=== PATIENT | female | born 1970 | race Hispanic/Latino ===

== ENCOUNTER 2018-04-28 07:53 | Emergency (ER) | payer BC, OTHER ==
--- OUTSIDE RECORDS SUMMARY | 2018-04-28 07:55 | XMS REPORT | Clinical Summary ---
:1970 Author Organization [facility] Address [address] [place] [address] Phone Care Team Providers Name Role Phone Unavailable Primary Care Provider Unavailable Allergies No Known Allergies Current Medications Prescription Sig. Disp. Refills Start Date End Date Status TRIAMTERENE ORAL Take 75 mg by mouth Active daily . clonazePAM (KLONOPIN) 1 Take 1 mg by mouth Active MG tablet 2 (two) times daily as needed for Anxiety One in AM, and one in the after noon. buprenorphine-naloxone Place 1 tablet Active 8-2 mg Subl under the tongue 2 (two) times daily. desvenlafaxine succinate Take 100 mg by Active (PRISTIQ) 100 MG 24 hr mouth daily. tablet metFORMIN (GLUCOPHAGE) Take 1,000 mg by Active 1000 MG tablet mouth 2 (two) times daily with breakfast and dinner. omeprazole (PRILOSEC) 40 Take 40 mg by mouth Active MG capsule daily. oxybutynin (DITROPAN-XL) Take 5 mg by mouth Active 5 MG 24 hr tablet 2 (two) times daily. ondansetron (ZOFRAN-ODT) Take 4 mg by mouth Active 4 MG disintegrating every 8 (eight) tablet hours as needed for Nausea. milnacipran (SAVELLA) 100 Take 100 mg by Active mg Tab mouth 2 (two) times daily. TiZANidine (ZANAFLEX) 4 Take 4 mg by mouth Active MG capsule 3 (three) times daily. nyynujuj-keojpfxuv-zgrlie For 10 days 3.5 g 0 04/19/2017 Active thasone (POLYDEX) 3.5 suppley. 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 Diabetes mellitus, type 2 (HCC) 04/15/2017 Opioid dependence ([facility]) 04/15/2017 Immunizations Name Dates Previously Given Next Due Tdap 04/16/2017 Social History Tobacco Use Types Packs/Day Years Used Date Former Smoker Alcohol Use Drinks/Week oz/Week Comments No Sex Assigned at Date Recorded Not on file Last Filed Vital Signs Not on file Plan of Treatment Not on file Results Not on fileafter 04/27/2017
--- OUTSIDE RECORDS SUMMARY | 2018-04-28 07:56 | XMS REPORT ---
:1970 [facility] Address [address] [place] [address] Dr. He [address] [place] [id number] Care Team Providers Name Role Phone NICKOLAS SINGH Unavailable Unavailable Problems This patient has no known problems. Allergies, Adverse Reactions, Alerts This patient has no known allergies or adverse reactions. Medications This patient has no known medications. Results Test Description Test Time Test Comments Text Results Atomic Results Result Comments ANAEROBIC CULTURE 2017-04-22 03:45:00 Test Item Value Reference Range Comments CULTURE (BEAKER) (test kbkk=9831) No anaerobes isolated TISSUE [id number] 15:59:00Surgical Pathology Report Case: [id number] Authorizing Provider: Jimenez Mcintosh MD Collected: 04/17/2017 1759 Ordering Location: [facility] Received: 04/18/2017 0801 SERVICES Pathologist: Antonette Mario MD Specimen: Eyelid , Left, Left eyelid abscess SKIN, LEFT EYELID, ABSCESS, DEBRIDEMENT:- SKIN WITH ABSCESS- GRAM POSITIVE COCCI IN CLUSTERS (DIONICIO) Please correlate with corresponding microbiology cultures. [id number]; [id number] x 3Left upper eyelid abscessLeft eyelid abscess The specimen is received in a formalin-filled container labeled with the patient's information and labeled "left eyelid abscess" and consists of multiple irregular fragments of montiel dusky soft tissue measuring 2 x 1 x 0.4 cm in aggregate, submitted entirely in A1. CG/ew AFB is negative for acid fast bacteria. GMS is negative for fungus.The following special studies were performed on this case and the interpretation is incorporated in the diagnostic report above: AFB, Dionicio, GMS (block A1).BLOOD [id number] 18:00 :00 Test Item Value Reference Range Comments CULTURE (BEAKER) (test azaf=2405) No growth in 5 days WOUND CULTURE + GRAM [id number] 08:51:00 Test Item Value Reference Range Comments CULTURE (BEAKER) (test METHICILLIN RESISTANT 1+ Methicillin yfux=3561) STAPHYLOCOCCUS AUREUS resistant Staphylococcus aureus Ampicillin (test code=26) Ciprofloxacin (test code=7) Clindamycin (test code=10) Daptomycin (test code=59) Erythromycin (test code=4) Gentamicin (test code=18) Gentamicin High Level Synergy (test cgnh=157) Levofloxacin (test code=22) Linezolid (test code=40) Moxifloxacin (test code=36) Nitrofurantoin (test code=23) Oxacillin (test code=14) Rifampin (test code=43) Streptomycin High Level Synergy (test kkxk=748) Tetracycline (test code=2) Tigecycline (test oefx=423) Trimethoprim + Sulfamethoxazole (test code=47) Vancomycin (test code=13) GRAM STAIN RESULT No WBCs (BEAKER) (test xeab=5340) GRAM STAIN RESULT No organisms seen (BEAKER) (test loea=048384) Florentin elieser=21SURGICALLY OBTAINED CULTURE + GRAM [id number] 07:47:00 Test Item Value Reference Range Comments CULTURE (BEAKER) (test 1+ Same organism has been gjxi=3815) isolated from cultures(s) of the same body site and collection date. Repeat identification and susceptibility testing performed only after consultation with the clinical microbiology laboratory.Refer to previous culture ofMethicillin resistant Staphylococcus aureus GRAM STAIN RESULT 1+ WBCs (BEAKER) (test rxjt=3020) GRAM STAIN RESULT No organisms seen (BEAKER) (test wbfp=334941) POCT-GLUCOSE [id number] 08:26:00 Test Item Value Reference Range Comments POC-GLUCOSE METER (BEAKER) 124 mg/dL 70-110 [facility]ED AT [facility] [address] [facility] (test pxmv=6588[facility] [address] CBC (HEMOGRAM ONLY)2017-04-19 06:23:00 Test Item Value Reference Range Comments WHITE BLOOD CELL COUNT (BEAKER) (test nsgw=650) 4.4 K/ L 4.0-10.0 RED BLOOD CELL COUNT (BEAKER) (test rbid=244) 3.56 M/ L 4.00-5.00 HEMOGLOBIN (BEAKER) (test lmuk=601) 10.8 GM/DL 12.0-15.0 HEMATOCRIT (BEAKER) (test sfnt=661) 32.7 % 36.0-45.0 MEAN CORPUSCULAR VOLUME (BEAKER) (test ggvs=451) 91.8 fL 82.0-99.0 MEAN CORPUSCULAR HEMOGLOBIN (BEAKER) (test 30.4 pg 27.0-33.0 mzpe=934) MEAN CORPUSCULAR HEMOGLOBIN CONC (BEAKER) (test 33.1 GM/DL 32.0-36.0 idet=799) RED CELL DISTRIBUTION WIDTH (BEAKER) (test 12.7 % 10.3-14.2 bipc=331) PLATELET COUNT (BEAKER) (test gxqc=707) 254 K/CU MM 150-430 MEAN PLATELET VOLUME (BEAKER) (test mwgf=019) 5.8 fL 6.5-10.5 NUCLEATED RED BLOOD CELLS (BEAKER) (test 0 /100 WBC 0-0 adsg=414) 0.00BASIC METABOLIC [id number] 05:40:00 Test Item Value Reference Range Comments SODIUM (BEAKER) (test 140 meq/L 136-145 fsgs=642) POTASSIUM (BEAKER) (test 3.7 meq/L 3.5-5.1 rzph=586) CHLORIDE (BEAKER) (test 106 meq/L 98-107 wbbr=029) CO2 (BEAKER) (test 26 meq/L 22-29 aihy=696) BLOOD UREA NITROGEN 4 mg/dL 7-21 (BEAKER) (test jmjn=077) CREATININE (BEAKER) (test 0.69 mg/dL 0.57-1.25 phyr=049) GLUCOSE RANDOM (BEAKER) 132 mg/dL 70-105 (test rasn=506) CALCIUM (BEAKER) (test 8.6 mg/dL 8.4-10.2 ciqf=412) EGFR (BEAKER) (test 91 mL/min/1.73 sq m ESTIMATED GFR IS NOT vmrt=1708) ACCURATE CREATININE CLEARANCE IN PREDICTING GLOMERULAR FILTRATION RATE. ESTIMATED GFR IS NOT APPLICABLE FOR DIALYSIS PATIENTS. POCT-GLUCOSE [id number] 21:12:00 Test Item Value Reference Range Comments POC-GLUCOSE METER (BEAKER) 154 mg/dL 70-110 TESTED AT [address] (test noci=4135) [place] [id number] POCT-GLUCOSE [id number] 16:18:00 Test Item Value Reference Range Comments POC-GLUCOSE METER (BEAKER) 137 mg/dL 70-110 TESTED AT [address] (test zvxh=6676) [place] [address] POCT-GLUCOSE [id number] 11:57:00 Test Item Value Reference Range Comments POC-GLUCOSE METER (BEAKER) 123 mg/dL 70-110 TESTED AT [address] (test jdpu=2842) [place] [address] POCT-GLUCOSE [id number] 07:25:00 Test Item Value Reference Range Comments POC-GLUCOSE METER (BEAKER) 126 mg/dL 70-110 TESTED AT [address] (test yxzw=0862) [place] [address] [id number] 05:33:00 Test Item Value Reference Range Comments MAGNESIUM (BEAKER) (test dbgp=307) 2.4 mg/dL 1.6-2.6 POCT-GLUCOSE [id number] 23:17:00 Test Item Value Reference Range Comments POC-GLUCOSE METER (BEAKER) 165 mg/dL 70-110 TESTED AT [address] (test eihs=9310) [place] [id number] POCT-GLUCOSE [id number] 18:35:00 Test Item Value Reference Range Comments POC-GLUCOSE METER (BEAKER) 110 mg/dL 70-110 TESTED AT [address] (test auav=4223) [place] [address] CBC W/PLT COUNT & AUTO [id number] 14:01:00 Test Item Value Reference Range Comments WHITE BLOOD CELL COUNT (BEAKER) (test rloh=892) 6.3 K/ L 4.0-10.0 RED BLOOD CELL COUNT (BEAKER) (test zjvb=881) 3.64 M/ L 4.00-5.00 HEMOGLOBIN (BEAKER) (test ouvg=690) 11.3 GM/DL 12.0-15.0 HEMATOCRIT (BEAKER) (test kozu=834) 33.6 % 36.0-45.0 MEAN CORPUSCULAR VOLUME (BEAKER) (test flnm=770) 92.3 fL 82.0-99.0 MEAN CORPUSCULAR HEMOGLOBIN (BEAKER) (test 31.0 pg 27.0-33.0 gxjw=850) MEAN CORPUSCULAR HEMOGLOBIN CONC (BEAKER) (test 33.6 GM/DL 32.0-36.0 bmhy=601) RED CELL DISTRIBUTION WIDTH (BEAKER) (test 12.7 % 10.3-14.2 gnqc=847) PLATELET COUNT (BEAKER) (test pufp=488) 249 K/CU MM 150-430 MEAN PLATELET VOLUME (BEAKER) (test ycvm=919) 5.9 fL 6.5-10.5 NUCLEATED RED BLOOD CELLS (BEAKER) (test 0 /100 WBC 0-0 xrbd=254) NEUTROPHILS RELATIVE PERCENT (BEAKER) (test 44 % iscy=938) LYMPHOCYTES RELATIVE PERCENT (BEAKER) (test 46 % kmni=258) MONOCYTES RELATIVE PERCENT (BEAKER) (test 7 % bbzr=238) EOSINOPHILS RELATIVE PERCENT (BEAKER) (test 2 % dsnb=958) BASOPHILS RELATIVE PERCENT (BEAKER) (test 1 % ghbj=457) NEUTROPHILS ABSOLUTE COUNT (BEAKER) (test 2.78 K/ L 1.80-8.00 qvek=968) LYMPHOCYTES ABSOLUTE COUNT (BEAKER) (test 2.91 K/ L 1.48-4.50 sisx=302) MONOCYTES ABSOLUTE COUNT (BEAKER) (test 0.43 K/ L 0.00-1.30 jlfz=219) EOSINOPHILS ABSOLUTE COUNT (BEAKER) (test 0.11 K/ L 0.00-0.50 myap=786) BASOPHILS ABSOLUTE COUNT (BEAKER) (test 0.04 K/ L 0.00-0.20 yxgc=860) 0.00(MANUAL DIFFERENTIAL)2017-04-17 14:01:00 Test Item Value Reference Range Comments TOTAL COUNTED (BEAKER) (test zudy=6658) WBC MORPHOLOGY (BEAKER) (test mgrx=807) Normal PLT MORPHOLOGY (BEAKER) (test tprk=511) Normal RBC MORPHOLOGY (BEAKER) (test ubrz=038) Normal POCT-GLUCOSE [id number] 12:17:00 Test Item Value Reference Range Comments POC-GLUCOSE METER (BEAKER) 131 mg/dL 70-110 TESTED AT [address] (test hxaa=4509) [facility] [address] POCT-GLUCOSE [id number] 08:36:00 Test Item Value Reference Range Comments POC-GLUCOSE METER (BEAKER) 128 mg/dL 70-110 TESTED AT [address] (test oopq=5183) [facility] [address] [id number] 06:13:00 Test Item Value Reference Range Comments MAGNESIUM (BEAKER) (test cfrf=727) 2.1 mg/dL 1.6-2.6 BASIC METABOLIC [id number] 06:13:00 Test Item Value Reference Range Comments SODIUM (BEAKER) (test 139 meq/L 136-145 fdxy=241) POTASSIUM (BEAKER) (test 3.6 meq/L 3.5-5.1 gclf=275) CHLORIDE (BEAKER) (test 102 meq/L 98-107 yzwa=411) CO2 (BEAKER) (test 28 meq/L 22-29 vpue=901) BLOOD UREA NITROGEN 4 mg/dL 7-21 (BEAKER) (test qeut=172) CREATININE (BEAKER) (test 0.63 mg/dL 0.57-1.25 nbhv=742) GLUCOSE RANDOM (BEAKER) 164 mg/dL 70-105 (test qcfj=547) CALCIUM (BEAKER) (test 8.6 mg/dL 8.4-10.2 nrdi=702) EGFR (BEAKER) (test 101 mL/min/1.73 sq m ESTIMATED GFR IS NOT jznn=8029) ACCURATE CREATININE CLEARANCE IN PREDICTING GLOMERULAR FILTRATION RATE. ESTIMATED GFR IS NOT APPLICABLE FOR DIALYSIS PATIENTS. POCT-GLUCOSE [id number] 20:32:00 Test Item Value Reference Range Comments POC-GLUCOSE METER (BEAKER) 131 mg/dL 70-110 TESTED AT [address] (test yvah=5605) [facility] [address] POCT-GLUCOSE [id number] 19:08:00 Test Item Value Reference Range Comments POC-GLUCOSE METER (BEAKER) 126 mg/dL 70-110 TESTED AT [address] (test glzq=8730) [facility] [address] POCT-GLUCOSE [id number] 12:51:00 Test Item Value Reference Range Comments POC-GLUCOSE METER (BEAKER) 178 mg/dL 70-110 TESTED AT [facility] [address] [facility] (test ipmo=0617) [facility] [address] POCT-GLUCOSE [id number] 08:42:00 Test Item Value Reference Range Comments POC-GLUCOSE METER (BEAKER) 131 mg/dL 70-110 TESTED AT [place] [id number] [facility] (test tqze=1196) [facility] [address] CBC W/PLT COUNT & AUTO [id number] 06:32:00 Test Item Value Reference Range Comments WHITE BLOOD CELL COUNT (BEAKER) (test iysd=788) 8.2 K/ L 4.0-10.0 RED BLOOD CELL COUNT (BEAKER) (test sheh=218) 4.07 M/ L 4.00-5.00 HEMOGLOBIN (BEAKER) (test knpp=884) 12.5 GM/DL 12.0-15.0 HEMATOCRIT (BEAKER) (test rjya=809) 37.0 % 36.0-45.0 MEAN CORPUSCULAR VOLUME (BEAKER) (test orzi=197) 91.0 fL 82.0-99.0 MEAN CORPUSCULAR HEMOGLOBIN (BEAKER) (test 30.8 pg 27.0-33.0 awjc=254) MEAN CORPUSCULAR HEMOGLOBIN CONC (BEAKER) (test 33.8 GM/DL 32.0-36.0 bycm=826) RED CELL DISTRIBUTION WIDTH (BEAKER) (test 12.7 % 10.3-14.2 bvqq=173) PLATELET COUNT (BEAKER) (test amcv=476) 256 K/CU MM 150-430 MEAN PLATELET VOLUME (BEAKER) (test kerm=019) 5.7 fL 6.5-10.5 NUCLEATED RED BLOOD CELLS (BEAKER) (test 0 /100 WBC 0-0 nvom=730) NEUTROPHILS RELATIVE PERCENT (BEAKER) (test 55 % usak=099) LYMPHOCYTES RELATIVE PERCENT (BEAKER) (test 36 % fjpo=287) MONOCYTES RELATIVE PERCENT (BEAKER) (test 7 % iixw=025) EOSINOPHILS RELATIVE PERCENT (BEAKER) (test 1 % vaom=276) BASOPHILS RELATIVE PERCENT (BEAKER) (test 1 % venu=871) NEUTROPHILS ABSOLUTE COUNT (BEAKER) (test 4.49 K/ L 1.80-8.00 ygsr=967) LYMPHOCYTES ABSOLUTE COUNT (BEAKER) (test 2.97 K/ L 1.48-4.50 jgfv=862) MONOCYTES ABSOLUTE COUNT (BEAKER) (test 0.57 K/ L 0.00-1.30 tura=484) EOSINOPHILS ABSOLUTE COUNT (BEAKER) (test 0.08 K/ L 0.00-0.50 vnhk=768) BASOPHILS ABSOLUTE COUNT (BEAKER) (test 0.07 K/ L 0.00-0.20 ivgb=709) [id number] 05:46:00 Test Item Value Reference Range Comments MAGNESIUM (BEAKER) (test vrpr=611) 2.2 mg/dL 1.6-2.6 BASIC METABOLIC [id number] 05:46:00 Test Item Value Reference Range Comments SODIUM (BEAKER) (test 140 meq/L 136-145 tdrx=293) POTASSIUM (BEAKER) (test 3.6 meq/L 3.5-5.1 knwi=835) CHLORIDE (BEAKER) (test 100 meq/L 98-107 yeaf=161) CO2 (BEAKER) (test 32 meq/L 22-29 svbp=895) BLOOD UREA NITROGEN 4 mg/dL 7-21 (BEAKER) (test ahoc=066) CREATININE (BEAKER) (test 0.65 mg/dL 0.57-1.25 kwjc=407) GLUCOSE RANDOM (BEAKER) 129 mg/dL 70-105 (test wlga=518) CALCIUM (BEAKER) (test 8.8 mg/dL 8.4-10.2 ptsp=381) EGFR (BEAKER) (test 97 mL/min/1.73 sq m ESTIMATED GFR IS NOT bncv=5945) ACCURATE CREATININE CLEARANCE IN PREDICTING GLOMERULAR FILTRATION RATE. ESTIMATED GFR IS NOT APPLICABLE FOR DIALYSIS PATIENTS. POCT-GLUCOSE [id number] 21:26:00 Test Item Value Reference Range Comments POC-GLUCOSE METER (BEAKER) 150 mg/dL 70-110 TESTED AT [facility] [address] [facility] (test oaul=2079) [place] [id number] POCT-GLUCOSE [id number] 18:03:00 Test Item Value Reference Range Comments POC-GLUCOSE METER (BEAKER) 102 mg/dL 70-110 TESTED AT [facility] [address] [facility] (test qvwk=6672) [place] [address] HCG, QUANTITATIVE, [id number] 14:05:00 Test Item Value Reference Range Comments GONADOTROPIN, CHORIONIC (HCG) QUANT (BEAKER) (test < mIU/mL 0-10 rpkr=979) Non- Females: <10 mIU/mL Females: Gestation Age Reference Range(mIU/mL) 0.2-1 Week 5-50 1-2 Weeks 50-500 2-3 Weeks 100-5,000 3-4Weeks 500-10,000 4 -5 Weeks 1,000-50,000 5-6 Weeks 10,000-100,000 6-8 Weeks 15,000-200,000 2-3 Months 10,000-100,000BASIC METABOLIC [id number] 14:02:00 Test Item Value Reference Range Comments SODIUM (BEAKER) (test 138 meq/L 136-145 notp=588) POTASSIUM (BEAKER) (test 3.4 meq/L 3.5-5.1 scgj=070) CHLORIDE (BEAKER) (test 95 meq/L 98-107 hgio=912) CO2 (BEAKER) (test 33 meq/L 22-29 pffo=541) BLOOD UREA NITROGEN 6 mg/dL 7-21 (BEAKER) (test dcaj=866) CREATININE (BEAKER) (test 0.77 mg/dL 0.57-1.25 mwuz=329) GLUCOSE RANDOM (BEAKER) 110 mg/dL 70-105 (test uuah=101) CALCIUM (BEAKER) (test 9.2 mg/dL 8.4-10.2 uzli=658) EGFR (BEAKER) (test 80 mL/min/1.73 sq m ESTIMATED GFR IS NOT whnp=6484) ACCURATE CREATININE CLEARANCE IN PREDICTING GLOMERULAR FILTRATION RATE. ESTIMATED GFR IS NOT APPLICABLE FOR DIALYSIS PATIENTS. HEMOGLOBIN [id number] 13:58:00 Test Item Value Reference Range Comments HEMOGLOBIN A1C (BEAKER) (test mjdn=624) 6.7 % 4.3-6.1 CBC W/PLT COUNT & AUTO [id number] 13:39:00 Test Item Value Reference Range Comments WHITE BLOOD CELL COUNT (BEAKER) (test diux=134) 10.8 K/ L 4.0-10.0 RED BLOOD CELL COUNT (BEAKER) (test ywpg=710) 4.12 M/ L 4.00-5.00 HEMOGLOBIN (BEAKER) (test jheb=085) 12.9 GM/DL 12.0-15.0 HEMATOCRIT (BEAKER) (test fcyo=673) 36.9 % 36.0-45.0 MEAN CORPUSCULAR VOLUME (BEAKER) (test oowy=036) 89.7 fL 82.0-99.0 MEAN CORPUSCULAR HEMOGLOBIN (BEAKER) (test 31.3 pg 27.0-33.0 zeix=835) MEAN CORPUSCULAR HEMOGLOBIN CONC (BEAKER) (test 34.9 GM/DL 32.0-36.0 coom=506) RED CELL DISTRIBUTION WIDTH (BEAKER) (test 14.5 % 10.3-14.2 mzwy=195) PLATELET COUNT (BEAKER) (test pmdf=155) 256 K/CU MM 150-430 MEAN PLATELET VOLUME (BEAKER) (test hmpv=766) 6.0 fL 6.5-10.5 NUCLEATED RED BLOOD CELLS (BEAKER) (test 0 /100 WBC 0-0 eqnj=059) NEUTROPHILS RELATIVE PERCENT (BEAKER) (test 70 % egke=073) LYMPHOCYTES RELATIVE PERCENT (BEAKER) (test 23 % jueu=631) MONOCYTES RELATIVE PERCENT (BEAKER) (test 5 % lxde=370) EOSINOPHILS RELATIVE PERCENT (BEAKER) (test 1 % rmsj=384) BASOPHILS RELATIVE PERCENT (BEAKER) (test 1 % gksm=816) NEUTROPHILS ABSOLUTE COUNT (BEAKER) (test 7.61 K/ L 1.80-8.00 lqdb=222) LYMPHOCYTES ABSOLUTE COUNT (BEAKER) (test 2.50 K/ L 1.48-4.50 oxsa=054) MONOCYTES ABSOLUTE COUNT (BEAKER) (test 0.55 K/ L 0.00-1.30 ypql=595) EOSINOPHILS ABSOLUTE COUNT (BEAKER) (test 0.09 K/ L 0.00-0.50 igrd=055) BASOPHILS ABSOLUTE COUNT (BEAKER) (test 0.08 K/ L 0.00-0.20 dlxq=593) 0.00POCT-GLUCOSE [id number] 11:42:00 Test Item Value Reference Range Comments POC-GLUCOSE METER (BEAKER) 124 mg/dL 70-110 TESTED AT [facility] [address] [facility] (test kjaz=2379) [facility] [address]
--- NOTE | 2018-04-28 09:00 | ER ---
Nurse's Notes [facility] Name: Sharon Babin Age: 47 yrs Sex: Female : 1970 Arrival Date: 04/28/2018 Time: 07:58 Bed 5 Private MD: Nestor Medina V Diagnosis: soft tissue infection;Underdosing of benzodiazepines-causing withdrawl symptoms Presentation: 04/28 07:59 Presenting complaint: Patient states: i felt a node or lump inside the R side of my hj nose that is painful and started last 3 days ago, now the pain spreads all over the L side of my face and under my jaw, states hx of staph infection; denies numbness and tingling; denies fever and chills;. Transition of care: patient was not received from another setting of care. Onset of symptoms was April 28, 2018. Risk Assessment: Do you want to hurt yourself or someone else? Patient reports no desire to harm self or others. Initial Sepsis Screen: Does the patient meet any 2 criteria? No. Patient's initial sepsis screen is negative. Does the patient have a suspected source of infection? No. Patient's initial sepsis screen is negative. Care prior to arrival: None. 07:59 Method Of Arrival: Ambulatory 07:59 Acuity: XIMENA 4 Triage Assessment: 08:03 General: Appears in no apparent distress. uncomfortable, Behavior is calm, cooperative, hj appropriate for age. Pain: Complains of pain in face Pain currently is 9 out of 10 on a pain scale. CLASSROOM MONITOR: 08:04 LMP 04/21/2018 Historical: - Allergies: 08:03 No Known Allergies; hj - Home Meds: 08:03 diazepam 2 mg Oral tab 1 tab nightly for Anxiety [Active]; Klonopin 1 mg Oral tab [Active]; metformin 1,000 mg Oral tab 2 times per day for Type 2 Diabetes Mellitus [Active]; omeprazole 40 mg Oral cpDR 1 cap once daily [Active]; ondansetron HCl 4 mg Oral tab 1 tab every 8 hours [Active]; oxybutynin chloride 5 mg Oral tab 1 tab 2 times per day [Active]; pantoprazole 40 mg Oral TbEC 1 tab before first meal of the day [Active]; Pristiq 100 mg Oral Tb24 1 tab once daily [Active]; propranolol 60 mg Oral tab 1 tab daily [Active]; Saphris (black vazquez) 10 mg sublingual subl 1 tab 2 times per day [Active]; Savella 100 mg Oral tab 1 tab 2 times per day for Fibromyalgia [Active]; Suboxone 8 MG 1 film under tongue twice a day for OPIOID DEPENDENCY [Active]; tizanidine 4 mg Oral tab 1 tab every 8 hours [Active]; triamterene-hydrochlorothiazid 37.5-25 mg Oral cap 1 cap once daily for Hypertension [Active]; - PMHx: 08:03 Diabetes - NIDDM; Hypertension; Lupus; hj - PSHx: 08:03 Back Surgery; Carpal Tunnel Repair; Breast Augmentation; Tummy Tuck; ; Elbow; hj - Immunization history:: Adult Immunizations up to date. - Social history:: Smoking status: Patient uses tobacco products, denies chronic smoking, but will smoke occasionally, Patient/guardian denies using alcohol. - Ebola Screening: : Patient negative for fever greater than or equal to 101.5 degrees Fahrenheit, and additional compatible Ebola Virus Disease symptoms Patient denies exposure to infectious person Patient denies travel to an Ebola-affected area in the 21 days before illness onset. Screenin:03 Abuse screen: Denies threats or abuse. Denies injuries from another. Nutritional hj screening: No deficits noted. Tuberculosis screening: No symptoms or risk factors identified. Fall Risk None identified. Assessment: 08:15 General: Appears in no apparent distress. uncomfortable, Behavior is calm, cooperative, jl7 Pt states "I'm going through benzo withdrawals because I ran out of my anxiety meds a few days ago and I have 3 days before I can refill them. I've just been really anxious lately.". Pain: Complains of pain in bridge of nose Pain does not radiate. Pain currently is 8 out of 10 on a pain scale. Quality of pain is described as "Pain" Pain began 2-3 days ago. Is continuous. Neuro: Level of Consciousness is awake, alert, obeys commands. Cardiovascular: Patient's skin is warm and dry. Respiratory: Airway is patent Respiratory effort is even, unlabored, Respiratory pattern is regular, symmetrical. EENT: Nares swelling noted to right nares. Derm: Skin is pink, warm \\T\\ dry. Vital Signs: 08:04 BP 147 / 74; Pulse 120; Resp 18; Temp 98.2(O); Pulse Ox 99% on R/A; Weight 113.4 kg; hj Height 5 ft. 6 in. (167.64 cm); Pain 9/10; 09:05 BP 146 / 81; Pulse 118; Resp 18; Pulse Ox 95% ; jl7 09:26 BP 146 / 81; Pulse 117; Resp 17; Temp 98.6; Pulse Ox 99% on R/A; sm4 08:04 Body Mass Index 40.35 (113.40 kg, 167.64 cm) ED Course: 07:58 Patient arrived in ED. mr 07:59 Nestor Medina MD is Private Physician. mr 08:01 Triage completed. 08:04 Arm band placed on left wrist. 08:04 Patient has correct armband on for positive identification. Bed in low position. Call light in reach. Side rails up X 1. Adult w/ patient. 08:07 Jamal Wolfe MD is Attending Physician. 08:10 Rasta Wright, RN is Primary Nurse. jl7 09:05 No provider procedures requiring assistance completed. Patient did not have IV access jl7 during this emergency room visit. Administered Medications: No medications were administered Outcome: 09:00 Discharge ordered by . 09:24 Discharged to home ambulatory, with family. 4 09:24 Condition: stable 09:24 Discharge instructions given to patient, family, Instructed on discharge instructions, follow up and referral plans. medication usage, Demonstrated understanding of instructions, follow-up care, medications, Prescriptions given X 1, 2. 09:28 Patient left the ED. 4 Signatures: Yanna BerkowitzuinPierre, RN RN Rasta Wright RN RN jl7 Jamal Wolfe MD MD Lopez Allred RN RN 4 Corrections: (The following items were deleted from the chart) 08:07 08:04 Pulse 119bpm; Resp 18bpm; Pulse Ox 99% RA; Temp 98.2F Oral; 113.4 kg; Height 5 hj ft. 6 in.; BMI: 40.3; Pain 9/10; hj
--- NOTE | 2018-04-28 09:01 | EDPHYS ---
Physician Documentation [facility] Name: Sharon Babin Age: 47 yrs Sex: Female : 1970 Arrival Date: 04/28/2018 Time: 07:58 Bed 5 Private MD: Nestor Medina V ED Physician Jamal Wolfe HPI: 04/28 08:31 This 47 yrs old Female presents to ER via Ambulatory with complaints of Facial gs Pain. 08:31 the patient presents with a swollen area of the bridge of nose right side. Description: gs The affected area is small, confluent, localized, indurated. Onset: The symptoms/episode began/occurred 2 day(s) ago. Associated signs and symptoms: Pertinent positives: swelling, Pertinent negatives: drainage, erythema. Modifying factors: the symptoms are alleviated by nothing, the symptoms are aggravated by touching. Severity of symptoms: At their worst the symptoms were moderate, in the emergency department the symptoms are unchanged. The patient has experienced a previous episode. 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 Historical: - Allergies: 08:03 No Known Allergies; hj - Home Meds: 08:03 diazepam 2 mg Oral tab 1 tab nightly for Anxiety [Active]; Klonopin 1 mg Oral tab hj [Active]; metformin 1,000 mg Oral tab 2 times per day for Type 2 Diabetes Mellitus [Active]; omeprazole 40 mg Oral cpDR 1 cap once daily [Active]; ondansetron HCl 4 mg Oral tab 1 tab every 8 hours [Active]; oxybutynin chloride 5 mg Oral tab 1 tab 2 times per day [Active]; pantoprazole 40 mg Oral TbEC 1 tab before first meal of the day [Active]; Pristiq 100 mg Oral Tb24 1 tab once daily [Active]; propranolol 60 mg Oral tab 1 tab daily [Active]; Saphris (black vazquez) 10 mg sublingual subl 1 tab 2 times per day [Active]; Savella 100 mg Oral tab 1 tab 2 times per day for Fibromyalgia [Active]; Suboxone 8 MG 1 film under tongue twice a day for OPIOID DEPENDENCY [Active]; tizanidine 4 mg Oral tab 1 tab every 8 hours [Active]; triamterene-hydrochlorothiazid 37.5-25 mg Oral cap 1 cap once daily for Hypertension [Active]; - PMHx: 08:03 Diabetes - NIDDM; Hypertension; Lupus; hj - PSHx: 08:03 Back Surgery; Carpal Tunnel Repair; Breast Augmentation; Tummy Tuck; ; Elbow; hj - Immunization history:: Adult Immunizations up to date. - Social history:: Smoking status: Patient uses tobacco products, denies chronic smoking, but will smoke occasionally, Patient/guardian denies using alcohol. - Ebola Screening: : Patient negative for fever greater than or equal to 101.5 degrees Fahrenheit, and additional compatible Ebola Virus Disease symptoms Patient denies exposure to infectious person Patient denies travel to an Ebola-affected area in the 21 days before illness onset. ROS: 08:31 All other systems are negative. gs Exam: 08:31 Head/Face: Normocephalic, atraumatic. Eyes: Pupils equal round and reactive to light, gs extra-ocular motions intact. Lids and lashes normal. Conjunctiva and sclera are non-icteric and not injected. Cornea within normal limits. Periorbital areas with no swelling, redness, or edema. Neck: Trachea midline, no thyromegaly or masses palpated, and no cervical lymphadenopathy. Supple, full range of motion without nuchal rigidity, or vertebral point tenderness. No Meningismus. Chest/axilla: Normal chest wall appearance and motion. Nontender with no deformity. No lesions are appreciated. Respiratory: Lungs have equal breath sounds bilaterally, clear to auscultation and percussion. No rales, rhonchi or wheezes noted. No increased work of breathing, no retractions or nasal flaring. Abdomen/GI: Soft, non-tender, with normal bowel sounds. No distension or tympany. No guarding or rebound. No evidence of tenderness throughout. Back: No spinal tenderness. No costovertebral tenderness. Full range of motion. MS/ Extremity: Pulses equal, no cyanosis. Neurovascular intact. Full, normal range of motion. 08:31 Constitutional: The patient appears alert, awake. 08:31 ENT: Nose: External nose: swelling is noted, bridge of nose, small indurated confluent area 1x1 cm very tender reproduces symptoms. 08:31 Cardiovascular: Rate: tachycardic, Rhythm: regular, Pulses: no pulse deficits are appreciated. 08:31 Skin: cellulitis, is not appreciated. gs Vital Signs: 08:04 BP 147 / 74; Pulse 120; Resp 18; Temp 98.2(O); Pulse Ox 99% on R/A; Weight 113.4 kg; Height 5 ft. 6 in. (167.64 cm); Pain 9/10; 09:05 BP 146 / 81; Pulse 118; Resp 18; Pulse Ox 95% ; jl7 09:26 BP 146 / 81; Pulse 117; Resp 17; Temp 98.6; Pulse Ox 99% on R/A; sm4 08:04 Body Mass Index 40.35 (113.40 kg, 167.64 cm) MDM: 08:31 Patient medically screened. 08:31 Differential diagnosis: abscess, cellulitis. Data reviewed: vital signs, nurses notes. 08:54 ED course: pt states is tachy cause in benzo withdrawal out of klonopin for a few days no refills avail for 3 days, have spoken to dr mooney her psychiatrist will follow up . will give her emergency 3 day supply.. Administered Medications: No medications were administered Disposition: 04/28/18 09:00 Discharged to Home. Impression: soft tissue infection, Underdosing of benzodiazepines - causing withdrawl symptoms. - Condition is Stable. - Prescriptions for Clindamycin HCl 150 mg Oral Capsule - take 2 capsule by ORAL route every 8 hours for 7 days; 42 capsule. Klonopin 1 mg Oral Tablet - take 1 tablet by ORAL route every 12 hours As needed; 8 tablet. - Medication Reconciliation Form, Thank You Letter, Antibiotic Education, Prescription Opioid Use form. - Follow up: Private Physician; When: 2 - 3 days; Reason: Re-evaluation by your physician. Signatures: Pierre Light RN RN Jamal Wolfe MD MD Lopez Allred RN RN sm4 Corrections: (The following items were deleted from the chart) 09:12 08:54 ED course: pt states is tachy cause in benzo withdrawal out of klonopin for a few days no refills avail for 3 days, have spoken to dr mooney her psychiatrist. 09:28 09:00 04/28/2018 09:00 Discharged to Home. Impression: soft tissue infection; sm4 Underdosing of benzodiazepines - causing withdrawl symptoms. Condition is Stable. Forms are Medication Reconciliation Form, Thank You Letter, Antibiotic Education, Prescription Opioid Use. Follow up: Private Physician; When: 2 - 3 days; Reason: Re-evaluation by your physician. gs
[2018-04-28 09:34] VITALS: BP 146/81
[2018-04-28 09:35] VITALS: TEMP 98.6; O2SAT 99
== END 2018-04-28 09:28 | disposition home or self-care (01) ==
LOC: ER 07:53
DX: L08.9 Local infection of the skin and subcutaneous tissue, unspecified (principal); T42.4X6A Underdosing of benzodiazepines, initial encounter; E11.9 Type 2 diabetes mellitus without complications; I10 Essential (primary) hypertension; M32.9 Systemic lupus erythematosus, unspecified; Y92.9 Unspecified place or not applicable
CPT/HCPCS: 99282

== ENCOUNTER 2019-12-17 09:32 | Day surgery (SDC) | payer BC ==
--- NOTE | 2019-12-15 08:25 | EKG ---
Test Date: 2019-12-14 Test Time: 12:59:56 Tent Assembler: ROCIO MEASUREMENT RESULTS: Intervals: Rate: 92 MI: 202 QRSD: 102 QT: 382 QTc: 472 Hall: P: 68 MI: 202 QRS: 26 T: 47 INTERPRETIVE STATEMENTS: Normal sinus rhythm Low voltage QRS Borderline ECG Compared to ECG 04/02/2017 17:17:26 Low QRS voltage now present Sinus tachycardia no longer present Myocardial infarct finding no longer present Electronically Signed On 12-15-19 08:24:59 ADMISSIONS COUNSELOR by Gorge Sargent
--- OUTSIDE RECORDS SUMMARY | 2019-12-17 09:35 | XMS REPORT ---
:1970 [facility] Address [address] [place] [address] [address] [place] [address] Care Team Providers Name Role Phone NICKOLAS SINGH Unavailable Unavailable Problems This patient has no known problems. Allergies, Adverse Reactions, Alerts This patient has no known allergies or adverse reactions. Medications This patient has no known medications. Results Test Description Test Time Test Comments Text Results Atomic Results Result Comments ANAEROBIC CULTURE 2017-04-22 03:45:00 Test Item Value Reference Range Comments CULTURE (BEAKER) (test qmdm=5511) No anaerobes isolated TISSUE [id number] 15:59:00Surgical Pathology Report Case: [id number] Authorizing Provider: Jimenez Mcintosh MD Collected: 04/17/2017 1759 Ordering Location: [facility] Received: 04/18/2017 0801 SERVICES Pathologist: Antonette Mario MD Specimen: Eyelid , Left, Left eyelid abscess SKIN, LEFT EYELID, ABSCESS, DEBRIDEMENT:- SKIN WITH ABSCESS- GRAM POSITIVE COCCI IN CLUSTERS (DIONICIO) Please correlate with corresponding microbiology cultures. [id number]; 12598 x 3Left upper eyelid abscessLeft eyelid abscess [...] incorporated in the diagnostic report above: AFB, Dionicio [facility] (block A1).BLOOD [id number] 18:00 :00 Test Item Value Reference Range Comments CULTURE (BEAKER) (test kkfl=2599) No growth in 5 days WOUND CULTURE + GRAM [id number] 08:51:00 Test Item Value Reference Range Comments CULTURE (BEAKER) (test METHICILLIN RESISTANT 1+ Methicillin rkbm=8963) STAPHYLOCOCCUS AUREUS resistant Staphylococcus aureus Ampicillin (test code=26) Ciprofloxacin (test code=7) Clindamycin (test code=10) Daptomycin (test code=59) Erythromycin (test code=4) Gentamicin (test code=18) Gentamicin High Level Synergy (test ymzn=585) Levofloxacin (test code=22) Linezolid (test code=40) Moxifloxacin (test code=36) Nitrofurantoin (test code=23) Oxacillin (test code=14) Rifampin (test code=43) Streptomycin High Level Synergy (test pmbr=694) Tetracycline (test code=2) Tigecycline (test ptas=675) Trimethoprim + Sulfamethoxazole (test code=47) Vancomycin (test code=13) GRAM STAIN RESULT No WBCs (BEAKER) (test uebp=8266) GRAM STAIN RESULT No organisms seen (BEAKER) (test ggvz=405801) Florentin elieser=21SURGICALLY OBTAINED CULTURE + GRAM [id number] 07:47:00 Test Item Value Reference Range Comments CULTURE (BEAKER) (test 1+ Same organism has been cbxs=2012) isolated from cultures(s) of the same body site and collection date. Repeat identification and susceptibility testing performed only after consultation with the clinical microbiology laboratory.Refer to previous culture ofMethicillin resistant Staphylococcus aureus GRAM STAIN RESULT 1+ WBCs (BEAKER) (test bjte=2014) GRAM STAIN RESULT No organisms seen (BEAKER) (test rekc=794301) POCT-GLUCOSE [id number] 08:26:00 Test Item Value Reference Range Comments POC-GLUCOSE METER (BEAKER) 124 mg/dL 70-[address] [facility] [address] [facility]test cukh=5308) [facility] [address] CBC (HEMOGRAM ONLY)2017-04-19 06:23:00 Test Item Value Reference Range Comments WHITE BLOOD CELL COUNT (BEAKER) (test tsjy=048) 4.4 K/ L 4.0-10.0 RED BLOOD CELL COUNT (BEAKER) (test rknj=560) 3.56 M/ L 4.00-5.00 HEMOGLOBIN (BEAKER) (test zttw=857) 10.8 GM/DL 12.0-15.0 HEMATOCRIT (BEAKER) (test hqgs=259) 32.7 % 36.0-45.0 MEAN CORPUSCULAR VOLUME (BEAKER) (test gwag=060) 91.8 fL 82.0-99.0 MEAN CORPUSCULAR HEMOGLOBIN (BEAKER) (test 30.4 pg 27.0-33.0 xinl=867) MEAN CORPUSCULAR HEMOGLOBIN CONC (BEAKER) (test 33.1 GM/DL 32.0-36.0 ekwl=208) RED CELL DISTRIBUTION WIDTH (BEAKER) (test 12.7 % 10.3-14.2 qder=189) PLATELET COUNT (BEAKER) (test mxvi=714) 254 K/CU MM 150-430 MEAN PLATELET VOLUME (BEAKER) (test jsxu=678) 5.8 fL 6.5-10.5 NUCLEATED RED BLOOD CELLS (BEAKER) (test 0 /100 WBC 0-0 xpui=751) 0.00BASI METABOLIC [id number] 05:40:00 Test Item Value Reference Range Comments SODIUM (BEAKER) (test 140 meq/L 136-145 neqh=780) POTASSIUM (BEAKER) (test 3.7 meq/L 3.5-5.1 zstl=088) CHLORIDE (BEAKER) (test 106 meq/L 98-107 wxxv=136) CO2 (BEAKER) (test 26 meq/L 22-29 ceeo=250) BLOOD UREA NITROGEN 4 mg/dL 7-21 (BEAKER) (test avni=112) CREATININE (BEAKER) (test 0.69 mg/dL 0.57-1.25 zfpi=199) GLUCOSE RANDOM (BEAKER) 132 mg/dL 70-105 (test ykix=071) CALCIUM (BEAKER) (test 8.6 mg/dL 8.4-10.2 wmsg=567) EGFR (BEAKER) (test 91 mL/min/1.73 sq m ESTIMATED GFR IS NOT ehpw=9333) ACCURATE CREATININE CLEARANCE IN PREDICTING GLOMERULAR FILTRATION RATE. ESTIMATED GFR IS NOT APPLICABLE FOR DIALYSIS PATIENTS. POCT-GLUCOSE [id number] 21:12:00 Test Item Value Reference Range Comments POC-GLUCOSE METER (BEAKER) 154 mg/dL 70-110 TESTED AT [address] (test adqv=2487) [place] [address] POCT-GLUCOSE [id number] 16:18:00 Test Item Value Reference Range Comments POC-GLUCOSE METER (BEAKER) 137 mg/dL 70-110 TESTED AT [address] (test xwyn=7161) [place] [address] POCT-GLUCOSE [id number] 11:57:00 Test Item Value Reference Range Comments POC-GLUCOSE METER (BEAKER) 123 mg/dL 70-110 TESTED AT [address] (test oeeo=4852) [place] [address] POCT-GLUCOSE [id number] 07:25:00 Test Item Value Reference Range Comments POC-GLUCOSE METER (BEAKER) 126 mg/dL 70-110 TESTED AT [address] (test spfn=7997) [place] [address] [id number] 05:33:00 Test Item Value Reference Range Comments MAGNESIUM (BEAKER) (test mcmu=047) 2.4 mg/dL 1.6-2.6 POCT-GLUCOSE [id number] 23:17:00 Test Item Value Reference Range Comments POC-GLUCOSE METER (BEAKER) 165 mg/dL 70-110 TESTED AT [address] (test fqxu=8505) [place] [address] POCT-GLUCOSE [id number] 18:35:00 Test Item Value Reference Range Comments POC-GLUCOSE METER (BEAKER) 110 mg/dL 70-110 TESTED AT [address] (test aljb=5220) [place] [address] CBC W/PLT COUNT & AUTO [id number] 14:01:00 Test Item Value Reference Range Comments WHITE BLOOD CELL COUNT (BEAKER) (test upgd=739) 6.3 K/ L 4.0-10.0 RED BLOOD CELL COUNT (BEAKER) (test xrhn=267) 3.64 M/ L 4.00-5.00 HEMOGLOBIN (BEAKER) (test zadn=906) 11.3 GM/DL 12.0-15.0 HEMATOCRIT (BEAKER) (test mvsi=228) 33.6 % 36.0-45.0 MEAN CORPUSCULAR VOLUME (BEAKER) (test uovi=495) 92.3 fL 82.0-99.0 MEAN CORPUSCULAR HEMOGLOBIN (BEAKER) (test 31.0 pg 27.0-33.0 dpuw=590) MEAN CORPUSCULAR HEMOGLOBIN CONC (BEAKER) (test 33.6 GM/DL 32.0-36.0 bfqe=228) RED CELL DISTRIBUTION WIDTH (BEAKER) (test 12.7 % 10.3-14.2 tysa=911) PLATELET COUNT (BEAKER) (test ddef=351) 249 K/CU MM 150-430 MEAN PLATELET VOLUME (BEAKER) (test egdh=222) 5.9 fL 6.5-10.5 NUCLEATED RED BLOOD CELLS (BEAKER) (test 0 /100 WBC 0-0 xqay=770) NEUTROPHILS RELATIVE PERCENT (BEAKER) (test 44 % fwux=630) LYMPHOCYTES RELATIVE PERCENT (BEAKER) (test 46 % bqoz=274) MONOCYTES RELATIVE PERCENT (BEAKER) (test 7 % knpq=012) EOSINOPHILS RELATIVE PERCENT (BEAKER) (test 2 % npno=196) BASOPHILS RELATIVE PERCENT (BEAKER) (test 1 % tokq=591) NEUTROPHILS ABSOLUTE COUNT (BEAKER) (test 2.78 K/ L 1.80-8.00 rnrd=276) LYMPHOCYTES ABSOLUTE COUNT (BEAKER) (test 2.91 K/ L 1.48-4.50 ogjz=603) MONOCYTES ABSOLUTE COUNT (BEAKER) (test 0.43 K/ L 0.00-1.30 stvv=307) EOSINOPHILS ABSOLUTE COUNT (BEAKER) (test 0.11 K/ L 0.00-0.50 bbug=049) BASOPHILS ABSOLUTE COUNT (BEAKER) (test 0.04 K/ L 0.00-0.20 ayow=263) 0.00(MANUAL DIFFERENTIAL)2017-04-17 14:01:00 Test Item Value Reference Range Comments TOTAL COUNTED (BEAKER) (test lynf=1338) WBC MORPHOLOGY (BEAKER) (test iqso=768) Normal PLT MORPHOLOGY (BEAKER) (test lbzq=989) Normal RBC MORPHOLOGY (BEAKER) (test zpsf=508) Normal POCT-GLUCOSE [id number] 12:17:00 Test Item Value Reference Range Comments POC-GLUCOSE METER (BEAKER) 131 mg/dL 70-110 TESTED AT [address] (test gcop=2639) [facility] [address] POCT-GLUCOSE [id number] 08:36:00 Test Item Value Reference Range Comments POC-GLUCOSE METER (BEAKER) 128 mg/dL 70-110 TESTED AT [address] (test efsd=1286) [place] [address] [id number] 06:13:00 Test Item Value Reference Range Comments MAGNESIUM (BEAKER) (test awbb=695) 2.1 mg/dL 1.6-2.6 BASIC METABOLIC [id number] 06:13:00 Test Item Value Reference Range Comments SODIUM (BEAKER) (test 139 meq/L 136-145 vdfy=541) POTASSIUM (BEAKER) (test 3.6 meq/L 3.5-5.1 fuyb=429) CHLORIDE (BEAKER) (test 102 meq/L 98-107 mxrl=276) CO2 (BEAKER) (test 28 meq/L 22-29 lylt=872) BLOOD UREA NITROGEN 4 mg/dL 7-21 (BEAKER) (test dnhr=748) CREATININE (BEAKER) (test 0.63 mg/dL 0.57-1.25 azrt=631) GLUCOSE RANDOM (BEAKER) 164 mg/dL 70-105 (test ofds=924) CALCIUM (BEAKER) (test 8.6 mg/dL 8.4-10.2 bxdk=403) EGFR (BEAKER) (test 101 mL/min/1.73 sq m ESTIMATED GFR IS NOT ohhz=0294) ACCURATE CREATININE CLEARANCE IN PREDICTING GLOMERULAR FILTRATION RATE. ESTIMATED GFR IS NOT APPLICABLE FOR DIALYSIS PATIENTS. POCT-GLUCOSE [id number] 20:32:00 Test Item Value Reference Range Comments POC-GLUCOSE METER (BEAKER) 131 mg/dL 70-110 TESTED AT [address] (test sttg=4668) [facility] [address] POCT-GLUCOSE [id number] 19:08:00 Test Item Value Reference Range Comments POC-GLUCOSE METER (BEAKER) 126 mg/dL 70-110 TESTED AT [address] (test vhug=1600) [place] [id number] POCT-GLUCOSE [id number] 12:51:00 Test Item Value Reference Range Comments POC-GLUCOSE METER (BEAKER) 178 mg/dL 70-[address] [facility] [address] [facility] (test qzva=9405) [facility] [address] POCT-GLUCOSE [id number] 08:42:00 Test Item Value Reference Range Comments POC-GLUCOSE METER (BEAKER) 131 mg/dL 70-[address] [facility] [address] [facility] (test eelb=8129) [facility] [address] CBC W/PLT COUNT & AUTO [id number] 06:32:00 Test Item Value Reference Range Comments WHITE BLOOD CELL COUNT (BEAKER) (test ccxy=224) 8.2 K/ L 4.0-10.0 RED BLOOD CELL COUNT (BEAKER) (test sdia=566) 4.07 M/ L 4.00-5.00 HEMOGLOBIN (BEAKER) (test zqke=067) 12.5 GM/DL 12.0-15.0 HEMATOCRIT (BEAKER) (test hbws=171) 37.0 % 36.0-45.0 MEAN CORPUSCULAR VOLUME (BEAKER) (test qltw=777) 91.0 fL 82.0-99.0 MEAN CORPUSCULAR HEMOGLOBIN (BEAKER) (test 30.8 pg 27.0-33.0 bqmg=872) MEAN CORPUSCULAR HEMOGLOBIN CONC (BEAKER) (test 33.8 GM/DL 32.0-36.0 twer=235) RED CELL DISTRIBUTION WIDTH (BEAKER) (test 12.7 % 10.3-14.2 qtnh=758) PLATELET COUNT (BEAKER) (test ttoo=799) 256 K/CU MM 150-430 MEAN PLATELET VOLUME (BEAKER) (test jzyh=647) 5.7 fL 6.5-10.5 NUCLEATED RED BLOOD CELLS (BEAKER) (test 0 /100 WBC 0-0 xbqy=479) NEUTROPHILS RELATIVE PERCENT (BEAKER) (test 55 % byro=946) LYMPHOCYTES RELATIVE PERCENT (BEAKER) (test 36 % njrc=855) MONOCYTES RELATIVE PERCENT (BEAKER) (test 7 % wuzl=874) EOSINOPHILS RELATIVE PERCENT (BEAKER) (test 1 % ohdr=177) BASOPHILS RELATIVE PERCENT (BEAKER) (test 1 % lvwj=276) NEUTROPHILS ABSOLUTE COUNT (BEAKER) (test 4.49 K/ L 1.80-8.00 ciyc=316) LYMPHOCYTES ABSOLUTE COUNT (BEAKER) (test 2.97 K/ L 1.48-4.50 lyzf=851) MONOCYTES ABSOLUTE COUNT (BEAKER) (test 0.57 K/ L 0.00-1.30 crfa=518) EOSINOPHILS ABSOLUTE COUNT (BEAKER) (test 0.08 K/ L 0.00-0.50 mpdc=908) BASOPHILS ABSOLUTE COUNT (BEAKER) (test 0.07 K/ L 0.00-0.20 fuhc=730) [id number] 05:46:00 Test Item Value Reference Range Comments MAGNESIUM (BEAKER) (test lghd=234) 2.2 mg/dL 1.6-2.6 BASIC METABOLIC [id number] 05:46:00 Test Item Value Reference Range Comments SODIUM (BEAKER) (test 140 meq/L 136-145 pmck=822) POTASSIUM (BEAKER) (test 3.6 meq/L 3.5-5.1 anmc=757) CHLORIDE (BEAKER) (test 100 meq/L 98-107 taku=667) CO2 (BEAKER) (test 32 meq/L 22-29 xozh=063) BLOOD UREA NITROGEN 4 mg/dL 7-21 (BEAKER) (test sxsi=238) CREATININE (BEAKER) (test 0.65 mg/dL 0.57-1.25 tbix=604) GLUCOSE RANDOM (BEAKER) 129 mg/dL 70-105 (test qqmo=891) CALCIUM (BEAKER) (test 8.8 mg/dL 8.4-10.2 jgtp=561) EGFR (BEAKER) (test 97 mL/min/1.73 sq m ESTIMATED GFR IS NOT kzgf=2071) ACCURATE CREATININE CLEARANCE IN PREDICTING GLOMERULAR FILTRATION RATE. ESTIMATED GFR IS NOT APPLICABLE FOR DIALYSIS PATIENTS. POCT-GLUCOSE [id number] 21:26:00 Test Item Value Reference Range Comments POC-GLUCOSE METER (BEAKER) 150 mg/dL 70-110 TESTED AT [address] (test ylap=2709) [place] [address] POCT-GLUCOSE [id number] 18:03:00 Test Item Value Reference Range Comments POC-GLUCOSE METER (BEAKER) 102 mg/dL 70-110 TESTED AT [address] (test hdwt=1452) [place] [address] HCG, QUANTITATIVE, [id number] 14:05:00 Test Item Value Reference Range Comments GONADOTROPIN, CHORIONIC (HCG) QUANT (BEAKER) (test < mIU/mL 0-10 ezug=436) Non- Females: <10 mIU/mL Females: Gestation Age Reference Range(mIU/mL) 0.2-1 Week 5-50 1-2 Weeks 50-500 2-3 Weeks 100-5,000 3-4Weeks 500-10,000 4 -5 Weeks 1,000-50,000 5-6 Weeks 10,000-100,000 6-8 Weeks 15,000-200,000 2-3 Months 10,000-100,000BASIC METABOLIC [id number] 14:02:00 Test Item Value Reference Range Comments SODIUM (BEAKER) (test 138 meq/L 136-145 bbzr=550) POTASSIUM (BEAKER) (test 3.4 meq/L 3.5-5.1 fpsp=096) CHLORIDE (BEAKER) (test 95 meq/L 98-107 qkkp=919) CO2 (BEAKER) (test 33 meq/L 22-29 csfr=699) BLOOD UREA NITROGEN 6 mg/dL 7-21 (BEAKER) (test vxru=316) CREATININE (BEAKER) (test 0.77 mg/dL 0.57-1.25 guon=534) GLUCOSE RANDOM (BEAKER) 110 mg/dL 70-105 (test bfbi=575) CALCIUM (BEAKER) (test 9.2 mg/dL 8.4-10.2 hssu=814) EGFR (BEAKER) (test 80 mL/min/1.73 sq m ESTIMATED GFR IS NOT ewek=1235) ACCURATE CREATININE CLEARANCE IN PREDICTING GLOMERULAR FILTRATION RATE. ESTIMATED GFR IS NOT APPLICABLE FOR DIALYSIS PATIENTS. HEMOGLOBIN [id number] 13:58:00 Test Item Value Reference Range Comments HEMOGLOBIN A1C (BEAKER) (test qbhw=391) 6.7 % 4.3-6.1 CBC W/PLT COUNT & AUTO [id number] 13:39:00 Test Item Value Reference Range Comments WHITE BLOOD CELL COUNT (BEAKER) (test nllp=227) 10.8 K/ L 4.0-10.0 RED BLOOD CELL COUNT (BEAKER) (test ndrw=814) 4.12 M/ L 4.00-5.00 HEMOGLOBIN (BEAKER) (test rwuq=618) 12.9 GM/DL 12.0-15.0 HEMATOCRIT (BEAKER) (test jmul=852) 36.9 % 36.0-45.0 MEAN CORPUSCULAR VOLUME (BEAKER) (test whre=756) 89.7 fL 82.0-99.0 MEAN CORPUSCULAR HEMOGLOBIN (BEAKER) (test 31.3 pg 27.0-33.0 ijtc=848) MEAN CORPUSCULAR HEMOGLOBIN CONC (BEAKER) (test 34.9 GM/DL 32.0-36.0 bdfk=700) RED CELL DISTRIBUTION WIDTH (BEAKER) (test 14.5 % 10.3-14.2 yxlz=563) PLATELET COUNT (BEAKER) (test sabo=462) 256 K/CU MM 150-430 MEAN PLATELET VOLUME (BEAKER) (test xjlk=639) 6.0 fL 6.5-10.5 NUCLEATED RED BLOOD CELLS (BEAKER) (test 0 /100 WBC 0-0 ybny=291) NEUTROPHILS RELATIVE PERCENT (BEAKER) (test 70 % dxkq=591) LYMPHOCYTES RELATIVE PERCENT (BEAKER) (test 23 % tyaz=060) MONOCYTES RELATIVE PERCENT (BEAKER) (test 5 % dctj=327) EOSINOPHILS RELATIVE PERCENT (BEAKER) (test 1 % pyfw=121) BASOPHILS RELATIVE PERCENT (BEAKER) (test 1 % fcbp=983) NEUTROPHILS ABSOLUTE COUNT (BEAKER) (test 7.61 K/ L 1.80-8.00 jats=201) LYMPHOCYTES ABSOLUTE COUNT (BEAKER) (test 2.50 K/ L 1.48-4.50 nnwv=209) MONOCYTES ABSOLUTE COUNT (BEAKER) (test 0.55 K/ L 0.00-1.30 vlcx=184) EOSINOPHILS ABSOLUTE COUNT (BEAKER) (test 0.09 K/ L 0.00-0.50 xtag=036) BASOPHILS ABSOLUTE COUNT (BEAKER) (test 0.08 K/ L 0.00-0.20 ckrx=841) 0.00POCT-GLUCOSE [id number] 11:42:00 Test Item Value Reference Range Comments POC-GLUCOSE METER (BEAKER) 124 mg/dL 70-110 TESTED AT [address] (test [id number]=[id number]) [facility] [id number]
[2019-12-17] MEDS: OXYMETAZOLINE HCL 0.05% 15ML NAS ONE ×3 (09:43→09:57)
[2019-12-17 09:47] LABS: Specific Gravity 1.015 (1.005-1.030)
[2019-12-17] MEDS ORDERED: NA CHLORIDE 0.9% 1,000 ML ONE (09:49)
[2019-12-17] MEDS ORDERED: MIDAZOLAM HCL 2 MG/2 ML INJ ONE (09:52)
[2019-12-17] MEDS ORDERED: dexAMETHasone 10 MG/ML VIAL ONE (09:52)
[2019-12-17] MEDS ORDERED: propofoL 200 MG/20 ML VIAL IV ONE (09:52)
[2019-12-17] MEDS ORDERED: FENTANYL CITR 100 MCG/2 ML ONE (09:52)
[2019-12-17] MEDS ORDERED: ROCURONIUM 50 MG/5 ML VIAL IV ONE (09:53)
[2019-12-17] MEDS ORDERED: LIDOCAINE 2% MPF 5 ML VIAL ONE ×2 (09:53→11:56)
[2019-12-17] MEDS ORDERED: EPINEPHRINE/PF 1 MG/ML AMP ONE (10:15)
[2019-12-17] MEDS ORDERED: NA CHLORIDE 0.9% 500 ML ONE (10:15)
[2019-12-17] MEDS ORDERED: OXYMETAZOLINE HCL 0.05% 15ML NAS ONE (10:15)
[2019-12-17] MEDS ORDERED: LIDOCAINE 1% W/EPI 1:100,000 MDV 20 ML VIAL ONE (10:15)
[2019-12-17] MEDS ORDERED: Phenylephrine HCl 10 MG/ML 1 ML VIAL ONE (11:21)
[2019-12-17] MEDS ORDERED: GLYCOPYRROLATE 0.2 MG/ML SYR ONE (11:51)
[2019-12-17] MEDS ORDERED: NEOSTIGMINE 1 MG/ML -5 ML ONE (11:56)
[2019-12-17] MEDS: HYDROMORPHONE HCL 1 MG/ML INJ ONE ×3 (12:54→13:06)
[2019-12-17] MEDS ORDERED: HYDROMORPHONE HCL 1 MG/ML INJ ONE (13:11)
[2019-12-17] MEDS ORDERED: KETOROLAC 30 MG/ML INJ ONE (13:15)
[2019-12-17 14:39] VITALS: BP 137/83; TEMP 97.1; O2SAT 91
[2019-12-17] MEDS ORDERED: ONDANSETRON 4 MG/2 ML VIAL ONE (14:57)
--- NOTE | 2019-12-17 17:37 | P.BOP ---
Preoperative diagnosis: nasal obstruction, nasal mass, elizabeth bullosa Postoperative diagnosis: same Primary procedure: B NE with elizabeth resection Secondary procedure: biopsy right nasal septal mass Design Leader: NONE,NONE Estimated blood loss: 20ml Specimen: 1. L IT, 2. B elizabeth, 3. R septum Anesthesia: General Fluids & blood products: see anesthesia records Transferred to: Recovery Room Condition: Good
--- NOTE | 2019-12-18 02:06 | OP ---
Surgeon: Lucila Conroy MD Preoperative Diagnoses: Nasal obstruction, bilateral elizabeth bullosa, septal mass of uncertain diagnosis. Indication For Procedure: Sharon Babin is a 49-year-old who presents to the [facility]NT Clinic and was seen by Dr. Scott in 2019. She underwent a biopsy of the right septum, which showed squamous mucosa, respiratory mucosa, severe acute and chronic inflammation with granulation tissue formation and bacterial colonies. She continued to have obstruction, drainage and discomfort of the nose and was seen in July 2019 in my office with Tami Laird where she underwent similar biopsy, which demonstrated a fibrinoid necrosis, chronic inflammation including granulation tissue without granulomatous inflammation. She underwent a serology for Syeda granulomatosis including C-ANCA, which was negative. She underwent a CT scan of the sinuses, which demonstrated a right septal mass consistent with clinical and endoscopic findings. She also had bilateral elizabeth bullosa without evidence of mucosal sinus disease of the maxillary, ethmoid, sphenoid, or frontal sinuses. The risks, benefits, and alternatives of the procedure were discussed with the patient who agreed to proceed. Description Of Procedure In Detail: The patient was brought to the operating room. She was placed under general anesthesia via oral endotracheal tube. The head of bed was turned 90 degrees. A 0-degree endoscope was used to perform a nasal endoscopy. There was a small red roundish mass on the inferior-posterior aspect of the inferior turbinate. This mass was grasped using a straight Blakesley and removed as specimen #1 left inferior turbinate. The inferior left nasal cavity was packed with an Afrin-soaked pledget. Attention was then turned to the middle turbinate. Middle turbinate was injected with 1% lidocaine with epinephrine. A sickle knife was used to incise the head of the middle turbinate and endoscopic scissors were used to dissect and cut the lateral aspect of the elizabeth bullosa, which was then removed using a straight Blakesley. The edges were carefully trimmed using a thru-cut Blakesley and Afrin-soaked pledgets were applied to the left nasal cavity and attention was turned to the right side. The nasal septum was very abnormal in appearance. There was heaped-up mass in the mid septum with abnormal appearance of the mucosa extending slightly onto the floor of the nasal cavity. This mass did not appear friable and did not bleed particularly easily. The inferior and posterior aspects had a somewhat squamous appearance to them. Attention was first turned to the middle turbinate, which was injected with 1% lidocaine with epinephrine. The elizabeth bullosa was then resected using a sickle knife, endoscopic scissors, and a 90-degree Blakesley. After adequate dissection and control of bleeding of the middle turbinate, attention was turned to the septum. The septum was injected with 1% lidocaine with epinephrine. A sickle knife was used to make an incision in the mucosa at the anterior most aspect of the mass. A Leah elevator was then used to elevate the abnormal mucosa from the underlying cartilage and bone of the septum. The bulk of the mass was then removed, but complete removal was not obtained due to the uncertainty of diagnosis. Specimen was sent as a third specimen designated as right septum. Direct communication with the pathologist was made in order to ensure casting of a wide differential given 2 prior biopsies demonstrating only potentially inflammatory changes. Bleeding in the nasal cavity was controlled using Afrin- soaked pledgets. After removal of all pledgets, a dissolvable nasal dressing, Xeroform was placed within the bilateral middle meatus. The patient was then returned to care of Anesthesia for awakening and extubation in the operating room, which proceeded without difficulty. Complications: None. Disposition: The patient will be discharged home later today and care for family and performed saline irrigations with further treatment. Pending pathology results. REGULO Voice ID: [id number] Report ID: [id number] MTDD
== END 2019-12-17 15:42 | disposition home or self-care (01) ==
LOC: OR 09:32
PROVIDERS: ATTEND Otolaryngology
PROC: 09TL8ZZ Resection of Nasal Turbinate, Via Natural or Artificial Opening Endoscopic (ICD-10-PCS; principal; 2019-12-17 10:45)
DX: J34.89 Other specified disorders of nose and nasal sinuses (principal); D18.09 Hemangioma of other sites; E11.9 Type 2 diabetes mellitus without complications; I10 Essential (primary) hypertension; M79.7 Fibromyalgia; M32.9 Systemic lupus erythematosus, unspecified; K21.9 Gastro-esophageal reflux disease without esophagitis; F31.9 Bipolar disorder, unspecified; F32.9 Major depressive disorder, single episode, unspecified; Z80.9 Family history of malignant neoplasm, unspecified; Z83.3 Family history of diabetes mellitus; Z82.49 Family history of ischemic heart disease and other diseases of the circulatory system
CPT/HCPCS: 93005; 88312; 81025; 82947 ×2; 88305; 88311; 31240; J2704; J2370; J2250; J3010; J1100; J1170 ×2; J2710; J7040; J7030; J2405; J0171

== ENCOUNTER 2019-12-17 23:32 | Emergency (ER) | payer BC ==
--- OUTSIDE RECORDS SUMMARY | 2019-12-17 23:35 | XMS REPORT ---
:1970 [facility] Address [address] [place] [address] [address] [place] [address] Care Team Providers Name Role Phone NICKOLAS SINGH Unavailable Unavailable Problems This patient has no known problems. Allergies, Adverse Reactions, Alerts This patient has no known allergies or adverse reactions. Medications This patient has no known medications. Results Test Description Test Time Test Comments Text Results Atomic Results Result Comments ANAEROBIC CULTURE 2017-04-22 03:45:00 Test Item Value Reference Range Comments CULTURE (BEAKER) (test sugc=1183) No anaerobes isolated TISSUE [id number] 15:59:00Surgical Pathology Report Case: [id number] Authorizing Provider: Jimenez Mcintosh MD Collected: 04/17/2017 1759 Ordering Location: [facility] Received: 04/18/2017 0801 SERVICES Pathologist: Antonette Mario MD Specimen: Eyelid , Left, Left eyelid abscess SKIN, LEFT EYELID, ABSCESS, DEBRIDEMENT:- SKIN WITH ABSCESS- GRAM POSITIVE COCCI IN CLUSTERS (DIONICIO) Please correlate with corresponding microbiology cultures. [id number]; [id number] x 3Left upper eyelid abscessLeft eyelid abscess [...] in the diagnostic report above: AFB, Dionicio [facility] (block A1).BLOOD [id number] 18:00 :00 Test Item Value Reference Range Comments CULTURE (BEAKER) (test zbnj=6476) No growth in 5 days WOUND CULTURE + GRAM [id number] 08:51:00 Test Item Value Reference Range Comments CULTURE (BEAKER) (test METHICILLIN RESISTANT 1+ Methicillin nlwg=0863) STAPHYLOCOCCUS AUREUS resistant Staphylococcus aureus Ampicillin (test code=26) Ciprofloxacin (test code=7) Clindamycin (test code=10) Daptomycin (test code=59) Erythromycin (test code=4) Gentamicin (test code=18) Gentamicin High Level Synergy (test ekmy=509) Levofloxacin (test code=22) Linezolid (test code=40) Moxifloxacin (test code=36) Nitrofurantoin (test code=23) Oxacillin (test code=14) Rifampin (test code=43) Streptomycin High Level Synergy (test uwxc=584) Tetracycline (test code=2) Tigecycline (test ryur=869) Trimethoprim + Sulfamethoxazole (test code=47) Vancomycin (test code=13) GRAM STAIN RESULT No WBCs (BEAKER) (test nlal=6409) GRAM STAIN RESULT No organisms seen (BEAKER) (test lyym=391175) Florentin elieser=21SURGICALLY OBTAINED CULTURE + GRAM [id number] 07:47:00 Test Item Value Reference Range Comments CULTURE (BEAKER) (test 1+ Same organism has been uvvt=8191) isolated from cultures(s) of the same body site and collection date. Repeat identification and susceptibility testing performed only after consultation with the clinical microbiology laboratory.Refer to previous culture ofMethicillin resistant Staphylococcus aureus GRAM STAIN RESULT 1+ WBCs (BEAKER) (test urow=3080) GRAM STAIN RESULT No organisms seen (BEAKER) (test zlah=497117) POCT-GLUCOSE [id number] 08:26:00 Test Item Value Reference Range Comments POC-GLUCOSE METER (BEAKER) 124 mg/dL 70-110 TESTED AT [facility] [address] [facility] (test fuiv=5296) [facility] [address] CBC (HEMOGRAM ONLY)2017-04-19 06:23:00 Test Item Value Reference Range Comments WHITE BLOOD CELL COUNT (BEAKER) (test izjg=602) 4.4 K/ L 4.0-10.0 RED BLOOD CELL COUNT (BEAKER) (test xild=861) 3.56 M/ L 4.00-5.00 HEMOGLOBIN (BEAKER) (test iizd=162) 10.8 GM/DL 12.0-15.0 HEMATOCRIT (BEAKER) (test tqwb=214) 32.7 % 36.0-45.0 MEAN CORPUSCULAR VOLUME (BEAKER) (test tzpa=148) 91.8 fL 82.0-99.0 MEAN CORPUSCULAR HEMOGLOBIN (BEAKER) (test 30.4 pg 27.0-33.0 kukk=373) MEAN CORPUSCULAR HEMOGLOBIN CONC (BEAKER) (test 33.1 GM/DL 32.0-36.0 rlxp=623) RED CELL DISTRIBUTION WIDTH (BEAKER) (test 12.7 % 10.3-14.2 ebzr=331) PLATELET COUNT (BEAKER) (test yzkw=525) 254 K/CU MM 150-430 MEAN PLATELET VOLUME (BEAKER) (test eyzq=801) 5.8 fL 6.5-10.5 NUCLEATED RED BLOOD CELLS (BEAKER) (test 0 /100 WBC 0-0 msqm=789) 0.00BASI METABOLIC [id number] 05:40:00 Test Item Value Reference Range Comments SODIUM (BEAKER) (test 140 meq/L 136-145 mlez=533) POTASSIUM (BEAKER) (test 3.7 meq/L 3.5-5.1 cvtu=806) CHLORIDE (BEAKER) (test 106 meq/L 98-107 pqkg=238) CO2 (BEAKER) (test 26 meq/L 22-29 yyan=186) BLOOD UREA NITROGEN 4 mg/dL 7-21 (BEAKER) (test ovte=820) CREATININE (BEAKER) (test 0.69 mg/dL 0.57-1.25 xpso=022) GLUCOSE RANDOM (BEAKER) 132 mg/dL 70-105 (test bqkx=375) CALCIUM (BEAKER) (test 8.6 mg/dL 8.4-10.2 chmk=909) EGFR (BEAKER) (test 91 mL/min/1.73 sq m ESTIMATED GFR IS NOT zsza=3408) ACCURATE CREATININE CLEARANCE IN PREDICTING GLOMERULAR FILTRATION RATE. ESTIMATED GFR IS NOT APPLICABLE FOR DIALYSIS PATIENTS. POCT-GLUCOSE [id number] 21:12:00 Test Item Value Reference Range Comments POC-GLUCOSE METER (BEAKER) 154 mg/dL 70-110 TESTED AT [address] (test fpsa=2103) [place] [address] POCT-GLUCOSE [id number] 16:18:00 Test Item Value Reference Range Comments POC-GLUCOSE METER (BEAKER) 137 mg/dL 70-110 TESTED AT [address] (test qjlf=8328) [place] [address] POCT-GLUCOSE [id number] 11:57:00 Test Item Value Reference Range Comments POC-GLUCOSE METER (BEAKER) 123 mg/dL 70-110 TESTED AT [address] (test mypc=1274) [place] [address] POCT-GLUCOSE [id number] 07:25:00 Test Item Value Reference Range Comments POC-GLUCOSE METER (BEAKER) 126 mg/dL 70-110 TESTED AT [address] (test mlql=4795) [place] [address] [id number] 05:33:00 Test Item Value Reference Range Comments MAGNESIUM (BEAKER) (test tbpl=838) 2.4 mg/dL 1.6-2.6 POCT-GLUCOSE [id number] 23:17:00 Test Item Value Reference Range Comments POC-GLUCOSE METER (BEAKER) 165 mg/dL 70-110 TESTED AT [address] (test sgot=9763) [place] [address] POCT-GLUCOSE [id number] 18:35:00 Test Item Value Reference Range Comments POC-GLUCOSE METER (BEAKER) 110 mg/dL 70-110 TESTED AT [address] (test kued=7825) [place] [address] CBC W/PLT COUNT & AUTO [id number] 14:01:00 Test Item Value Reference Range Comments WHITE BLOOD CELL COUNT (BEAKER) (test xslc=307) 6.3 K/ L 4.0-10.0 RED BLOOD CELL COUNT (BEAKER) (test qoul=066) 3.64 M/ L 4.00-5.00 HEMOGLOBIN (BEAKER) (test wblk=671) 11.3 GM/DL 12.0-15.0 HEMATOCRIT (BEAKER) (test phpk=725) 33.6 % 36.0-45.0 MEAN CORPUSCULAR VOLUME (BEAKER) (test vqje=441) 92.3 fL 82.0-99.0 MEAN CORPUSCULAR HEMOGLOBIN (BEAKER) (test 31.0 pg 27.0-33.0 zxdr=152) MEAN CORPUSCULAR HEMOGLOBIN CONC (BEAKER) (test 33.6 GM/DL 32.0-36.0 tnih=916) RED CELL DISTRIBUTION WIDTH (BEAKER) (test 12.7 % 10.3-14.2 sfnd=581) PLATELET COUNT (BEAKER) (test qqwo=035) 249 K/CU MM 150-430 MEAN PLATELET VOLUME (BEAKER) (test blqd=812) 5.9 fL 6.5-10.5 NUCLEATED RED BLOOD CELLS (BEAKER) (test 0 /100 WBC 0-0 ionr=453) NEUTROPHILS RELATIVE PERCENT (BEAKER) (test 44 % dgot=043) LYMPHOCYTES RELATIVE PERCENT (BEAKER) (test 46 % fiey=323) MONOCYTES RELATIVE PERCENT (BEAKER) (test 7 % zagr=388) EOSINOPHILS RELATIVE PERCENT (BEAKER) (test 2 % eucj=476) BASOPHILS RELATIVE PERCENT (BEAKER) (test 1 % ugam=308) NEUTROPHILS ABSOLUTE COUNT (BEAKER) (test 2.78 K/ L 1.80-8.00 iqzl=705) LYMPHOCYTES ABSOLUTE COUNT (BEAKER) (test 2.91 K/ L 1.48-4.50 cleq=760) MONOCYTES ABSOLUTE COUNT (BEAKER) (test 0.43 K/ L 0.00-1.30 tobp=953) EOSINOPHILS ABSOLUTE COUNT (BEAKER) (test 0.11 K/ L 0.00-0.50 duqt=171) BASOPHILS ABSOLUTE COUNT (BEAKER) (test 0.04 K/ L 0.00-0.20 kqwu=487) 0.00(MANUAL DIFFERENTIAL)2017-04-17 14:01:00 Test Item Value Reference Range Comments TOTAL COUNTED (BEAKER) (test mhua=5791) WBC MORPHOLOGY (BEAKER) (test ybix=831) Normal PLT MORPHOLOGY (BEAKER) (test nanv=446) Normal RBC MORPHOLOGY (BEAKER) (test pxsc=592) Normal POCT-GLUCOSE [id number] 12:17:00 Test Item Value Reference Range Comments POC-GLUCOSE METER (BEAKER) 131 mg/dL 70-110 TESTED AT [address] (test dnfc=4238) [facility] [address] POCT-GLUCOSE [id number] 08:36:00 Test Item Value Reference Range Comments POC-GLUCOSE METER (BEAKER) 128 mg/dL 70-110 TESTED AT [address] (test yjqr=3121) [place] [address] [id number] 06:13:00 Test Item Value Reference Range Comments MAGNESIUM (BEAKER) (test xtos=360) 2.1 mg/dL 1.6-2.6 BASIC METABOLIC [id number] 06:13:00 Test Item Value Reference Range Comments SODIUM (BEAKER) (test 139 meq/L 136-145 xjwj=229) POTASSIUM (BEAKER) (test 3.6 meq/L 3.5-5.1 vfhc=595) CHLORIDE (BEAKER) (test 102 meq/L 98-107 yjco=589) CO2 (BEAKER) (test 28 meq/L 22-29 dbcv=546) BLOOD UREA NITROGEN 4 mg/dL 7-21 (BEAKER) (test dozx=099) CREATININE (BEAKER) (test 0.63 mg/dL 0.57-1.25 bskf=654) GLUCOSE RANDOM (BEAKER) 164 mg/dL 70-105 (test ygid=456) CALCIUM (BEAKER) (test 8.6 mg/dL 8.4-10.2 qbtx=356) EGFR (BEAKER) (test 101 mL/min/1.73 sq m ESTIMATED GFR IS NOT mwcn=0084) ACCURATE CREATININE CLEARANCE IN PREDICTING GLOMERULAR FILTRATION RATE. ESTIMATED GFR IS NOT APPLICABLE FOR DIALYSIS PATIENTS. POCT-GLUCOSE [id number] 20:32:00 Test Item Value Reference Range Comments POC-GLUCOSE METER (BEAKER) 131 mg/dL 70-110 TESTED AT [address] (test nmut=1031) [facility] [address] POCT-GLUCOSE [id number] 19:08:00 Test Item Value Reference Range Comments POC-GLUCOSE METER (BEAKER) 126 mg/dL 70-110 TESTED AT [address] (test sadb=1249) [place] [id number] POCT-GLUCOSE [id number] 12:51:00 Test Item Value Reference Range Comments POC-GLUCOSE METER (BEAKER) 178 mg/dL 70-110 TESTED AT [facility] [address] [facility] (test tsvy=0159) [facility] [address] POCT-GLUCOSE [id number] 08:42:00 Test Item Value Reference Range Comments POC-GLUCOSE METER (BEAKER) 131 mg/dL 70-110 TESTED AT [facility] [address] [facility] (test banc=2809) [facility] [address] CBC W/PLT COUNT & AUTO [id number] 06:32:00 Test Item Value Reference Range Comments WHITE BLOOD CELL COUNT (BEAKER) (test roys=856) 8.2 K/ L 4.0-10.0 RED BLOOD CELL COUNT (BEAKER) (test xpij=817) 4.07 M/ L 4.00-5.00 HEMOGLOBIN (BEAKER) (test vpuw=907) 12.5 GM/DL 12.0-15.0 HEMATOCRIT (BEAKER) (test apov=908) 37.0 % 36.0-45.0 MEAN CORPUSCULAR VOLUME (BEAKER) (test fobw=132) 91.0 fL 82.0-99.0 MEAN CORPUSCULAR HEMOGLOBIN (BEAKER) (test 30.8 pg 27.0-33.0 sefh=591) MEAN CORPUSCULAR HEMOGLOBIN CONC (BEAKER) (test 33.8 GM/DL 32.0-36.0 hhwv=555) RED CELL DISTRIBUTION WIDTH (BEAKER) (test 12.7 % 10.3-14.2 kgxy=654) PLATELET COUNT (BEAKER) (test uonj=214) 256 K/CU MM 150-430 MEAN PLATELET VOLUME (BEAKER) (test btcu=562) 5.7 fL 6.5-10.5 NUCLEATED RED BLOOD CELLS (BEAKER) (test 0 /100 WBC 0-0 yucc=442) NEUTROPHILS RELATIVE PERCENT (BEAKER) (test 55 % aikp=236) LYMPHOCYTES RELATIVE PERCENT (BEAKER) (test 36 % naew=724) MONOCYTES RELATIVE PERCENT (BEAKER) (test 7 % ruzq=954) EOSINOPHILS RELATIVE PERCENT (BEAKER) (test 1 % scdy=008) BASOPHILS RELATIVE PERCENT (BEAKER) (test 1 % upnk=066) NEUTROPHILS ABSOLUTE COUNT (BEAKER) (test 4.49 K/ L 1.80-8.00 pnpx=280) LYMPHOCYTES ABSOLUTE COUNT (BEAKER) (test 2.97 K/ L 1.48-4.50 suou=531) MONOCYTES ABSOLUTE COUNT (BEAKER) (test 0.57 K/ L 0.00-1.30 jiwi=110) EOSINOPHILS ABSOLUTE COUNT (BEAKER) (test 0.08 K/ L 0.00-0.50 luqq=296) BASOPHILS ABSOLUTE COUNT (BEAKER) (test 0.07 K/ L 0.00-0.20 ytrb=781) [id number] 05:46:00 Test Item Value Reference Range Comments MAGNESIUM (BEAKER) (test efjr=733) 2.2 mg/dL 1.6-2.6 BASIC METABOLIC [id number] 05:46:00 Test Item Value Reference Range Comments SODIUM (BEAKER) (test 140 meq/L 136-145 wxio=837) POTASSIUM (BEAKER) (test 3.6 meq/L 3.5-5.1 dbmc=636) CHLORIDE (BEAKER) (test 100 meq/L 98-107 pzjw=777) CO2 (BEAKER) (test 32 meq/L 22-29 qafl=045) BLOOD UREA NITROGEN 4 mg/dL 7-21 (BEAKER) (test sfrm=258) CREATININE (BEAKER) (test 0.65 mg/dL 0.57-1.25 buta=424) GLUCOSE RANDOM (BEAKER) 129 mg/dL 70-105 (test wujk=707) CALCIUM (BEAKER) (test 8.8 mg/dL 8.4-10.2 ziqp=763) EGFR (BEAKER) (test 97 mL/min/1.73 sq m ESTIMATED GFR IS NOT dzzd=3380) ACCURATE CREATININE CLEARANCE IN PREDICTING GLOMERULAR FILTRATION RATE. ESTIMATED GFR IS NOT APPLICABLE FOR DIALYSIS PATIENTS. POCT-GLUCOSE [id number] 21:26:00 Test Item Value Reference Range Comments POC-GLUCOSE METER (BEAKER) 150 mg/dL 70-110 TESTED AT [address] (test rhcc=4146) [place] [address] POCT-GLUCOSE [id number] 18:03:00 Test Item Value Reference Range Comments POC-GLUCOSE METER (BEAKER) 102 mg/dL 70-110 TESTED AT [address] (test ekqj=5847) [place] [address] HCG, QUANTITATIVE, [id number] 14:05:00 Test Item Value Reference Range Comments GONADOTROPIN, CHORIONIC (HCG) QUANT (BEAKER) (test < mIU/mL 0-10 uswc=763) Non- Females: <10 mIU/mL Females: Gestation Age Reference Range(mIU/mL) 0.2-1 Week 5-50 1-2 Weeks 50-500 2-3 Weeks 100-5,000 3-4Weeks 500-10,000 4 -5 Weeks 1,000-50,000 5-6 Weeks 10,000-100,000 6-8 Weeks 15,000-200,000 2-3 Months 10,000-100,000BASIC METABOLIC [id number] 14:02:00 Test Item Value Reference Range Comments SODIUM (BEAKER) (test 138 meq/L 136-145 leib=432) POTASSIUM (BEAKER) (test 3.4 meq/L 3.5-5.1 hnig=237) CHLORIDE (BEAKER) (test 95 meq/L 98-107 kvsp=024) CO2 (BEAKER) (test 33 meq/L 22-29 mzor=363) BLOOD UREA NITROGEN 6 mg/dL 7-21 (BEAKER) (test ezic=872) CREATININE (BEAKER) (test 0.77 mg/dL 0.57-1.25 tisr=110) GLUCOSE RANDOM (BEAKER) 110 mg/dL 70-105 (test zaal=285) CALCIUM (BEAKER) (test 9.2 mg/dL 8.4-10.2 fdkt=805) EGFR (BEAKER) (test 80 mL/min/1.73 sq m ESTIMATED GFR IS NOT wmbd=3793) ACCURATE CREATININE CLEARANCE IN PREDICTING GLOMERULAR FILTRATION RATE. ESTIMATED GFR IS NOT APPLICABLE FOR DIALYSIS PATIENTS. HEMOGLOBIN [id number] 13:58:00 Test Item Value Reference Range Comments HEMOGLOBIN A1C (BEAKER) (test ebge=654) 6.7 % 4.3-6.1 CBC W/PLT COUNT & AUTO [id number] 13:39:00 Test Item Value Reference Range Comments WHITE BLOOD CELL COUNT (BEAKER) (test rjjp=346) 10.8 K/ L 4.0-10.0 RED BLOOD CELL COUNT (BEAKER) (test gjei=462) 4.12 M/ L 4.00-5.00 HEMOGLOBIN (BEAKER) (test ipvq=834) 12.9 GM/DL 12.0-15.0 HEMATOCRIT (BEAKER) (test rjeq=654) 36.9 % 36.0-45.0 MEAN CORPUSCULAR VOLUME (BEAKER) (test vuxi=592) 89.7 fL 82.0-99.0 MEAN CORPUSCULAR HEMOGLOBIN (BEAKER) (test 31.3 pg 27.0-33.0 eczb=576) MEAN CORPUSCULAR HEMOGLOBIN CONC (BEAKER) (test 34.9 GM/DL 32.0-36.0 lfpc=729) RED CELL DISTRIBUTION WIDTH (BEAKER) (test 14.5 % 10.3-14.2 beqa=600) PLATELET COUNT (BEAKER) (test pxmz=152) 256 K/CU MM 150-430 MEAN PLATELET VOLUME (BEAKER) (test dfvs=239) 6.0 fL 6.5-10.5 NUCLEATED RED BLOOD CELLS (BEAKER) (test 0 /100 WBC 0-0 uqxp=099) NEUTROPHILS RELATIVE PERCENT (BEAKER) (test 70 % qkkq=973) LYMPHOCYTES RELATIVE PERCENT (BEAKER) (test 23 % dsow=126) MONOCYTES RELATIVE PERCENT (BEAKER) (test 5 % onlw=909) EOSINOPHILS RELATIVE PERCENT (BEAKER) (test 1 % rcpl=088) BASOPHILS RELATIVE PERCENT (BEAKER) (test 1 % eemb=045) NEUTROPHILS ABSOLUTE COUNT (BEAKER) (test 7.61 K/ L 1.80-8.00 gcoz=704) LYMPHOCYTES ABSOLUTE COUNT (BEAKER) (test 2.50 K/ L 1.48-4.50 qigl=459) MONOCYTES ABSOLUTE COUNT (BEAKER) (test 0.55 K/ L 0.00-1.30 uyns=096) EOSINOPHILS ABSOLUTE COUNT (BEAKER) (test 0.09 K/ L 0.00-0.50 oiof=599) BASOPHILS ABSOLUTE COUNT (BEAKER) (test 0.08 K/ L 0.00-0.20 qmsa=094) 0.00POCT-GLUCOSE [id number] 11:42:00 Test Item Value Reference Range Comments POC-GLUCOSE METER (BEAKER) 124 mg/dL 70-110 TESTED AT [address] (test edmo=0163) [facility] [address]
[2019-12-18] MEDS ORDERED: HYDROCODONE/APAP 7.5/325 MG TAB ONE (00:42)
[2019-12-18] MEDS ORDERED: ONDANSETRON 4 MG (ODT) TAB ONE (00:58)
--- NOTE | 2019-12-18 01:10 | ER ---
Nurse's Notes [facility] Name: Sharon Babin Age: 49 yrs Sex: Female : 1970 Arrival Date: 12/17/2019 Time: 23:35 Bed 13 Private MD: Nestor Medina V Diagnosis: Epistaxis Presentation: 12/16 23:45 Chief complaint: Patient states: I had surgery earlier today to have a mass removed jb4 from both my sinuses. It has been bleeding for the last 30 minutes. Since I got out of surgery I have had a headache that will not got away. Coronavirus screen: The patient has NOT traveled to a country currently being monitored by the [facility] within the last 14 days. Proceed with normal triage procedures. The patient has NOT had contact with any known and/or suspected case of coronavirus. Proceed with normal triage procedures. Ebola Screen: No symptoms or risks identified at this time. Initial Sepsis Screen: Does the patient meet any 2 criteria? HR > 90 bpm. Yes Does the patient have a suspected source of infection? No. Patient's initial sepsis screen is negative. Risk Assessment: Do you want to hurt yourself or someone else? Patient reports no desire to harm self or others. 23:45 Method Of Arrival: Ambulatory jb4 23:45 Acuity: XIMENA 3 jb4 Historical: - Allergies: 23:45 No Known Allergies; jb4 - Home Meds: 23:45 diazepam 2 mg Oral tab 1 tab nightly for Anxiety [Active]; Klonopin 1 mg Oral tab jb4 [Active]; metformin 1,000 mg Oral tab 2 times per day for Type 2 Diabetes Mellitus [Active]; omeprazole 40 mg Oral cpDR 1 cap once daily [Active]; ondansetron HCl 4 mg Oral tab 1 tab every 8 hours [Active]; oxybutynin chloride 5 mg Oral tab 1 tab 2 times per day [Active]; pantoprazole 40 mg Oral TbEC 1 tab before first meal of the day [Active]; propranolol 60 mg Oral tab 1 tab daily [Active]; Pristiq 100 mg Oral Tb24 1 tab once daily [Active]; Saphris (black vazquez) 10 mg sublingual subl 1 tab 2 times per day [Active]; Suboxone 8 MG 1 film under tongue twice a day for OPIOID DEPENDENCY [Active]; Savella 100 mg Oral tab 1 tab 2 times per day for Fibromyalgia [Active]; tizanidine 4 mg Oral tab 1 tab every 8 hours [Active]; triamterene-hydrochlorothiazid 37.5-25 mg Oral cap 1 cap once daily for Hypertension [Active]; - PMHx: 23:45 Hypertension; Lupus; Diabetes - NIDDM; Fibromyalgia; jb4 - PSHx: 23:45 Back Surgery; Carpal Tunnel Repair; Breast Augmentation; ; Elbow; Tummy Tuck; jb4 mass removed from sinuses; - Immunization history:: Adult Immunizations up to date. - Social history:: Smoking status: Patient denies any tobacco usage or history of. Patient/guardian denies using alcohol, street drugs. Screenin:45 Abuse screen: Denies threats or abuse. Nutritional screening: No deficits noted. jb4 Tuberculosis screening: No symptoms or risk factors identified. Fall Risk None identified. Assessment: 23:45 General: Appears in no apparent distress. uncomfortable, Behavior is calm, cooperative, jb4 appropriate for age. Pain: Complains of pain in headache Pain does not radiate. Pain currently is 8 out of 10 on a pain scale. Quality of pain is described as throbbing. Neuro: Level of Consciousness is awake, alert, obeys commands, Oriented to person, place, time, situation. Cardiovascular: Patient's skin is warm and dry. Respiratory: Airway is patent Respiratory effort is even, unlabored, Respiratory pattern is regular, symmetrical. GI: Reports nausea. : No signs and/or symptoms were reported regarding the genitourinary system. EENT: Nares with bleeding noted bilaterally. Derm: Skin is intact, Skin is pink, warm \T\ dry. Musculoskeletal: Circulation, motion, and sensation intact. Range of motion: intact in all extremities. 12/17 01:17 Reassessment: Patient appears in no apparent distress at this time. Patient and/or jb4 family updated on plan of care and expected duration. Pain level reassessed. Patient is alert, oriented x 3, equal unlabored respirations, skin warm/dry/pink. Bleeding has resolved. Pt reports that the nausea has decreased, no longer feels blood draining in her throat. Pt and her verbalized understanding of d/c and follow up instructions. Ambulated out of ED with steady gait. Vital Signs: 12/16 23:45 BP 136 / 73; Pulse 105; Resp 16; Temp 98.6(TE); Pulse Ox 100% on R/A; Weight 106.59 kg jb4 (R); Height 5 ft. 2 in. (157.48 cm) (R); Pain 8/10; 12/17 01:00 BP 131 / 63; Pulse 101; Resp 16; Pulse Ox 96% on R/A; jb4 12/16 23:45 Body Mass Index 42.98 (106.59 kg, 157.48 cm) jb4 ED Course: 12/16 23:35 Patient arrived in ED. es 23:35 Nestor Medina MD is Private Physician. es 23:37 Ross Paz, RN is Primary Nurse. jb4 23:45 Arm band placed on right wrist. jb4 23:45 Patient has correct armband on for positive identification. Bed in low position. Call jb4 light in reach. Side rails up X 1. Pulse ox on. NIBP on. 23:48 Triage completed. jb4 23:49 Tod Gilbert FNP-C [facility]. la1 23:49 Avtar Bledsoe MD is Attending Physician. la1 12/17 01:09 Lucila Conroy MD is Referral Physician. la1 01:20 No provider procedures requiring assistance completed. Patient did not have IV access jb4 during this emergency room visit. Administered Medications: 01:00 Drug: [place] (7.5 mg-325 mg) 1 tabs {Note: Rass score 0.} Route: PO; jb4 01:21 Follow up: Response: No adverse reaction; RASS: Alert and Calm (0) jb4 01:00 Drug: Ondansetron (Zofran) 4 mg Route: PO; jb4 01:21 Follow up: Response: No adverse reaction; Nausea is decreased jb4 Outcome: 01:09 Discharge ordered by . la1 01:20 Discharged to home ambulatory, with significant other. jb4 01:20 Condition: stable 01:20 Discharge instructions given to patient, significant other, Instructed on discharge instructions, follow up and referral plans. Demonstrated understanding of instructions, follow-up care. 01:21 Patient left the ED. jb4 Signatures: Juliette Jewell es Tod Gilbert FNP-C RADIATOR SPECIALIST-Cla1 Ross Paz, RN RN jb4
--- NOTE | 2019-12-18 01:10 | EDPHYS ---
Physician Documentation [facility] Name: Sharon Babin Age: 49 yrs Sex: Female : 1970 Arrival Date: 12/17/2019 Time: 23:35 Bed 13 Private MD: Nestor Medina V ED Physician Avtar Bledsoe HPI: 12/17 00:17 This 49 yrs old Female presents to ER via Ambulatory with complaints of Post la1 Surgical Bleeding. 00:17 The patient presents with a nose bleed, causative factors include: recent sinus sx. la1 Onset: The symptoms/episode began/occurred 1 hour(s) ago. Modifying factors: The symptoms are alleviated by pressure, the symptoms are aggravated by nothing. Associated signs and symptoms: Loss of consciousness: the patient experienced no loss of consciousness. Severity of symptoms: At their worst the symptoms were mild. The patient has not experienced similar symptoms in the past. pt had a mass removed from her sinus this morning with dr Ruby. 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 Bleeding has slowed at this time.. Historical: - Allergies: 12/16 23:45 No Known Allergies; jb4 - Home Meds: 23:45 diazepam 2 mg Oral tab 1 tab nightly for Anxiety [Active]; Klonopin 1 mg Oral tab jb4 [Active]; metformin 1,000 mg Oral tab 2 times per day for Type 2 Diabetes Mellitus [Active]; omeprazole 40 mg Oral cpDR 1 cap once daily [Active]; ondansetron HCl 4 mg Oral tab 1 tab every 8 hours [Active]; oxybutynin chloride 5 mg Oral tab 1 tab 2 times per day [Active]; pantoprazole 40 mg Oral TbEC 1 tab before first meal of the day [Active]; propranolol 60 mg Oral tab 1 tab daily [Active]; Pristiq 100 mg Oral Tb24 1 tab once daily [Active]; Saphris (black vazquez) 10 mg sublingual subl 1 tab 2 times per day [Active]; Suboxone 8 MG 1 film under tongue twice a day for OPIOID DEPENDENCY [Active]; Savella 100 mg Oral tab 1 tab 2 times per day for Fibromyalgia [Active]; tizanidine 4 mg Oral tab 1 tab every 8 hours [Active]; triamterene-hydrochlorothiazid 37.5-25 mg Oral cap 1 cap once daily for Hypertension [Active]; - PMHx: 23:45 Hypertension; Lupus; Diabetes - NIDDM; Fibromyalgia; jb4 - PSHx: 23:45 Back Surgery; Carpal Tunnel Repair; Breast Augmentation; ; Elbow; Tummy Tuck; jb4 mass removed from sinuses; - Immunization history:: Adult Immunizations up to date. - Social history:: Smoking status: Patient denies any tobacco usage or history of. Patient/guardian denies using alcohol, street drugs. ROS: 12/17 00:18 Constitutional: Negative for fever, chills, and weight loss, Eyes: Negative for injury, la1 pain, redness, and discharge, ENT: + for nose bleed Neck: Negative for injury, pain, and swelling, Cardiovascular: Negative for chest pain, palpitations, and edema, Respiratory: Negative for shortness of breath, cough, wheezing, and pleuritic chest pain, Abdomen/GI: Negative for abdominal pain, nausea, vomiting, diarrhea, and constipation, Back: Negative for injury and pain, MS/Extremity: Negative for injury and deformity, Neuro: Negative for headache, weakness, numbness, tingling, and seizure. Exam: 00:19 Constitutional: This is a well developed, well nourished patient who is awake, alert, la1 and in no acute distress. Head/Face: Normocephalic, atraumatic. Eyes: Pupils equal round and reactive to light, extra-ocular motions intact. Lids and lashes normal. Conjunctiva and sclera are non-icteric and not injected. Cornea within normal limits. Periorbital areas with no swelling, redness, or edema. Neck: Trachea midline, Chest/axilla: Normal chest wall appearance and motion. Nontender with no deformity. No lesions are appreciated. Respiratory: No increased work of breathing, no retractions or nasal flaring. Back: No spinal tenderness. No costovertebral tenderness. Full range of motion. MS/ Extremity: Pulses equal, no cyanosis. Neurovascular intact. Full, normal range of motion. 00:19 ENT: Nose: External nose: no obvious acute abnormality, Nasal septum: is midline, bleeding, is noted from both nares, and is minimal, no septal hematoma is appreciated, clotted blood, in both nares, Mouth: is normal, no abscess, no drooling, no injury, no laceration, no lesion(s), (-) tongue elevation Posterior pharynx: is normal, Airway: normal, Uvula: normal. Vital Signs: 12/16 23:45 BP 136 / 73; Pulse 105; Resp 16; Temp 98.6(TE); Pulse Ox 100% on R/A; Weight 106.59 kg jb4 (R); Height 5 ft. 2 in. (157.48 cm) (R); Pain 8/10; 12/17 01:00 BP 131 / 63; Pulse 101; Resp 16; Pulse Ox 96% on R/A; jb4 12/16 23:45 Body Mass Index 42.98 (106.59 kg, 157.48 cm) jb4 MDM: 12/16 23:50 Patient medically screened. la1 12/17 01:08 Data reviewed: vital signs, nurses notes, and as a result, I will discharge patient. la1 Data interpreted: Pulse oximetry: on room air is 100 %. Interpretation: normal. Counseling: I had a detailed discussion with the patient and/or guardian regarding: the historical points, exam findings, and any diagnostic results supporting the discharge/admit diagnosis, to return to the emergency department if symptoms worsen or persist or if there are any questions or concerns that arise at home. ED course: pt bleeding is controlled. given instruction to FU with Dr. ruby in the coming days, strict return precautions given. 01:08 ED course: nasal clamp placed during stay which resolved bleeding. la1 Administered Medications: 01:00 Drug: [place] (7.5 mg-325 mg) 1 tabs {Note: Rass score 0.} Route: PO; jb4 01:21 Follow up: Response: No adverse reaction; RASS: Alert and Calm (0) jb4 01:00 Drug: Ondansetron (Zofran) 4 mg Route: PO; jb4 01:21 Follow up: Response: No adverse reaction; Nausea is decreased jb4 Disposition: 06:37 Co-signature as Attending Physician, Avtar Bledsoe MD. pkl Disposition: 12/18/19 01:09 Discharged to Home. Impression: Epistaxis. - Condition is Stable. - Discharge Instructions: Nosebleed, Adult, Nosebleed, [id number]. - Medication Reconciliation Form, Thank You Letter form. - Follow up: Lucila Ruby MD; When: 2 - 3 days; Reason: Recheck today's complaints, Re-evaluation by your physician. Follow up: Emergency Department; When: As needed. - Problem is new. - Symptoms have improved. Signatures: Avtar Bledsoe MD MD pkl Tod Gilbert, PEDIATRIC CARDIOLOGIST-C PEDIATRIC CARDIOLOGIST-Cla1 Ross Paz, RN RN jb4 Corrections: (The following items were deleted from the chart) 01:21 01:09 12/18/2019 01:09 Discharged to Home. Impression: Epistaxis. Condition is Stable. jb4 Forms are Medication Reconciliation Form, Thank You Letter, Antibiotic Education, Prescription Opioid Use. Follow up: Lucila Ruby; When: 2 - 3 days; Reason: Recheck today's complaints, Re-evaluation by your physician. Follow up: Emergency Department; When: As needed. Problem is new. Symptoms have improved. la1
[2019-12-18 01:30] VITALS: TEMP 98.6
[2019-12-18 01:32] VITALS: BP 131/63; O2SAT 96
== END 2019-12-18 01:21 | disposition home or self-care (01) ==
LOC: ER 23:32
DX: R04.0 Epistaxis (principal); I10 Essential (primary) hypertension; E11.9 Type 2 diabetes mellitus without complications; F41.9 Anxiety disorder, unspecified; Z98.82 Breast implant status
CPT/HCPCS: 99283

== ENCOUNTER 2020-08-24 10:43 | Observation (INO) | payer BC ==
--- OUTSIDE RECORDS SUMMARY | 2020-08-24 11:02 | XMS REPORT | Continuity of Care Document ---
:1970 Author Organization [facility] t Address [address] [place] [address] Care Team Providers Name Role Phone Alyson Medina Primary Care Physician KIERRA SINGH Attending Clinician Unavailable KIERRA SINGH Admitting Clinician Unavailable Problems Condition Condition Condition Status Onset Resolution Last Treating Co mments Source Name Details Category Date Date Treatment Clinician Date Orbital Orbital Disease Active [facility] cellulitis cellulitis 04-15 Kathryn kes - 00:00: Medical [address] [place] Diabetes Diabetes Disease Active [facility] mellitus, mellitus, 04-15 [place] s - type 2 type 2 00:00: Medical [address] [place] [address] Opioid Opioid Disease Active [facility] St dependence dependence 04-15 Kathryn kes - 00:00: Medical [address] [place] [address] Allergies, Adverse Reactions, Alerts This patient has no known allergies or adverse reactions. Social History Social Habit Start Date Stop Date Quantity Comments Source Sex Assigned At [facility] Alcohol intake 2017-04-18 2017-04-18 Current [facility] es - 00:00:00 00:00:00 non-drinker of Medical nter alcohol (finding) Smoking Status Start Date Stop Date Source Former smoker 2017-04-18 00:00:00 2017-04-18 00:00:00 [facility] Medications Ordered Filled Start Stop Current Ordering Indication Dosage Frequency Signature Comments Components Source Medication Medication Date Date Medication? Clinician (SIG) Name Name TRIAMTERENE Yes 75mg QD Take [address] [facility] ORAL 04-19 by mouth [facility] - 11:17: daily . [address] clonazePAM Yes 1mg Take [address] (KLONOPIN) 7-08 by mouth 2 Ana es - 1 MG tablet 11:17: (two) Medic al 05 times Center daily as needed for Anxiety One in AM, and one in the after noon. buprenorphi 2017-0 Yes 1{tbl} Q.5D Place [address] ne-naloxone 7-08 tablet [facility] - 8-2 mg Subl 11:17: under the M edical 05 tongue 2 Center (two) times daily. desvenlafax 2017-0 Yes 100mg QD Take [address] ine 7-08 mg by [facility] - succinate 11:17: mouth Medical (PRISTIQ) 05 daily. Center 100 MG 24 hr tablet metFORMIN 2017-0 Yes 1000mg Take 1,[address] (GLUCOPHAGE 7-08 mg by [facility] - ) 1000 MG 11:17: mouth 2 Medic al tablet 05 (two) Center times daily with breakfast and dinner. omeprazole 2017-0 Yes 40mg QD Take [address] (PRILOSEC) 7-08 by mouth [facility] - 40 MG 11:17: daily. Medical capsule 05 Center oxybutynin 2016-0 Yes 5mg Q.5D Take [address] (DITROPAN-X 7-08 by mouth 2 Kathryn kes - L) 5 MG 24 11:17: (two) Medica l hr tablet 05 times Center daily. ondansetron 2017-0 Yes 4mg Take [address] (ZOFRAN-ODT 7-08 by mouth Luke s - ) 4 MG 11:17: every 8 Medical disintegrat 05 (eight) Cente r ing tablet hours as needed for Nausea. milnacipran 2017-0 Yes 100mg Q.5D Take [address] (SAVELLA) 7-08 mg by [facility] - 100 mg Tab 11:17: mouth 2 Medi luis 05 (two) Center times daily. TiZANidine 2017-0 Yes 4mg Q.[id number] Take [address] (ZANAFLEX) 7-08 [id number] by mouth 3 [facility] - 4 MG 11:17: 3D (three) Medical capsule 05 times Center daily. neomycin-po 2017-0 Yes For [address] lymyxin-dex 7-08 days [facility] - amethasone 00:00: suppley. Med ical (POLYDEX) 00 Center 3.5 mg/g-10,000 unit/g-0.1 % Oint ophthalmic ointment Immunizations Ordered Immunization Filled Immunization Date Status Commen ts Source Name Name Tdap 2017-04-[address] [facility] [place] - 00:00:00 [facility] Center Procedures This patient has no known procedures. Results Test Description Test Time Test Comments Results Result Comments Source ANAEROBIC CULTURE 2017-04-22 03:45:00 Test Item Value Reference Range Interpretation Comme nts CULTURE (BEAKER) (test code = 1095) No anaerobes isolated TISSUE [id number] 15:59:00Surgical Pathology Report Case: [id number] Authorizing Provider: Jimenez Mcintosh MD Collected: 04/17/2017 1759 Ordering Location: [facility] PERIOPERATIVE Received: 04/18/2017 0801 SERVICES Pathologist: Antonette Mario MD Specimen: Eyelid, Left, Left eyelid abscess SKIN, LEFT EYELID, ABSCESS, DEBRIDEMENT:- SKIN WITH ABSCESS- GRAM POSITIVE COCCI IN CLUSTERS (DIONICIO) Please correlate with corresponding microbiology cultures. [id number]; [id number] x 3Left upper eyelid abscessLeft eyelid abscess [...] report above: AFB, Dionicio, GMS (block A1).BLOOD [id number] 18:00:00 Test Item Value Reference Range Interpretation Comments CULTURE (BEAKER) (test No growth in 5 days code = 1095) WOUND CULTURE + GRAM [id number] 08:51:00 Test Item Value Reference Interpretation Comments Range CULTURE (BEAKER) METHICILLIN A 1+ Methicil valeria (test code = 1095) RESISTANT resistant STAPHYLOCOCCUS Staphylococcu s AUREUS aureus Ampicillin (test code = 26) Ciprofloxacin (test code = 7) Clindamycin (test S code = 10) Daptomycin (test code = 59) Erythromycin (test S code = 4) Gentamicin (test code = 18) Gentamicin High Level Synergy (test code = 241) Levofloxacin (test code = 22) Linezolid (test code S = 40) Moxifloxacin (test code = 36) Nitrofurantoin (test S code = 23) Oxacillin (test code R = 14) Rifampin (test code = R 43) Streptomycin High Level Synergy (test code = 242) Tetracycline (test S code = 2) Tigecycline (test code = 133) Trimethoprim + S Sulfamethoxazole (test code = 47) Vancomycin (test code S = 13) GRAM STAIN RESULT No WBCs (BEAKER) (test code = 1123) GRAM STAIN RESULT No organisms seen (BEAKER) (test code = 394775) Florentin elieser = 21SURGICALLY OBTAINED CULTURE + GRAM [id number] 07:47:00 Test Item Value Reference Range Interpretation Comments CULTURE A 1+ Same organis m has (BEAKER) (test been isolated from code = 1095) cultures(s) of the same body site and collection date . Repeat identifi cation and susceptibil ity testing perform ed only after consultat ion with the [facility].Refe r to previous cultur e ofMethicillin resistant Staphylococcus aureus GRAM STAIN 1+ WBCs RESULT (BEAKER) (test code = 1123) GRAM STAIN No organisms seen RESULT (BEAKER) (test code = 672776) POCT-GLUCOSE [id number] 08:26:00 Test Item Value Reference Range Interpretation Comments POC-GLUCOSE METER 124 mg/dL 70-[address] [facility] 6720 (BEAKER) (test code = [place] [facility] 1538) [id number] CBC (HEMOGRAM ONLY)2017-04-19 06:23:00 Test Item Value Reference Range Interpretation Comments WHITE BLOOD CELL COUNT (BEAKER) 4.4 K/ L 4.0-10.0 (test code = 775) RED BLOOD CELL COUNT (BEAKER) 3.56 M/ L 4.00-5.00 L (test code = 761) HEMOGLOBIN (BEAKER) (test code = 10.8 GM/DL 12.0-15.0 L 410) HEMATOCRIT (BEAKER) (test code = 32.7 % 36.0-45.0 L 411) MEAN CORPUSCULAR VOLUME (BEAKER) 91.8 fL 82.0-99.0 (test code = 753) MEAN CORPUSCULAR HEMOGLOBIN 30.4 pg 27.0-33.0 (BEAKER) (test code = 751) MEAN CORPUSCULAR HEMOGLOBIN CONC 33.1 GM/DL 32.0-36.0 (BEAKER) (test code = 752) RED CELL DISTRIBUTION WIDTH 12.7 % 10.3-14.2 (BEAKER) (test code = 412) PLATELET COUNT (BEAKER) (test 254 K/CU MM 150-430 code = 756) MEAN PLATELET VOLUME (BEAKER) 5.8 fL 6.5-10.5 L (test code = 754) NUCLEATED RED BLOOD CELLS 0 /100 WBC 0-0 (BEAKER) (test code = 413) 0.00BASI METABOLIC [id number] 05:40:00 Test Item Value Reference Range Interpretation Comments SODIUM (BEAKER) 140 meq/L 136-145 (test code = 381) POTASSIUM (BEAKER) 3.7 meq/L 3.5-5.1 (test code = 379) CHLORIDE (BEAKER) 106 meq/L 98-107 (test code = 382) CO2 (BEAKER) (test 26 meq/L 22-29 code = 355) BLOOD UREA NITROGEN 4 mg/dL 7-21 L (BEAKER) (test code = 354) CREATININE (BEAKER) 0.69 mg/dL 0.57-1.25 (test code = 358) GLUCOSE RANDOM 132 mg/dL 70-105 H (BEAKER) (test code = 652) CALCIUM (BEAKER) 8.6 mg/dL 8.4-10.2 (test code = 697) EGFR (BEAKER) (test 91 mL/min/1.73 ESTIMA ANIA GFR IS code = 1092) sq m NOT ACCURATE CREATININE CLEARANCE IN PREDICTING GLOMERULAR FILTRATION RATE . ESTIMATED GFR I S NOT APPLICABLE FOR DIALYSIS PATIEN TS. POCT-GLUCOSE [id number] 21:12:00 Test Item Value Reference Range Interpretation Comments POC-GLUCOSE METER 154 mg/dL 70-[address] [facility] 6720 (BEAKER) (test code = [place] 1538) [id number] POCT-GLUCOSE [id number] 16:18:00 Test Item Value Reference Range Interpretation Comments POC-GLUCOSE METER 137 mg/dL 70-110 H TESTED AT [place] [address] ([facility] (test code = [facility] 1538) [address] POCT-GLUCOSE [id number] 11:57:00 Test Item Value Reference Range Interpretation Comments POC-GLUCOSE METER 123 mg/dL 70-110 H TESTED AT [place] [address] ([facility] (test code = [facility] 1538) [id number] POCT-GLUCOSE [id number] 07:25:00 Test Item Value Reference Range Interpretation Comments POC-GLUCOSE METER 126 mg/dL 70-110 H TESTED AT [place] [address] ([facility] (test code = [facility] 1538) [id number] 05:33:00 Test Item Value Reference Range Interpretation Comments MAGNESIUM ([facility] (test code = 2.4 mg/dL 1.6-2.6 627) POCT-GLUCOSE [id number] 23:17:00 Test Item Value Reference Range Interpretation Comments POC-GLUCOSE METER 165 mg/dL 70-110 H TESTED AT [place] [address] ([facility] (test code = [facility] 1538) [address] POCT-GLUCOSE [id number] 18:35:00 Test Item Value Reference Range Interpretation Comments POC-GLUCOSE METER 110 mg/dL 70-110 TESTED AT [place] [address] ([facility] (test code = [facility] 1538) [address] CBC W/PLT COUNT & AUTO [id number] 14:01:00 Test Item Value Reference Range Interpretation Comments WHITE BLOOD CELL COUNT ([facility] 6.3 K/ L 4.0-10.0 (test code = 775) RED BLOOD CELL COUNT ([facility])) 3.64 M/ L 4.00-5.00 L (test code = 761) HEMOGLOBIN (AKER) (test code = 11.3 GM/DL 12.0-15.0 L 410) HEMATOCRIT ([facility])) (test code = 33.6 % 36.0-45.0 L 411) MEAN CORPUSCULAR VOLUME ([facility])) 92.3 fL 82.0-99.0 (test code = 753) MEAN CORPUSCULAR HEMOGLOBIN 31.0 pg 27.0-33.0 (BEAKER) (test code = 751) MEAN CORPUSCULAR HEMOGLOBIN CONC 33.6 GM/DL 32.0-36.0 (BEAKER) (test code = 752) RED CELL DISTRIBUTION WIDTH 12.7 % 10.3-14.2 (BEAKER) (test code = 412) PLATELET COUNT (BEAKER) (test 249 K/CU MM 150-430 code = 756) MEAN PLATELET VOLUME (BEAKER) 5.9 fL 6.5-10.5 L (test code = 754) NUCLEATED RED BLOOD CELLS 0 /100 WBC 0-0 (BEAKER) (test code = 413) NEUTROPHILS RELATIVE PERCENT 44 % (BEAKER) (test code = 429) LYMPHOCYTES RELATIVE PERCENT 46 % (BEAKER) (test code = 430) MONOCYTES RELATIVE PERCENT 7 % (BEAKER) (test code = 431) EOSINOPHILS RELATIVE PERCENT 2 % (BEAKER) (test code = 432) BASOPHILS RELATIVE PERCENT 1 % (BEAKER) (test code = 437) NEUTROPHILS ABSOLUTE COUNT 2.78 K/ L 1.80-8.00 (BEAKER) (test code = 670) LYMPHOCYTES ABSOLUTE COUNT 2.91 K/ L 1.48-4.50 (BEAKER) (test code = 414) MONOCYTES ABSOLUTE COUNT (BEAKER) 0.43 K/ L 0.00-1.30 (test code = 415) EOSINOPHILS ABSOLUTE COUNT 0.11 K/ L 0.00-0.50 (BEAKER) (test code = 416) BASOPHILS ABSOLUTE COUNT (BEAKER) 0.04 K/ L 0.00-0.20 (test code = 417) 0.00(MANUAL DIFFERENTIAL)2017-04-17 14:01:00 Test Item Value Reference Range Interpretation Comments TOTAL COUNTED (BEAKER) (test code = 1351) WBC MORPHOLOGY (BEAKER) (test code = Normal 487) PLT MORPHOLOGY (BEAKER) (test code = Normal 486) RBC MORPHOLOGY (BEAKER) (test code = Normal 762) POCT-GLUCOSE [id number] 12:17:00 Test Item Value Reference Range Interpretation Comments POC-GLUCOSE METER 131 mg/dL 70-[address] [facility] 6720 (BEAKER) (test code = [place] 1538) [id number] POCT-GLUCOSE [id number] 08:36:00 Test Item Value Reference Range Interpretation Comments POC-GLUCOSE METER 128 mg/dL 70-[address] [facility] 6720 (BEAKER) (test code = [facility] 1538) [id number] 06:13:00 Test Item Value Reference Range Interpretation Comments MAGNESIUM (BEAKER) (test code = 2.1 mg/dL 1.6-2.6 627) BASIC METABOLIC [id number] 06:13:00 Test Item Value Reference Range Interpretation Comments SODIUM (BEAKER) 139 meq/L 136-145 (test code = 381) POTASSIUM (BEAKER) 3.6 meq/L 3.5-5.1 (test code = 379) CHLORIDE (BEAKER) 102 meq/L 98-107 (test code = 382) CO2 (BEAKER) (test 28 meq/L 22-29 code = 355) BLOOD UREA NITROGEN 4 mg/dL 7-21 L (BEAKER) (test code = 354) CREATININE (BEAKER) 0.63 mg/dL 0.57-1.25 (test code = 358) GLUCOSE RANDOM 164 mg/dL 70-105 H (BEAKER) (test code = 652) CALCIUM (BEAKER) 8.6 mg/dL 8.4-10.2 (test code = 697) EGFR (BEAKER) (test 101 mL/min/1.73 ESTIM ATED GFR IS code = 1092) sq m NOT ACCURATE CREATININE CLEARANCE IN PREDICTING GLOMERULAR FILTRATION RATE . ESTIMATED GFR I S NOT APPLICABLE FOR DIALYSIS PATIEN TS. POCT-GLUCOSE [id number] 20:32:00 Test Item Value Reference Range Interpretation Comments POC-GLUCOSE METER 131 mg/dL 70-[address] [facility] 6720 (BEAKER) (test code = [facility] 1538) [id number] POCT-GLUCOSE [id number] 19:08:00 Test Item Value Reference Range Interpretation Comments POC-GLUCOSE METER 126 mg/dL 70-[address] [facility] 6720 (BEAKER) (test code = [facility] 1538) [address] POCT-GLUCOSE [id number] 12:51:00 Test Item Value Reference Range Interpretation Comments POC-GLUCOSE METER 178 mg/dL 70-[address] [facility] 6720 (BEAKER) (test code = [place] 1538) [id number] POCT-GLUCOSE [id number] 08:42:00 Test Item Value Reference Range Interpretation Comments POC-GLUCOSE METER 131 mg/dL 70-[address] [facility] 6720 (BEAKER) (test code = [place] [facility] [place] 1538) [address] CBC W/PLT COUNT & AUTO [id number] 06:32:00 Test Item Value Reference Range Interpretation Comments WHITE BLOOD CELL COUNT (BEAKER) 8.2 K/ L 4.0-10.0 (test code = 775) RED BLOOD CELL COUNT (BEAKER) 4.07 M/ L 4.00-5.00 (test code = 761) HEMOGLOBIN (BEAKER) (test code = 12.5 GM/DL 12.0-15.0 410) HEMATOCRIT (BEAKER) (test code = 37.0 % 36.0-45.0 411) MEAN CORPUSCULAR VOLUME (BEAKER) 91.0 fL 82.0-99.0 (test code = 753) MEAN CORPUSCULAR HEMOGLOBIN 30.8 pg 27.0-33.0 (BEAKER) (test code = 751) MEAN CORPUSCULAR HEMOGLOBIN CONC 33.8 GM/DL 32.0-36.0 (BEAKER) (test code = 752) RED CELL DISTRIBUTION WIDTH 12.7 % 10.3-14.2 (BEAKER) (test code = 412) PLATELET COUNT (BEAKER) (test 256 K/CU MM 150-430 code = 756) MEAN PLATELET VOLUME (BEAKER) 5.7 fL 6.5-10.5 L (test code = 754) NUCLEATED RED BLOOD CELLS 0 /100 WBC 0-0 (BEAKER) (test code = 413) NEUTROPHILS RELATIVE PERCENT 55 % (BEAKER) (test code = 429) LYMPHOCYTES RELATIVE PERCENT 36 % (BEAKER) (test code = 430) MONOCYTES RELATIVE PERCENT 7 % (BEAKER) (test code = 431) EOSINOPHILS RELATIVE PERCENT 1 % (BEAKER) (test code = 432) BASOPHILS RELATIVE PERCENT 1 % (BEAKER) (test code = 437) NEUTROPHILS ABSOLUTE COUNT 4.49 K/ L 1.80-8.00 (BEAKER) (test code = 670) LYMPHOCYTES ABSOLUTE COUNT 2.97 K/ L 1.48-4.50 (BEAKER) (test code = 414) MONOCYTES ABSOLUTE COUNT (BEAKER) 0.57 K/ L 0.00-1.30 (test code = 415) EOSINOPHILS ABSOLUTE COUNT 0.08 K/ L 0.00-0.50 (BEAKER) (test code = 416) BASOPHILS ABSOLUTE COUNT (BEAKER) 0.07 K/ L 0.00-0.20 (test code = 417) [id number] 05:46:00 Test Item Value Reference Range Interpretation Comments MAGNESIUM (BEAKER) (test code = 2.2 mg/dL 1.6-2.6 627) BASIC METABOLIC [id number] 05:46:00 Test Item Value Reference Range Interpretation Comments SODIUM (BEAKER) 140 meq/L 136-145 (test code = 381) POTASSIUM (BEAKER) 3.6 meq/L 3.5-5.1 (test code = 379) CHLORIDE (BEAKER) 100 meq/L 98-107 (test code = 382) CO2 (BEAKER) (test 32 meq/L 22-29 H code = 355) BLOOD UREA NITROGEN 4 mg/dL 7-21 L (BEAKER) (test code = 354) CREATININE (BEAKER) 0.65 mg/dL 0.57-1.25 (test code = 358) GLUCOSE RANDOM 129 mg/dL 70-105 H (BEAKER) (test code = 652) CALCIUM (BEAKER) 8.8 mg/dL 8.4-10.2 (test code = 697) EGFR (BEAKER) (test 97 mL/min/1.73 ESTIMA ANIA GFR IS code = 1092) sq m NOT ACCURATE CREATININE CLEARANCE IN PREDICTING GLOMERULAR FILTRATION RATE . ESTIMATED GFR I S NOT APPLICABLE FOR DIALYSIS PATIEN TS. POCT-GLUCOSE [id number] 21:26:00 Test Item Value Reference Range Interpretation Comments POC-GLUCOSE METER 150 mg/dL 70-[address] [facility] 6720 [facility] (test code = [place] 1538) [address] POCT-GLUCOSE [id number] 18:03:00 Test Item Value Reference Range Interpretation Comments POC-GLUCOSE METER 102 mg/dL 70-[address] [facility] 6720 (BEAKER) (test code = [place] 1538) [address] HCG, QUANTITATIVE, [id number] 14:05:00 Test Item Value Reference Range Interpretation Comments GONADOTROPIN, CHORIONIC (HCG) QUANT < mIU/mL 0-10 (BEAKER) (test code = 649) Non- Females: <10 mIU/mL Females: Gestation Age Reference Range(mIU/mL) 0.2-1 Week 5-50 1-2 Weeks 50-500 2-3 Weeks 100-5,000 3-4Weeks 500-10,000 4-5 Weeks 1,000-50,000 5-6 Weeks 10,000-100,000 6-8 Weeks 15,000-200,000 2-3 Months 10,000-100[facility] 2017-04-15 14:02:00 Test Item Value Reference Range Interpretation Comments SODIUM (BEAKER) 138 meq/L 136-145 (test code = 381) POTASSIUM (BEAKER) 3.4 meq/L 3.5-5.1 L (test code = 379) CHLORIDE (BEAKER) 95 meq/L 98-107 L (test code = 382) CO2 (BEAKER) (test 33 meq/L 22-29 H code = 355) BLOOD UREA NITROGEN 6 mg/dL 7-21 L (BEAKER) (test code = 354) CREATININE (BEAKER) 0.77 mg/dL 0.57-1.25 (test code = 358) GLUCOSE RANDOM 110 mg/dL 70-105 H (BEAKER) (test code = 652) CALCIUM (BEAKER) 9.2 mg/dL 8.4-10.2 (test code = 697) EGFR (BEAKER) (test 80 mL/min/1.73 ESTIMA ANIA GFR IS code = 1092) sq m NOT ACCURATE CREATININE CLEARANCE IN PREDICTING GLOMERULAR FILTRATION RATE . ESTIMATED GFR I S NOT APPLICABLE FOR DIALYSIS PATIEN TS. HEMOGLOBIN [id number] 13:58:00 Test Item Value Reference Range Interpretation Comments HEMOGLOBIN A1C (BEAKER) (test code = 6.7 % 4.3-6.1 H 368) CBC W/PLT COUNT & AUTO [id number] 13:39:00 Test Item Value Reference Range Interpretation Comments WHITE BLOOD CELL COUNT (BEAKER) 10.8 K/ L 4.0-10.0 H (test code = 775) RED BLOOD CELL COUNT (BEAKER) 4.12 M/ L 4.00-5.00 (test code = 761) HEMOGLOBIN (BEAKER) (test code = 12.9 GM/DL 12.0-15.0 410) HEMATOCRIT (BEAKER) (test code = 36.9 % 36.0-45.0 411) MEAN CORPUSCULAR VOLUME (BEAKER) 89.7 fL 82.0-99.0 (test code = 753) MEAN CORPUSCULAR HEMOGLOBIN 31.3 pg 27.0-33.0 (BEAKER) (test code = 751) MEAN CORPUSCULAR HEMOGLOBIN CONC 34.9 GM/DL 32.0-36.0 (BEAKER) (test code = 752) RED CELL DISTRIBUTION WIDTH 14.5 % 10.3-14.2 H (BEAKER) (test code = 412) PLATELET COUNT (BEAKER) (test 256 K/CU MM 150-430 code = 756) MEAN PLATELET VOLUME (BEAKER) 6.0 fL 6.5-10.5 L (test code = 754) NUCLEATED RED BLOOD CELLS 0 /100 WBC 0-0 (BEAKER) (test code = 413) NEUTROPHILS RELATIVE PERCENT 70 % (BEAKER) (test code = 429) LYMPHOCYTES RELATIVE PERCENT 23 % (BEAKER) (test code = 430) MONOCYTES RELATIVE PERCENT 5 % (BEAKER) (test code = 431) EOSINOPHILS RELATIVE PERCENT 1 % (BEAKER) (test code = 432) BASOPHILS RELATIVE PERCENT 1 % (BEAKER) (test code = 437) NEUTROPHILS ABSOLUTE COUNT 7.61 K/ L 1.80-8.00 (BEAKER) (test code = 670) LYMPHOCYTES ABSOLUTE COUNT 2.50 K/ L 1.48-4.50 (BEAKER) (test code = 414) MONOCYTES ABSOLUTE COUNT (BEAKER) 0.55 K/ L 0.00-1.30 (test code = 415) EOSINOPHILS ABSOLUTE COUNT 0.09 K/ L 0.00-0.50 (BEAKER) (test code = 416) BASOPHILS ABSOLUTE COUNT (BEAKER) 0.08 K/ L 0.00-0.20 (test code = 417) 0.00POCT-GLUCOSE [id number] 11:42:00 Test Item Value Reference Range Interpretation Comments POC-GLUCOSE METER 124 mg/dL 70-[address] [facility] 6720 (GEORGELETTY) (test code = [place] 1150) [id number]
--- OUTSIDE RECORDS SUMMARY | 2020-08-24 11:02 | XMS REPORT | Clinical Summary ---
:1970 Author Organization [facility] Address [address] [place] [address] Care Team Providers Name Role Phone AdamAlyson ruelas Primary Care Provider Allergies No Known Allergies Medications Medication Sig Dispensed Refills Start Date End Date Status TRIAMTERENE ORAL Take 75 mg by 0 Active mouth daily . clonazePAM (KLONOPIN) 1 Take 1 mg by 0 Active MG tablet mouth 2 (two) times daily as needed for Anxiety One in AM, and one in the after noon. buprenorphine-naloxone Place 1 tablet 0 Active 8-2 mg Subl under the tongue 2 (two) times daily. desvenlafaxine Take 100 mg by 0 Active succinate (PRISTIQ) 100 mouth daily. MG 24 hr tablet metFORMIN (GLUCOPHAGE) Take 1,000 mg by 0 Active 1000 MG tablet mouth 2 (two) times daily with breakfast and dinner. omeprazole (PRILOSEC) Take 40 mg by 0 Active 40 MG capsule mouth daily. oxybutynin Take 5 mg by 0 Active (DITROPAN-XL) 5 MG 24 mouth 2 (two) hr tablet times daily. ondansetron Take 4 mg by 0 Activ e (ZOFRAN-ODT) 4 MG mouth every 8 disintegrating tablet (eight) hours as needed for Nausea. milnacipran (SAVELLA) Take 100 mg by 0 Active 100 mg Tab mouth 2 (two) times daily. TiZANidine (ZANAFLEX) 4 Take 4 mg by 0 Active MG capsule mouth 3 (three) times daily. kqphzieh-nuecoefot-wfra For 10 days 3.5 g 0 04/19/2017 Active methasone (POLYDEX) 3.5 suppley. 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
[2020-08-24] MEDS ORDERED: GLUCAGON 1 MG/VIAL IM PRN (11:17)
[2020-08-24] MEDS ORDERED: D50W 25 GM/50 ML SYRINGE IV PRN (11:17)
[2020-08-24] MEDS: INSULIN -REGULAR HUMAN 50 UNIT/0.5 ML ML SQ SCH ×3 (11:30→21:00)
[2020-08-24] MEDS ORDERED: ONDANSETRON 4 MG (ODT) TAB PO PRN (12:00)
[2020-08-24] MEDS: NACHLORIDE 0.45% 1,000 ML IV SCH (12:00)
[2020-08-24] MEDS ORDERED: ACETAMINOPHEN 325 MG TABLET PO PRN (12:00)
[2020-08-24] MEDS ORDERED: LOPERAMIDE HCL 2 MG CAPSULE PO PRN (12:00)
[2020-08-24] MEDS: CEFTRIAXONE/SWI 1gm 1 GM/10 ML SYR IV SCH ×2 (13:00→21:19)
[2020-08-24 14:22] VITALS: BMI 38.2
--- NOTE | 2020-08-24 15:05 | RAD REPORT ---
EXAM DESCRIPTION: Ariane Cornejo (2 Views)08/24/2020 2:19 pm CLINICAL HISTORY: Abdominal pain COMPARISON: None FINDINGS: The lungs appear clear of acute infiltrate. The heart is borderline enlarged IMPRESSION: No acute abnormalities displayed
--- NOTE | 2020-08-24 15:49 | RAD REPORT ---
EXAM DESCRIPTION: CT - Abdomen Pelvis W Contrast - 08/24/2020 2:07 pm CLINICAL HISTORY: Abdominal pain. COMPARISON: 2011 TECHNIQUE: Computed axial tomography of the abdomen and pelvis was obtained. 100 cc Isovue-300 is ad ministered intravenously. Oral contrast was given. All CT scans are performed using dose optimization technique as appropriate and may include automated exposure control or mA/KV adjustment according to patient size. FINDINGS: The liver, spleen, pancreas, adrenals and kidneys appear unremarkable. Large amount stool is present throughout the colon There is no evidence of diverticulitis IMPRESSION: Large amount stool present throughout the colon
[2020-08-24 15:52] LABS: Albumin 4.1 g/dL (3.4-5.0); Bilirubin Direct 0.1 mg/dL (0-0.2); Bilirubin Total 0.2 mg/dL (0.2-1.0); Phosphorus 3.9 mg/dL (2.5-4.9); Protein, Total 8.1 g/dL (6.4-8.2); Thyroid Stimulating Hormone 2.52 uIU/mL (0.360-3.740)
[2020-08-24] MEDS ORDERED: INFLUENZA VACCINE (for 3y+) 0.5 ML DOSE IMVAC ONE (16:00)
--- NOTE | 2020-08-24 16:14 | RAD REPORT ---
EXAM DESCRIPTION: MRI - Lumbar Spine Wo Con - 08/24/2020 1:55 pm CLINICAL HISTORY: Left leg radiculopathy COMPARISON: None. TECHNIQUE: Sagittal T1, T2 and STIR weighted sequences were obtained. Axial T1 and T2 sequences were obtained through the lumbar disc levels. FINDINGS: L1-2 unremarkable Small disc bulge L2-3. Thecal sac measures 8.5 millimeters. Neural foramina are patent Disc bulge, ligamentum flavum and facet hypertrophy L3-4. The thecal sac measures 6.5 millimeters. Mi ld narrowing of the neural foramina bilaterally Disc bulge, ligamentum flavum and facet hypertrophy L4-5. The thecal sac measures 8.5 millimeters. Mi ld to moderate narrowing of the right and mild narrowing left neural foramina Mild spondylosis L5-S1 No significant abnormal signal within the bones IMPRESSION: Spondylosis most marked at L3-4 resulting in moderate central spinal stenosis Spondylosis L2-3 and L4-5 resulting in mild central spinal stenosis
[2020-08-24] MEDS ORDERED: CLONAZEPAM PO PRN (21:01)
[2020-08-24] MEDS: POLYETHYL GLY 3350 17 GM/DOSE PO PRN (21:18)
[2020-08-24] MEDS: HYDROMORPHONE HCL 1 MG/ML INJ IV PRN (21:19)
[2020-08-24] MEDS: DIPHENHYDRAMINE 25 MG TAB/CAP PO PRN (21:20)
[2020-08-24] MEDS: ONDANSETRON 4 MG/2 ML VIAL IV PRN (21:27)
[2020-08-25] MEDS: HYDROMORPHONE HCL 1 MG/ML INJ IV PRN ×4 (02:11→21:20)
[2020-08-25] MEDS ORDERED: LEVOTHYROXINE SODIUM 25 MCG PO SCH (06:00)
[2020-08-25 06:25] LABS: Absolute Lymphocytes (CBC) 2.3 K/uL (0.7-4.9); Basophils % 0.5 % (0-1.3); Hematocrit 30.5 % (36.0-45.0); Lymphocytes % 44.7 % (15.3-44.8); MPV 7.4 fL (7.6-11.3); RBC Red Blood Cell Count 4.12 M/uL (3.86-4.86)
[2020-08-25 06:34] LABS: BUN Blood Urea Nitrogen 7 mg/dL (7-18); Bicarbonate 31 mmol/L (21-32); Glucose Level 110 mg/dL (74-106); Magnesium 2.2 mg/dL (1.8-2.4); Sodium Level 141 mmol/L (136-145)
[2020-08-25] MEDS: INSULIN -REGULAR HUMAN 50 UNIT/0.5 ML ML SQ SCH ×4 (07:30→21:00)
[2020-08-25] MEDS: CEFTRIAXONE/SWI 1gm 1 GM/10 ML SYR IV SCH ×2 (08:18→21:08)
[2020-08-25] MEDS: ENOXAPARIN 40 MG/0.4 ML SQ SCH (08:19)
[2020-08-25] MEDS ORDERED: MILNACIPRAN HCL PO SCH (09:00)
[2020-08-25] MEDS ORDERED: BUPRENORPHINE HCL SL SCH (09:00)
[2020-08-25] MEDS ORDERED: NALOXONE HCL SL SCH (09:00)
[2020-08-25] MEDS ORDERED: BUPROPION 150 MG PO SCH (09:00)
[2020-08-25] MEDS ORDERED: DESVENLAFAXINE SUCCINATE PO SCH (09:00)
[2020-08-25] MEDS ORDERED: FUROSEMIDE PO SCH (09:00)
[2020-08-25] MEDS ORDERED: HOME MED 1 EA UNK (Omeprazole [Prilosec] 1 CAP) PO SCH (09:00)
[2020-08-25] MEDS ORDERED: PROPRANOLOL 60 MG PO SCH (09:00)
[2020-08-25] MEDS ORDERED: OXYBUTYNIN CHLORIDE 5 MG PO SCH (09:00)
[2020-08-25] MEDS: MINERAL OIL ENEMA 135 ML BTL PR SCH (12:08)
[2020-08-25] MEDS ORDERED: GOLYTELY 4000 ML PO SCH (14:00)
[2020-08-25] MEDS: POLYETHYL GLY 3350 17 GM/DOSE PO PRN (21:09)
[2020-08-25] MEDS: DIPHENHYDRAMINE 25 MG TAB/CAP PO PRN (21:09)
[2020-08-25] MEDS: ONDANSETRON 4 MG/2 ML VIAL IV PRN (21:20)
[2020-08-26] MEDS: NACHLORIDE 0.45% 1,000 ML IV SCH (06:10)
[2020-08-26 06:28] LABS: Absolute Lymphocytes (CBC) 1.8 K/uL (0.7-4.9); Basophils % 0.6 % (0-1.3); Hematocrit 29.8 % (36.0-45.0); Lymphocytes % 42.4 % (15.3-44.8); MPV 7.7 fL (7.6-11.3)
[2020-08-26 07:07] LABS: BUN Blood Urea Nitrogen 5 mg/dL (7-18); Bicarbonate 31 mmol/L (21-32); Glucose Level 128 mg/dL (74-106); Magnesium 2.2 mg/dL (1.8-2.4); Potassium 4.1 mmol/L (3.5-5.1); Sodium Level 142 mmol/L (136-145)
[2020-08-26] MEDS: INSULIN -REGULAR HUMAN 50 UNIT/0.5 ML ML SQ SCH ×2 (07:30→11:30)
[2020-08-26] MEDS: ENOXAPARIN 40 MG/0.4 ML SQ SCH (08:31)
[2020-08-26] MEDS: CEFTRIAXONE/SWI 1gm 1 GM/10 ML SYR IV SCH (08:31)
[2020-08-26 09:55] VITALS: O2SAT 95
[2020-08-26] MEDS: HYDROMORPHONE HCL 1 MG/ML INJ IV PRN (09:57)
[2020-08-26] MEDS: ONDANSETRON 4 MG/2 ML VIAL IV PRN (09:57)
[2020-08-26] MEDS: MINERAL OIL ENEMA 135 ML BTL PR SCH (09:57)
[2020-08-26 11:59] VITALS: BP 105/58; TEMP 97.9
--- NOTE | 2020-08-26 16:35 | P.DS ---
Admission Date: 08/24/20 Discharge Date: 08/26/20 Disposition: ROUTINE DISCHARGE Discharge Condition: [facility] Hospital Course: JUAN A HAS SEVERE ABDOMEN PAIN L SIDE AND ONLY MAJOR FINDING I FOUND ON CT SCAN IS THAT SHE IS SEVERELY CONSTIPATED. SHE HAS BEEN ON MULTIPLE PSYCH MEDS AND PAIN MEDS FOR LONG TIME FROM OTHER DOCTORS. THIS IS WHY SHE HAS CONSTIPATION. IT TOOK NURSES TWO DAYS OF ENEMAS EVERY SIX HOURS AND GOLYTELY TO GET SOME BOWEL MOVEMENTS. I ADVISED THEM TO GET TO LOCAL PSYCHIATRIST AND GET HER OFF MEDICATIONS SLOWING GI TRACT. RITCHIE CONTINUE MIRALAX AND MILK OF MAGNESIA DAILY. I WAS CALLED BY DISCHARGE PLANNERS TO SEE IF WE CAN RELEASE HER YESTERDAY BUT WE COULD NOT SHE HAD NO MEANINGFUL BM UNTIL 9 PM YESTERDAY. SHE IS STILL ON OBSERVATION AT DISCHARGE. Vital Signs/Physical Exam: Temp Pulse Resp BP Pulse Ox 97.9 F 92 H 18 105/58 L 94 08/26/20 11:57 08/26/20 11:57 08/26/20 11:57 08/26/20 11:57 08/26/20 11:57 General: Mild distress, Moderate distress HEENT: Atraumatic, PERRLA, EOMI Neck: Supple, JVD not distended Respiratory: Clear to auscultation bilaterally, Normal air movement Cardiovascular: Regular rate/rhythm, Normal S1 S2 Gastrointestinal: Normal bowel sounds, No tenderness Musculoskeletal: No tenderness Integumentary: No rashes Neurological: Normal speech, Normal tone, Normal affect Lymphatics: No axilla or inguinal lymphadenopathy Laboratory Data at Discharge: WBC 4.2 K/uL (4.3-10.9) L D 08/26/20 05:10 Hgb 9.6 g/dL (12.0-15.0) L 08/26/20 05:10 Hct 29.8 % (36.0-45.0) L 08/26/20 05:10 Plt Count 210 K/uL (152-406) 08/26/20 05:10 APTT 31.6 SECONDS (24.3-36.9) 08/24/20 12:00 Sodium 142 mmol/L (136-145) 08/26/20 05:10 Potassium 4.1 mmol/L (3.5-5.1) 08/26/20 05:10 BUN 5 mg/dL (7-18) L 08/26/20 05:10 Creatinine 0.56 mg/dL (0.55-1.3) 08/26/20 05:10 Glucose 128 mg/dL (74-106) H 08/26/20 05:10 Phosphorus 3.9 mg/dL (2.5-4.9) 08/24/20 12:00 Magnesium 2.2 mg/dL (1.8-2.4) 08/26/20 05:10 Total Bilirubin 0.2 mg/dL (0.2-1.0) 08/24/20 12:00 AST 84 U/L (15-37) H 08/24/20 12:00 ALT 103 U/L (12-78) H 08/24/20 12:00 Alkaline Phosphatase 114 U/L (45-117) 08/24/20 12:00 Home Medications: Buprenorphine HCl/Naloxone HCl [Suboxone 8 mg-2 mg Sl Film] 1 film SL BID 04/03/17 Buspirone HCl 1 tab PO QID 04/03/17 Desvenlafaxine Succinate [Pristiq] 1 tab PO DAILY 04/03/17 Metformin HCl [Glucophage] 1 tab PO BID 04/03/17 Milnacipran HCl [Savella] 1 tab PO BID 04/03/17 Omeprazole [Prilosec] 1 cap PO DAILY 04/03/17 Oxybutynin Chloride [Ditropan*] 5 mg PO BID 04/03/17 Potassium 30 meq PO DAILY 04/03/17 Propranolol [Inderal LA*] 60 mg PO DAILY #30 cap 04/08/17 Bupropion *Xl* [Wellbutrin XL*] 150 mg PO DAILY 12/14/19 Cyclobenzaprine [Flexeril*] 10 mg PO TID PRN 12/14/19 Furosemide [Lasix*] 1 tab PO DAILY 08/24/20 Levothyroxine Sodium 25 mcg PO [id number] 08/24/20 Diet: paleo, organic Followup: Nestor Medina MD [Primary Care Provider] -
[2020-08-29 11:15] LABS: Vitamin D 1,25-Dihydroxy Total 43 pg/mL (18-72); Vitamin D,1,25-OH2, D2 <8 pg/mL
== END 2020-08-26 12:37 | disposition home or self-care (01) ==
LOC: 2ND 10:50
PROVIDERS: ADMIT Internal Medicine; ATTEND Internal Medicine
DX: K59.00 Constipation, unspecified (principal); M47.26 Other spondylosis with radiculopathy, lumbar region; E11.43 Type 2 diabetes mellitus with diabetic autonomic (poly)neuropathy; K31.84 Gastroparesis; Z20.828 Contact with and (suspected) exposure to other viral communicable diseases; M79.7 Fibromyalgia; L93.0 Discoid lupus erythematosus; E55.9 Vitamin D deficiency, unspecified; E64.9 Sequelae of unspecified nutritional deficiency; F31.9 Bipolar disorder, unspecified; Z79.84 Long term (current) use of oral hypoglycemic drugs
CPT/HCPCS: 87040; 85025 ×2; 80048 ×2; 36415 ×3; 83735 ×2; 84100; 82565; 82947 ×9; 80076; 85730; 82652; 84443; 83036; 82607; 82043; 74177; 71046; 72148; U0002; Q9967; J1650 ×2; J1170 ×6; J0696 ×5; J2405 ×3

== ENCOUNTER 2020-12-29 06:37 | Day surgery (SDC) | payer BC ==
--- NOTE | 2020-12-27 04:34 | EKG ---
Test Date: 2020-12-26 Test Time: 10:52:39 [employer] E[employer] Teacher: VIKTOR MEASUREMENT RESULTS: Intervals: Rate: 114 [place]: 182 QRSD: 96 QT: 334 QTc: 460 [place]: P: 66 [place]: 182 QRS: 39 T: 37 INTERPRETIVE STATEMENTS: Sinus tachycardia Low voltage QRS Cannot rule out Anterior infarct, age undetermined Abnormal ECG Compared to ECG 12/14/2019 12:59:56 Myocardial infarct finding now present Sinus rhythm no longer present Electronically Signed On 12-27-20 04:32:19 CDT by Brenton Sky
[2020-12-29] MEDS: OXYMETAZOLINE HCL 0.05% 15ML NAS ONE ×3 (07:02→07:22)
[2020-12-29 07:05] LABS: Specific Gravity 1.025 (1.005-1.030)
[2020-12-29] MEDS ORDERED: NA CHLORIDE 0.9% 1,000 ML ONE (07:11)
[2020-12-29] MEDS ORDERED: dexAMETHasone 10 MG/ML VIAL ONE (07:22)
[2020-12-29] MEDS ORDERED: propofoL 200 MG/20 ML VIAL IV ONE (07:22)
[2020-12-29] MEDS ORDERED: LIDOCAINE 2% MPF 5 ML VIAL ONE (07:22)
[2020-12-29] MEDS ORDERED: FENTANYL CITR 100 MCG/2 ML ONE (07:22)
[2020-12-29] MEDS ORDERED: ROCURONIUM 50 MG/5 ML VIAL IV ONE (07:22)
[2020-12-29] MEDS ORDERED: MIDAZOLAM HCL 2 MG/2 ML INJ ONE (07:22)
[2020-12-29] MEDS ORDERED: LIDOCAINE 1% W/EPI 1:100,000 MDV 20 ML VIAL ONE (07:28)
[2020-12-29] MEDS ORDERED: OXYMETAZOLINE HCL 0.05% 15ML NAS ONE (07:28)
[2020-12-29] MEDS ORDERED: NA CHLORIDE 0.9% 500 ML ONE (07:29)
[2020-12-29] MEDS ORDERED: KETOROLAC 30 MG/ML INJ ONE (08:45)
[2020-12-29 09:19] VITALS: TEMP 97.3
--- NOTE | 2020-12-29 10:26 | P.BOP ---
Preoperative diagnosis: nasal mass Postoperative diagnosis: same Primary procedure: NE with biospy Maintenance Planner: NONE,NONE Estimated blood loss: 10ml Specimen: Right nasal septum Findings: firm, inflammed appearing mass Anesthesia: General Complications: None Implants: right Lara splint Fluids & blood products: see nursing record Transferred to: Recovery Room Condition: Good
[2020-12-29 11:32] VITALS: O2SAT 98
[2020-12-29 11:33] VITALS: BP 128/68
--- NOTE | 2020-12-29 12:52 | OP ---
Date of Procedure: 12/29/2020 Surgeon: Lucila Conroy MD Preoperative Diagnosis: Right nasal mass. Postoperative Diagnosis: Right nasal mass. Procedure: Nasal endoscopy with biopsy. Indication For Procedure: Ms. Babin is presenting with persistent severe inflamed mass of the righ t nasal septum. She previously underwent a biopsy in December 2016, which demonstrated squamous and res piratory mucosa with severe acute and chronic inflammation, granulation tissue formation and bacteria l colonies present. She was seen in the ENT clinic in July 2019 and underwent an office biopsy, w hich demonstrated fibrinoid necrosis and acute inflammation with granulation tissue. Granulomatous i nflammation was not identified. At that time, I was clinically concerned for Syeda's granulomatosi s, but this was not identified. The patient then was taken in December of 2019 to the operating room fo r a biopsy of the inferior turbinates. The right septum and both of which demonstrated respiratory e pithelium lined mucosa with squamous metaplasia, congestion and chronic inflammation. She also had a lobular capillary hemangioma, which was located on the left inferior turbinate, but was likely misla beled in the specimen. This error was not noticed until recently. The patient continued to have sig nificant inflammatory and hard crusting of the right nasal septum. In re-evaluating the patient in 2020, the patient had been treated over the course the previous year with high-dose oral steroid s with no improvement. She had also undergone collection of MicroGen noting several bacteria of unce rtain significance and had undergone intralesional injection of this nose with no significant improve ment in the symptoms or the appearance of the nasal mucosa. Previously noted abnormal area on the up per septum adjacent to the middle turbinate appeared much improved compared to 1 year prior and in ab sence of any firm diagnosis. The patient desired excision of this abnormal tissue with hopes that no rmal tissue would grow over in its place and the decision was made to proceed. Description Of Procedure: The patient was brought to the operating room. She was placed under gener al anesthesia via oral endotracheal tube. The head of bed was turned 90 degrees and the patient was draped for the sinonasal surgery. The nasal cavity was packed with Afrin-soaked pledgets. After hayder e for effect, these were removed. The 0-degree endoscope was used to perform a nasal endoscopy, the left nasal cavity appeared healthy with mild cobblestoning of the mucosa, but otherwise no significan t ulcerations, crusting, or other abnormalities. The septum, the floor of the nose, the inferior tur binate, middle turbinate, middle meatus, sphenoethmoid recess, and nasopharynx all appeared normal. Small scar was noted on the inferior aspect of the inferior turbinates, where the previous pyogenic g ranuloma was removed 1 year prior. There was no evidence of recurrence of that lesion. On the right side, the inferior turbinates appeared relatively normal. The middle turbinate had some previous we ll-healed surgical changes. The middle meatus appeared normal. The sphenoethmoid recess and the severo opharynx and the eustachian tube opening all appeared relatively normal. The anterior inferior septu m had an irregular firm mass with inflammation and crusting extending slightly on to the floor of the nose. The photo documentation of these structures was collected. A sickle knife was used to incise through the mucosa around the abnormal area of the right nasal septum. The Leah elevator was used to elevate the mucosa from the underlying bony septum in this region. Due to the anterior position, this dissection using an endoscope was once somewhat difficult, just stabilized the scope appropriat anjana. Therefore, a headlight and nasal speculum was used for better visualization and the mucosa was elevated and then removed using a Blakesley forceps. All removed tissue was sent as a single specime n to pathology for further evaluation. Once the abnormal area had been appropriately removed, the ar ea was packed with Afrin-soaked pledgets and re-examined using an endoscope. Some additional fragmen ts of tissue along the floor of the nose and the posterior aspect of the resection were removed and a dditional pledgets were applied to obtain hemostasis. After removal and correct account of all the p ledgets, the area was again photographed using the 0 degree rigid endoscope and decision was made to apply a Lara splint. After positioning the splint was secured to the anterior septum using a 4-0 ny justin suture. Rationale for splint usage included the need to keep the area moist and to prevent crust ing of the area. I will plan to leave the splint in for at least 10 days. I would prefer to leave t he splint in for somewhat longer period of time, but will depend on how well the patient is toleratin g the splint. Following the procedure, the nasopharynx was thoroughly suctioned. The patient was re turned to care of anesthesia for awakening extubation in the operating room, which proceeded without difficulty. Disposition: The patient will be discharged home later today and follow up with Dr. Conroy in 10 da ys as scheduled. CHRISS/OCTAVIA Voice ID: [id number] Report ID: [id number]
== END 2020-12-29 11:30 | disposition home or self-care (01) ==
LOC: OR 06:37
PROVIDERS: ATTEND Otolaryngology
PROC: 09BM8ZZ Excision of Nasal Septum, Via Natural or Artificial Opening Endoscopic (ICD-10-PCS; principal; 2020-12-29 07:30)
DX: J32.9 Chronic sinusitis, unspecified (principal); L57.0 Actinic keratosis; M32.10 Systemic lupus erythematosus, organ or system involvement unspecified; F41.8 Other specified anxiety disorders; E11.9 Type 2 diabetes mellitus without complications; K21.9 Gastro-esophageal reflux disease without esophagitis; E66.9 Obesity, unspecified; F17.290 Nicotine dependence, other tobacco product, uncomplicated; Z20.822 Contact with and (suspected) exposure to COVID-19
CPT/HCPCS: 81025; 82947; 88304; 88305; 93005; J1100; J2250; J2704; J3010; J7030; J7040; U0002

== ENCOUNTER 2021-12-20 15:34 | Emergency (ER) | payer BC, SELFPAY ==
--- OUTSIDE RECORDS SUMMARY | 2021-12-20 15:37 | XMS REPORT | Continuity of Care Document ---
:1970 Author Organization [facility] t Address [address] [place] [address] [address] [place] [address] Care Team Providers Name Role Phone KIERRA SINGH Attending Clinician Unavailable KIERRA SINGH Admitting Clinician Unavailable Problems This patient has no known problems. Allergies, Adverse Reactions, Alerts This patient has no known allergies or adverse reactions. Medications This patient has no known medications. Procedures This patient has no known procedures. Results Test Description Test Time Test Comments Results Result Comments Source ANAEROBIC CULTURE 2017-04-22 03:45:00 Test Item Value Reference Range Interpretation Comme nts CULTURE (BEAKER) (test code = 1095) No anaerobes isolated TISSUE [id number] 15:59:00Surgical Pathology Report Case: [id number] Authorizing Provider: Jimenez Mcintosh MD Collected: 04/17/2017 1759 Ordering Location: [facility] PERIOPERATIVE Received: 04/18/2017 0801 SERVICES Pathologist: Antonette Mario MD Specimen: Eyelid, Left, Left eyelid abscess SKIN, LEFT EYELID, ABSCESS, DEBRIDEMENT:- SKIN WITH ABSCESS- GRAM POSITIVE COCCI IN CLUSTERS (BROWN AND BRENN) Please correlate with corresponding microbiology cultures. [id number]; [id number] x 3Left upper eyelid abscessLeft eyelid abscess [...] incorporated in the diagnostic report above: AFB, Brown and Lakisha, GMS (block A1).BLOOD [id number] 18:00:00 Test Item Value Reference Range Interpretation Comments CULTURE (BEAKER) (test No growth in 5 days code = 1095) WOUND CULTURE + GRAM [id number] 08:51:00 Test Item Value Reference Interpretation Comments [...] No organisms seen (BEAKER) (test code = 968223) Florentin elieser = 21SURGICALLY OBTAINED CULTURE + GRAM [id number] 07:47:00 Test Item Value Reference Range Interpretation Comments CULTURE A 1+ Same organis m has (BEAKER) (test been isolated from code = 1095) cultures(s) of the same body site and collection date . Repeat identifi cation and susceptibil ity testing perform ed only after consultat ion with the [facility] microbiology laboratory.Refe r to previous cultur e ofMethicillin resistant Staphylococcus aureus GRAM STAIN 1+ WBCs RESULT (BEAKER) (test code = 1123) GRAM STAIN No organisms seen RESULT (BEAKER) (test code = 906798) POCT-GLUCOSE [id number] 08:26:00 Test Item Value Reference Range Interpretation Comments POC-GLUCOSE METER 124 mg/dL 70-110 H TESTED AT [place] [address] (BEAKER) (test code = [place] 1538) [id number] CBC (HEMOGRAM ONLY)2017-04-19 06:23:00 Test Item Value [...] WBC 0-0 (BEAKER) (test code = 413) 0.00BASIC METABOLIC [id number] 05:40:00 Test Item Value Reference Range Interpretation [...] mg/dL 8.4-10.2 (test code = 697) EGFR ([facility]) (test 91 mL/min/1.73 ESTIMA ANIA GFR IS code = 1092) sq m NOT ACCURATE CREATININE CLEARANCE IN PREDICTING GLOMERULAR FILTRATION RATE . ESTIMATED GFR I S NOT APPLICABLE FOR DIALYSIS PATIEN TS. POCT-GLUCOSE [id number] 21:12:00 Test Item Value Reference Range Interpretation Comments POC-GLUCOSE METER 154 mg/dL 70-110 H TESTED AT [place] [address] ([facility]) (test code = [place] [facility] 1538) [address] POCT-GLUCOSE [id number] 16:18:00 Test Item Value Reference Range Interpretation Comments POC-GLUCOSE METER 137 mg/dL 70-110 H TESTED AT [place] [address] ([facility]) (test code = [facility] 1538) [address] POCT-GLUCOSE [id number] 11:57:00 Test Item Value Reference Range Interpretation Comments POC-GLUCOSE METER 123 mg/dL 70-110 H TESTED AT [place] [address] ([facility]) (test code = [facility] [place] 1538) [id number] POCT-GLUCOSE [id number] 07:25:00 Test Item Value Reference Range Interpretation Comments POC-GLUCOSE METER 126 mg/dL 70-110 H TESTED AT [place] [address] ([facility]) (test code = [facility] [place] 1538) [address] [id number] 05:33:00 Test Item Value Reference Range Interpretation Comments MAGNESIUM ([facility]) (test code = 2.4 mg/dL 1.6-2.6 627) POCT-GLUCOSE [id number] 23:17:00 Test Item Value Reference Range Interpretation Comments POC-GLUCOSE METER 165 mg/dL 70-110 H TESTED AT [place] [address] ([facility]) (test code = [facility] [employer] [facility]38) [id number] POCT-GLUCOSE [id number] 18:35:00 Test Item Value Reference Range Interpretation Comments POC-GLUCOSE METER 110 mg/dL 70-110 TESTED AT [place] [address] ([facility]) (test code = [facility] [employer] [facility] 1538) [address] CBC W/PLT COUNT & AUTO [id number] 14:01:00 Test Item Value Reference Range Interpretation Comments WHITE BLOOD CELL COUNT (BEAKER) 6.3 K/ L 4.0-10.0 (test code = 775) RED BLOOD CELL COUNT (BEAKER) 3.64 M/ L 4.00-5.00 L (test code = 761) HEMOGLOBIN (BEAKER) (test code = 11.3 GM/DL 12.0-15.0 L 410) HEMATOCRIT (BEAKER) (test code = 33.6 % 36.0-45.0 L 411) MEAN CORPUSCULAR VOLUME (BEAKER) 92.3 fL 82.0-99.0 (test code = 753) [...] (BEAKER) (test code = Normal 762) POCT-GLUCOSE [id number] 12:17:00 Test Item Value Reference Range Interpretation Comments POC-GLUCOSE METER 131 mg/dL 70-110 H TESTED AT [facility] 67[address] (BEAKER) (test code = [place] 1538) [id number] POCT-GLUCOSE [id number] 08:36:00 Test Item Value Reference Range Interpretation Comments POC-GLUCOSE METER 128 mg/dL 70-110 H TESTED AT [facility] [address] (BEAKER) (test code = [place] 1538) [address] [id number] 06:13:00 Test Item Value Reference Range Interpretation Comments MAGNESIUM (BEAKER) (test code = 2.1 mg/dL 1.6-2.6 627) BASIC METABOLIC [id number] 06:13:00 Test Item Value Reference Range Interpretation [...] NOT APPLICABLE FOR DIALYSIS PATIEN TS. POCT-GLUCOSE [id number] 20:32:00 Test Item Value Reference Range Interpretation Comments POC-GLUCOSE METER 131 mg/dL 70-110 H TESTED AT [place] [address] ([facility]) (test code = [place] [facility] 1538) [address] POCT-GLUCOSE [id number] 19:08:00 Test Item Value Reference Range Interpretation Comments POC-GLUCOSE METER 126 mg/dL 70-110 H TESTED AT [place] [address] ([facility]) (test code = [place] [facility] 1538) [address] POCT-GLUCOSE [id number] 12:51:00 Test Item Value Reference Range Interpretation Comments POC-GLUCOSE METER 178 mg/dL 70-110 H TESTED AT [place] [address] ([facility]) (test code = [place] [facility] 1538) [address] POCT-GLUCOSE [id number] 08:42:00 Test Item Value Reference Range Interpretation Comments POC-GLUCOSE METER 131 mg/dL 70-110 H TESTED AT [place] [address] ([facility]) (test code = [place] [facility] 1538) [address] CBC W/PLT COUNT & AUTO [id number] 06:32:00 Test Item Value Reference Range Interpretation [...] K/ L 0.00-0.20 (test code = 417) [id number] 05:46:00 Test Item Value Reference Range Interpretation Comments MAGNESIUM (BEAKER) (test code = 2.2 mg/dL 1.6-2.6 627) BASIC METABOLIC [id number] 05:46:00 Test Item Value Reference Range Interpretation [...] NOT APPLICABLE FOR DIALYSIS PATIEN TS. POCT-GLUCOSE [id number] 21:26:00 Test Item Value Reference Range Interpretation Comments POC-GLUCOSE METER 150 mg/dL 70-110 H TESTED AT [facility] [address] ([facility]) (test code = [facility] 1538) [id number] POCT-GLUCOSE [id number] 18:03:00 Test Item Value Reference Range Interpretation Comments POC-GLUCOSE METER 102 mg/dL 70-110 TESTED AT [facility] [address] ([facility]) (test code = [facility] 1538) [id number] HCG, QUANTITATIVE, [id number] 14:05:00 Test Item Value Reference Range Interpretation Comments GONADOTROPIN, CHORIONIC (HCG) QUANT < mIU/mL 0-10 ([facility]) (test code = 649) Non- Females: <10 mIU/mL Females: Gestation Age Reference Range(mIU/mL) 0.2-1 Week 5-50 1-2 Weeks 50-500 2-3 Weeks 100-5,000 3-4Weeks 500-10,000 4-5 Weeks 1,000-50,000 5-6 Weeks 10,000-100,000 6-8 Weeks 15,000-200,000 2-3 Months 10,000-100,000[facility] METABOLIC PANEL 2017-04-15 14:02:00 Test Item Value [...] NOT APPLICABLE FOR DIALYSIS PATIEN TS. HEMOGLOBIN [id number] 13:58:00 Test Item Value Reference Range Interpretation Comments HEMOGLOBIN A1C (BEAKER) (test code = 6.7 % 4.3-6.1 H 368) CBC W/PLT COUNT & AUTO [id number] 13:39:00 Test Item Value Reference Range Interpretation [...] LYMPHOCYTES ABSOLUTE COUNT 2.50 K/ L 1.48-4.50 ([facility]) (test code = 414) MONOCYTES ABSOLUTE COUNT ([facility]) 0.55 K/ L 0.00-1.30 (test code = 415) EOSINOPHILS ABSOLUTE COUNT 0.09 K/ L 0.00-0.50 ([facility]) (test code = 416) BASOPHILS ABSOLUTE COUNT ([facility]) 0.08 K/ L 0.00-0.20 (test code = 417) 0.00POCT-GLUCOSE [id number] 11:42:00 Test Item Value Reference Range Interpretation Comments POC-GLUCOSE METER 124 mg/dL 70-110 H TESTED AT [facility] 67[address] ([facility]) (test code = [place] 1538) [id number]
[2021-12-20] MEDS ORDERED: MECLIZINE HCL 12.5 MG TAB ONE (16:21)
[2021-12-20] MEDS ORDERED: ONDANSETRON 4 MG/2 ML VIAL ONE (16:22)
[2021-12-20] MEDS ORDERED: NA CHLORIDE 0.9% 1,000 ML ONE (16:22)
[2021-12-20] MEDS ORDERED: FAMOTIDINE 20 MG/2 ML VIAL IV ONE (16:22)
[2021-12-20 16:28] LABS: Absolute Lymphocytes (CBC) 4.1 K/uL (0.7-4.9); Hematocrit 38.9 % (36.0-45.0); Lymphocytes % 45.2 % (15.3-44.8); MPV 6.6 fL (7.6-11.3); RBC Red Blood Cell Count 4.86 M/uL (3.86-4.86)
[2021-12-20 16:29] LABS: Protime INR 1.1
--- NOTE | 2021-12-20 16:39 | RAD REPORT ---
EXAM DESCRIPTION: RAD - Chest Single View - 12/20/2021 4:32 pm CLINICAL HISTORY: weakness COMPARISON: Chest Pa And Lat (2 Views) dated 08/24/2020; Chest Single View dated 11/17/2016; CHEST SIN GLE VIEW dated 04/18/2011; CHEST SINGLE VIEW dated 08/31/2010 FINDINGS: Lines: None. Lungs: No evidence of edema or pneumonia. Pleural: No significant pleural effusions or pneumothorax. Cardiac: The heart size is within normal limits. Bones: No acute fractures. Other: IMPRESSION: No acute cardiopulmonary disease.
[2021-12-20 16:45] LABS: ALT/SGPT 98 U/L (12-78); AST/SGOT 50 U/L (15-37); Albumin 4.2 g/dL (3.4-5.0); Alkaline Phosphatase 129 U/L (45-117); BUN Blood Urea Nitrogen 17 mg/dL (7-18); Bicarbonate 33 mmol/L (21-32); Bilirubin Direct 0.2 mg/dL (0-0.2); Bilirubin Total 0.4 mg/dL (0.2-1.0); Glucose Level 95 mg/dL (74-106); Lipase 135 U/L (73-393); Potassium 3.4 mmol/L (3.5-5.1); Sodium Level 136 mmol/L (136-145)
[2021-12-20 16:51] LABS: NT PRO-BNP < 5 pg/mL (<125); Troponin High Sensitivity < 3.00 pg/mL (<58.9)
--- NOTE | 2021-12-20 18:08 | RAD REPORT ---
EXAM DESCRIPTION: CT - Head Brain Wo Cont - 12/20/2021 5:58 pm CLINICAL HISTORY: dizziness COMPARISON: Sinus Wo Cont dated 10/11/2019; HEAD BRAIN W O CONTRAST dated 11/19/2009 TECHNIQUE: All CT scans are performed using dose optimization technique as appropriate and may inclu de automated exposure control or mA/KV adjustment according to patient size. FINDINGS: No intracranial hemorrhage, hydrocephalus or extra-axial fluid collection.No areas of brai n edema or evidence of midline shift. The paranasal sinuses and mastoids are clear. The calvarium is intact. IMPRESSION: No acute intracranial abnormality.
--- NOTE | 2021-12-20 18:21 | RAD REPORT ---
EXAM DESCRIPTION: CTAbdomen Pelvis W Contrast - 12/20/2021 6:01 pm CLINICAL HISTORY: nausea/vomiting COMPARISON: Abdomen Pelvis W Contrast dated 08/24/2020; CT ABD PELVIS W CONTRAST dated 05/31/2012; CT ABD PELVIS W CONTRAST dated 03/17/2012 TECHNIQUE: CT of the abdomen and pelvis was performed. All CT scans are performed using dose optimization technique as appropriate and may include automated exposure control or mA/KV adjustment according to patient size. FINDINGS: Lower chest: No acute abnormality. Bilateral breast prostheses. Liver: Hepatic steatosis. Biliary: No biliary ductal dilatation. Stomach: No significant focal abnormality. Duodenum: No significant focal abnormality. Pancreas: No significant abnormality. Spleen: No significant abnormality. Adrenal: No suspicious lesions. Kidney/ureter: No hydronephrosis. No renal calculi. Retroperitoneum: No retroperitoneal adenopathy. Vascular: No aneurysm. Bowel: No significant focal abnormality. Moderate stool in the colon. No appendicitis. Peritoneum: No ascites or free air. Bladder: Grossly unremarkable. Reproductive: No adnexal masses. Bones: No acute fracture. Grade 1 anterolisthesis of L5. Facet degenerative changes are present in th e lower lumbar levels. Other: n/a IMPRESSION: No acute intra-abdominal or pelvic finding. Question constipation.
[2021-12-20] MEDS ORDERED: POTASSIUM 25 MEQ EFFERV TAB ONE (18:42)
--- NOTE | 2021-12-20 19:45 | ER ---
Nurse's Notes Formerly [facility] Name: Sharon Babin Age: 51 yrs Sex: Female : 1970 Arrival Date: 12/20/2021 Time: 15:35 Bed 28 Private MD: Nestor Medina V Diagnosis: Nausea with vomiting, unspecified;Dizziness and giddiness Presentation: 12/20 15:50 Chief complaint: Patient states: generalized weakness, vomiting, and constipation that aa5 began yesterday. Pt reports cellulitis 2 weeks ago that has resolved. Coronavirus screen: diarrhea, nausea, vomiting. Ebola Screen: No symptoms or risks identified at this time. Initial Sepsis Screen: Does the patient meet any 2 criteria? HR > 90 bpm. Does the patient have a suspected source of infection? No. Patient's initial sepsis screen is negative. Risk Assessment: Do you want to hurt yourself or someone else? Patient reports no desire to harm self or others. Onset of symptoms was December 2020. 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:08 LMP N/A - sv1 Historical: - Allergies: 15:54 No Known Allergies; aa5 - Home Meds: 18:41 triamterene-hydrochlorothiazid 37.5-25 mg Oral cap 1 cap once daily for Hypertension lr4 [Active]; metformin 1,000 mg Oral tab 2 times per day for Type 2 Diabetes Mellitus [Active]; omeprazole 40 mg Oral cpDR 1 cap once daily [Active]; pantoprazole 40 mg Oral TbEC 1 tab before first meal of the day [Active]; Pristiq 100 mg Oral Tb24 1 tab once daily [Active]; propranolol 60 mg Oral tab 1 tab daily [Active]; oxybutynin chloride 5 mg Oral tab 1 tab 2 times per day [Active]; Klonopin 1 mg Oral tab [Active]; diazepam 2 mg Oral tab 1 tab nightly for Anxiety [Active]; ondansetron HCl 4 mg Oral tab 1 tab every 8 hours [Active]; Saphris (black vazquez) 10 mg sublingual subl 1 tab 2 times per day [Active]; - PMHx: 15:53 Diabetes - NIDDM; Fibromyalgia; Hypertension; Lupus; aa5 - PSHx: 15:54 Back sx; carpal tunnel sx; breast augmentation; elbow; tummy tuck; mass removed from aa5 sinus; - Immunization history:: Client reports receiving the 2nd dose of the Covid vaccine, Flu vaccine is not up to date. - Social history:: Smoking status: Patient denies any tobacco usage or history of. Screenin:11 Abuse screen: Denies threats or abuse. jh6 16:11 Nutritional screening: No deficits noted. Tuberculosis screening: No symptoms or risk jh6 factors identified. Fall Risk None identified. 16:28 Abuse screen: Denies threats or abuse. Nutritional screening: No deficits noted. lr4 Tuberculosis screening: No symptoms or risk factors identified. Assessment: 16:11 General: Appears in no apparent distress. Behavior is calm, cooperative. jh6 16:11 Pain: Complains of pain in left foot Pain currently is 3 out of 10 on a pain scale. jh6 Quality of pain is described as sharp, Pain began 1 day ago. Is intermittent. Neuro: Reports dizziness, since lastnight headache frontal area, with nausea. 18:00 Reassessment: Patient is alert, oriented x 3, equal unlabored respirations, skin jh6 warm/dry/pink. still felling a little dizzy but n/v decreased Patient states feeling better. 18:00 Pain: Denies pain. jh6 Vital Signs: 15:50 BP 127 / 68; Pulse 105; Resp 18 S; Temp 98.5(O); Pulse Ox 98% on R/A; Weight 104.33 kg aa5 (R); Height 5 ft. 6 in. (167.64 cm) (R); 15:57 BP 127 / 75; Pulse 90; Resp 18; Pulse Ox 100% ; Pain 0/10; jh6 18:41 BP 124 / 89; Pulse 98; Resp 18; Pulse Ox 98% on R/A; lr4 19:42 BP 108 / 83 RA (auto/lg); Pulse 98 MON; Resp 18 S; Temp 98.5; Pulse Ox 98% on R/A; Pain sv1 0/10; 15:50 Body Mass Index 37.12 (104.33 kg, 167.64 cm) aa5 ED Course: 15:35 Patient arrived in ED. as 15:35 Nestor Medina MD is Private Physician. as 15:50 Arm band placed on. aa5 15:53 Triage completed. aa5 15:56 Ehsan Weaver PA is PHCP. cp 15:56 Leo Cano DO is Attending Physician. cp 16:12 Inserted saline lock: 22 gauge in right antecubital area, using aseptic technique. jh6 Blood collected. 16:22 Kiana Pereira, RN is Primary Nurse. jh6 16:24 EKG done, by ED staff. lr4 16:27 XRAY Chest (1 view) Sent. lr4 16:32 XRAY Chest (1 view) In Process Unspecified. EDMS 16:34 Bed in low position. Call light in reach. Side rails up X2. jh6 17:58 Head Brain Wo Cont In Process Unspecified. EDMS 18:01 Abdomen In Process Unspecified. EDMS 18:41 No provider procedures requiring assistance completed. lr4 19:44 Nestor Medina MD is Referral Physician. cp 20:07 IV discontinued. sv1 Administered Medications: 16:22 Drug: NS 0.9% 500 ml Route: IV; Rate: bolus; Site: right antecubital; jh6 20:09 Follow up: IV Status: Completed infusion sv1 16:23 Drug: Zofran (Ondansetron) 4 mg Route: IVP; Site: left antecubital; jh6 20:10 Follow up: Response: No adverse reaction; Nausea is decreased sv1 16:23 Drug: Pepcid (famotidine) 20 mg Route: IVP; Site: right antecubital; jh6 20:10 Follow up: Response: No adverse reaction sv1 16:23 Drug: Meclizine 25 mg Route: PO; jh6 20:09 Follow up: Response: No adverse reaction sv1 16:29 Drug: NS 0.9% 500 ml Route: IV; Rate: 125 ml/hr; Site: left antecubital; jh6 20:09 Follow up: IV Status: Completed infusion sv1 18:41 Drug: Potassium Effervescent Tablet 50 mEq Route: PO; lr4 Outcome: 18:41 Condition: stable lr4 19:44 Discharge ordered by MD. cp 20:07 Discharged to home ambulatory. sv1 20:07 Discharge instructions given to patient. 20:11 Patient left the ED. sv1 Signatures: Dispatcher [employer] Diana Abebe Audri RN RN aa5 Ehsan Weaver PA PA cp Hastedt, Jennifer RN RN jh6 Victor Hugo Valverde RN RN sv1 Mildred Ahuja RN RN lr4 Corrections: (The following items were deleted from the chart) 18:57 18:41 Home Meds: tizanidine 4 mg Oral tab 1 tab every 8 hours; lr4 lr4
--- NOTE | 2021-12-20 19:45 | EDPHYS ---
Physician Documentation [facility] Name: Sharon Babin Age: 51 yrs Sex: Female : 1970 Arrival Date: 12/20/2021 Time: 15:35 Bed 28 Private MD: Nestor Medina V ED Physician Leo Cano HPI: 12/20 16:10 This 51 yrs old Female presents to ER via Wheelchair with complaints of cp Weakness, Vomiting. 16:10 The patient presents to the emergency department with weakness of the entire body, cp generalized weakness, dizziness. Onset: The symptoms/episode began/occurred this morning. Associated signs and symptoms: Pertinent positives: nausea, vomiting, Pertinent negatives: altered mental status, fever, headache, neck stiffness, paresthesias. Severity of symptoms: in the emergency department the symptoms are unchanged despite home interventions. Patient's baseline: Neuro: alert and fully oriented, Motor: no deficits, Ambulation: walks without assistance, Speech: normal. 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:08 [facility] N/A - sv1 Historical: - Allergies: 15:54 No Known Allergies; aa5 - Home Meds: 18:41 triamterene-hydrochlorothiazid 37.5-25 mg Oral cap 1 cap once daily for Hypertension lr4 [Active]; metformin 1,000 mg Oral tab 2 times per day for Type 2 Diabetes Mellitus [Active]; omeprazole 40 mg Oral cpDR 1 cap once daily [Active]; pantoprazole 40 mg Oral TbEC 1 tab before first meal of the day [Active]; Pristiq 100 mg Oral Tb24 1 tab once daily [Active]; propranolol 60 mg Oral tab 1 tab daily [Active]; oxybutynin chloride 5 mg Oral tab 1 tab 2 times per day [Active]; Klonopin 1 mg Oral tab [Active]; diazepam 2 mg Oral tab 1 tab nightly for Anxiety [Active]; ondansetron HCl 4 mg Oral tab 1 tab every 8 hours [Active]; Saphris (black vazquez) 10 mg sublingual subl 1 tab 2 times per day [Active]; - PMHx: 15:53 Diabetes - NIDDM; Fibromyalgia; Hypertension; Lupus; aa5 - PSHx: 15:54 Back sx; carpal tunnel sx; breast augmentation; elbow; tummy tuck; mass removed from aa5 sinus; - Immunization history:: Client reports receiving the 2nd dose of the Covid vaccine, Flu vaccine is not up to date. - Social history:: Smoking status: Patient denies any tobacco usage or history of. ROS: 16:15 Constitutional: Negative for body aches, chills, fever, poor PO intake. cp 16:15 Eyes: Negative for injury, pain, redness, and discharge. cp 16:15 ENT: Negative for drainage from ear(s), ear pain, sore throat, difficulty swallowing, difficulty handling secretions. 16:15 Cardiovascular: Negative for chest pain, edema, palpitations. 16:15 Respiratory: Negative for cough, shortness of breath, wheezing. 16:15 Abdomen/GI: Positive for nausea and vomiting, Negative for abdominal pain, diarrhea, constipation. 16:15 Neuro: Positive for dizziness, weakness, Negative for altered mental status, headache. 16:15 All other systems are negative. Exam: 16:20 Constitutional: The patient appears in no acute distress, alert, awake, cp non-diaphoretic, non-toxic, well developed, well nourished, uncomfortable. 16:20 Head/Face: Normocephalic, atraumatic. cp 16:20 Eyes: Periorbital structures: appear normal, Pupils: equal, round, and reactive to light and accomodation, Extraocular movements: intact throughout, Conjunctiva: normal, no exudate, no injection, Sclera: no appreciated abnormality, Lids and lashes: appear normal, bilaterally. 16:20 ENT: External ear(s): are unremarkable, Nose: is normal, Mouth: Lips: moist, Oral mucosa: pink and intact, moist, Posterior pharynx: Airway: no evidence of obstruction, patent. 16:20 Neck: ROM/movement: is normal, is supple, without pain, no range of motions limitations. 16:20 Chest/axilla: Inspection: normal. 16:20 Cardiovascular: Rate: tachycardic, Rhythm: regular, Edema: is not appreciated, JVD: is not appreciated. 16:20 Respiratory: the patient does not display signs of respiratory distress, Respirations: normal, no use of accessory muscles, no retractions, labored breathing, is not present, Breath sounds: are clear throughout, no decreased breath sounds, no stridor, no wheezing. 16:20 Abdomen/GI: Inspection: abdomen appears normal, Palpation: abdomen is soft and non-tender, in all quadrants. 16:20 Back: pain, is absent, ROM is normal. 16:20 Neuro: Orientation: to person, place \T\ time. Mentation: is normal, Cerebellar function: is grossly normal, Motor: moves all fours, strength is normal, Sensation: is normal. 16:33 ECG was reviewed by the Attending Physician. Vital Signs: 15:50 BP 127 / 68; Pulse 105; Resp 18 S; Temp 98.5(O); Pulse Ox 98% on R/A; Weight 104.33 kg aa5 (R); Height 5 ft. 6 in. (167.64 cm) (R); 15:57 BP 127 / 75; Pulse 90; Resp 18; Pulse Ox 100% ; Pain 0/10; jh6 18:41 BP 124 / 89; Pulse 98; Resp 18; Pulse Ox 98% on R/A; lr4 19:42 BP 108 / 83 RA (auto/lg); Pulse 98 MON; Resp 18 S; Temp 98.5; Pulse Ox 98% on R/A; Pain sv1 0/10; 15:50 Body Mass Index 37.12 (104.33 kg, 167.64 cm) aa5 MDM: 16:02 Patient medically screened. 19:44 Data reviewed: vital signs, nurses notes, lab test result(s), EKG, radiologic studies, cp CT scan. 19:44 Test interpretation: by ED physician or midlevel provider: ECG, plain radiologic cp studies. Counseling: I had a detailed discussion with the patient and/or guardian regarding: the historical points, exam findings, and any diagnostic results supporting the discharge/admit diagnosis, lab results, radiology results, to return to the emergency department if symptoms worsen or persist or if there are any questions or concerns that arise at home. Response to treatment: the patient's symptoms have markedly improved after treatment, and as a result, I will discharge patient. 12/20 16:04 Order name: Basic Metabolic Panel; Complete Time: 16:59 cp 12/20 16:59 Interpretation: Normal except: K 3.4; CL 96; CO2 33; GFR 74. cp 12/20 16:04 Order name: CBC with Diff; Complete Time: 16:59 cp 12/20 18:33 Interpretation: Normal except: MCV 80.0; MCH 26.7; RDW 15.7; LYM% 45.2; MPV 6.6. cp 03/10 16:04 Order name: LFT's; Complete Time: 16:59 cp 12/20 19:14 Interpretation: Normal except: AST 50; ALT 98; ALK 129; TP 9.0; GLOB 4.8; A/G 0.9. cp 03/10 16:04 Order name: Magnesium; Complete Time: 16:59 cp 12/20 16:04 Order name: NT PRO-BNP; Complete Time: 16:59 cp 12/20 16:04 Order name: PT-INR; Complete Time: 16:59 cp 12/20 16:04 Order name: Troponin HS; Complete Time: 16:59 cp 12/20 16:04 Order name: XRAY Chest (1 view); Complete Time: 16:59 cp 12/20 16:04 Order name: Lipase; Complete Time: 16:59 cp 12/20 16:16 Order name: Glucose, Ancillary Testing; Complete Time: 16:59 EDMS 12/20 17:27 Order name: Abdomen ; Complete Time: 18:32 EDMS 12/20 17:27 Order name: Head Brain Wo Cont; Complete Time: 18:32 EDMS 12/20 16:04 Order name: EKG; Complete Time: 16:04 cp 12/20 16:04 Order name: Cardiac monitoring; Complete Time: 16:23 cp 12/20 16:04 Order name: EKG - Nurse/Tech; Complete Time: 16:23 cp 12/20 16:04 Order name: IV Saline Lock; Complete Time: 16:23 cp 12/20 16:04 Order name: Labs collected and sent; Complete Time: 16:24 cp 12/20 16:04 Order name: O2 Per Protocol; Complete Time: 16:24 cp 12/20 16:04 Order name: O2 Sat Monitoring; Complete Time: 16:24 cp EC:33 Rate is 96 beats/min. Rhythm is regular. [place] interval is normal. QRS interval is cp prolonged at 106 msec. QT interval is normal. Interpreted by me. Reviewed by me. Administered Medications: 16:22 Drug: NS 0.9% 500 ml Route: IV; Rate: bolus; Site: right antecubital; 6 20:09 Follow up: IV Status: Completed infusion sv1 16:23 Drug: Zofran (Ondansetron) 4 mg Route: IVP; Site: left antecubital; jh6 20:10 Follow up: Response: No adverse reaction; Nausea is decreased sv1 16:23 Drug: Pepcid (famotidine) 20 mg Route: IVP; Site: right antecubital; jh6 20:10 Follow up: Response: No adverse reaction sv1 16:23 Drug: Meclizine 25 mg Route: PO; jh6 20:09 Follow up: Response: No adverse reaction sv1 16:29 Drug: NS 0.9% 500 ml Route: IV; Rate: 125 ml/hr; Site: left antecubital; jh6 20:09 Follow up: IV Status: Completed infusion sv1 18:41 Drug: Potassium Effervescent Tablet 50 mEq Route: PO; lr4 Disposition: 20:48 Co-signature as Attending Physician, Leo SCHROEDER was present in the Emergency ms3 Department for consultation. . Disposition Summary: 12/20/21 19:44 Discharge Ordered Location: Home cp Problem: new cp Symptoms: have improved cp Condition: Stable cp Diagnosis - Nausea with vomiting, unspecified cp - Dizziness and giddiness cp Followup: cp - With: Nestor Medina MD - When: 2 - 3 days - Reason: Recheck today's complaints Discharge Instructions: - Discharge Summary Sheet cp - Dizziness cp - Nausea and Vomiting, Adult cp Forms: - Medication Reconciliation Form cp - Thank You Letter cp - Antibiotic Education cp - Prescription Opioid Use cp Prescriptions: - Meclizine 25 mg Oral Tablet - take 1 tablet by ORAL route every 8 hours As needed; 30 tablet; Refills: 0, cp Product Selection Permitted - Zofran 4 mg Oral Tablet - take 1 tablet by ORAL route every 12 hours As needed; 20 tablet; Refills: 0, cp Product Selection Permitted Signatures: Dispatcher [employer] Phoebe Mcrae RN RN aa5 Ehsan Weaver PA PA cp Sims, Marcus, DO DO ms3 Kiana Pereira RN RN jh6 Mildred Ahuja RN RN lr4 Victor Hugo Valverde RN sv1 Corrections: (The following items were deleted from the chart) 18:29 18:22 Abdomen Pelvis W Con+CT.RAD.BRZ ordered. EDMS EDMS 18:30 18:22 Head Brain Wo Cont+CT.RAD.BRZ ordered. EDMS EDMS 18:57 18:41 Home Meds: tizanidine 4 mg Oral tab 1 tab every 8 hours; lr4 lr4
[2021-12-20 20:28] VITALS: O2SAT 98
[2021-12-20 20:29] VITALS: TEMP 98.5
[2021-12-20 20:32] VITALS: BP 108/83
--- NOTE | 2021-12-21 13:11 | EKG ---
Test Date: 2021-12-20 Test Time: 16:24:54 Diagnostic Sales Specialist: [place] MEASUREMENT RESULTS: Intervals: Rate: 96 WI: 182 QRSD: 106 QT: 370 QTc: 467 [place]: P: 49 WI: 182 QRS: 32 T: 46 INTERPRETIVE STATEMENTS: Normal sinus rhythm Possible Left atrial enlargement Possible Inferior infarct, age undetermined Anterior infarct, age undetermined Abnormal ECG Compared to ECG 12/26/2020 10:52:39 Sinus tachycardia no longer present Myocardial infarct finding still present Electronically Signed On 12-21-21 13:08:13 [facility] by Brenton Sky
== END 2021-12-20 20:11 | disposition home or self-care (01) ==
LOC: ER 15:34
DX: R11.2 Nausea with vomiting, unspecified (principal); R42 Dizziness and giddiness; R53.1 Weakness; E11.9 Type 2 diabetes mellitus without complications; F41.9 Anxiety disorder, unspecified; I10 Essential (primary) hypertension; Z98.82 Breast implant status
CPT/HCPCS: 36415; 70450; 71045; 74177; 80048; 80076; 82947; 83690; 83735; 83880; 84484; 85025; 85610; 93005; 99284; J2405; J7030; J8597; Q9967

== ENCOUNTER 2022-02-04 17:03 | Emergency (ER) | payer BC, SELFPAY ==
--- OUTSIDE RECORDS SUMMARY | 2022-02-04 17:06 | XMS REPORT | Continuity of Care Document ---
:1970 Author Organization [facility] t Address [address] [place] [address] [address] [place] [address] Care Team Providers Name Role Phone KIERRA [...] code = 1095) No anaerobes isolated TISSUE [id number] 15:59:00Surgical Pathology Report Case: [id number] Authorizing Provider: Jimenez Mcintosh MD Collected: 04/17/2017 1759 Ordering Location: [facility] Received: 04/18/2017 0801 SERVICES Pathologist: Antonette Mario MD Specimen: Eyelid, Left, Left eyelid abscess SKIN, LEFT EYELID, ABSCESS, DEBRIDEMENT:- SKIN WITH ABSCESS- GRAM POSITIVE COCCI IN CLUSTERS (BROWN AND BRENN) Please correlate with corresponding microbiology cultures. [id number]; [id number] x 3Left upper eyelid abscessLeft eyelid abscess [...] AFB, Brown and Lakisha, GMS (block A1).BLOOD [id number] 18:00:00 Test Item Value Reference Range Interpretation Comments CULTURE (BEAKER) (test No growth in 5 days code = 1095) WOUND CULTURE + GRAM [id number] 08:51:00 Test Item Value Reference Interpretation Comments [...] No organisms seen (BEAKER) (test code = 152072) Florentin elieser = 21SURGICALLY OBTAINED CULTURE + GRAM [id number] 07:47:00 Test Item Value Reference Range Interpretation Comments CULTURE A 1+ Same organis m has (BEAKER) (test been isolated from code = 1095) cultures(s) of the same body site and collection date . Repeat identifi cation and susceptibil ity testing perform ed only after consultat ion with the [facility] microbiology laboratory.Refe r to previous cultur e ofMethicillin resistant Staphylococcus aureus GRAM STAIN 1+ WBCs RESULT (BEAKER) (test code = 1123) GRAM STAIN No organisms seen RESULT (BEAKER) (test code = 673780) POCT-GLUCOSE [id number] 08:26:00 Test Item Value Reference Range Interpretation Comments POC-GLUCOSE METER 124 mg/dL 70-110 H TESTED AT [place] [address] (BEAKER) (test code = [place] 1538) [id number] CBC (HEMOGRAM ONLY)2017-04-19 06:23:00 Test Item Value [...] (BEAKER) (test code = 413) 0.00BASIC METABOLIC [id number] 05:40:00 Test Item Value Reference Range Interpretation [...] mg/dL 8.4-10.2 (test code = 697) EGFR ([facility] (test 91 mL/min/1.73 ESTIMA ANIA GFR IS code = 1092) sq m NOT ACCURATE CREATININE CLEARANCE IN PREDICTING GLOMERULAR FILTRATION RATE . ESTIMATED GFR I S NOT APPLICABLE FOR DIALYSIS PATIEN TS. POCT-GLUCOSE [id number] 21:12:00 Test Item Value Reference Range Interpretation Comments POC-GLUCOSE METER 154 mg/dL 70-110 H TESTED AT [place] [address] ([facility] (test code = TIMMY Stafford [facility] 1538) [address] POCT-GLUCOSE [id number] 16:18:00 Test Item Value Reference Range Interpretation Comments POC-GLUCOSE METER 137 mg/dL 70-110 H TESTED AT [place] [address] ([facility] (test code = [facility] Nydia [facility] 1538) [id number] POCT-GLUCOSE [id number] 11:57:00 Test Item Value Reference Range Interpretation Comments POC-GLUCOSE METER 123 mg/dL 70-110 H TESTED AT [place] [address] ([facility] (test code = [facility] Nydia [facility] 1538) [id number] POCT-GLUCOSE [id number] 07:25:00 Test Item Value Reference Range Interpretation Comments POC-GLUCOSE METER 126 mg/dL 70-110 H TESTED AT [place] [address] ([facility] (test code = [facility] Nydia [facility] 1538) [address] [id number] 05:33:00 Test Item Value Reference Range Interpretation Comments MAGNESIUM ([facility] (test code = 2.4 mg/dL 1.6-2.6 627) POCT-GLUCOSE [id number] 23:17:00 Test Item Value Reference Range Interpretation Comments POC-GLUCOSE METER 165 mg/dL 70-110 H TESTED AT [place] [address] ([facility] (test code = [facility] [employer] [facility] 1538) [address] POCT-GLUCOSE [id number] 18:35:00 Test Item Value Reference Range Interpretation Comments POC-GLUCOSE METER 110 mg/dL 70-110 TESTED AT [place] [address] ([facility] (test code = [facility] [employer] [facility] 1538) [address] CBC W/PLT COUNT & AUTO [id number] 14:01:00 Test Item Value Reference Range Interpretation [...] (BEAKER) (test code = Normal 762) POCT-GLUCOSE [id number] 12:17:00 Test Item Value Reference Range Interpretation Comments POC-GLUCOSE METER 131 mg/dL 70-110 H TESTED AT [facility] 6720 (BEAKER) (test code = TIMMY Stafford [place] 1538) [id number] POCT-GLUCOSE [id number] 08:36:00 Test Item Value Reference Range Interpretation Comments POC-GLUCOSE METER 128 mg/dL 70-110 H TESTED AT [facility] 6720 (BEAKER) (test code = TIMMY [place] 1538) [address] [id number] 06:13:00 Test Item Value Reference Range Interpretation Comments MAGNESIUM (BEAKER) (test code = 2.1 mg/dL 1.6-2.6 627) BASIC METABOLIC [id number] 06:13:00 Test Item Value Reference Range Interpretation [...] NOT APPLICABLE FOR DIALYSIS PATIEN TS. POCT-GLUCOSE [id number] 20:32:00 Test Item Value Reference Range Interpretation Comments POC-GLUCOSE METER 131 mg/dL 70-110 H TESTED AT [place] [address] ([facility]) (test code = TIMMY Stafford [facility] 1538) [id number] POCT-GLUCOSE [id number] 19:08:00 Test Item Value Reference Range Interpretation Comments POC-GLUCOSE METER 126 mg/dL 70-110 H TESTED AT [place] [address] ([facility]) (test code = TIMMY Stafford [facility] 1538) [address] POCT-GLUCOSE [id number] 12:51:00 Test Item Value Reference Range Interpretation Comments POC-GLUCOSE METER 178 mg/dL 70-110 H TESTED AT [place] [address] ([facility]) (test code = TIMMY Stafford [facility] 1538) [address] POCT-GLUCOSE [id number] 08:42:00 Test Item Value Reference Range Interpretation Comments POC-GLUCOSE METER 131 mg/dL 70-110 H TESTED AT [place] [address] ([facility] (test code = TIMMY Stafford [facility] 1538) [address] CBC W/PLT COUNT & AUTO [id number] 06:32:00 Test Item Value Reference Range Interpretation [...] K/ L 0.00-0.20 (test code = 417) [id number] 05:46:00 Test Item Value Reference Range Interpretation Comments MAGNESIUM (BEAKER) (test code = 2.2 mg/dL 1.6-2.6 627) BASIC METABOLIC [id number] 05:46:00 Test Item Value Reference Range Interpretation [...] NOT APPLICABLE FOR DIALYSIS PATIEN TS. POCT-GLUCOSE [id number] 21:26:00 Test Item Value Reference Range Interpretation Comments POC-GLUCOSE METER 150 mg/dL 70-110 H TESTED AT [facility] 67[address] ([facility] (test code = [facility] 1538) [address] POCT-GLUCOSE [id number] 18:03:00 Test Item Value Reference Range Interpretation Comments POC-GLUCOSE METER 102 mg/dL 70-110 TESTED AT [facility] 6720 ([facility] (test code = [facility] 1538) [address] HCG, QUANTITATIVE, [id number] 14:05:00 Test Item Value Reference Range Interpretation Comments GONADOTROPIN, CHORIONIC (HCG) QUANT < mIU/mL 0-10 ([facility] (test code = 649) Non- Females: <10 mIU/mL Females: Gestation Age Reference Range(mIU/mL) 0.2-1 Week 5-50 1-2 Weeks 50-500 2-3 Weeks 100-5,000 3-4Weeks 500-10,000 4-5 Weeks 1,000-50,000 5-6 Weeks 10,000-100,000 6-8 Weeks 15,000-200,000 2-3 Months 10,000-100,000[facility] METABOLIC PANEL 2017-04-15 14:02:00 Test Item [...] NOT APPLICABLE FOR DIALYSIS PATIEN TS. HEMOGLOBIN [id number] 13:58:00 Test Item Value Reference Range Interpretation Comments HEMOGLOBIN A1C (BEAKER) (test code = 6.7 % 4.3-6.1 H 368) CBC W/PLT COUNT & AUTO [id number] 13:39:00 Test Item Value Reference Range Interpretation [...] LYMPHOCYTES ABSOLUTE COUNT 2.50 K/ L 1.48-4.50 ([facility] (test code = 414) MONOCYTES ABSOLUTE COUNT ([facility] 0.55 K/ L 0.00-1.30 (test code = 415) EOSINOPHILS ABSOLUTE COUNT 0.09 K/ L 0.00-0.50 ([facility] (test code = 416) BASOPHILS ABSOLUTE COUNT ([facility] 0.08 K/ L 0.00-0.20 (test code = 417) 0.00POCT-GLUCOSE [id number] 11:42:00 Test Item Value Reference Range Interpretation Comments POC-GLUCOSE METER 124 mg/dL 70-110 H TESTED AT [facility] 6720 ([facility] (test code = [place] 1538) [address]
[2022-02-04] MEDS ORDERED: ONDANSETRON 4 MG/2 ML VIAL ONE (18:18)
[2022-02-04] MEDS ORDERED: FAMOTIDINE 20 MG/2 ML VIAL IV ONE (18:18)
[2022-02-04] MEDS ORDERED: NA CHLORIDE 0.9% 1,000 ML ONE (18:18)
[2022-02-04] MEDS ORDERED: KETOROLAC 30 MG/ML INJ ONE (18:18)
[2022-02-04 18:39] LABS: Absolute Lymphocytes (CBC) 2.1 K/uL (0.7-4.9); Hematocrit 39.5 % (36.0-45.0); Lymphocytes % 32.9 % (15.3-44.8); RBC Red Blood Cell Count 4.85 M/uL (3.86-4.86)
[2022-02-04 19:08] LABS: Albumin 4.3 g/dL (3.4-5.0); Bilirubin Total 0.6 mg/dL (0.2-1.0); Potassium 3.7 mmol/L (3.5-5.1); Protein, Total 8.6 g/dL (6.4-8.2)
--- NOTE | 2022-02-04 19:15 | RAD REPORT ---
EXAM DESCRIPTION: RAD - Foot Left 3 View - 02/04/2022 6:59 pm CLINICAL HISTORY: PAIN COMPARISON: Foot Left 3 View dated 02/01/2013 FINDINGS/IMPRESSION: No acute fracture. No malalignment. Intramedullary jet in the tibia. A plate a nd screw at the fibula. Calcaneal spurring.
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
[2022-02-04] MEDS ORDERED: FENTANYL CITR 100 MCG/2 ML ONE (21:41)
[2022-02-05 00:50] VITALS: TEMP 99.1
[2022-02-05 01:07] VITALS: BP 125/61; O2SAT 99
--- NOTE | 2022-02-05 09:32 | EKG ---
Test Date: 2022-02-04 Test Time: 20:13:25 Certified Coding Specialist: VARGHESE MEASUREMENT RESULTS: Intervals: Rate: 102 RI: 178 QRSD: 94 QT: 372 QTc: 484 [place]: P: 53 RI: 178 QRS: 7 T: 29 INTERPRETIVE STATEMENTS: Sinus tachycardia Inferior infarct, age undetermined Anterior infarct, age undetermined Abnormal ECG Compared to ECG 12/20/2021 16:24:54 Sinus rhythm no longer present Myocardial infarct finding still present Electronically Signed On 02-05-22 09:31:45 CDT by Brenton Sky
== END 2022-02-04 22:28 | disposition home or self-care (01) ==
LOC: ER 17:03
DX: G89.29 Other chronic pain (principal); M79.672 Pain in left foot; E11.9 Type 2 diabetes mellitus without complications; I10 Essential (primary) hypertension; M79.7 Fibromyalgia
CPT/HCPCS: 93005; 85025; 36415; 83690; 80053; 73630; 96375; 96374; 99284; J3010; J7030; J2405; J3490

== ENCOUNTER 2022-02-06 21:07 | Emergency (ER) | payer BC ==
--- OUTSIDE RECORDS SUMMARY | 2022-02-06 21:11 | XMS REPORT | Continuity of Care Document ---
:1970 Author Organization [facility] t Address [facility] [place] [address] Care Team Providers Name Role Phone KIERRA [...] code = 1095) No anaerobes isolated TISSUE [id number] 15:59:00Surgical Pathology Report Case: [id number] Authorizing Provider: Jimenez Mcintosh MD Collected: 04/17/2017 1759 Ordering Location: [facility] PERIOPERATIVE Received: 04/18/2017 0801 SERVICES Pathologist: Antonette Mario MD Specimen: Eyelid, Left, Left eyelid abscess SKIN, LEFT EYELID, ABSCESS, DEBRIDEMENT:- SKIN WITH ABSCESS- GRAM POSITIVE COCCI IN CLUSTERS (BROWN AND BRENN) Please correlate with corresponding microbiology cultures. [id number]; [id number] x 3Left upper eyelid abscessLeft eyelid abscess [...] diagnostic report above: AFB, Brown and Lakisha, CHRISS (block A1).BLOOD [id number] 18:00:00 Test Item Value Reference Range Interpretation Comments CULTURE (BEAKER) (test No growth in 5 days code = 1095) WOUND CULTURE + GRAM [id number] 08:51:00 Test Item Value Reference Interpretation Comments [...] No organisms seen (BEAKER) (test code = 822984) Florentin elieser = 21SURGICALLY OBTAINED CULTURE + GRAM [id number] 07:47:00 Test Item Value Reference Range Interpretation Comments CULTURE A 1+ Same organis m has (BEAKER) (test been isolated from code = 1095) cultures(s) of the same body site and collection date . Repeat identifi cation and susceptibil ity testing perform ed only after consultat ion with the [facility] microbiology laboratory.Refe r to previous cultur e ofMethicillin resistant Staphylococcus aureus GRAM STAIN 1+ WBCs RESULT (BEAKER) (test code = 1123) GRAM STAIN No organisms seen RESULT (BEAKER) (test code = 940465) POCT-GLUCOSE [id number] 08:26:00 Test Item Value Reference Range Interpretation Comments POC-GLUCOSE METER 124 mg/dL 70-110 H TESTED AT [facility] 6720 (BEAKER) (test code = TIMMY [place] 1538) [address] CBC (HEMOGRAM ONLY)2017-04-19 06:23:00 Test Item Value [...] (BEAKER) (test code = 413) 0.00BASIC METABOLIC [id number] 05:40:00 Test Item Value Reference Range Interpretation [...] mg/dL 8.4-10.2 (test code = 697) EGFR ([facility]) (test 91 mL/min/1.73 ESTIMA ANIA GFR IS code = 1092) sq m NOT ACCURATE CREATININE CLEARANCE IN PREDICTING GLOMERULAR FILTRATION RATE . ESTIMATED GFR I S NOT APPLICABLE FOR DIALYSIS PATIEN TS. POCT-GLUCOSE [id number] 21:12:00 Test Item Value Reference Range Interpretation Comments POC-GLUCOSE METER 154 mg/dL 70-110 H TESTED AT [place] [address] ([facility]) (test code = TIMMY Stafford [facility] 1538) [address] POCT-GLUCOSE [id number] 16:18:00 Test Item Value Reference Range Interpretation Comments POC-GLUCOSE METER 137 mg/dL 70-110 H TESTED AT [place] [address] ([facility]) (test code = [facility] Nydia [facility] 1538) [address] POCT-GLUCOSE [id number] 11:57:00 Test Item Value Reference Range Interpretation Comments POC-GLUCOSE METER 123 mg/dL 70-110 H TESTED AT [place] [address] ([facility]) (test code = [facility] Nydia [facility] 1538) [address] POCT-GLUCOSE [id number] 07:25:00 Test Item Value Reference Range Interpretation Comments POC-GLUCOSE METER 126 mg/dL 70-110 H TESTED AT [place] [address] ([facility]) (test code = PANKAJNH Nydia [facility] 1538) [address] [id number] 05:33:00 Test Item Value Reference Range Interpretation Comments MAGNESIUM ([facility]) (test code = 2.4 mg/dL 1.6-2.6 627) POCT-GLUCOSE [id number] 23:17:00 Test Item Value Reference Range Interpretation Comments POC-GLUCOSE METER 165 mg/dL 70-110 H TESTED AT [place] [address] ([facility]) (test code = PANKAJNH Nydia [facility] 1538) 86140 POCT-GLUCOSE [id number] 18:35:00 Test Item Value Reference Range Interpretation Comments POC-GLUCOSE METER 110 mg/dL 70-110 TESTED AT [place] [address] ([facility]) (test code = PANKAJNH Yoopies [facility] 1538) [address] CBC W/PLT COUNT & AUTO [id number] 14:01:00 Test Item Value Reference Range Interpretation [...] (BEAKER) (test code = Normal 762) POCT-GLUCOSE [id number] 12:17:00 Test Item Value Reference Range Interpretation Comments POC-GLUCOSE METER 131 mg/dL 70-110 H TESTED AT [facility] 6720 (BEAKER) (test code = TIMMY Stafford [place] 1538) [address] POCT-GLUCOSE [id number] 08:36:00 Test Item Value Reference Range Interpretation Comments POC-GLUCOSE METER 128 mg/dL 70-110 H TESTED AT [facility] 6720 (BEAKER) (test code = [facility] Nydia [facility] 1538) [address] [id number] 06:13:00 Test Item Value Reference Range Interpretation Comments MAGNESIUM (BEAKER) (test code = 2.1 mg/dL 1.6-2.6 627) BASIC METABOLIC [id number] 06:13:00 Test Item Value Reference Range Interpretation [...] NOT APPLICABLE FOR DIALYSIS PATIEN TS. POCT-GLUCOSE [id number] 20:32:00 Test Item Value Reference Range Interpretation Comments POC-GLUCOSE METER 131 mg/dL 70-110 H TESTED AT [place] [address] (BEAKER) (test code = TIMMY Stafford [facility] 1538) 15189 POCT-GLUCOSE [id number] 19:08:00 Test Item Value Reference Range Interpretation Comments POC-GLUCOSE METER 126 mg/dL 70-110 H TESTED AT [place] [address] (BEAKER) (test code = TIMMY Stafford [facility] 1538) 6[address] POCT-GLUCOSE [id number] 12:51:00 Test Item Value Reference Range Interpretation Comments POC-GLUCOSE METER 178 mg/dL 70-110 H TESTED AT [place] [address] (BEAKER) (test code = TIMMY Stafford [facility] 1538) 67687 POCT-GLUCOSE [id number] 08:42:00 Test Item Value Reference Range Interpretation Comments POC-GLUCOSE METER 131 mg/dL 70-110 H [facility] AT [place] [address] [facility] (test code = TIMMY Stafford [facility] 1538) [address] CBC W/PLT COUNT & AUTO [id number] 06:32:00 Test Item Value Reference Range Interpretation [...] K/ L 0.00-0.20 (test code = 417) [id number] 05:46:00 Test Item Value Reference Range Interpretation Comments MAGNESIUM (BEAKER) (test code = 2.2 mg/dL 1.6-2.6 627) BASIC METABOLIC [id number] 05:46:00 Test Item Value Reference Range Interpretation [...] NOT APPLICABLE FOR DIALYSIS PATIEN TS. POCT-GLUCOSE [id number] 21:26:00 Test Item Value Reference Range Interpretation Comments POC-GLUCOSE METER 150 mg/dL 70-110 H TESTED AT [facility] 6720 ([facility]) (test code = PANKAJNH Nydia [facility] 1538) [address] POCT-GLUCOSE [id number] 18:03:00 Test Item Value Reference Range Interpretation Comments POC-GLUCOSE METER 102 mg/dL 70-110 TESTED AT [facility] 6720 ([facility]) (test code = [facility] 1538) [address] HCG, QUANTITATIVE, [id number] 14:05:00 Test Item Value Reference Range Interpretation Comments GONADOTROPIN, CHORIONIC (HCG) QUANT < mIU/mL 0-10 ([facility]) (test code = 649) Non- Females: <10 mIU/mL Females: Gestation Age Reference Range(mIU/mL) 0.2-1 Week 5-50 1-2 Weeks 50-500 2-3 Weeks 100-5,000 3-4Weeks 500-10,000 4-5 Weeks 1,000-50,000 5-6 Weeks 10,000-100,000 6-8 Weeks 15,000-200,000 2-3 Months 10,000-100,000[facility] METABOLIC PANEL 2017-04-15 14:02:00 Test Item [...] NOT APPLICABLE FOR DIALYSIS PATIEN TS. HEMOGLOBIN [id number] 13:58:00 Test Item Value Reference Range Interpretation Comments HEMOGLOBIN A1C (BEAKER) (test code = 6.7 % 4.3-6.1 H 368) CBC W/PLT COUNT & AUTO [id number] 13:39:00 Test Item Value Reference Range Interpretation [...] LYMPHOCYTES ABSOLUTE COUNT 2.50 K/ L 1.48-4.50 ([facility]) (test code = 414) MONOCYTES ABSOLUTE COUNT ([facility]) 0.55 K/ L 0.00-1.30 (test code = 415) EOSINOPHILS ABSOLUTE COUNT 0.09 K/ L 0.00-0.50 ([facility]) (test code = 416) BASOPHILS ABSOLUTE COUNT ([facility]) 0.08 K/ L 0.00-0.20 (test code = 417) 0.00POCT-GLUCOSE [id number] 11:42:00 Test Item Value Reference Range Interpretation Comments POC-GLUCOSE METER 124 mg/dL 70-110 H TESTED AT [facility] 6720 ([facility]) (test code = TIMMY RAMIRE[place] 1538) [address]
== END 2022-02-06 22:54 | disposition left against medical advice (07) ==
LOC: ER 21:07
DX: Z02.9 Encounter for administrative examinations, unspecified (principal)

== ENCOUNTER 2022-07-09 03:44 | Emergency (ER) | payer BC ==
--- OUTSIDE RECORDS SUMMARY | 2022-07-09 03:48 | XMS REPORT | Continuity of Care Document ---
:1970 Author Organization [facility] t Address [address] [place] [address] Care Team Providers Name Role Phone Nestor Medina MD Primary Care Physician NICKOLAS SINGH Attending Clinician Unavailable NICKOLAS SINGH Admitting Clinician Unavailable Problems Condition Condition Condition Status Onset Resolution Last Treating Co mments Source Name Details Category Date Date Treatment Clinician Date Orbital Orbital Disease Active [facility] cellulitis cellulitis 04-15 Kathryn kes [facility]: [facility] Diabetes Diabetes Disease [facility] mellitus, mellitus, 04-15 [facility] type 2 type 2 00:00: Medical 00 Center Opioid Opioid Disease Active [facility] dependence dependence 04-15 Kathryn kes 00:00: Medical 00 Center Allergies, Adverse Reactions, Alerts This patient has no known allergies or adverse reactions. Social History Social Habit Start Date Stop Date Quantity Comments Source Alcohol intake 2017-04-18 2017-04-[address] [facility] Ana es 00:00:00 00:00:00 non-drinker of Medical Ce nter alcohol (finding) Sex Assigned At [address] [facility] Kathryn kes 00:00:00 00:00:00 [facility] Center Smoking Status Start Date Stop Date Source Former smoker 2017-04-15 00:00:00 2017-04-15 00:00:00 [facility] Medications Ordered Filled Start Stop Current Ordering Indication Dosage Frequency Signature Comments Components Source Medication Medication Date Date Medication? Clinician (SIG) Name Name buprenorphi Yes 1{tbl} Q.5D Place [address] ne-naloxone 7-08 tablet [facility] 8-2 mg Subl 11:17: under the M edical 05 tongue 2 Center (two) times daily. desvenlafax 2017-0 Yes 100mg QD Take [address] ine 7-08 mg by [facility] succinate 11:17: mouth Medical (PRISTIQ) 05 daily. Center 100 MG 24 hr tablet metFORMIN 2017-0 Yes 1000mg Take 1,[address] (GLUCOPHAGE 7-08 mg by [facility] ) 1000 MG 11:17: mouth 2 Medic al tablet 05 (two) Center times daily with breakfast and dinner. omeprazole 2017-0 Yes 40mg QD Take [address] (PRILOSEC) 7-08 by mouth [facility] 40 MG 11:17: daily. Medical capsule 05 Center oxybutynin 2017-0 Yes 5mg Q.5D Take [address] (DITROPAN-X 7-08 by mouth 2 Kathryn kes L) 5 MG 24 11:17: (two) Medica l hr tablet 05 times Center daily. ondansetron 2017-0 Yes 4mg Take [address] (ZOFRAN-ODT 7-08 by mouth Luke s ) 4 MG 11:17: every 8 Medical disintegrat 05 (eight) Cente r ing tablet hours as needed for Nausea. milnacipran 2017-0 Yes 100mg Q.5D Take [address] (SAVELLA) 7-08 mg by [facility] 100 mg Tab 11:17: mouth 2 Medi luis 05 (two) Center times daily. TiZANidine 2017-0 Yes 4mg Q.[id number] Take [address] (ZANAFLEX) 7-08 [id number] by mouth 3 [facility] 4 MG 11:17: 3D (three) Medical capsule 05 times Center daily. TRIAMTERENE 2017-0 Yes 75mg QD Take [address] ORAL 7-08 by mouth [facility]ukes 11:17: daily . Medical 05 Center clonazePAM 2017-0 Yes 1mg Take [address] (KLONOPIN) 7-08 by mouth 2 Ana es 1 MG tablet 11:17: (two) Medic al 05 times Center daily as needed for Anxiety One in AM, and one in the after noon. neomycin-po 2017-0 Yes For [address] lymyxin-dex 7-08 days [facility] amethasone 00:00: suppley. Med ical (POLYDEX) 00 Center 3.5 mg/g-10,000 unit/g-0.1 % Oint ophthalmic ointment Immunizations Ordered Immunization Filled Immunization Date Status Commen ts Source Name Name Jesus 2017-04-[address] [facility] 00:00:00 Medical Center Procedures This patient has no known procedures. Results Test Description Test Time Test Comments Results Result Comments Source ANAEROBIC CULTURE 2017-04-22 03:45:00 Test Item Value Reference Range Interpretation Comme nts CULTURE (BEAKER) (test code = 1095) No anaerobes isolated TISSUE [id number] 15:59:00Surgical Pathology Report Case: [id number] Authorizing Provider: Jimenez Mcintosh MD Collected: 04/17/2017 1689 Ordering Location: [facility] PERIOPERATIVE Received: 04/18/2017 0801 SERVICES Pathologist: Antonette Mario MD Specimen: Eyelid, Left, Left eyelid abscess SKIN, LEFT EYELID, ABSCESS, DEBRIDEMENT:- SKIN WITH ABSCESS- GRAM POSITIVE COCCI IN CLUSTERS (DIONICIO) Please correlate with corresponding microbiology cultures. [id number]; 45332 x 3Left upper eyelid abscessLeft eyelid abscess The specimen is received in a formalin-filled container labeled with the patient's information and labeled "left eyelid abscess" and consists of multiple irregular fragments of montiel dusky soft tissue measuring 2 x 1 x 0.4 cm in aggregate, submitted entirely in A1. CG/ew AFB is negative for acid fastbacteria. GMS is negative for fungus.The following special studies were performed on this case and the interpretation is incorporated in the diagnostic report above: AFB, Dionicio, GMS (block A1).BLOOD CULTURE 2017-04-20 18:00:00 Test Item Value Reference Range Interpretation Comments CULTURE (BEAKER) (test No growth in 5 days code = 1095) WOUND CULTURE + GRAM [id number] 08:51:00 Test Item Value Reference Interpretation Comments [...] No organisms seen (BEAKER) (test code = 316244) Florentin elieser = 21SURGICALLY OBTAINED CULTURE + GRAM [id number] 07:47:00 Test Item Value Reference Range Interpretation Comments CULTURE A 1+ Same organis m has (BEAKER) (test been isolated from code = 1095) cultures(s) of the same body site and collection date . Repeat identifi cation and susceptibil ity testing perform ed only after consultat ion with the [facility] microbiology laboratory.Refe r to previous cultur e ofMethicillin resistant Staphylococcus aureus GRAM STAIN 1+ WBCs RESULT (BEAKER) (test code = 1123) GRAM STAIN No organisms seen RESULT (BEAKER) (test code = 878284) POCT-GLUCOSE [id number] 08:26:00 Test Item Value Reference Range Interpretation Comments POC-GLUCOSE METER 124 mg/dL 70-110 H TESTED AT [facility] 6720 (BEAKER) (test code = PANKAJVIKI Stafford [facility] 1538) [address] CBC (HEMOGRAM ONLY)2017-04-19 06:23:00 Test Item Value [...] WBC 0-0 (BEAKER) (test code = 413) 0.00[facility] METABOLIC [id number] 05:40:00 Test Item Value Reference Range Interpretation [...] NOT APPLICABLE FOR DIALYSIS PATIEN TS. POCT-GLUCOSE [id number] 21:12:00 Test Item Value Reference Range Interpretation Comments POC-GLUCOSE METER 154 mg/dL 70-110 H TESTED AT [facility] 6720 (BEAKER) (test code = TIMMY Stafford [facility] 1538) 75379 POCT-GLUCOSE [id number] 16:18:00 Test Item Value Reference Range Interpretation Comments POC-GLUCOSE METER 137 mg/dL 70-110 H TESTED AT [place] [address] ([facility]) (test code = TIMMY Stafford [facility] 1538) [address] POCT-GLUCOSE [id number] 11:57:00 Test Item Value Reference Range Interpretation Comments POC-GLUCOSE METER 123 mg/dL 70-110 H TESTED AT [place] [address] ([facility]) (test code = TIMMY Stafford [facility] 1538) 79208 POCT-GLUCOSE [id number] 07:25:00 Test Item Value Reference Range Interpretation Comments POC-GLUCOSE METER 126 mg/dL 70-110 H TESTED AT [place] [address] ([facility]) (test code = TIMMY Stafford [facility] 1538) [address]157 [id number] 05:33:00 Test Item Value Reference Range Interpretation Comments MAGNESIUM ([facility]) (test code = 2.4 mg/dL 1.6-2.6 627) POCT-GLUCOSE [id number] 23:17:00 Test Item Value Reference Range Interpretation Comments POC-GLUCOSE METER 165 mg/dL 70-110 H TESTED AT [place] [address] ([facility]) (test code = TIMMY Stafford [facility] 1538) 04133 POCT-GLUCOSE [id number] 18:35:00 Test Item Value Reference Range Interpretation Comments POC-GLUCOSE METER 110 mg/dL 70-110 TESTED AT [place] [address] ([facility]) (test code = [facility] Nydia [facility] 1538) [address] CBC W/PLT COUNT & AUTO [id number] 14:01:00 Test Item Value Reference Range Interpretation Comments WHITE BLOOD CELL COUNT ([facility]) 6.3 K/ L 4.0-10.0 (test code = 775) RED BLOOD CELL COUNT ([facility]) 3.64 M/ L 4.00-5.00 L (test code = 761) HEMOGLOBIN ([facility]) (test code = 11.3 GM/DL 12.0-15.0 L 410) HEMATOCRIT ([facility]) (test code = 33.6 % 36.0-45.0 L [...] (BEAKER) (test code = Normal 762) POCT-GLUCOSE [id number] 12:17:00 Test Item Value Reference Range Interpretation Comments POC-GLUCOSE METER 131 mg/dL 70-110 H TESTED AT [facility] 6720 (BEAKER) (test code = TIMMY Stafford [place] 1538) [address] POCT-GLUCOSE [id number] 08:36:00 Test Item Value Reference Range Interpretation Comments POC-GLUCOSE METER 128 mg/dL 70-110 H TESTED AT [facility] 6720 (BEAKER) (test code = TIMMY Stafford [place] 1538) [address] [id number] 06:13:00 Test Item Value Reference Range Interpretation Comments MAGNESIUM (BEAKER) (test code = 2.1 mg/dL 1.6-2.6 627) BASIC METABOLIC [id number] 06:13:00 Test Item Value Reference Range Interpretation [...] NOT APPLICABLE FOR DIALYSIS PATIEN TS. POCT-GLUCOSE [id number] 20:32:00 Test Item Value Reference Range Interpretation Comments POC-GLUCOSE METER 131 mg/dL 70-110 H TESTED AT [place] [address] (BEAKER) (test code = TIMMY Stafford [place] 1538) [address] POCT-GLUCOSE [id number] 19:08:00 Test Item Value Reference Range Interpretation Comments POC-GLUCOSE METER 126 mg/dL 70-110 H TESTED AT [place] [address] (BEAKER) (test code = TIMMY Stafford [place] 1538) [address] POCT-GLUCOSE [id number] 12:51:00 Test Item Value Reference Range Interpretation Comments POC-GLUCOSE METER 178 mg/dL 70-110 H TESTED AT [facility] 6720 (BEAKER) (test code = TIMMY [place] 1538) [address] POCT-GLUCOSE [id number] 08:42:00 Test Item Value Reference Range Interpretation Comments POC-GLUCOSE METER 131 mg/dL 70-110 H TESTED AT [facility] 6720 (BEAKER) (test code = TIMMY [place] 1538) [address] CBC W/PLT COUNT & AUTO [id number] 06:32:00 Test Item Value Reference Range Interpretation [...] K/ L 0.00-0.20 (test code = 417) [id number] 05:46:00 Test Item Value Reference Range Interpretation Comments MAGNESIUM (BEAKER) (test code = 2.2 mg/dL 1.6-2.6 627) BASIC METABOLIC [id number] 05:46:00 Test Item Value Reference Range Interpretation [...] NOT APPLICABLE FOR DIALYSIS PATIEN TS. POCT-GLUCOSE [id number] 21:26:00 Test Item Value Reference Range Interpretation Comments POC-GLUCOSE METER 150 mg/dL 70-110 H TESTED AT [facility] 6720 (BEAKER) (test code = TIMMY Nydia [place] 1538) [address] POCT-GLUCOSE [id number] 18:03:00 Test Item Value Reference Range Interpretation Comments POC-GLUCOSE METER 102 mg/dL 70-110 TESTED AT [facility] 6720 (BEAKER) (test code = TIMMY [place] 1538) [address] HCG, QUANTITATIVE, [id number] 14:05:00 Test Item Value Reference Range Interpretation Comments GONADOTROPIN, CHORIONIC (HCG) QUANT < mIU/mL 0-10 (BEAKER) (test code = 649) Non- Females: <10 mIU/mL Females: Gestation Age Reference Range(mIU/mL) 0.2-1 Week 5-50 1-2 Weeks 50-500 2-3 Weeks 100-5,000 3-4 Weeks 500-10,000 4-5 Weeks 1,000-50,000 5-6 Weeks 10,000-100,000 6-8 Weeks 15,000- 200,000 2-3 Months 10,000-100,000BASIC METABOLIC [id number] 14:02:00 Test Item Value Reference Range Interpretation [...] NOT APPLICABLE FOR DIALYSIS PATIEN TS. HEMOGLOBIN [id number] 13:58:00 Test Item Value Reference Range Interpretation Comments HEMOGLOBIN A1C (BEAKER) (test code = 6.7 % 4.3-6.1 H 368) CBC W/PLT COUNT & AUTO [id number] 13:39:00 Test Item Value Reference Range Interpretation [...] L 0.00-0.20 (test code = 417) 0.00POCT-GLUCOSE [id number] 11:42:00 Test Item Value Reference Range Interpretation Comments POC-GLUCOSE METER 124 mg/dL 70-110 H TESTED AT [facility] 67 (MOHIT) (test code = TIMMY [place] 1538) [address]
[2022-07-09] MEDS ORDERED: FAMOTIDINE 20 MG/2 ML VIAL IV ONE (04:13)
[2022-07-09] MEDS ORDERED: MORPHINE 4 MG/ML SYR ONE (04:13)
[2022-07-09] MEDS ORDERED: ONDANSETRON 4 MG/2 ML VIAL ONE (04:13)
[2022-07-09] MEDS ORDERED: MECLIZINE HCL 12.5 MG TAB ONE (04:13)
[2022-07-09 04:53] LABS: Hematocrit 33.6 % (36.0-45.0); Lymphocytes % 33.9 % (15.3-44.8); MCV 89.4 fL (80-100); MPV 6.2 fL (7.6-11.3); RBC Red Blood Cell Count 3.76 M/uL (3.86-4.86)
[2022-07-09 05:06] LABS: Albumin 3.3 g/dL (3.4-5.0); Bilirubin Total 0.2 mg/dL (0.2-1.0); Potassium 3.5 mmol/L (3.5-5.1); Troponin High Sensitivity 4.7 pg/mL (<58.9)
[2022-07-09 05:06] LABS: Urine Blood Negative (Negative); Urine Glucose Negative (Negative); Urine Protein Negative (Negative)
[2022-07-09 05:31] LABS: Urine Mucus Slight /HPF (None Seen); Urine RBC <5 /HPF (None Seen); Urine WBC Clump Rare /HPF (None Seen)
--- NOTE | 2022-07-09 06:10 | EDPHYS ---
Physician Documentation [facility] Name: Sharon Babin Age: 51 yrs Sex: Female : 1970 Arrival Date: 07/09/2022 Time: 03:48 Bed 6 Private MD: [id number] Physician Lucila Valle HPI: 07/09 04:12 This 51 yrs old Female presents to ER via Ambulatory with complaints of sd2 Dizziness, Nausea, Headache, Anxiety. 04:12 51 yo F presents with CC of multiple complaints. Reports ongoing chronic nausea that sd2 she normally takes Zofran for daily. However, she has not been able to take her normal amount due to insurance issues. She also reports room spinning dizziness that started yesterday and has caused her to feel off balance when walking. Reports dizzy episodes in the past that are usually associated with her panic attacks but states that this feels different than a panic attack. She does report ongoing anxiety and family stressors due to recent of her sister. She also complains of acute on chronic neck pain. She reports she sees pain management for this and they have given her suboxone but it does not work and she has not been taking it. Reports she is scheduled to have an injection on Friday and that she has herniated discs in her neck. Denies any new weakness or numbness.. Historical: - Allergies: 04:15 No Known Allergies; jb4 - Home Meds: 04:15 diazepam 2 mg Oral tab 1 tab nightly for Anxiety [Active]; Klonopin 1 mg Oral tab jb4 [Active]; omeprazole 40 mg Oral cpDR 1 cap once daily [Active]; ondansetron HCl 4 mg Oral tab 1 tab every 8 hours [Active]; metformin 1,000 mg Oral tab 2 times per day for Type 2 Diabetes Mellitus [Active]; oxybutynin chloride 5 mg Oral tab 1 tab 2 times per day [Active]; pantoprazole 40 mg Oral TbEC 1 tab before first meal of the day [Active]; propranolol 60 mg Oral tab 1 tab daily [Active]; Saphris (black vazquez) 10 mg sublingual subl 1 tab 2 times per day [Active]; tizanidine 4 mg Oral tab 1 tab every 8 hours [Active]; Pristiq 100 mg Oral Tb24 1 tab once daily [Active]; triamterene-hydrochlorothiazid 37.5-25 mg Oral cap 1 cap once daily for Hypertension [Active]; - PMHx: 04:15 Diabetes - NIDDM; Fibromyalgia; Hypertension; Lupus; Hypothyroidism; jb4 - PSHx: 04:15 back sx; breast augmentation; Carpal tunnel sx; Elbow; mass removed from sinus; Tummy jb4 tuck; - Immunization history:: Adult Immunizations up to date. - Social history:: Smoking status: Patient denies any tobacco usage or history of. ROS: 04:12 Constitutional: Negative for fever, chills, and weight loss, Eyes: Negative for injury, sd2 pain, redness, and discharge, Neck: Positive for pain. Negative for injury and swelling. Cardiovascular: Negative for chest pain, palpitations, and edema, Respiratory: Negative for shortness of breath, cough, wheezing. Abdomen/GI: Negative for abdominal pain, vomiting, diarrhea. Positive for nausea. MS/Extremity: Negative for injury and deformity, Skin: Negative for injury, rash, and discoloration, Neuro: Positive for headache, and dizziness, Negative for numbness and tingling. Exam: 04:12 Constitutional: This is a well developed, well nourished patient who is awake, alert, sd2 and in no acute distress. Head/Face: Normocephalic, atraumatic. Eyes: EOMI, normal conjunctiva bilaterally Chest/axilla: Normal chest wall appearance and motion. Nontender with no deformity. Cardiovascular: Regular rate and rhythm with a normal S1 and S2. No gallops, murmurs, or rubs. 2+ distal pulses. Respiratory: Lungs have equal breath sounds bilaterally, clear to auscultation and percussion. No rales, rhonchi or wheezes noted. No increased work of breathing, no retractions or nasal flaring. Abdomen/GI: Soft, non-tender, with normal bowel sounds. No guarding or rebound. No evidence of tenderness throughout. Skin: Warm, dry with normal turgor. Normal color with no rashes, no lesions, and no evidence of cellulitis. MS/ Extremity: Pulses equal, no cyanosis. Neurovascular intact. Full, normal range of motion. Ambulatory without difficulty. Neuro: Awake and alert, GCS 15, oriented to person, place, time, and situation. Cranial nerves II-XII grossly intact. Motor strength 5/5 in all extremities. Sensory grossly intact. Cerebellar exam normal. Normal gait. Psych: Awake, alert, with orientation to person, place and time. Behavior, mood, and affect are within normal limits. 04:54 ECG was reviewed by the Attending Physician. NSR, rate 98, no STEMI criteria sd2 Vital Signs: 03:59 BP 132 / 67; Pulse 98; Resp 16; Temp 97.0(TE); Pulse Ox 98% on R/A; Weight 90.72 kg jb4 (R); Height 5 ft. 6 in. (167.64 cm) (R); Pain 10/10; 05:15 BP 131 / 72; Pulse 92; Resp 18; Pulse Ox 99% on R/A; ll3 03:59 Body Mass Index 32.28 (90.72 kg, 167.64 cm) jb4 MDM: 03:53 Patient medically screened. sd2 04:12 Differential diagnosis: CVA, generalized weakness, head injury, hyperventilation, sd2 idiopathic dizziness, near-syncope, syncope, TIA, vertigo, among others. Data reviewed: vital signs, nurses notes. 06:08 Data reviewed: lab test result(s), EKG, radiologic studies. Counseling: I had a sd2 detailed discussion with the patient and/or guardian regarding: the historical points, exam findings, and any diagnostic results supporting the discharge/admit diagnosis, lab results, radiology results, the need for outpatient follow up, to return to the emergency department if symptoms worsen or persist or if there are any questions or concerns that arise at home. Medical screen evaluation completed. [facility] emergency medical condition absent. Special discussion: I discussed with the patient/guardian in detail that at this point there is no indication for admission to the hospital. It is understood, however, that if the symptoms persist or worsen the patient needs to return immediately for re-evaluation. ED course: Labs and imaging reviewed. Labs grossly WNCL. Trop neg. EKG with no ischemic changes. CXR with no acute process. UA without infection. Pt feeling significantly improved after treatment with improved ROM and pain in her neck and resolved dizziness and nausea. pt is ambulatory with no focal neuro deficits. She is comfortable with plan for discharge and outpatient followup and verbalizes understanding of strict return precautions. . 07/09 04:43 Order name: Comprehensive Metabolic Panel; Complete Time: 06:04 EDNM 07/09 04:11 Order name: CT Head Brain wo Cont sd2 07/09 04:21 Order name: Chest Single View EDNM 07/09 04:43 Order name: Troponin High Sensitivity; Complete Time: 06:04 EDMS 07/09 04:43 Order name: Lipase; Complete Time: 06:04 MS 07/09 04:43 Order name: CBC with Automated Diff; Complete Time: 06:04 [facility] 07/09 05:06 Order name: Urine Dipstick-Ancillary; Complete Time: 06:04 [facility] 07/09 05:13 Order name: Urine Microscopic Only; Complete Time: 06:04 [facility] 07/09 04:11 Order name: EKG - Nurse/Tech; Complete Time: 04:48 [facility] 07/09 04:11 Order name: Urine Dipstick-Ancillary (obtain specimen); Complete Time: 05:07 [facility] 07/09 05:10 Order name: Head Brain Wo Cont EDMS Administered Medications: 04:30 Drug: morphine 4 mg Route: IVP; Infused Over: 4 mins; Site: left antecubital; ll3 06:23 Follow up: Response: No adverse reaction ll3 04:30 Drug: Zofran (Ondansetron) 4 mg Route: IVP; Site: left antecubital; ll3 06:23 Follow up: Response: No adverse reaction; Marked relief of symptoms ll3 04:30 Drug: Pepcid (famotidine) 20 mg Route: IVP; Site: left antecubital; ll3 06:24 Follow up: Response: No adverse reaction; Marked relief of symptoms ll3 04:30 Drug: Meclizine 25 mg Route: PO; ll3 06:24 Follow up: Response: No adverse reaction; Marked relief of symptoms ll3 Disposition Summary: 07/09/22 06:10 Discharge Ordered Location: Home sd2 Problem: new sd2 Symptoms: have improved sd2 Condition: Stable sd2 Diagnosis - Dizziness and giddiness sd2 - Nausea sd2 - Acute on chronic neck pain sd2 Followup: sd2 - With: Private Physician - When: 2 - 3 days - Reason: Recheck today's complaints, Continuance of care, Re-evaluation by your physician Discharge Instructions: - Discharge Summary Sheet sd2 - Dizziness sd2 - Nausea, Adult, [id number] sd2 - Neck Exercises sd2 Forms: - Medication Reconciliation Form sd2 - Thank You Letter sd2 - Antibiotic Education sd2 - Prescription Opioid Use sd2 Prescriptions: - Meclizine 25 mg Oral Tablet - take 1 tablet by ORAL route every 8 hours As needed As needed for dizziness; 30 sd2 tablet; Refills: 0, Product Selection Permitted - Zofran 4 mg Oral Tablet - take 1 tablet by ORAL route every 6 hours As needed; 12 tablet; Refills: 0, sd2 Product Selection Permitted Signatures: Dispatcher [employer] Ross Iraheta RN RN jb4 Jackie Rivera RN RN ll3 Lucila Valle MD MD sd2
--- NOTE | 2022-07-09 06:10 | ER ---
Nurse's Notes [facility] Name: Sharon Babin Age: 51 yrs Sex: Female : 1970 Arrival Date: 07/09/2022 Time: 03:48 Bed 6 Private MD: Diagnosis: Dizziness and giddiness;Nausea;Acute on chronic neck pain Presentation: 07/09 03:59 Chief complaint: Patient states: I have been having dizziness, SOB, nausea, and neck jb4 pain for the past week. It has been progressively getting worse, and this morning I just couldn't take it anymore. Coronavirus screen: At this time, the client does not indicate any symptoms associated with coronavirus-19. Ebola Screen: No symptoms or risks identified at this time. Initial Sepsis Screen: Does the patient meet any 2 criteria? No. Patient's initial sepsis screen is negative. Does the patient have a suspected source of infection? No. Patient's initial sepsis screen is negative. Risk Assessment: Do you want to hurt yourself or someone else? Patient reports no desire to harm self or others. Onset of symptoms was July 02, 2022. Transition of care: patient was not received from another setting of care. 03:59 Method Of Arrival: Ambulatory jb4 03:59 Acuity: XIMENA 3 jb4 Triage Assessment: 04:00 General: Appears in no apparent distress. uncomfortable, Behavior is. Neuro: Reports ll3 dizziness. GI: Abdomen is round non-distended, Reports nausea. Historical: - Allergies: 04:15 No Known Allergies; jb4 - Home Meds: 04:15 diazepam 2 mg Oral tab 1 tab nightly for Anxiety [Active]; Klonopin 1 mg Oral tab jb4 [Active]; omeprazole 40 mg Oral cpDR 1 cap once daily [Active]; ondansetron HCl 4 mg Oral tab 1 tab every 8 hours [Active]; metformin 1,000 mg Oral tab 2 times per day for Type 2 Diabetes Mellitus [Active]; oxybutynin chloride 5 mg Oral tab 1 tab 2 times per day [Active]; pantoprazole 40 mg Oral TbEC 1 tab before first meal of the day [Active]; propranolol 60 mg Oral tab 1 tab daily [Active]; Saphris (black vazquez) 10 mg sublingual subl 1 tab 2 times per day [Active]; tizanidine 4 mg Oral tab 1 tab every 8 hours [Active]; Pristiq 100 mg Oral Tb24 1 tab once daily [Active]; triamterene-hydrochlorothiazid 37.5-25 mg Oral cap 1 cap once daily for Hypertension [Active]; - PMHx: 04:15 Diabetes - NIDDM; Fibromyalgia; Hypertension; Lupus; Hypothyroidism; jb4 - PSHx: 04:15 back sx; breast augmentation; Carpal tunnel sx; Elbow; mass removed from sinus; Tummy jb4 tuck; - Immunization history:: Adult Immunizations up to date. - Social history:: Smoking status: Patient denies any tobacco usage or history of. Screenin:20 Abuse screen: Denies threats or abuse. Denies injuries from another. Nutritional ll3 screening: No deficits noted. Tuberculosis screening: No symptoms or risk factors identified. Fall Risk No fall in past 12 months (0 pts). No secondary diagnosis (0 pts). IV access (20 points). Ambulatory Aid- None/Bed Rest/Nurse Assist (0 pts). Gait- Normal/Bed Rest/Wheelchair (0 pts) Mental Status- Oriented to own ability (0 pts). Total Bustillo Fall Scale indicates No Risk (0-24 pts). Assessment: 04:00 General: See triage. Pain: Complains of pain in face. GI: Abdomen is round ll3 non-distended, Reports nausea, vomiting. 06:21 Reassessment: Patient and/or family updated on plan of care and expected duration. Pain ll3 level reassessed. Patient is alert, oriented x 3, equal unlabored respirations, skin warm/dry/pink. Patient states feeling better. Patient states symptoms have improved. Vital Signs: 03:59 BP 132 / 67; Pulse 98; Resp 16; Temp 97.0(TE); Pulse Ox 98% on R/A; Weight 90.72 kg jb4 (R); Height 5 ft. 6 in. (167.64 cm) (R); Pain 10/10; 05:15 BP 131 / 72; Pulse 92; Resp 18; Pulse Ox 99% on R/A; ll3 03:59 Body Mass Index 32.28 (90.72 kg, 167.64 cm) jb4 ED Course: 03:48 Patient arrived in ED. bp1 03:52 Lucila Valle MD is Attending Physician. sd2 04:12 Triage completed. jb4 04:15 Arm band placed on right wrist. jb4 04:41 Inserted saline lock: 22 gauge in left antecubital area, using aseptic technique. Blood ll3 collected. Missed attempt(s): 22 gauge in right antecubital area. 04:42 Chest Single View In Process Unspecified. EDMS 05:23 Head Brain Wo Cont In Process Unspecified. EDMS 06:20 Patient has correct armband on for positive identification. Placed in gown. Bed in low ll3 position. Call light in reach. Side rails up X 1. Client placed on continuous cardiac and pulse oximetry monitoring. NIBP monitoring applied. 06:20 No provider procedures requiring assistance completed. IV discontinued, intact, ll3 bleeding controlled, No redness/swelling at site. Pressure dressing applied. Administered Medications: 04:30 Drug: morphine 4 mg Route: IVP; Infused Over: 4 mins; Site: left antecubital; ll3 06:23 Follow up: Response: No adverse reaction ll3 04:30 Drug: Zofran (Ondansetron) 4 mg Route: IVP; Site: left antecubital; ll3 06:23 Follow up: Response: No adverse reaction; Marked relief of symptoms ll3 04:30 Drug: Pepcid (famotidine) 20 mg Route: IVP; Site: left antecubital; ll3 06:24 Follow up: Response: No adverse reaction; Marked relief of symptoms ll3 04:30 Drug: Meclizine 25 mg Route: PO; ll3 06:24 Follow up: Response: No adverse reaction; Marked relief of symptoms ll3 Medication: 06:21 VIS not applicable for this client. ll3 Outcome: 06:10 Discharge ordered by . sd2 06:20 Discharged to home ambulatory, with family. ll3 06:20 Condition: stable 06:20 Discharge instructions given to patient, Instructed on discharge instructions, follow up and referral plans. medication usage, Demonstrated understanding of instructions, follow-up care, medications, Prescriptions given X 2. 06:24 Patient left the ED. ll3 Signatures: Dispatcher [employer] EDMS Ross Paz, KRISS RN jb4 Dunia Kaye Lynsea, RN RN ll3 Tori, Lucila, MD MD sd2
--- NOTE | 2022-07-09 15:41 | RAD REPORT ---
EXAM DESCRIPTION: CT - Head Brain Wo Cont - 07/09/2022 5:22 am CLINICAL HISTORY: 51 years Female DIZZINESS TECHNIQUE: Multiple axial CT images of the brain were performed followed by sagittal and coronal rec onstructed images. The CT study is performed according to ALARA (as low as reasonably achievable) or ALARA/IMAGE GENTLY, with automatic adjustment of mA and/or kV according to patient size. Performed on: 07/09/2022 at 5:17 AM Comparisons: Head CT performed on 12/20/2021. FINDINGS: Brain: There is no evidence of mass, acute mass effect or midline shift. There are no acut e extra-axial fluid collections. There is no evidence of acute intracranial hemorrhage. The cerebra l sulci and ventricles are normal in size and configuration. There are no focal abnormal areas of inc reased or decreased attenuation. There are stable bilateral symmetric basal ganglia calcifications. Paranasal Sinuses and Mastoids: There is no significant mucosal thickening of the paranasal sinuses. The mastoid air cells are clear. Orbits: The orbital contents are grossly unremarkable. Bones: No acute osseous abnormalities are identified. Soft Tissues: No focal soft tissue abnormalities are identified. IMPRESSION: 1. No evidence of acute intracranial pathology. No significant change when compared to the prior study. 2. Stable bilateral symmetric basal ganglia calcifications. Electronically signed by: Nelida Herrera DO 07/09/2022 5:37 AM CDT Due to temporary technical issues with the PACS/Fluency reporting system, reports are being signed by the in house radiologists without review as a courtesy to insure prompt reporting. The interpreting radiologist is fully responsible for the content of the report.
--- NOTE | 2022-07-09 15:52 | RAD REPORT ---
EXAM DESCRIPTION: RAD - Chest Single View - 07/09/2022 4:40 am CLINICAL HISTORY: 51 years Female, SOB, DIZZINESS COMPARISON: Prior chest x-ray report from 12/20/2021. The image was unavailable for review. TECHNIQUE: Single portable x-ray view of the chest performed on 07/09/2022 at 4:36 AM FINDINGS: The lungs are well expanded and are clear. There is no evidence of a pneumothorax. The cardiac silhouette is normal in size and configuration. The mediastinal contours are normal. No acute osseous abnormality is identified. No acute soft tissue abnormalities are seen. Lines and tubes: None. Free air: None IMPRESSION: No evidence of acute intrathoracic disease. Electronically signed by: Nelida Herrera DO 07/09/2022 5:32 AM CDT Due to temporary technical issues with the PACS/Fluency reporting system, reports are being signed by the in house radiologists without review as a courtesy to insure prompt reporting. The interpreting radiologist is fully responsible for the content of the report.
--- NOTE | 2022-07-10 13:09 | EKG ---
Test Date: 2022-07-09 Test Time: 04:39:08 Tap Grinder: RACHELE MEASUREMENT RESULTS: Intervals: Rate: 98 FL: 188 QRSD: 96 QT: 378 QTc: 482 [place]: P: 74 FL: 188 QRS: 56 T: 40 INTERPRETIVE STATEMENTS: Normal sinus rhythm Low voltage QRS Cannot rule out Anterior infarct, age undetermined Abnormal ECG Compared to ECG 02/04/2022 20:13:25 Low QRS voltage now present Sinus tachycardia no longer present Myocardial infarct finding still present Electronically Signed On 07-10-22 13:05:46 CDT by Miguelangel Mckeon
[2022-07-11 18:02] VITALS: TEMP 97
[2022-07-11 18:03] VITALS: BP 131/72; O2SAT 99
== END 2022-07-09 06:24 | disposition home or self-care (01) ==
LOC: ER 03:44
DX: R42 Dizziness and giddiness (principal); R11.0 Nausea; M54.2 Cervicalgia; E11.9 Type 2 diabetes mellitus without complications; I10 Essential (primary) hypertension; E03.9 Hypothyroidism, unspecified; Z98.82 Breast implant status
CPT/HCPCS: 93005; 85025; 36415; 84484; 83690; 80053; 70450; 71045; 96375; 96374; 99284; J8597; J2405; 81003; 81015

== ENCOUNTER 2022-10-01 09:51 | Emergency (ER) | payer BC ==
--- OUTSIDE RECORDS SUMMARY | 2022-10-01 09:56 | XMS REPORT | Continuity of Care Document ---
:1970 Author Organization [facility] t Address [address] [place] [address] Care Team Providers Name Role Phone Nestor Medina MD Primary Care Physician [phone] NICKOLAS SINGH Attending Clinician Unavailable NICKOLAS SINGH [...] Source Former smoker 2017-04-15 00:00:00 2017-04-15 00:00:00 [facility] Medications Ordered Filled Start Stop Current Ordering Indication Dosage Frequency Signature Comments Components Source Medication Medication Date Date Medication? Clinician (SIG) Name Name desvenlafax Yes 100mg QD Take 100 C HI [...] Center times daily. TiZANidine 2017-0 Yes 4mg [id number] Take [address] [facility] (ZANAFLEX) 7-08 [id number] by mouth 3 [facility] 4 MG 11:17: [...] 05 tongue 2 Center (two) times daily. buprenorphi 2017-0 Yes 1{tbl} Q.5D Place 1 [...] Center times daily. TiZANidine 2017-0 Yes 4mg [id number] Take [address] [facility] (ZANAFLEX) 7-08 [id number] by mouth 3 [facility] 4 MG 11:17: [...] 3.5 mg/g-10,000 unit/g-0.1 % Oint ophthalmic ointment neomycin-po 2017- Yes For [address] [facility] lymyxin-dex 7-08 days [facility] amethasone 00:00: suppley. Med ical (POLYDEX) 00 Center 3.5 mg/g-10,000 unit/g-0.1 % Oint ophthalmic ointment Immunizations Ordered Immunization Filled Immunization Date Status Commen ts Source Name Name Td 2017-04-16 Completed [facility] Tdap 2017-04-[address] [facility]00 [facility] Procedures This patient has no known procedures. Results Test Description Test Time Test Comments Results Result Comments Source ANAEROBIC CULTURE 2017-04-22 03:45:00 Test Item Value Reference Range Interpretation Comme nts CULTURE (BEAKER) (test code = 1095) No anaerobes isolated TISSUE [id number] 15:59:00Surgical Pathology Report Case: [id number] Authorizing Provider: Jimenez Mcintosh MD Collected: 04/17/2017 1759 Ordering Location: [facility] Received: 04/18/2017 0801 SERVICES Pathologist: Antonette Mario MD Specimen: Eyelid, Left, Left eyelid abscess SKIN, LEFT EYELID, ABSCESS, DEBRIDEMENT:- SKIN WITH ABSCESS- GRAM POSITIVE COCCI IN CLUSTERS (DIONICIO) Please correlate with corresponding microbiology cultures. 08199; 27384 x 3Left upper eyelid abscessLeft eyelid abscess [...] studies were performed on this case and theinterpretation is incorporated in the diagnostic report above: AFB, Dionicio, GMS (block A1).BLOOD [id number] 18:00:00 Test Item Value Reference Range Interpretation Comments CULTURE (BEAKER) (test No growth in 5 days code = 1095) WOUND CULTURE + GRAM [id number] 08:51:00 Test Item Value Reference Interpretation Comments [...] No organisms seen (BEAKER) (test code = 931023) Florentin elieser = 21SURGICALLY OBTAINED CULTURE + GRAM [id number] 07:47:00 Test Item Value Reference Range Interpretation Comments CULTURE A 1+ Same organis m has (BEAKER) (test been isolated from code = 1095) cultures(s) of the same body site and collection date . Repeat identifi cation and susceptibil ity testing perform ed only after consultat ion with the [facility] microbiology laboratory.Refe r to previous cultur e ofMethicillin resistant Staphylococcus aureus GRAM STAIN 1+ WBCs RESULT (BEAKER) (test code = 1123) GRAM STAIN No organisms seen RESULT (BEAKER) (test code = 401163) POCT-GLUCOSE [id number] 08:26:00 Test Item Value Reference Range Interpretation Comments POC-GLUCOSE METER 124 mg/dL 70-110 H TESTED AT [facility] 6720 (BEAKER) (test code = TIMMY RAMIREZ 1538) [address] CBC (HEMOGRAM ONLY)2017-04-19 06:23:00 Test Item Value [...] (BEAKER) (test code = 413) 0.00BASIC METABOLIC [id number] 05:40:00 Test Item Value Reference Range Interpretation [...] NOT APPLICABLE FOR DIALYSIS PATIEN TS. POCT-GLUCOSE [id number] 21:12:00 Test Item Value Reference Range Interpretation Comments POC-GLUCOSE METER 154 mg/dL 70-110 H TESTED AT [place] [address] ([facility] (test code = [place]ANK[place] 1538) [address] POCT-GLUCOSE [id number] 16:18:00 Test Item Value Reference Range Interpretation Comments POC-GLUCOSE METER 137 mg/dL 70-110 H TESTED AT [place] [address] ([facility] (test code = [place] 1538) [address] POCT-GLUCOSE [id number] 11:57:00 Test Item Value Reference Range Interpretation Comments POC-GLUCOSE METER 123 mg/dL 70-110 H TESTED AT [place] [address] ([facility] (test code = [place] 1538) [address] POCT-GLUCOSE [id number] 07:25:00 Test Item Value Reference Range Interpretation Comments POC-GLUCOSE METER 126 mg/dL 70-110 H TESTED AT [place] [address] ([facility] (test code = [place] 1538) [address] [id number] 05:33:00 Test Item Value Reference Range Interpretation Comments MAGNESIUM ([facility] (test code = 2.4 mg/dL 1.6-2.6 627) POCT-GLUCOSE [id number] 23:17:00 Test Item Value Reference Range Interpretation Comments POC-GLUCOSE METER 165 mg/dL 70-110 H TESTED AT [place] [address] ([facility] (test code = [place] 1538) [address] POCT-GLUCOSE [id number] 18:35:00 Test Item Value Reference Range Interpretation Comments POC-GLUCOSE METER 110 mg/dL 70-110 TESTED AT [place] [address] ([facility] (test code = [place] 1538) [address] CBC W/PLT COUNT & AUTO [id number] 14:01:00 Test Item Value Reference Range Interpretation Comments WHITE BLOOD CELL COUNT ([facility] 6.3 K/ L 4.0-10.0 (test code = [...] (BEAKER) (test code = Normal 762) POCT-GLUCOSE [id number] 12:17:00 Test Item Value Reference Range Interpretation Comments POC-GLUCOSE METER 131 mg/dL 70-110 H TESTED AT [facility] 6720 (BEAKER) (test code = [facility] [place] 1538) [address] POCT-GLUCOSE [id number] 08:36:00 Test Item Value Reference Range Interpretation Comments POC-GLUCOSE METER 128 mg/dL 70-110 H TESTED AT [facility] 6720 (BEAKER) (test code = [facility] [place] 1538) [address] [id number] 06:13:00 Test Item Value Reference Range Interpretation Comments MAGNESIUM (BEAKER) (test code = 2.1 mg/dL 1.6-2.6 627) BASIC METABOLIC [id number] 06:13:00 Test Item Value Reference Range Interpretation [...] NOT APPLICABLE FOR DIALYSIS PATIEN TS. POCT-GLUCOSE [id number] 20:32:00 Test Item Value Reference Range Interpretation Comments POC-GLUCOSE METER 131 mg/dL 70-110 H TESTED AT [facility] 6720 (BEAKER) (test code = [facility] [place] 1538) [address] POCT-GLUCOSE [id number] 19:08:00 Test Item Value Reference Range Interpretation Comments POC-GLUCOSE METER 126 mg/dL 70-110 H TESTED AT [place] [address] [facility] (test code = TIMMY [place] [facility] 1538) [address] POCT-GLUCOSE [id number] 12:51:00 Test Item Value Reference Range Interpretation Comments POC-GLUCOSE METER 178 mg/dL 70-110 H TESTED AT [place] [address] ([facility] (test code = TIMMY [place] [facility] 1538) [address] POCT-GLUCOSE [id number] 08:42:00 Test Item Value Reference Range Interpretation Comments POC-GLUCOSE METER 131 mg/dL 70-110 H TESTED AT [place] [address] ([facility] (test code = TIMMY [place] [facility] 1538) [address] CBC W/PLT COUNT & AUTO [id number] 06:32:00 Test Item Value Reference Range Interpretation [...] K/ L 0.00-0.20 (test code = 417) [id number] 05:46:00 Test Item Value Reference Range Interpretation Comments MAGNESIUM (BEAKER) (test code = 2.2 mg/dL 1.6-2.6 627) BASIC METABOLIC [id number] 05:46:00 Test Item Value Reference Range Interpretation [...] NOT APPLICABLE FOR DIALYSIS PATIEN TS. POCT-GLUCOSE [id number] 21:26:00 Test Item Value Reference Range Interpretation Comments POC-GLUCOSE METER 150 mg/dL 70-110 H TESTED AT [facility] 6720 ([facility] (test code = TIMMY [place] [facility] 1538) [address] POCT-GLUCOSE [id number] 18:03:00 Test Item Value Reference Range Interpretation Comments POC-GLUCOSE METER 102 mg/dL 70-110 TESTED AT [facility] 6720 ([facility] (test code = [facility] Nydia [facility] 1538) [address] HCG, QUANTITATIVE, [id number] 14:05:00 Test Item Value Reference Range Interpretation Comments GONADOTROPIN, CHORIONIC (HCG) QUANT < mIU/mL 0-10 ([facility] (test code = 649) Non- Females: <10 mIU/mL Females: Gestation Age Reference Range(mIU/mL) 0.2-1 Week 5-50 1-2 Weeks 50-500 2-3 Weeks 100-5,000 3-4 Weeks 500-10,000 4-5 Weeks 1,000-50,000 5-6 Weeks 10,000-100,000 6-8 Weeks 15,000- 200,000 2-3 Months 10,000-100,000BASIC METABOLIC [id number] 14:02:00 Test Item Value Reference Range Interpretation [...] NOT APPLICABLE FOR DIALYSIS PATIEN TS. HEMOGLOBIN [id number] 13:58:00 Test Item Value Reference Range Interpretation Comments HEMOGLOBIN A1C (BEAKER) (test code = 6.7 % 4.3-6.1 H 368) CBC W/PLT COUNT & AUTO [id number] 13:39:00 Test Item Value Reference Range Interpretation [...] L 0.00-0.20 (test code = 417) 0.00POCT-GLUCOSE [id number] 11:42:00 Test Item Value Reference Range Interpretation Comments POC-GLUCOSE METER 124 mg/dL 70-110 H TESTED AT [facility] 8125 ([facility] (test code = [place] 1538) [address]
[2022-10-01] MEDS ORDERED: KETOROLAC 30 MG/ML INJ ONE (10:50)
[2022-10-01] MEDS ORDERED: ACETAMINOPHEN 500 MG TAB ONE (10:50)
[2022-10-01] MEDS ORDERED: Ringers Lactate 1,000 ML IV ONE (10:50)
--- NOTE | 2022-10-01 11:06 | EDPHYS ---
Physician Documentation [facility] Name: Sharon Babin Age: 52 yrs Sex: Female : 1970 Arrival Date: 10/01/2022 Time: 09:56 Bed 20 Private MD: Nestor Medina V ED Physician Leo Cano HPI: 10/01 11:23 This 52 yrs old Female presents to ER via Wheelchair with complaints of Knee ms3 swelling. 11:23 The patient presents with an abrasion, pain, swelling, tenderness. The complaints ms3 affect the right knee. Context:. Onset: The symptoms/episode began/occurred 3 day(s) ago. Modifying factors: The symptoms are alleviated by nothing. the symptoms are aggravated by nothing. Associated signs and symptoms: Pertinent positives: swelling, Pertinent negatives fever. Severity of symptoms: At their worst the symptoms were severe, in the emergency department the symptoms are unchanged, a " 9" out of "10". 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 - Social history:: Smoking status: Patient denies any tobacco usage or history of. ROS: 11:23 Neck: Negative for injury, pain, and swelling, Cardiovascular: Negative for chest pain, ms3 and palpitations. Respiratory: Negative for shortness of breath, cough, wheezing, and pleuritic chest pain, Abdomen/GI: Negative for abdominal pain, nausea, vomiting, diarrhea, and constipation, MS/Extremity: Negative for injury and deformity. 11:23 Constitutional: Positive for chills, Negative for fever. 11:23 Skin: Positive for cellulitis, swelling. 11:23 All other systems are negative. Exam: 10:41 ECG was reviewed by the Attending Physician. ms3 11:23 Constitutional: This is a well developed, well nourished patient who is awake, alert, ms3 and in no acute distress. Head/Face: Normocephalic, atraumatic. Neck: Trachea midline, no cervical lymphadenopathy. Supple, full range of motion without nuchal rigidity, or vertebral point tenderness. No Meningismus. Chest/axilla: Normal chest wall appearance and motion. Nontender with no deformity. Cardiovascular: Regular rate and rhythm with a normal S1 and S2. No gallops, murmurs, or rubs. Normal PMI, no JVD. No pulse deficits. Respiratory: Lungs have equal breath sounds bilaterally, clear to auscultation and percussion. No rales, rhonchi or wheezes noted. No increased work of breathing, no retractions or nasal flaring. Abdomen/GI: Soft, non-tender, with normal bowel sounds. No distension or tympany. No guarding or rebound. No evidence of tenderness throughout. 11:23 Skin: cellulitis, that is moderate, on the right knee. Vital Signs: 10:14 BP 136 / 64; Pulse 120; Resp 17; Temp 99.9(O); Pulse Ox 100% on R/A; Weight 95.25 kg; jl7 Height 5 ft. 6 in. (167.64 cm); Pain 9/10; 11:08 BP 105 / 56; Pulse 104; Resp 18; Pulse Ox 99% ; ko1 12:24 BP 118 / 53; Pulse 98; Pulse Ox 99% on R/A; ko1 12:48 BP 119 / 53; Pulse 105; Resp 18; Temp 98.1(O); Pulse Ox 98% ; ko1 13:11 BP 125 / 45; Pulse 98; Pulse Ox 95% on R/A; ko1 14:19 BP 126 / 76; Pulse 99; Pulse Ox 95% on R/A; ko1 14:52 BP 126 / 55; Pulse 99; Pulse Ox 99% ; ko1 17:40 BP 136 / 64; Pulse 109; Pulse Ox 99% ; ko1 19:10 BP 129 / 46; Pulse 103; Resp 16 S; Pulse Ox 96% on R/A; as6 10:14 Body Mass Index 33.89 (95.25 kg, 167.64 cm) jl7 MDM: 10:18 Patient medically screened. ms3 11:23 Differential diagnosis: Cellulitis vs Sepsis vs Septic knee. ms3 14:11 Data reviewed: vital signs, nurses notes, lab test result(s), EKG, radiologic studies, ms3 and as a result, I will transfer to [facility]. Counseling: I had a detailed discussion with the patient and/or guardian regarding: the historical points, exam findings, and any diagnostic results supporting the discharge/admit diagnosis, lab results, radiology results, the need to transfer to another facility, [facility] does not immediately have the required specialist. ED course: Discussed case with Dr Jean Pierre Dudley and he accepts patient at [facility]. Discussed plan with patient and her and they understand/ agree with plan.. 14:56 ED course: Case discussed with Dr Jean Pierre Dudley and he accepts patient at [facility]. ms3 Discussed plan with patient and her .. 10/01 10:16 Order name: Blood Culture Adult (2) ms3 10/01 10:16 Order name: CBC with Diff; Complete Time: 11:22 ms3 10/01 10:16 Order name: CMP; Complete Time: 11:48 ms3 10/01 10:16 Order name: Lactate w/ 2H reflex if indic.; Complete Time: 11:48 ms3 10/01 10:16 Order name: Protime (+inr); Complete Time: 11:22 ms3 10/01 10:16 Order name: Ptt, Activated; Complete Time: 11:22 ms3 10/01 10:16 Order name: Urine Microscopic Only; Complete Time: 12:43 ms3 10/01 10:16 Order name: CRP; Complete Time: 11:48 ms3 10/01 10:18 Order name: Knee Right 3 View XRAY; Complete Time: 12:19 ms3 10/01 12:04 Order name: SARS-COV-2 Antigen Rapid; Complete Time: 12:43 bd 10/01 12:09 Order name: Urine Dipstick-Ancillary; Complete Time: 12:19 EDMS 10/01 10:16 Order name: EKG; Complete Time: 10:16 ms3 10/01 10:16 Order name: Accucheck; Complete Time: 12:57 ms3 10/01 10:16 Order name: Cardiac monitoring; Complete Time: 10:56 ms3 10/01 10:16 Order name: EKG - Nurse/Tech; Complete Time: 10:56 ms3 10/01 10:16 Order name: IV Saline Lock - Large Bore; Complete Time: 11:07 ms3 10/01 10:16 Order name: Labs collected and sent; Complete Time: 11:07 ms3 10/01 10:16 Order name: O2 Per Protocol; Complete Time: 10:56 ms3 10/01 10:16 Order name: O2 Sat Monitoring; Complete Time: 10:56 ms3 10/01 10:16 Order name: Urine Dipstick-Ancillary (obtain specimen); Complete Time: 12:09 ms3 10/01 10:16 Order name: Urine Test (obtain specimen); Complete Time: 12:09 ms3 12 10:16 Order name: Vital Signs; Complete Time: 10:56 ms3 EC:41 Rate is 112 beats/min. Rhythm is regular. QRS [place] is Normal. [place] interval is normal. ms3 QRS interval is normal. Clinical impression: NSR w/ Non-specific ST/T Changes. Interpreted by me. Reviewed by me. Administered Medications: 10:57 Drug: Acetaminophen 1000 mg Route: PO; ko1 12:21 Follow up: Response: No adverse reaction; Temperature is decreased; Pain is decreased ko1 11:07 Drug: Lactated Ringers Solution 1000 ml Route: IV; Rate: 1000 bolus; Site: right ko1 antecubital; 12:20 Follow up: Response: No adverse reaction; IV Status: Completed infusion; IV Intake: ko1 1000ml 11:07 Drug: Ketorolac 10 mg Route: IVP; Site: right antecubital; ko1 12:20 Follow up: Response: No adverse reaction; Pain is decreased ko1 12:08 Drug: vancoMYCIN 1 grams Route: IVPB; Infused Over: 2 hrs; Site: right antecubital; ko1 14:00 Follow up: Response: No adverse reaction; IV Status: Completed infusion; IV Intake: ko1 250ml 18:09 Drug: morphine 4 mg Route: IVP; Infused Over: 4 mins; Site: right antecubital; ko1 19:10 Follow up: Response: No adverse reaction as6 Disposition Summary: 10/01/22 11:05 Transfer Ordered Transfer Location: Other Acute Care Facility ms3 Reason: Higher level of care ms3 Condition: Stable ms3 Problem: new ms3 Symptoms: are unchanged ms3 Accepting Physician: Dr Jean Pierre Dudley(10/01/22 19:17) as6 Diagnosis - Right knee cellulitis ms3 - Right septic knee ms3 Forms: - Medication Reconciliation Form ms3 - SBAR form ms3 Signatures: Dispatcher [employer] Rasta Keith RN RN jl7 Leo Cano DO DO ms3 Colin Johnston RN RN as6 Kylah Landers RN RN ko1 Corrections: (The following items were deleted from the chart) 14:56 11:05 Dr [email or web address] ms3 19:17 14:56 Dr Jean Pierre Dudley ms3 as6
--- NOTE | 2022-10-01 11:06 | ER ---
Nurse's Notes [facility] Name: Sharon Babin Age: 52 yrs Sex: Female : 1970 Arrival Date: 10/01/2022 Time: 09:56 Bed 20 Private MD: Nestor Medina V Diagnosis: Right knee cellulitis;Right septic knee Presentation: 10/01 10:14 Chief complaint: Patient states: Swelling and redness to right knee x 3 days. jl7 Coronavirus screen: At this time, the client does not indicate any symptoms associated with coronavirus-19. Ebola Screen: No symptoms or risks identified at this time. Initial Sepsis Screen: Does the patient meet any 2 criteria? No. Patient's initial sepsis screen is negative. Does the patient have a suspected source of infection? No. Patient's initial sepsis screen is negative. Risk Assessment: Do you want to hurt yourself or someone else? Patient reports no desire to harm self or others. Onset of symptoms was September 29, 2022. 10:14 Method Of Arrival: Wheelchair jl 10:14 Acuity: XIMENA 3 jl7 Triage Assessment: 10:15 General: Appears in no apparent distress. uncomfortable. General: Behavior is calm, jl7 cooperative, appropriate for age. Pain: Complains of pain in right knee. 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 - Social history:: Smoking status: Patient denies any tobacco usage or history of. Screenin:00 [facility] ED Fall Risk Assessment (Adult) History of falling in the last 3 months, ko1 including since admission Yes- single mechanical fall (1 pt) Confusion or Disorientation No (0 pts) Intoxicated or Sedated No (0 pts) Impaired Gait No (0 pts) Mobility Assist Device Used No (0 pt) Altered Elimination No (0 pt) Score/Fall Risk Level 0 - 2 = Low Risk Oriented to surroundings, Maintained a safe environment, Educated pt \T\ family on fall prevention, incl call for assistance when getting out of bed, Assessed \T\ reinforced patient's understanding of fall precautions, Provided non-skid footwear, Hourly rounding (assess needs \T\ fall precautionary measures) done, Used ambulatory aids as needed (educated on \T\ assisted with), Used gait belt as appropriate. Humpty Dumpty Scale Fall Assessment Tool (age< 18yrs) Age 13 years and above (1 pt). Abuse screen: Denies threats or abuse. Denies injuries from another. Nutritional screening: No deficits noted. Tuberculosis screening: No symptoms or risk factors identified. Fall Risk Fall in past 12 months (25 points). No secondary diagnosis (0 pts). IV access (20 points). Ambulatory Aid- None/Bed Rest/Nurse Assist (0 pts). Gait- Normal/Bed Rest/Wheelchair (0 pts) Mental Status- Oriented to own ability (0 pts). Total Bustillo Fall Scale indicates No Risk (0-24 pts). Assessment: 11:00 General: Appears in no apparent distress. uncomfortable, Behavior is calm, cooperative, ko1 appropriate for age. Pain: Complains of pain in right knee. Neuro: No deficits noted. Cardiovascular: No deficits noted. Rhythm is sinus tachycardia. Respiratory: No deficits noted. GI: No deficits noted. : Reports urgency, urinary frequency. EENT: No deficits noted. Derm: No deficits noted. Musculoskeletal: No deficits noted. Injury Description: Abrasion sustained to right knee is scabbed, warm and red. 14:17 Reassessment: sleeping. ko1 19:11 Reassessment: Patient appears in no apparent distress at this time. as6 Vital Signs: 10:14 BP 136 / 64; Pulse 120; Resp 17; Temp 99.9(O); Pulse Ox 100% on R/A; Weight 95.25 kg; jl7 Height 5 ft. 6 in. (167.64 cm); Pain 9/10; 11:08 BP 105 / 56; Pulse 104; Resp 18; Pulse Ox 99% ; ko1 12:24 BP 118 / 53; Pulse 98; Pulse Ox 99% on R/A; ko1 12:48 BP 119 / 53; Pulse 105; Resp 18; Temp 98.1(O); Pulse Ox 98% ; ko1 13:11 BP 125 / 45; Pulse 98; Pulse Ox 95% on R/A; ko1 14:19 BP 126 / 76; Pulse 99; Pulse Ox 95% on R/A; ko1 14:52 BP 126 / 55; Pulse 99; Pulse Ox 99% ; ko1 17:40 BP 136 / 64; Pulse 109; Pulse Ox 99% ; ko1 19:10 BP 129 / 46; Pulse 103; Resp 16 S; Pulse Ox 96% on R/A; as6 10:14 Body Mass Index 33.89 (95.25 kg, 167.64 cm) jl7 ED Course: 09:56 Patient arrived in ED. mr 09:56 Nestor Medina MD is Private Physician. mr 09:58 Leo Cano DO is Attending Physician. ms3 10:15 Triage completed. jl7 10:15 Arm band placed on right wrist. jl7 10:47 Kylah Landers, RN is Primary Nurse. ko1 11:00 Patient has correct armband on for positive identification. Fall risk band placed. ko1 Placed in gown. Bed in low position. Call light in reach. Side rails up X 1. Adult w/ patient. Client placed on continuous cardiac and pulse oximetry monitoring. NIBP monitoring applied. shuttle filler on. Door closed. Noise minimized. Warm blanket given. 11:00 Inserted saline lock: 20 gauge in right antecubital area, using aseptic technique. ko1 Blood collected. Patient maintains SpO2 saturation greater than 95% on room air. 11:07 CBC with Diff Sent. ko1 11:07 CMP Sent. ko1 11:07 Lactate w/ 2H reflex if indic. Sent. ko1 11:07 Protime (+inr) Sent. ko1 11:07 Ptt, Activated Sent. ko1 11:52 Knee Right 3 View XRAY In Process Unspecified. EDMS 11:57 Blood Culture Adult (2) Sent. ko1 12:09 Urine Microscopic Only Sent. ko1 12:[address] [facility]. bd 12:18 SARS-COV-2 Antigen Rapid Sent. ko1 14:00 transfer approval from receiving facility. ko1 16:00 Awaiting bed assignment. ko1 18:06 pt accepted in transfer to [facility] by Dr Govea,admin approval given by merlin Rivera Friend, pt going to 5th floor [address]. 18:40 Awaiting transportation. ko1 18:40 Report given to KRISS Whitney at [facility]. ko1 18:40 No provider procedures requiring assistance completed. Patient transferred, IV remains ko1 in place. Administered Medications: 10:57 Drug: Acetaminophen 1000 mg Route: PO; ko1 12:21 Follow up: Response: No adverse reaction; Temperature is decreased; Pain is decreased ko1 11:07 Drug: Lactated Ringers Solution 1000 ml Route: IV; Rate: 1000 bolus; Site: right ko1 antecubital; 12:20 Follow up: Response: No adverse reaction; IV Status: Completed infusion; IV Intake: ko1 1000ml 11:07 Drug: Ketorolac 10 mg Route: IVP; Site: right antecubital; ko1 12:20 Follow up: Response: No adverse reaction; Pain is decreased ko1 12:08 Drug: vancoMYCIN 1 grams Route: IVPB; Infused Over: 2 hrs; Site: right antecubital; ko1 14:00 Follow up: Response: No adverse reaction; IV Status: Completed infusion; IV Intake: ko1 250ml 18:09 Drug: morphine 4 mg Route: IVP; Infused Over: 4 mins; Site: right antecubital; ko1 19:10 Follow up: Response: No adverse reaction as6 Medication: 18:40 VIS not applicable for this client. ko1 Intake: 12:20 IV: 1000ml; Total: 1000ml. ko1 14:00 IV: 250ml; Total: 1250ml. ko1 Outcome: 11:05 ER care complete, transfer ordered by ms3 18:40 Transferred by [facility] [place] [facility] [facility] [place] completed. X-rays sent w/ patient. 18:40 Condition: stable 18:40 Instructed on the need for transfer, Demonstrated understanding of instructions. 19:17 Patient left the ED. as6 Signatures: Dispatcher [employer] EDMS Perri Cabrera Mary mr Leal, Jahala, RN RN jl7 Leo Cano DO DO ms3 Colin Johnston, RN RN as6 Kylah Landers, RN RN ko1
[2022-10-01 11:12] LABS: Absolute Lymphocytes (CBC) 2.2 K/uL (0.7-4.9); Hematocrit 39.5 % (36.0-45.0); Lymphocytes % 17.8 % (15.3-44.8); MCV 89.1 fL (80-100); MPV 6.7 fL (7.6-11.3); RBC Red Blood Cell Count 4.43 M/uL (3.86-4.86)
[2022-10-01 11:18] LABS: Protime INR 1.1
[2022-10-01 11:29] LABS: Albumin 3.9 g/dL (3.4-5.0); Bilirubin Total 0.5 mg/dL (0.2-1.0); C-Reactive Protein 81.6 mg/L (<3.00); Potassium 3.6 mmol/L (3.5-5.1); Protein, Total 8.3 g/dL (6.4-8.2)
[2022-10-01] MEDS ORDERED: VANCOMYCIN 1 GM/VIAL ONE (12:00)
[2022-10-01] MEDS ORDERED: NA CHLORIDE 0.9% 250 ML ONE (12:00)
[2022-10-01 12:09] LABS: Urine Blood 3+ (Negative); Urine Glucose Negative (Negative); Urine Protein Negative (Negative); Urine Specific Gravity 1.015 (1.005-1.030); Urine pH 6.5 (5.0-7.0)
--- NOTE | 2022-10-01 12:09 | RAD REPORT ---
EXAM DESCRIPTION: RAD - Knee Right 3 View - 10/01/2022 11:50 am CLINICAL HISTORY: Right knee pain FINDINGS: No fracture or dislocation is seen. Anterior soft tissue swelling
[2022-10-01 12:24] LABS: Urine Bacteria None Seen /HPF (<20); Urine RBC >50 /HPF (None Seen)
[2022-10-01 12:38] LABS: SARS-CoV-2 Antigen Rapid Res Negative (Negative)
[2022-10-01] MEDS ORDERED: MORPHINE 4 MG/ML SYR ONE (18:06)
[2022-10-01 19:40] VITALS: TEMP 98.1
[2022-10-01 19:46] VITALS: BP 129/46; O2SAT 96
--- NOTE | 2022-10-02 14:01 | EKG ---
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
== END 2022-10-01 19:17 ==
LOC: ER 09:51
DX: L03.115 Cellulitis of right lower limb (principal); M00.861 Arthritis due to other bacteria, right knee; I10 Essential (primary) hypertension; Z20.822 Contact with and (suspected) exposure to COVID-19; Z98.82 Breast implant status
CPT/HCPCS: 87040 ×2; 85025; 36415; 85610; 83605; 85730; 80053; 86140; 73562; 87811; J3370; J7120; J7050; 81003; 81015; 93005; 96361; 96365; 96366; 96375; 99285

== ENCOUNTER 2022-11-13 23:55 | Observation (INO) | payer BC ==
--- OUTSIDE RECORDS SUMMARY | 2022-11-14 00:07 | XMS REPORT | Continuity of Care Document ---
:1970 Author Organization [facility] t Address [address] [place] [address] Care Team Providers Name Role Phone RENÉE NEGRETE Primary Care Physician UnavailAlexandr Oliveira MD Attending Clinician [phone] Kris Jensen MD Attending Clinician ALEXANDR MONGE Attending Clinician Unavailable NICKOLAS SINGH Attending Clinician Unavailable KRIS JENSEN Admitting Clinician Unavailable NICKOLAS SINGH Admitting Clinician Unavailable Payers Payer Name Policy Type Policy Number Effective Date Expiration Date carla MEDICARE PART A [id number] 2011 00:00:00 Problems Condition Condition Condition Status Onset Resolution Last Treating Co mments Source Name Details Category Date Date Treatment Clinician Date Cellulitis Cellulitis Disease Active 2021-[address] of right of right 2-21 [facility] knee 00:[facility] 00 [place] Bursitis Bursitis Disease Active 2021[facility] knee knee 00:[facility]: Medical 00 [place] Arthritis, Arthritis, Disease Active 2021-[address] septic, septic, 2-20 [facility] knee knee 00:[facility]: Medical 00 [place] Orbital Orbital Disease Active [facility] cellulitis cellulitis 04-15 [facility] k[facility] 00:00: Medical 00 [place] Diabetes Diabetes Disease Active [facility] mellitus, mellitus, 04-15 [facility] type 2 type 2 00:00: Medical 00 [place] Opioid Opioid Disease Active [facility] dependence dependence 04-15 [facility] kes 00:00: Medical 00 Center Allergies, Adverse Reactions, Alerts Allergy Allergy Status Severity Reaction(s) Onset Inactive Treating Comm ents Source Name Type Date Date Clinician NO KNOWN Allergy Active [facility] ALL[facility] S Social History Social Habit Start Date Stop Date Quantity Comments Source Alcohol intake 2022-10-02 2022-10-[address] [facility] 00:00:00 00:00:00 non-drinker of Medical Ce nter alcohol (finding) Tobacco use and 2022-10-01 2022-10-[address] [facility] [address] Kathryn kes exposure 00:00:00 00:00:00 [facility] Sex Assigned At [address] Kathryn kes 00:00:00 00:00:00 [facility] Smoking Status Start Date Stop Date Source Never smoker [facility] 2017-04-15 00:00:00 2017-04-15 00:00:00 [facility] Medications Ordered Filled Start Stop Current Ordering Indication Dosage Frequency Signature Comments Components Source Medication Medication Date Date Medication? Clinician (SIG) Name Name TRIAMTERENE 2021-10 Yes 75mg QD Take [address] [facility] ORAL 2-22 by mouth [facility] 14:37: daily . [place] [id number] Center clonazePAM 2021-10 Yes 1mg Take [address] (KLONOPIN) 2-22 by mouth 2 Ana es 1 MG tablet 14:37: (two) Medic al 36 times Center daily as needed for Anxiety One in AM, and one in the after noon. buprenorphi 2021-10 Yes 1{tbl} Q.5D Place [address] ne-naloxone 2-22 tablet [facility] 8-2 mg Subl 14:37: under the M edical 36 tongue 2 Center (two) times daily. desvenlafax 2021-10 Yes 100mg QD Take [address] ine 2-22 mg by [facility]ukes succinate 14:37: mouth Medical (PRISTIQ) 36 daily. Center 100 MG 24 hr tablet metFORMIN 2021-10 Yes 1000mg Take 1,[address] (GLUCOPHAGE 2-22 mg by [facility]ukes ) 1000 MG 14:37: mouth 2 Medic al tablet 36 (two) Center times daily with breakfast and dinner. omeprazole 2021-10 Yes 40mg QD Take [address] (PRILOSEC) 2-22 by mouth [facility] 40 MG 14:37: daily. Medical capsule 36 Center oxybutynin 2021-10 Yes 5mg Q.5D Take [address] (DITROPAN-X 2-22 by mouth 2 Kathryn kes L) 5 MG 24 14:37: (two) Medica l hr tablet 36 times Center daily. ondansetron 2021-10 Yes 4mg Take [address] (ZOFRAN-ODT 2-22 by mouth Luke s ) 4 MG 14:37: every 8 Medical disintegrat 36 (eight) Cente r ing tablet hours as needed for Nausea. milnacipran 2021-10 Yes 100mg Q.5D Take [address] (SAVELLA) 2-22 mg by [facility]ukes 100 mg Tab 14:37: mouth 2 Medi luis 36 (two) Center times daily. TiZANidine 2021-10 Yes 4mg Q.[id number] Take [address] (ZANAFLEX) 2-22 [id number] by mouth 3 [facility] 4 MG 14:37: 3D (three) Medical capsule 36 times Center daily. gabapentin 2021-10 Yes 400mg Q.5D Take [address] (NEURONTIN) 2-22 mg by [facility]ukes 400 MG 14:37: mouth 2 Medical capsule 36 (two) Center times daily. levothyroxi 2021-10 Yes 25ug Take [address] ne 2-22 mcg by Lukes (SYNTHROID, 14:37: mouth Medic al LEVOTHROID) 36 Every Center 25 MCG morning on tablet an empty stomach. ondansetron 2021-10 Yes 4mg Take [address] (ZOFRAN) 4 2-22 by mouth 4 Ana es MG tablet 14:37: (four) Medica l 36 times Center daily as needed for Nausea. mupirocin 2021-10 Yes 30g Q.5D Apply [address] (BACTROBAN) 2-22 topically Ana es 2 % 00:00: 2 (two) Medical ointment 00 times Center daily. doxycycline 2021-10 100mg Q.5D Take [address] (MONODOX) 2-22 01-05 capsule [facility]ukes 100 MG 00:00: 23:59 (100 mg Medical capsule 00 :00 total) by Center mouth 2 (two) times daily for 14 days. amoxicillin 2021-10- No 1{tbl} Q.5D Take [address] -clavulanat -05 tablet by Kathryn kes e 00:00: 23:59 mouth 2 Medical (AUGMENTIN) 00 :00 (two) Center 875-125 mg times per tablet daily for 14 days. desvenlafax 2017-0 Yes 100mg QD Take 100 [...] Center times daily. TiZANidine 2017-0 Yes 4mg Q.[id number] Take [address] (ZANAFLEX) 7-08 [id number] by mouth 3 [facility] 4 MG 11:17: [...] Center times daily. TiZANidine 2017-0 Yes 4mg Q.[id number] Take [address] (ZANAFLEX) 7-08 [id number] by mouth 3 [facility]ukes 4 MG 11:17: [...] and one in the after noon. buprenorphi Yes 1{tbl} Q.5D Place [address] ne-naloxone -08 tablet [facility]ukes 8-2 mg Subl 11:17: under the M edical 05 tongue 2 Center (two) times daily. neomycin-po Yes For [address] lymyxin-dex 7-08 days [facility]ukes amethasone 00:00: suppley. Med ical (POLYDEX) 00 Center 3.5 mg/g-10,000 unit/g-0.1 % Oint ophthalmic ointment neomycin-po Yes For [address] lymyxin-dex 7-08 days [facility]ukes amethasone 00:00: suppley. Med ical (POLYDEX) 00 Center 3.5 mg/g-10,000 unit/g-0.1 % Oint ophthalmic ointment neomycin-po Yes For [address] lymyxin-dex 7-08 days [facility] amethasone 00:00: suppley. Med ical (POLYDEX) 00 Center 3.5 mg/g-10,000 unit/g-0.1 % Oint ophthalmic ointment Immunizations Ordered Immunization Filled Immunization Date Status Commen ts Source Name Name [facility] 2017-04-[address] [facility] 2017-04-[address] [facility] 2017-04-[address] [facility] 00:00:00 Medical Center Vital Signs Vital Name Observation Time Observation Value Comments Source HEIGHT 2022-10-01 20:56:00 167.6 cm WEIGHT 2022-10-01 20:56:00 96.1 kg HEIGHT 2022-10-01 20:56:00 167.6 cm WEIGHT 2022-10-01 20:56:00 96.1 kg HEIGHT 2022-10-01 20:56:00 167.6 cm WEIGHT 2022-10-01 20:56:00 96.1 kg Systolic blood 2022-10-03 12:00:00 135 mm[Hg] [facility] pressure [facility] Diastolic blood 2022-10-03 12:00:00 69 mm[Hg] [facility] Heart rate 2022-10-03 12:00:00 111 /min [facility] Body temperature 2022-10-03 12:00:00 37.06 Yumiko [facility] Respiratory rate 2022-10-03 12:00:00 18 /min [facility] Oxygen saturation in 2022-10-03 12:00:00 96 /min [facility] Arterial blood by Medical Ce nter Pulse oximetry Body height 2022-10-01 20:56:00 167.6 cm [facility] Body weight 2022-10-01 20:56:00 96.1 kg [facility] BMI 2022-10-01 20:56:00 34.20 kg/m2 [facility] Procedures Procedure Date / Time Performed Performing Clinician Sour e POCT-GLUCOSE METER 2022-10-03 12:23:00 Octavia [facility] POCT-GLUCOSE METER 2022-10-03 07:44:00 Alexandr Monge [facility] CBC W/PLT COUNT & AUTO 2022-10-03 04:51:00 Alexandr Monge [facility] BASIC METABOLIC PANEL 2022-10-03 04:51:00 Octavia [facility] MAGNESIUM 2022-10-03 04:51:00 Octavia [facility] HEMOGLOBIN A1C 2022-10-03 04:51:00 Alexandr Monge [facility] LIPID PANEL 2022-10-03 04:51:00 Alexandr Monge [facility] CBC W/PLT COUNT & AUTO 2022-10-03 04:51:00 Alexandr Monge [facility] POCT-GLUCOSE METER 2022-10-02 21:19:00 Octavia [facility] POCT-GLUCOSE METER 2022-10-02 17:22:00 Octavia [facility] POCT-GLUCOSE METER 2022-10-02 11:51:00 Octavia [facility] HEPATIC FUNCTION PANEL 2022-10-02 05:54:00 Kris Jensen [facility] POCT-GLUCOSE METER 2022-10-02 04:51:00 [facility] CT LOWER EXTREMITY WITH 2022-10-02 01:55:00 Kris Jensen [facility] IV CONTRAST RIGHT [facility] POCT-GLUCOSE METER 2022-10-01 23:29:00 Octavia [facility] COMPREHENSIVE METABOLIC 2022-10-01 22:33:00 Kris Jensen [facility] MAGNESIUM 2022-10-01 22:33:00 Nicole Kris [facility] PHOSPHORUS 2022-10-01 22:33:00 Nicole, Kris [facility] CBC W/PLT COUNT & AUTO 2022-10-01 22:33:[address] [facility] CBC W/PLT COUNT & AUTO 2022-10-01 22:33:00 Nicole, Kris [facility] BLOOD CULTURE 2022-10-01 22:30:00 Dank Jensenhir [facility] POCT-GLUCOSE METER 2022-10-01 20:51:00 [facility] Plan of Care Planned Activity Planned Date Details Comments Source Future Scheduled 2027-04-16 DTAP/TDAP/TD VACCINES [facility] 00:00:00 (2 - Td or Tdap) [code Medic al Center = DTAP/TDAP/TD VACCINES (2 - Td or Tdap)] Future Scheduled 2025-10-03 Lipid panel (procedure) [facility] Test 00:00:00 [code = 38190380] Medical Ce nter Future Scheduled 2023-10-[address] [facility] Test 00:00:00 Counseling and Medical Cente r Screening (12+) [code = Tobacco Cessation Counseling and Screening (12+)] Future Scheduled 2023-04-[address] [facility] Test 00:00:00 measurement (procedure) [facility] [code = 97786457] Future Scheduled 2022-06-13 INFLUENZA VACCINE (#1) [facility] Test 00:00:00 [code = INFLUENZA Medical Ce nter VACCINE (#1)] Future Scheduled 2018 SHINGLES VACCINES ([address] [facility] Test 00:00:00 2) [code = SHINGLES Medical Center VACCINES (1 of 2)] Future Scheduled 1989 Screening for malignant [facility] Test 00:00:00 neoplasm of cervix Medical C enter (procedure) [code = 347134681] Future Scheduled 1986 HEPATITIS C SCREENING [facility] Test 00:00:00 [code = HEPATITIS C Medical Center SCREENING] Future Scheduled 1978 DIABETIC EYE EXAM [code [facility] Test 00:00:00 = DIABETIC EYE EXAM] Medical Center Future Scheduled [address] [facility] Test 00:00:00 examination Medical Center (regime/therapy) [code = 668917760] Future Scheduled 1978 Urine screening for [facility] Test 00:00:00 protein (procedure) Medical Center [code = 639685933] Future Scheduled [address] [facility] Test 00:00:00 0-64 YRS (1 - PCV) Medical C enter [code = PNEUMOCOCCAL VACCINE 0-64 YRS (1 - PCV)] Future Scheduled 1969-01-29 COVID-19 VACCINE (#1) [facility] Test 00:00:00 [code = COVID-[address] VACCINE (#1)] Future Scheduled 1968 Screening for malignant [facility] Test 00:00:00 neoplasm of breast Medical C enter (procedure) [code = 935588816] Future Scheduled 1968 CT Colonography (combo) [facility] Test 00:00:00 [code = CT Colonography [facility] (combo)] Future Scheduled 1968 Screening for malignant [facility] Test 00:00:00 neoplasm of colon Medical Ce nter (procedure) [code = 536773587] Future Scheduled 1968 Screening for malignant [facility] Test 00:00:00 neoplasm of colon Medical Ce nter (procedure) [code = 001271214] Future Scheduled 1968 Screening for malignant [facility] Test 00:00:00 neoplasm of colon Medical Ce nter (procedure) [code = 780255511] Future Scheduled 1968 Screening for malignant [facility] Test 00:00:00 neoplasm of colon Medical Ce nter (procedure) [code = 065386933] Future Scheduled 1970 Sigmoidoscopy [code = [facility] Test 00:00:00 Sigmoidoscopy] Medical Cente r Encounters Start End Encounter Admission Attending Care Care Encounter Source Date/Time Date/Time Type Type Clinicians Facility Department ID 2022-10-01 2022-10-03 [id number] [facility] St 20:30:00 14:37:00 Encounter Kris Jensen [facility] 2022-10-01 2022-10-03 Inpatient ER [facility] Internal [id number] [facility] 20:30:00 14:37:00 ALEXANDR Popeye 2022-10-02 2022-10-02 Travel [facility] [id number] [facility] St 00:00:00 00:00:00 [facility] Results Test Description Test Time Test Comments Results Result Comments Source BLOOD CULTURE 2022-10-07 01:00:41 Test Item Value Reference Range Interpretation Comme nts CULTURE (AKER) (test code = 1095) No growth in 5 days POC-Glucose [id number] 12:36:16 Test Item Value Reference Range Interpretation Comments POC-Glucose Meter (test 136 mg/dL 70-110 H : TE STED AT [facility] code = 1538) [address] [facility] [address]: Swage Toolsetter/Techni erika ID = [id number] for Yelling, Yoland a Lab Interpretation (test Abnormal code = 50036-6) [facility] [id number] 12:36:16 Test Item Value Reference Range Interpretation Comments POC-GLUCOSE METER 136 mg/dL 70-110 H : TESTED A T [facility] 1317 (BEAKER) ([facility], = 1538) [facility] [address]: Swage Toolsetter/Techni erika ID = [id number] for Janneth Frank POCT-GLUCOSE [id number] 07:56:56 Test Item Value Reference Range Interpretation Comments POC-GLUCOSE METER 125 mg/dL 70-110 H : TESTED A T [facility] 1317 (BEAKER) (test code [address], = 1538) [facility] [place] [address]: Swage Toolsetter/Techni erika ID = [id number] for Janneth Frank HEMOGLOBIN [id number] 06:43:17 Test Item Value Reference Range Interpretation Comments HEMOGLOBIN A1C (BEAKER) (test code = 5.9 % 4.3-6.1 368) Swage Toolsetter ID - LITOLIPID [id number] 05:40:16 Test Item Value Reference Range Interpretation Comments TRIGLYCERIDES (BEAKER) (test code = 86 mg/dL 540) CHOLESTEROL (BEAKER) (test code = 154 mg/dL 631) HDL CHOLESTEROL (BEAKER) (test code 46 mg/dL = 976) LDL CHOLESTEROL CALCULATED (BEAKER) 91 mg/dL (test code = 633) Triglyceride Reference Range: Low Risk <150 Borderline 150-199 High Risk 200- 499 Very High Risk >=500Cholesterol Reference Range: Low Risk <200 Borderline 200-239 High Risk >240HDL Cholesterol Reference Range: Low Risk >=60 High Risk <40LDL Cholesterol Reference Range: Optimal <100 Near Optimal 100-129 Borderline 130-159 High 160-189 Very High >=190 Swage Toolsetter ID - LITOOperator ID - LITOOperator ID - [id number] 05:40:16 Test Item Value Reference Range Interpretation Comments MAGNESIUM (BEAKER) (test code = 2.0 mg/dL 1.5-3.0 627) Swage Toolsetter ID - LITOOperator ID - LITOOperator ID - LITOOperator ID - LITOBASIC METABOLIC [id number] 05:38:59 Test Item Value Reference Range Interpretation Comments SODIUM (BEAKER) 139 meq/L 135-148 (test code = 381) POTASSIUM 3.6 meq/L 3.6-5.5 (BEAKER) (test code = 379) CHLORIDE (BEAKER) 108 meq/L 98-106 H (test code = 382) CO2 (BEAKER) 21 meq/L 20-29 (test code = 355) BLOOD UREA 8 mg/dL 10-26 L NITROGEN (BEAKER) (test code = 354) CREATININE 0.68 mg/dL 0.50-1.20 (BEAKER) (test code = 358) GLUCOSE RANDOM 117 mg/dL 70-110 H (BEAKER) (test code = 652) CALCIUM (BEAKER) 8.7 mg/dL 8.5-10.5 (test code = 697) EGFR (BEAKER) 103 Interpretatio n of eGFR (test code = mL/min/1.73 values Stage De scription 1092) sq m Result G1 An l or high >=90 G2 Mildly decreased 60-89 G3a Mildl y to moderately 45-5 9 G3b Moderately to s everely 30-44 G4 Severl y decreased 15-29 G5 Kidney failure <15Reported eGF R is based on the CKD-EPI 2020 equation that d oes not use a race coefficientEsti mated GFR is not as accur ate as Creatinine Chanell chaka in predicting glom erular filtration rate . Estimated GFR is not appl icable for dialysis patien ts Swage Toolsetter ID - LITOOperator ID - LITOOperator ID - LITOOperator ID - LITOOperator ID - LITOOperator ID - LITOOperator ID - LITOOperator ID - LITOOperator ID - LITOCBC W/PLT COUNT & AUTO [id number] 05:28:51 Test Item Value Reference Range Interpretation Comments WHITE BLOOD CELL COUNT (BEAKER) 7.4 K/ L 4.0-10.0 (test code = 775) RED BLOOD CELL COUNT (BEAKER) 3.72 M/ L 4.00-5.00 L (test code = 761) HEMOGLOBIN (BEAKER) (test code = 11.2 GM/DL 12.0-15.5 L 410) HEMATOCRIT (BEAKER) (test code = 33.8 % 36.0-46.0 L 411) MEAN CORPUSCULAR VOLUME (BEAKER) 91 fL 82-99 (test code = 753) MEAN CORPUSCULAR HEMOGLOBIN 30.1 pg 27.0-33.0 (BEAKER) (test code = 751) MEAN CORPUSCULAR HEMOGLOBIN CONC 33.1 GM/DL 32.0-36.0 (BEAKER) (test code = 752) RED CELL DISTRIBUTION WIDTH 12.9 % 12.0-15.0 (BEAKER) (test code = 412) PLATELET COUNT (BEAKER) (test 213 K/CU MM 150-430 code = 756) MEAN PLATELET VOLUME (BEAKER) 8.6 fL 6.0-11.5 (test code = 754) NUCLEATED RED BLOOD CELLS 0 /100 WBC 0-0 (BEAKER) (test code = 413) NEUTROPHILS RELATIVE PERCENT 57 % (BEAKER) (test code = 429) LYMPHOCYTES RELATIVE PERCENT 31 % (BEAKER) (test code = 430) MONOCYTES RELATIVE PERCENT 8 % (BEAKER) (test code = 431) EOSINOPHILS RELATIVE PERCENT 3 % (BEAKER) (test code = 432) BASOPHILS RELATIVE PERCENT 0 % (BEAKER) (test code = 437) NEUTROPHILS ABSOLUTE COUNT 4.26 K/ L 1.80-8.00 (BEAKER) (test code = 670) LYMPHOCYTES ABSOLUTE COUNT 2.26 K/ L 1.48-4.50 (BEAKER) (test code = 414) MONOCYTES ABSOLUTE COUNT (BEAKER) 0.60 K/ L 0.00-1.30 (test code = 415) EOSINOPHILS ABSOLUTE COUNT 0.25 K/ L 0.00-0.50 (BEAKER) (test code = 416) BASOPHILS ABSOLUTE COUNT (BEAKER) 0.03 K/ L 0.00-0.20 (test code = 417) IMMATURE GRANULOCYTES-RELATIVE 0.30 % 0.00-0.00 H PERCENT (BEAKER) (test code = 2801) POCT-GLUCOSE [id number] 21:30:37 Test Item Value Reference Range Interpretation Comments POC-GLUCOSE METER 75 mg/dL 70-110 : [facility] (BEAKER) (test code = [address] [facility], 153) [facility] [address]: Swage Toolsetter/Techni erika ID = [id number] for lydia Brito POCT-GLUCOSE [id number] 17:35:40 Test Item Value Reference Range Interpretation Comments POC-GLUCOSE METER 179 mg/dL 70-110 H : Notified RN/MD: TESTED (BEAKER) (test code AT [facility] [address] = 1538) [facility] [address]: Swage Toolsetter/Techni erika ID = [id number] for Janneth Frank POCT-GLUCOSE [id number] 12:04:18 Test Item Value Reference Range Interpretation Comments POC-GLUCOSE METER 117 mg/dL 70-110 H : TESTED A T [facility] 1317 (BEAKER) (test code [address], = 1538) [facility] [place] [address]: Swage Toolsetter/Techni erika ID = [id number] for Janneth Frank CT, EXTREMITY, LOWER, WITH CONTRAST, [id number] 10:12:00Unlisted Reason for Exam - Click Yes and Enter Reason Below->No [facility] : 1970 Sex: FFINAL REPORT CT of the right knee with contrast History: Septic arthritis suspected, knee, xray done Comparisons: None Technique: CT of the right kidney was performed with contrast. Axial images were generated as were multiplanar reformatted images in the coronal and sagittal planes. This exam was performed according to our departmental dose optimization program which includes automated exposure control, adjustment of the mA and/or kV according to patient's size and/or use of iterative reconstructive technique. Findings: Bony mineralization is normal. No acute fracture, or dislocation. There is mild right knee DJD, with joint space narrowing in the medial compartment. No significant joint effusion is identified. Small popliteal cyst. There is subcutaneous edema in the anterior aspect of the right knee, without discrete drainable collection. The extensor mechanism appears intact. Visualized musculature is unremarkable. IMPRESSION: Subcutaneous edema in the anterior right knee, no discrete drainable collection, correlate clinically for cellulitis. Mild right knee DJD. Small popliteal cyst. Signed: Marvin Vora MDReport Verified Date/Time: 10/02/2022 10:12:51 Reading Location:[facility] B1 [id number] Ortho Consult Reading Room HEPATIC FUNCTION PANEL 2022-10-02 06:07:51 Test Item Value Reference Range Interpretation Comments TOTAL PROTEIN (BEAKER) (test code = 7.6 gm/dL 6.0-8.5 770) ALBUMIN (BEAKER) (test code = 1145) 4.1 g/dL 3.5-5.0 BILIRUBIN TOTAL (BEAKER) (test code 0.4 mg/dL 0.1-1.2 = 377) BILIRUBIN DIRECT (BEAKER) (test 0.2 mg/dL 0.0-0.4 code = 706) ALKALINE PHOSPHATASE (BEAKER) (test 105 U/L 30-115 code = 346) AST (SGOT) (BEAKER) (test code = 31 U/L 5-40 353) ALT (SGPT) (BEAKER) (test code = 52 U/L 5-50 H 347) Swage Toolsetter ID - [id number] ID - [id number] ID - [id number] ID - VORH12Hbhuvvgp ID - [id number] ID - [id number] ID - [id number] 05:02:28 Test Item Value Reference Range Interpretation Comments POC-GLUCOSE METER 120 mg/dL 70-110 H : TESTED A T [facility] [address]17 (BEAKER) (test code [address], = 1538) [place] [id number]: Swage Toolsetter/Techni erika ID = [id number] for Will iams, Selena POCT-GLUCOSE [id number] 23:41:12 Test Item Value Reference Range Interpretation Comments POC-GLUCOSE METER 109 mg/dL 70-110 : TESTED A T [facility] [address]17 (BEAKER) (test code [address], = 1538) [place] [id number]: Swage Toolsetter/Techni erika ID = [id number] for Will iams, Selena COMPREHENSIVE METABOLIC [id number] 23:15:14 Test Item Value Reference Range Interpretation Comments TOTAL PROTEIN 7.5 gm/dL 6.0-8.5 (BEAKER) (test code = 770) ALBUMIN (BEAKER) 4.1 g/dL 3.5-5.0 (test code = 1145) ALKALINE 111 U/L 30-115 PHOSPHATASE (BEAKER) (test code = 346) BILIRUBIN TOTAL 0.4 mg/dL 0.1-1.2 (BEAKER) (test code = 377) SODIUM (BEAKER) 139 meq/L 135-148 (test code = 381) POTASSIUM (BEAKER) 3.8 meq/L 3.6-5.5 (test code = 379) CHLORIDE (BEAKER) 100 meq/L 98-106 (test code = 382) CO2 (BEAKER) (test 26 meq/L 20-29 code = 355) BLOOD UREA 12 mg/dL 10-26 NITROGEN (BEAKER) (test code = 354) CREATININE 0.75 mg/dL 0.50-1.20 (BEAKER) (test code = 358) GLUCOSE RANDOM 126 mg/dL 70-110 H (BEAKER) (test code = 652) CALCIUM (BEAKER) 9.0 mg/dL 8.5-10.5 (test code = 697) AST (SGOT) 28 U/L 5-40 (BEAKER) (test code = 353) ALT (SGPT) 54 U/L 5-50 H (BEAKER) (test code = 347) EGFR (BEAKER) 95 Interpretatio n of eGFR (test code = 1092) mL/min/1.[address] age Description sq m Result G1 An l or high >=90 G2 Mildly decreased 60-89 G3a Mildl y to moderately 45-5 9 G3b Moderately to s everely 30-44 G4 Severl y decreased 15-29 G5 Kidney failure <15Reported eGF R is based on the CKD-EPI 2020 equation that d oes not use a race coefficientEsti mated GFR is not as accur ate as Creatinine Chanell chaka in predicting glom erular filtration rate . Estimated GFR is not appl icable for dialysis patien ts Swage Toolsetter ID - JUSTINOperator ID - JUSTINOperator ID - JUSTINOperator ID - JUSTINOperator ID - JUSTINOperator ID - JUSTINOperator ID - JUSTINOperator ID - JUSTINOperator ID - JUSTINOperator ID - JUSTINOperator ID - JUSTINOperator ID - JUSTINOperator ID - JUSTINOperator ID - JUSTINOperator ID - JUSTINOperator ID - [id number] 23:15:14 Test Item Value Reference Range Interpretation Comments MAGNESIUM (BEAKER) (test code = 2.0 mg/dL 1.5-3.0 627) Swage Toolsetter ID - JUSTINOperator ID - JUSTINOperator ID - JUSTINOperator ID - MILENA [id number] 23:11:52 Test Item Value Reference Range Interpretation Comments PHOSPHORUS (BEAKER) (test code = 2.5 mg/dL 2.5-4.5 604) [employer] Toolsetter ID - [id number] W/PLT COUNT & AUTO [id number] 22:53:51 Test Item Value Reference Range Interpretation Comments WHITE BLOOD CELL COUNT (BEAKER) 9.7 K/ L 4.0-10.0 (test code = 775) RED BLOOD CELL COUNT (BEAKER) 4.18 M/ L 4.00-5.00 (test code = 761) HEMOGLOBIN (BEAKER) (test code = 12.7 GM/DL 12.0-15.5 410) HEMATOCRIT (BEAKER) (test code = 38.5 % 36.0-46.0 411) MEAN CORPUSCULAR VOLUME (BEAKER) 92 fL 82-99 (test code = 753) MEAN CORPUSCULAR HEMOGLOBIN 30.4 pg 27.0-33.0 (BEAKER) (test code = 751) MEAN CORPUSCULAR HEMOGLOBIN CONC 33.0 GM/DL 32.0-36.0 (BEAKER) (test code = 752) RED CELL DISTRIBUTION WIDTH 13.0 % 12.0-15.0 (BEAKER) (test code = 412) PLATELET COUNT (BEAKER) (test 221 K/CU MM 150-430 code = 756) MEAN PLATELET VOLUME (BEAKER) 8.8 fL 6.0-11.5 (test code = 754) NUCLEATED RED BLOOD CELLS 0 /100 WBC 0-0 (BEAKER) (test code = 413) NEUTROPHILS RELATIVE PERCENT 64 % (BEAKER) (test code = 429) LYMPHOCYTES RELATIVE PERCENT 26 % (BEAKER) (test code = 430) MONOCYTES RELATIVE PERCENT 7 % (BEAKER) (test code = 431) EOSINOPHILS RELATIVE PERCENT 3 % (BEAKER) (test code = 432) BASOPHILS RELATIVE PERCENT 0 % (BEAKER) (test code = 437) NEUTROPHILS ABSOLUTE COUNT 6.16 K/ L 1.80-8.00 (BEAKER) (test code = 670) LYMPHOCYTES ABSOLUTE COUNT 2.49 K/ L 1.48-4.50 (BEAKER) (test code = 414) MONOCYTES ABSOLUTE COUNT (BEAKER) 0.70 K/ L 0.00-1.30 (test code = 415) EOSINOPHILS ABSOLUTE COUNT 0.30 K/ L 0.00-0.50 (BEAKER) (test code = 416) BASOPHILS ABSOLUTE COUNT (BEAKER) 0.02 K/ L 0.00-0.20 (test code = 417) IMMATURE GRANULOCYTES-RELATIVE 0.30 % 0.00-0.00 H PERCENT (BEAKER) (test code = 2801) POCT-GLUCOSE [id number] 21:03:05 Test Item Value Reference Range Interpretation Comments POC-GLUCOSE METER 98 mg/dL 70-110 : TESTED A T [facility] 1317 (BEAKER) (test code = [address], 1538) [facility] 77 478: Swage 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/Techni erika ID = [id number] for Selena Soria ANAEROBIC [id number] 03:45:00 Test Item Value Reference Range Interpretation Comments CULTURE (BEAKER) (test No anaerobes isolated code = 1095) TISSUE [id number] 15:59:00Surgical Pathology Report Case: [id number] Authorizing Provider: Jimenez Mcintosh MD Collected: 04/17/2017 5439 Ordering Location: [facility] Received: 04/18/2017 0801 SERVICES Pathologist: Antonette Mario MD Specimen: Eyelid, Left, Left eyelid abscess SKIN, LEFT EYELID, ABSCESS, DEBRIDEMENT:- SKIN WITH ABSCESS- GRAM POSITIVE COCCI IN CLUSTERS (BROWN AND BREJOHN) Please correlate with corresponding microbiology cultures. [id number]; 92325 x 3Left upper eyelid abscessLeft eyelid abscess [...] AFB, Brown and Lakisha, GMS (block A1).BLOOD CULTURE 2017-04-20 18:00:00 Test Item Value Reference Range Interpretation Comments CULTURE (BEAKER) (test No growth in 5 days code = 1095) WOUND CULTURE + GRAM [id number] 08:51:00 Test Item Value Reference Interpretation Comments [...] No organisms seen (BEAKER) (test code = 954894) Florentin elieser = 21SURGICALLY OBTAINED CULTURE + GRAM [id number] 07:47:00 Test Item Value Reference Range Interpretation Comments CULTURE A 1+ Same organis m has (BEAKER) (test been isolated from code = 1095) cultures(s) of the same body site and collection date . Repeat identifi cation and susceptibil ity testing perform ed only after consultat ion with the [facility] microbiology laboratory.Refe r to previous cultur e ofMethicillin resistant Staphylococcus aureus GRAM STAIN 1+ WBCs RESULT (BEAKER) (test code = 1123) GRAM STAIN No organisms seen RESULT (BEAKER) (test code = 169238) POCT-GLUCOSE [id number] 08:26:00 Test Item Value Reference Range Interpretation Comments POC-GLUCOSE METER 124 mg/dL 70-110 H TESTED AT [facility] 6720 (BEAKER) (test code = [address] [place] 1538) [address] CBC (HEMOGRAM ONLY)2017-04-19 06:23:00 Test Item Value [...] (BEAKER) (test code = 413) 0.00BASI METABOLIC [id number] 05:40:00 Test Item Value Reference Range Interpretation Comments SODIUM (BEAKER) 140 meq/L 136-145 (test code = 381) POTASSIUM (BEAKER) 3.7 meq/L 3.5-5.1 (test code = 379) CHLORIDE (BEAKER) 106 meq/L 98-107 (test code = 382) CO2 (BEAKER) (test 26 meq/L 22-29 code = 355) BLOOD UREA NITROGEN 4 mg/dL 7-21 L ([facility]) (test code = 354) CREATININE ([facility]) 0.69 mg/dL 0.57-1.25 (test code = 358) GLUCOSE RANDOM 132 mg/dL 70-105 H ([facility]) (test code = 652) CALCIUM ([facility]) 8.6 mg/dL 8.4-10.2 (test code = 697) EGFR ([facility]) (test 91 mL/min/1.73 ESTIMA ANIA GFR IS code = 1092) sq m NOT ACCURATE CREATININE CLEARANCE IN PREDICTING GLOMERULAR FILTRATION RATE . ESTIMATED GFR I S NOT APPLICABLE FOR DIALYSIS PATIEN TS. POCT-GLUCOSE [id number] 21:12:00 Test Item Value Reference Range Interpretation Comments POC-GLUCOSE METER 154 mg/dL 70-110 H TESTED AT [place] [address] ([facility]) (test code = [facility] [employer] [facility] 1538) [address] POCT-GLUCOSE [id number] 16:18:00 Test Item Value Reference Range Interpretation Comments POC-GLUCOSE METER 137 mg/dL 70-110 H TESTED AT [place] [address] ([facility]) (test code = [facility] [employer] [facility] 1538) [address] POCT-GLUCOSE [id number] 11:57:00 Test Item Value Reference Range Interpretation Comments POC-GLUCOSE METER 123 mg/dL 70-110 H TESTED AT [place] [address] ([facility]) (test code = [facility] [employer] [facility] 1538) [address] POCT-GLUCOSE [id number] 07:25:00 Test Item Value Reference Range Interpretation Comments POC-GLUCOSE METER 126 mg/dL 70-110 H TESTED AT [place] [address] ([facility]) (test code = [facility] [employer] [facility] 1538) [address] [id number] 05:33:00 Test Item Value Reference Range Interpretation Comments MAGNESIUM ([facility]) (test code = 2.4 mg/dL 1.6-2.6 627) POCT-GLUCOSE [id number] 23:17:00 Test Item Value Reference Range Interpretation Comments POC-GLUCOSE METER 165 mg/dL 70-110 H TESTED AT [place] [address] ([facility]) (test code = [facility] [employer] [facility] 1538) [address] POCT-GLUCOSE [id number] 18:35:00 Test Item Value Reference Range Interpretation Comments POC-GLUCOSE METER 110 mg/dL 70-110 TESTED AT [facility] 6720 (BEAKER) (test code = [address] [place] 1537) [address] CBC W/PLT COUNT & AUTO [id number] 14:01:00 Test Item Value Reference Range Interpretation [...] (BEAKER) (test code = Normal 762) POCT-GLUCOSE [id number] 12:17:00 Test Item Value Reference Range Interpretation Comments POC-GLUCOSE METER 131 mg/dL 70-110 H TESTED AT [facility] 67 (BEAKER) (test code = [facility] 1538) [address] POCT-GLUCOSE [id number] 08:36:00 Test Item Value Reference Range Interpretation Comments POC-GLUCOSE METER 128 mg/dL 70-110 H TESTED AT [place] [address] [facility] (test code = [facility] 1538) [address] [id number] 06:13:00 Test Item Value Reference Range Interpretation Comments MAGNESIUM (BEAKER) (test code = 2.1 mg/dL 1.6-2.6 627) BASIC METABOLIC [id number] 06:13:00 Test Item Value Reference Range Interpretation [...] NOT APPLICABLE FOR DIALYSIS PATIEN TS. POCT-GLUCOSE [id number] 20:32:00 Test Item Value Reference Range Interpretation Comments POC-GLUCOSE METER 131 mg/dL 70-110 H TESTED AT [place] [address] ([facility]) (test code = [facility] Nydia [facility] 1538) [address] POCT-GLUCOSE [id number] 19:08:00 Test Item Value Reference Range Interpretation Comments POC-GLUCOSE METER 126 mg/dL 70-110 H TESTED AT [place] [address] ([facility]) (test code = [facility] Nydia [facility] 1538) [address] POCT-GLUCOSE [id number] 12:51:00 Test Item Value Reference Range Interpretation Comments POC-GLUCOSE METER 178 mg/dL 70-110 H TESTED AT [place] [address] ([facility]) (test code = [facility] Nydia [facility] 1538) [address] POCT-GLUCOSE [id number] 08:42:00 Test Item Value Reference Range Interpretation Comments POC-GLUCOSE METER 131 mg/dL 70-110 H TESTED AT [place] [address] ([facility]) (test code = [facility] 1538) [address] CBC W/PLT COUNT & AUTO [id number] 06:32:00 Test Item Value Reference Range Interpretation Comments WHITE BLOOD CELL COUNT (AKER) 8.2 K/ L 4.0-10.0 (test code = 775) RED BLOOD CELL COUNT ([facility]) 4.07 M/ L 4.00-5.00 (test code = [...] K/ L 0.00-0.20 (test code = 417) [id number] 05:46:00 Test Item Value Reference Range Interpretation Comments MAGNESIUM (BEAKER) (test code = 2.2 mg/dL 1.6-2.6 627) BASIC METABOLIC [id number] 05:46:00 Test Item Value Reference Range Interpretation [...] NOT APPLICABLE FOR DIALYSIS PATIEN TS. POCT-GLUCOSE [id number] 21:26:00 Test Item Value Reference Range Interpretation Comments POC-GLUCOSE METER 150 mg/dL 70-110 H TESTED AT [facility] 6720 ([facility]) (test code = [facility] 1538) [address] POCT-GLUCOSE [id number] 18:03:00 Test Item Value Reference Range Interpretation Comments POC-GLUCOSE METER 102 mg/dL 70-110 TESTED AT [facility] 6720 ([facility]) (test code = [facility] 1538) [address] HCG, QUANTITATIVE, [id number] 14:05:00 Test Item Value Reference Range Interpretation Comments GONADOTROPIN, CHORIONIC (HCG) QUANT < mIU/mL 0-10 ([facility]) (test code = 649) Non- Females: <10 mIU/mL Females: Gestation Age Reference Range(mIU/mL) 0.2-1 Week 5-50 1-2 Weeks 50-500 2-3 Weeks 100-5,000 3-4 Weeks 500-10,000 4-5 Weeks 1,000-50,000 5-6 Weeks 10,000-100,000 6-8 Weeks 15,000- 200,000 2-3 Months 10,000-100,000BASI METABOLIC [id number] 14:02:00 Test Item Value Reference Range Interpretation [...] NOT APPLICABLE FOR DIALYSIS PATIEN TS. HEMOGLOBIN [id number] 13:58:00 Test Item Value Reference Range Interpretation Comments HEMOGLOBIN A1C (BEAKER) (test code = 6.7 % 4.3-6.1 H 368) CBC W/PLT COUNT & AUTO [id number] 13:39:00 Test Item Value Reference Range Interpretation [...] L 0.00-0.20 (test code = 417) 0.00POCT-GLUCOSE [id number] 11:42:00 Test Item Value Reference Range Interpretation Comments POC-GLUCOSE METER 124 mg/dL 70-110 H TESTED AT [facility] 7686 ([facility]) (test code = [address] [place] 1538) [address]
[2022-11-14 01:35] LABS: Absolute Lymphocytes (CBC) 2.4 K/uL (0.7-4.9); Hematocrit 35.4 % (36.0-45.0); Lymphocytes % 32.6 % (15.3-44.8); MCV 88.2 fL (80-100); MPV 6.6 fL (7.6-11.3); Protime INR 0.99; RBC Red Blood Cell Count 4.01 M/uL (3.86-4.86)
[2022-11-14] MEDS ORDERED: ASPIRIN 81 MG CHEWABLE TABLET ONE (01:41)
[2022-11-14] MEDS ORDERED: LORazepam 2 MG/ML VIAL ONE (01:42)
[2022-11-14 01:50] LABS: Albumin 3.8 g/dL (3.4-5.0); Bilirubin Direct 0.1 mg/dL (0-0.2); Bilirubin Total 0.3 mg/dL (0.2-1.0); Magnesium 2.1 mg/dL (1.6-2.4); Potassium 3.4 mmol/L (3.5-5.1); Protein, Total 7.8 g/dL (6.4-8.2); Troponin High Sensitivity 4.6 pg/mL (<58.9)
[2022-11-14] MEDS ORDERED: NA CHLORIDE 0.9% 1,000 ML ONE (02:29)
--- NOTE | 2022-11-14 03:13 | ER ---
Nurse's Notes [facility] Name: Sharon Babin Age: 52 yrs Sex: Female : 1970 Arrival Date: 11/13/2022 Time: 23:56 Bed 13 Private MD: Diagnosis: Chest pain, unspecified Presentation: 11/14 00:54 Chief complaint: Patient states: I am having similar symptoms to my . I have kd3 chest pain that radiates to my jaws. It feels like there is weight on my chest. Coronavirus screen: Vaccine status: Patient reports receiving the 2nd dose of the covid vaccine. Ebola Screen: No symptoms or risks identified at this time. Initial Sepsis Screen: Does the patient meet any 2 criteria? No. Patient's initial sepsis screen is negative. Does the patient have a suspected source of infection? No. Patient's initial sepsis screen is negative. Risk Assessment: Do you want to hurt yourself or someone else? Patient reports no desire to harm self or others. Onset of symptoms was November 14, 2022. 00:54 Method Of Arrival: Ambulatory kd3 00:54 Acuity: XIMENA 3 kd3 Triage Assessment: 00:55 General: Appears uncomfortable, Behavior is calm, cooperative. Pain: Complains of pain kd3 in chest Pain radiates to right jaw, left jaw and neck. Cardiovascular: Patient's skin is warm and dry. Historical: - PMHx: 00:55 Diabetes - NIDDM; Hypothyroidism; Lupus; Hypercholesterolemia; Fibromyalgia; kd3 Hypertension; - PSHx: 00:55 section; mass removed from sinus; back sx; breast augmentation; Carpal tunnel kd3 sx; Elbow; Tummy tuck; - Immunization history:: Adult Immunizations up to date. - Social history:: Smoking status: Patient/guardian denies using tobacco, the patient reports quitting approximately 8 years ago. Screenin:42 [facility] ED Fall Risk Assessment (Adult) History of falling in the last 3 months, kd3 including since admission No falls in past 3 months (0 pts) Confusion or Disorientation No (0 pts) Intoxicated or Sedated No (0 pts) Impaired Gait No (0 pts) Mobility Assist Device Used No (0 pt) Altered Elimination No (0 pt) Score/Fall Risk Level 0 - 2 = Low Risk Oriented to surroundings. Abuse screen: Denies threats or abuse. Denies injuries from another. Nutritional screening: No deficits noted. Tuberculosis screening: No symptoms or risk factors identified. Assessment: 01:15 General: Appears in no apparent distress. uncomfortable, Behavior is cooperative, jb4 anxious. Pain: Complains of pain in chest Pain does not radiate. Pain currently is 7 out of 10 on a pain scale. Quality of pain is described as tightness. Neuro: Level of Consciousness is awake, alert, obeys commands, Oriented to person, place, time, situation. Cardiovascular: Patient's skin is warm and dry. Respiratory: Airway is patent Respiratory effort is even, unlabored, Respiratory pattern is regular, symmetrical. GI: No signs and/or symptoms were reported involving the gastrointestinal system. : No signs and/or symptoms were reported regarding the genitourinary system. EENT: No signs and/or symptoms were reported regarding the EENT system. Derm: Skin is intact, Skin is pink, warm \T\ dry. Musculoskeletal: Circulation, motion, and sensation intact. Range of motion: intact in all extremities. 02:19 Reassessment: Patient appears in no apparent distress at this time. Patient and/or jb4 family updated on plan of care and expected duration. Pain level reassessed. Patient is alert, oriented x 3, equal unlabored respirations, skin warm/dry/pink. 04:43 Pain: Pain began gradually. kd3 Vital Signs: 00:54 BP 134 / 64; Pulse 119; Resp 18; Temp 98.1(O); Pulse Ox 100% ; Weight 97.52 kg; Height kd3 5 ft. 6 in. (167.64 cm); Pain 7/10; 02:19 BP 123 / 66; Pulse 115; Resp 18; Pulse Ox 100% on R/A; jb4 03:15 BP 111 / 62; Pulse 112; Resp 18; Pulse Ox 95% on R/A; jb4 04:42 Pulse 105; Resp 19; Pulse Ox 100% on R/A; kd3 00:54 Body Mass Index 34.70 (97.52 kg, 167.64 cm) kd3 ED Course: 11/13 23:56 Patient arrived in ED. ja2 11/14 00:03 Ehsan Weaver PA is PHCP. cp 00:03 Bang Lyons MD is Attending Physician. cp 00:55 Triage completed. kd3 00:55 Arm band placed on right wrist. kd3 01:33 Ross Paz, RN is Primary Nurse. jb4 01:54 XRAY Chest (1 view) In Process Unspecified. EDMS 02:46 US Abdomen Limited In Process Unspecified. EDMS 03:12 Nestor Medina MD is Hospitalizing Provider. cp 04:42 No provider procedures requiring assistance completed. Patient admitted, IV remains in kd3 place. Patient maintains SpO2 saturation greater than 95% on room air. 04:43 Patient has correct armband on for positive identification. Client placed on continuous kd3 cardiac and pulse oximetry monitoring. NIBP monitoring applied. Administered Medications: 01:41 Drug: Ativan (LORazepam) 0.5 mg Route: IVP; Site: right antecubital; jb4 02:18 Follow up: Response: No adverse reaction; Marked relief of symptoms jb4 01:41 Drug: Aspirin Chewable Tablet 324 mg Route: PO; jb4 02:18 Follow up: Response: No adverse reaction jb4 02:28 Drug: NS 0.9% 1000 ml Route: IV; Rate: 1 bolus; Site: right antecubital; jb4 04:44 Follow up: Response: No adverse reaction; IV Status: Completed infusion kd3 03:36 Drug: Metoprolol 12.5 mg Route: PO; jb4 04:42 Follow up: Response: No adverse reaction kd3 03:36 Drug: Lovenox (enoxaparin) 40 mg Route: Sub-Q; Site: right lower abdomen; jb4 04:41 Follow up: Response: No adverse reaction kd3 04:41 Drug: Potassium Effervescent Tablet 50 mEq Route: PO; kd3 04:43 Follow up: Response: No adverse reaction kd3 Medication: 04:43 VIS not applicable for this client. kd3 Point of Care Testing: Blood Glucose: 01:47 Blood Glucose: 153 mg/dL; jb4 Ranges: Outcome: 03:12 Decision to Hospitalize by Provider. cp 04:42 Admitted to Med/surg kd3 04:42 Condition: stable 04:42 Discharge instructions given to patient, family, Instructed on the need for admit, Demonstrated understanding of instructions. 04:45 Patient left the ED. kd3 Signatures: Dispatcher [employer] EDNJ Page, Ehsan, Ross Garcia cp, RN RN jb4 Toshia Mcgregor Kyli, RN RN kd3
--- NOTE | 2022-11-14 03:14 | EDPHYS ---
Physician Documentation [facility] Name: Sharon Babin Age: 52 yrs Sex: Female : 1970 Arrival Date: 11/13/2022 Time: 23:56 Bed 13 Private MD: ED Physician Bang Lyons HPI: 11/14 01:05 This 52 yrs old Female presents to ER via Ambulatory with complaints of Chest cp Tightness, High Blood Pressure. 01:05 The patient or guardian reports chest pain that is located primarily in the substernal cp area. 01:05 The chest pain is described as a heaviness, like weight on chest. cp 01:05 Onset: tonight. cp 01:05 The pain radiates to neck. Associated signs and symptoms: Pertinent negatives: cp abdominal pain, cough, diaphoresis, dizziness, lower extremity pain, lower extremity swelling, syncope, vomiting. Duration: The patient or guardian reports a single episode, that is still ongoing, and unchanged. 01:05 Patient reports increased stress and believes symptoms due to stress but reports recent cp passing of sister from [place]. Historical: - PMHx: 00:55 Diabetes - NIDDM; Hypothyroidism; Lupus; Hypercholesterolemia; Fibromyalgia; kd3 Hypertension; - PSHx: 00:55 section; mass removed from sinus; back sx; breast augmentation; Carpal tunnel kd3 sx; Elbow; Tummy tuck; - Immunization history:: Adult Immunizations up to date. - Social history:: Smoking status: Patient/guardian denies using tobacco, the patient reports quitting approximately 8 years ago. ROS: 01:10 Constitutional: Negative for body aches, chills, fever, poor PO intake. cp 01:10 Eyes: Negative for injury, pain, redness, and discharge. cp 01:10 ENT: Negative for drainage from ear(s), ear pain, sore throat, difficulty swallowing, difficulty handling secretions. 01:10 Neck: Negative for pain with movement, pain at rest, stiffness. 01:10 Cardiovascular: Positive for chest pain, Negative for edema, palpitations. 01:10 Respiratory: Negative for cough, wheezing. 01:10 Abdomen/GI: Negative for abdominal pain, vomiting, diarrhea, constipation. 01:10 Neuro: Negative for altered mental status, dizziness, headache, weakness. 01:10 All other systems are negative. Exam: 01:00 ECG was reviewed by the Attending Physician. cp 01:13 Constitutional: The patient appears in no acute distress, alert, awake, cp non-diaphoretic, non-toxic, well developed, well nourished, anxious, overweight 01:13 Head/Face: Normocephalic, atraumatic. cp 01:13 Eyes: Periorbital structures: appear normal, Conjunctiva: normal, no exudate, no injection, Sclera: no appreciated abnormality, Lids and lashes: appear normal, bilaterally. 01:13 ENT: External ear(s): are unremarkable, Nose: is normal, Mouth: Lips: moist, Oral mucosa: moist, Posterior pharynx: is normal, airway is patent, no erythema, no exudate. 01:13 Chest/axilla: Inspection: normal. 01:13 Cardiovascular: Rate: tachycardic, Rhythm: regular, Edema: is not appreciated, JVD: is not appreciated. 01:13 Respiratory: the patient does not display signs of respiratory distress, Respirations: normal, no use of accessory muscles, no retractions, labored breathing, is not present, Breath sounds: are clear throughout, no decreased breath sounds, no stridor, no wheezing. 01:13 Abdomen/GI: Inspection: abdomen appears normal, Bowel sounds: active, all quadrants, Palpation: soft, in all quadrants, mild abdominal tenderness, in the epigastric area, rebound tenderness, is not appreciated, involuntary guarding, is not appreciated. 01:13 Back: pain, is absent, ROM is normal. 01:13 Neuro: Orientation: to person, place \T\ time. Mentation: is normal, Motor: moves all fours, strength is normal, Sensation: is normal. Vital Signs: 00:54 BP 134 / 64; Pulse 119; Resp 18; Temp 98.1(O); Pulse Ox 100% ; Weight 97.52 kg; Height kd3 5 ft. 6 in. (167.64 cm); Pain 7/10; 02:19 BP 123 / 66; Pulse 115; Resp 18; Pulse Ox 100% on R/A; jb4 03:15 BP 111 / 62; Pulse 112; Resp 18; Pulse Ox 95% on R/A; jb4 04:42 Pulse 105; Resp 19; Pulse Ox 100% on R/A; kd3 00:54 Body Mass Index 34.70 (97.52 kg, 167.64 cm) kd3 MDM: 00:50 Patient medically screened. cp 01:30 Differential diagnosis: abnormal EKG, acute myocardial infarction, acute pericarditis, cp anxiety, cholecystitis, Cholelithiasis costochondritis, pancreatitis, pericarditis, pneumonia, pneumothorax, pulmonary embolus, stable angina, thoracic aortic disection, unstable angina. 03:10 The patient was given aspirin in the Emergency Department. cp 03:10 Data reviewed: vital signs, nurses notes, lab test result(s), EKG, radiologic studies, cp plain films, ultrasound. Consideration of Admission/Observation Patient was admitted/placed on observation. I considered the following discharge prescriptions or medication management in the emergency department Medications were administered in the Emergency Department. See MAR. Test considered but Not performed: CT: chest Angio/PE protocol. 03:10 Care significantly affected by the following chronic conditions: Diabetes, cp Hypertension, Obesity. 03:10 Counseling: I had a detailed discussion with the patient and/or guardian regarding: the cp historical points, exam findings, and any diagnostic results supporting the discharge/admit diagnosis, lab results, radiology results, the need for further work-up and treatment in the hospital. Response to treatment: the patient's symptoms have markedly improved after treatment. 11/14 01:02 Order name: Basic Metabolic Panel; Complete Time: 02:40 cp / 01:57 Interpretation: Normal except: K 3.4; GLUC 182; GFR 78. cp 11/14 01:02 Order name: CBC with Diff; Complete Time: 01:57 cp / 01:58 Interpretation: Normal except: HGB 11.9; HCT 35.4; MPV 6.6. cp 11/14 01:02 Order name: LFT's; Complete Time: 02:40 cp / 02:09 Interpretation: Normal except: AST 74; ALT 113; ALK 135; GLOB 4.0; A/G 1.0. cp 11/14 01:02 Order name: Magnesium; Complete Time: 02:40 cp 02/ 02:40 Interpretation: Reviewed. cp 11/14 01:02 Order name: NT PRO-BNP; Complete Time: 02:40 cp 11/14 01:02 Order name: PT-INR; Complete Time: 02:08 cp 11/14 02:09 Interpretation: Reviewed. cp 02 01:02 Order name: Troponin HS; Complete Time: 02:40 cp 11/14 02:10 Interpretation: Reviewed. cp 02 01:59 Order name: D-Dimer cp 11/14 01:59 Order name: LAB Add On cp 11/14 01:59 Order name: Glucose, Ancillary Testing; Complete Time: 02:08 EDMS 02 02:08 Interpretation: Reviewed. cp 02 02:03 Order name: D-Dimer; Complete Time: 02:08 EDMS 11/14 02:09 Interpretation: Reviewed. cp 02 02:18 Order name: Lipase cp 11/14 02:18 Order name: LAB Add On cp 11/14 02:22 Order name: Lipase; Complete Time: 02:40 EDMS 11/14 01:02 Order name: XRAY Chest (1 view) cp 11/14 02:14 Order name: US Abdomen Limited cp 11/14 03:18 Order name: SARS RAPID; Complete Time: 04:16 kl 11/14 03:19 Order name: Basic Metabolic Panel EDMS 11/14 03:19 Order name: Basic Metabolic Panel EDMS / 03:19 Order name: CBC with Automated Diff EDMS / 03:19 Order name: CBC with Automated Diff EDMS / 03:19 Order name: Troponin High Sensitivity EDMS / 03:19 Order name: Troponin High Sensitivity; Complete Time: 06:22 EDMS / 03:19 Order name: Troponin High Sensitivity EDMS / 01:02 Order name: EKG; Complete Time: 01:04 cp / 01:02 Order name: Cardiac monitoring; Complete Time: 01:07 cp / 01:02 Order name: EKG - Nurse/Tech; Complete Time: 01:07 cp / 01:02 Order name: IV Saline Lock; Complete Time: 01:33 cp 11/14 01:02 Order name: Labs collected and sent; Complete Time: 01:33 cp 11/14 01:02 Order name: O2 Per Protocol; Complete Time: 01:07 cp / 01:02 Order name: O2 Sat Monitoring; Complete Time: 01:07 cp / 01:10 Order name: Accucheck Blood Glucose; Complete Time: 01:47 cp 11/14 03:19 Order name: EKG Electrocardiogram EDMS 02/02 03:19 Order name: EKG Electrocardiogram EDMS 11/14 03:19 Order name: EKG Electrocardiogram EDMS 11/14 03:19 Order name: EKG Electrocardiogram EDMS 11/14 03:19 Order name: EKG Electrocardiogram EDMS EC:00 Rate is 112 beats/min. Rhythm is regular. TX interval is normal. QRS interval is cp prolonged at 102 msec. QT interval is normal. T waves are Inverted in lead aVR. Interpreted by me. Reviewed by me. Administered Medications: 01:41 Drug: Ativan (LORazepam) 0.5 mg Route: IVP; Site: right antecubital; jb4 02:18 Follow up: Response: No adverse reaction; Marked relief of symptoms jb4 01:41 Drug: Aspirin Chewable Tablet 324 mg Route: PO; jb4 02:18 Follow up: Response: No adverse reaction jb4 02:28 Drug: NS 0.9% 1000 ml Route: IV; Rate: 1 bolus; Site: right antecubital; jb4 04:44 Follow up: Response: No adverse reaction; IV Status: Completed infusion kd3 03:36 Drug: Metoprolol 12.5 mg Route: PO; jb4 04:42 Follow up: Response: No adverse reaction kd3 03:36 Drug: Lovenox (enoxaparin) 40 mg Route: Sub-Q; Site: right lower abdomen; jb4 04:41 Follow up: Response: No adverse reaction kd3 04:41 Drug: Potassium Effervescent Tablet 50 mEq Route: PO; kd3 04:43 Follow up: Response: No adverse reaction kd3 Point of Care Testing: Blood Glucose: :47 Blood Glucose: 153 mg/dL; jb4 Ranges: Critical Glucose Levels:Adult <50 mg/dl or >400 mg/dl <40 mg/dl or >180 mg/dl Disposition: 06:24 Co-signature as Attending Physician, Bang Lyons MD I reviewed the patient's care rt provided by the Advanced Practice Provider and agree with the diagnosis and treatment plan. Disposition Summary: 11/14/22 03:12 Hospitalization Ordered Hospitalization Status: Observation cp Provider: Nestor Medina cp Location: Telemetry/MedSurg (observation) cp Condition: Stable cp Problem: new cp Symptoms: have improved cp Bed/Room Type: Standard cp Room Assignment: 216(11/14/22 04:17) cp Diagnosis - Chest pain, unspecified cp Forms: - Medication Reconciliation Form cp - SBAR form cp Signatures: Dispatcher [employer] EDEhsan Fontaine PA PA cp Bryson, James RN RN jb4 Amy Baez RN RN kd3 Bang Lyons MD MD rt Corrections: (The following items were deleted from the chart) 04:17 03:12 cp cp 21:38 01:05 The chest pain is described as tightness cp cp
[2022-11-14] MEDS ORDERED: ONDANSETRON 4 MG/2 ML VIAL IV PRN (03:15)
[2022-11-14] MEDS ORDERED: METOPROLOL TAR 25 MG TAB ONE (03:35)
[2022-11-14] MEDS ORDERED: ENOXAPARIN 40 MG/0.4 ML SQ ONE (03:35)
[2022-11-14 03:40] LABS: SARS-CoV-2 Antigen Rapid Res Negative (Negative)
[2022-11-14] MEDS ORDERED: POTASSIUM 25 MEQ EFFERV TAB ONE (04:42)
[2022-11-14 05:30] VITALS: BMI 36.6
[2022-11-14] MEDS ORDERED: ASPIRIN EC 81 MG TAB PO SCH (09:00)
[2022-11-14 09:09] VITALS: O2SAT 99
[2022-11-14 12:06] VITALS: BP 121/51; TEMP 97.8
--- NOTE | 2022-11-14 12:58 | P.SSS ---
Patient History Date of Service: 11/14/22 Reason for admission: CHEST PAIN History of Present Illness: JUAN A HAS LOT OF PSYCH ISSUES. SHE COMES WITH CHEST HEAVINESS. HER SISTER HAD CARDIAC ARREST RECENTLY AND THAT IS ONE MORE REASON FOR HER TO COME. SHE HAD CE NEG. EKG IS NOT IN THE CHART. Zeyad DOBBS BEEN SEEN BY DR. ORELLANA. SHE IS STABLE AND PAINFREE. SHE WILL GO TO DR. ORELLANA FOR ST TEST. SONOGRAM REPORT IS PENDING. HER LFT ARE CHRONICALLY HIGH MAINLY FROM FATTY LIVER. ONCE HER DISS ECTION TEST IS DONE,IF ALL GOOD SHE CAN GO HOME. Allergies No Known Allergies Allergy (Verified 12/26/20 11:26) Home medications list reviewed: Yes Home Medications: Buprenorphine HCl/Naloxone HCl [Suboxone 8 mg-2 mg Sl Film] 1 film SL BID 04/03/17 Buspirone HCl 1 tab PO QID 04/03/17 Desvenlafaxine Succinate [Pristiq] 1 tab PO DAILY 04/03/17 Metformin HCl [Glucophage] 1 tab PO BID 04/03/17 Milnacipran HCl [Savella] 1 tab PO BID 04/03/17 Omeprazole [Prilosec] 1 cap PO DAILY 04/03/17 Oxybutynin Chloride [Ditropan*] 5 mg PO BID 04/03/17 Potassium 30 meq PO DAILY 04/03/17 Propranolol [Inderal LA*] 60 mg PO DAILY #30 cap 04/08/17 Bupropion *Xl* [Wellbutrin XL*] 150 mg PO DAILY 12/14/19 Cyclobenzaprine [Flexeril*] 10 mg PO TID PRN 12/14/19 Furosemide [Lasix*] 1 tab PO DAILY 08/24/20 Levothyroxine Sodium 25 mcg PO [id number] 08/24/20 Diazepam [Valium] 10 mg PO BEDTIME 12/26/20 clonazePAM [Clonazepam] 1 mg PO TID 12/26/20 - Past Medical/Surgical History Has patient received pneumonia vaccine in the past: No Diabetic: Yes -: Anxiety -: Diabetes -: Fibromyalgia -: Hypertension -: Spinal Stenosis -: Lupus -: Depression -: Bipolar disorder -: Muscle spasm -: Cervical Stenosis -: Back surgery-2006 -: Carpal tunnel -: -: Breast Augmentation -: Tummy Tuck -: Elbow Surgery -: Orif femur - Family History Father -: Heart disease Mother -: Other (see notes) Notes: Neurological condition - Social History Smoking Status: Former smoker Alcohol use: No CD- Drugs: No Caffeine use: Yes Place of Residence: Home Review of Systems 10-point ROS is otherwise unremarkable Physical Examination - Vital Signs Temperature: 97.8 F Blood Pressure: 121/51 Pulse: 100 Respirations: 16 Pulse Ox (%): 96 - Physical Exam General: Alert, In no apparent distress HEENT: Atraumatic, PERRLA, Mucous membr. moist/pink, EOMI, Sclerae nonicteric Neck: Supple, 2+ carotid pulse no bruit, No LAD, Without JVD or thyroid abnormality Respiratory: Clear to auscultation bilaterally, Normal air movement Cardiovascular: Regular rate/rhythm, Normal S1 S2 Gastrointestinal: Normal bowel sounds, No tenderness Musculoskeletal: No tenderness Integumentary: No rashes Neurological: Normal gait, Normal speech, Normal strength at 5/5 x4 extr, Normal tone, Normal affect Lymphatics: No axilla or inguinal lymphadenopathy - Studies Laboratory Data (last 24 hrs) 11/14/22 02:18: Lipase Cancelled 11/14/22 01:18: PT 10.9, INR 0.99 11/14/22 01:18: WBC 7.40, Hgb 11.9 L, Hct 35.4 L, Plt Count 244 11/14/22 01:18: Sodium 136, Potassium 3.4 L, BUN 15, Creatinine 0.88, Glucose 182 H, Magnesium 2.1, Total Bilirubin 0.3, AST 74 H, ALT 113 H, Alkaline Phosphatase 135 H, Lipase 98 - Diagnosis (Problem(s)) (1) Atypical chest pain Current Visit: Yes Status: Acute Plan: PLAN ABOVE. PAIN SEEMS NON CARDIAC IN ORIGIN. DW DR ORELLANA. (2) Bipolar depression Current Visit: Yes Status: Chronic Plan: GOES TO PSYCH MD. - Disposition Disposition: ROUTINE DISCHARGE Condition: FAIR
--- NOTE | 2022-11-14 13:55 | RAD REPORT ---
EXAM DESCRIPTION: CT - Angio Aorta For Dissection - 11/14/2022 1:44 pm CLINICAL HISTORY: Chest pain radiating to the back. CHEST AND BACK PAIN. COMPARISON: CTANGIO AORTA FOR DISSECTION dated 05/02/2008 TECHNIQUE: CT angiography of the aorta was performed with MIPs. All CT scans are performed using dose optimization technique as appropriate and may include automated exposure control or mA/KV adjustment according to patient size. FINDINGS: A left aortic arch is present with normal branching pattern of the great vessels.No acute aortic finding is seen such as aneurysm, penetrating ulcer or dissection. The celiac axis, SMA, ALLIE and renal arteries are patent. No evidence of pulmonary embolism. The lungs are clear. Bilateral breast implants are present. The liver demonstrates no focal mass or biliary dilatation.The spleen, pancreas, adrenal glands and k idneys are within normal limits for arterial phase imaging. No bowel obstruction, free fluid or abscess.Significant fecal retention.No pathologic enlarged lympha denopathy identified. No fracture or worrisome bone lesion seen. IMPRESSION: No acute aortic finding is demonstrated. Prominent fecal retention noted.
--- NOTE | 2022-11-14 14:27 | RAD REPORT ---
EXAM DESCRIPTION: RAD - Chest Single View - 11/14/2022 1:52 am CLINICAL HISTORY: 52 years, Female, CHEST PAIN COMPARISON: 07/09/2022. FINDINGS: Single view of the chest was obtained portable. Prior films were compared. External EKG le ads within the [id number] limits diagnosis. The cardiomediastinal silhouette demonstrate to be unr emarkable. The heart is not enlarged. The thoracic aorta is unremarkable. The pulmonary vasculature i s normal distribution. Costophrenic angles are sharp. No areas of consolidation or masses are seen. The rest of the soft tissue and bony structures demonstrate to be unremarkable. IMPRESSION: No acute cardiopulmonary disease seen. Electronically signed by: Andrew Rodarte MD 11/14/2022 2:01 AM KENNEL OPERATOR Due to temporary technical issues with the PACS/Fluency reporting system, reports are being signed by the in house radiologists without review as a courtesy to insure prompt reporting. The interpreting radiologist is fully responsible for the content of the report.
--- NOTE | 2022-11-14 14:29 | RAD REPORT ---
EXAM DESCRIPTION: US - Abdomen Exam Limited - 11/14/2022 2:45 am CLINICAL HISTORY: 52 years, Female, elevated liver enzymes COMPARISON: None. TECHNIQUE: Utilizing a curved array transducer, real-time ultrasound evaluation of the abdominal vis cera was performed. Color Doppler imaging was used to assess vascular flow. FINDINGS: The liver is normal in size measuring 16.0 cm. Increased echo pattern was identified. No focal areas of increased or decreased echogenicity was seen. The portal flow is hetopedal with no signs of vein thrombosis. The gallbladder demonstrate the presence of echogenic structure with posterior shadowing correspondin g to cholelithiasis. No pericholecystic fluid and or wall thickening was identified. There is negat rock ultrasonographic Munroe sign. The common bile duct measures 3.3 mm. No intra or extrahepatic bi liary duct dilatation was identified. The pancreas head in the mid body demonstrate to be unremarkable with no focal lesions. The spleen measures 11.1 cm and demonstrate no focal lesions. The right kidney demonstrate no evidence for significant hydronephrosis. No free fluid within the upper abdomen. IMPRESSION: Cholelithiasis without evidence of cholecystitis. Increased echogenicity of the liver suggesting fatty infiltration. Electronically signed by: Andrew Rodarte MD 11/14/2022 3:00 AM VELVET STEAMER Due to temporary technical issues with the PACS/Fluency reporting system, reports are being signed by the in house radiologists without review as a courtesy to insure prompt reporting. The interpreting radiologist is fully responsible for the content of the report.
--- NOTE | 2022-11-14 19:23 | CON ---
Date of Consultation: 11/14/2022 Reason For Consultation: Chest pain. History Of Present Illness: This is a 52-year-old female with past medical history of anxiety, diabe lavonne, hypertension, and lupus who presented with chest pain, retrosternal heaviness, not related to ex ertion. She woke up with it. It was not related to exertion, lasted for a short period of time and resolved. The patient was admitted overnight. Serial cardiac enzymes were done and were negative. The patient is completely pain free at the present time. No exertional chest pain. Past Medical History: As outlined above in HPI. Medications: Refer to reconciliation sheet for detailed list. Allergies: NO KNOWN DRUG ALLERGIES. Family History: No premature coronary artery disease. Social History: She is an ex-smoker. Does not drink or use any drugs. Review of Systems: All systems reviewed and they were negative except as mentioned in HPI. Physical Examination: Vital Signs: Temperature is 97.8, pulse is 84, breathing at 18, blood pressure is 125/72, and satura ting 96% on room air. General: A pleasant middle-aged female, in no apparent distress. Head And Neck: Pupils are equal and reactive to light. Intact eye movements. No JVD. No cervical lymphadenopathy. Neck is supple. Thyroid is not enlarged. Lungs: Clear to auscultation bilaterally. No rhonchi, wheezing, or crackles. No accessory muscle u se. Heart: Regular rate and rhythm. No extra sounds. Abdomen: Soft, nontender. Bowel sounds positive. No organomegaly. No masses or hernia. No rigidi ty or rebound. Extremities: No edema, clubbing, or cyanosis. Intact pulses. Skin: No rash. Neurologic: Alert, awake, and oriented x3. No acute focal deficits appreciated. Lymph Nodes: No cervical or axillary adenopathy. Investigations: Her D-dimer is negative and cardiac enzymes normal. BUN 15, creatinine 0.88. Assessment/recommendation: 1.Chest pain, atypical presentation with negative cardiac enzymes and no acute EKG changes. The pat ient is chest pain free and clinically stable. She can be released to follow up as an outpatient for exercise stress test and echocardiogram. 2.Hypertension. Her blood pressure is very well controlled. Continue current home medications. Re commend to include beta sallie on her home discharge medications and baby aspirin. Thank you for the consult. SR/MODL Voice ID: [id number] Report ID: [id number]
== END 2022-11-14 15:54 | disposition home or self-care (01) ==
LOC: ER 23:55 → ERHOLD 11-14 03:14 → 2ND 11-14 04:19
PROVIDERS: ADMIT Internal Medicine; ATTEND Internal Medicine
DX: R07.89 Other chest pain (principal); I10 Essential (primary) hypertension; K76.0 Fatty (change of) liver, not elsewhere classified; R79.89 Other specified abnormal findings of blood chemistry; F31.9 Bipolar disorder, unspecified; E11.9 Type 2 diabetes mellitus without complications; F41.9 Anxiety disorder, unspecified; Z20.822 Contact with and (suspected) exposure to COVID-19
CPT/HCPCS: 36415; 71045; 71275; 74175; 76705; 80048; 80076; 82947; 83690; 83735; 83880; 84484; 85025; 85379; 85610; 87811; 93005; G0378; J1650; J7030; Q9967

== ENCOUNTER 2022-12-25 08:14 | Emergency (ER) | payer BC ==
--- OUTSIDE RECORDS SUMMARY | 2022-12-25 08:20 | XMS REPORT | Continuity of Care Document ---
:1970 Author Organization [facility] t Address [address] [facility] [address] [place] [address] Care Team Providers Name Role Phone RENÉE NEGRETE Primary Care Physician UnavailAlexandr Oliveira MD Attending Clinician [phone] Kris Jensen MD Attending Clinician ALEXANDR MONGE Attending Clinician Unavailable NICKOLAS SINGH Attending Clinician Unavailable KRIS JENSEN Admitting Clinician Unavailable NICKOLAS SINGH Admitting Clinician Unavailable Payers Payer Name Policy Type Policy Number Effective Date Expiration Date S ource Problems Condition Condition Condition Status Onset Resolution Last Treating Co mments Source Name Details Category Date Date Treatment Clinician Date Cellulitis Cellulitis Disease Active 2021-[address] of right of right 2-21 [facility] Medical 00 [place] Bursitis Bursitis Disease Active 2021[facility] knee knee 00:[facility]: Medical 00 [place] Arthritis, Arthritis, Disease Active 2021-[address] septic, septic, 2-20 [facility] knee knee 00:[facility]: Medical 00 [place] Orbital Orbital Disease Active [facility] cellulitis cellulitis 04-15 Kathryn kes 00:00: Medical 00 [place] Diabetes Diabetes Disease Active [facility] mellitus, mellitus, - Luke s type 2 type 2 00:00: Medical 00 [place] Opioid Opioid Disease Active [facility] dependence dependence 04-15 Kathryn kes 00:00: Medical 00 [place] Allergies, Adverse Reactions, Alerts Allergy Allergy Status [...] [facility] exposure 00:00:00 00:00:00 [facility] Sex Assigned At [address] [facility] kes 00:00:00 [facility]00 [facility] Smoking Status Start Date Stop Date Source Never [facility] Former smoker 2017-04-15 00:00:00 2017-04-15 00:00:00 [facility] Medications Ordered Filled Start Stop Current Ordering Indication Dosage Frequency Signature Comments Components Source Medication Medication Date Date Medication? Clinician (SIG) Name Name TRIAMTERENE 2021-10 Yes 75mg QD Take [address] [facility] ORAL 2-22 by mouth [facility] 14:37: daily . [place] [address] Center clonazePAM 2021-10 Yes 1mg Take 1 [...] Center times daily. TiZANidine 2021-10 Yes 4mg Q.[id number] Take [address] (ZANAFLEX) 2-22 [id number] by mouth 3 [facility] 4 MG 14:37: [...] times Center daily as needed for Nausea. TRIAMTERENE 2021-10 Yes 75mg QD Take [address] ORAL 2-22 by mouth [facility] 14:37: daily . Medical 36 Center clonazePAM 2021-10 Yes 1mg Take 1 [...] Center times daily. TiZANidine 2021-10 Yes 4mg Q.72233259 Take [address] (ZANAFLEX) 2-22 [id number] by mouth 3 [facility] 4 MG 14:37: [...] [address] (ZOFRAN) 4 12-04 by mouth 4 Ana [facility] MG tablet 14:37: (four) Medica l 36 times Center daily as needed for Nausea. mupirocin 2021-10 Yes 30g Q.5D Apply [address] (BACTROBAN) 2-22 topically Ana es 2 % 00:00: 2 (two) Medical ointment 00 times Center daily. mupirocin 2021-10 Yes 30g Q.5D Apply [address] (BACTROBAN) 2-22 topically Ana es 2 % 00:00: 2 (two) Medical ointment 00 times Center daily. doxycycline 2021-10- No 100mg Q.5D Take [address] (MONODOX) 12-04 capsule [facility] 100 MG 00:00: 23:59 (100 mg Medical capsule 00 :00 total) by Center mouth 2 (two) times daily for 14 days. amoxicillin 2021-10- No 1{tbl} Q.5D Take [address] -clavulanat 12-04 tablet by Kathryn kes e 00:00: 23:59 mouth 2 Medical (AUGMENTIN) 00 :00 (two) Center 875-125 mg times per tablet daily for 14 days. doxycycline 2021-10 No 100mg Q.5D Take [address] (MONODOX) 12-04 capsule [facility] 100 MG 00:00: 23:59 (100 mg Medical capsule 00 :00 total) by Center mouth 2 (two) times daily for 14 days. amoxicillin 2021-10- No 1{tbl} Q.5D Take [address] -clavulanat 12-04 tablet by Kathryn kes e 00:00: 23:59 mouth 2 Medical (AUGMENTIN) 00 :00 (two) Center 875-125 mg times per tablet daily for 14 days. desvenlafax Yes 100mg QD Take [address] ine 7-08 mg by [facility] succinate 11:17: mouth Medical (PRISTIQ) 05 daily. Center 100 MG 24 hr tablet metFORMIN Yes 1000mg Take 1,[address] (GLUCOPHAGE [...] Center times daily. TiZANidine 2017-0 Yes 4mg Q.57621787 Take [address] (ZANAFLEX) 7-08 [id number] by mouth 3 [facility] 4 MG 11:17: [...] Center times daily. TiZANidine 2017-0 Yes 4mg Q.69802692 Take [address] (ZANAFLEX) 7-08 [id number] by mouth 3 [facility] 4 MG 11:17: [...] tongue 2 Center (two) times daily. neomycin-po 2017-0 Yes For [address] lymyxin-dex 7-08 days [facility] amethasone 00:00: suppley. Med ical (POLYDEX) 00 Center 3.5 mg/g-10,000 unit/g-0.1 % Oint ophthalmic ointment neomycin-po 2017-0 Yes For [address] lymyxin-dex 7-08 days [facility] amethasone 00:00: suppley. Med ical (POLYDEX) 00 Center 3.5 mg/g-10,000 unit/g-0.1 % Oint ophthalmic ointment neomycin-po 2017-0 Yes For [address] lymyxin-dex 7-08 days [facility] amethasone 00:00: suppley. Med ical (POLYDEX) 00 Center 3.5 mg/g-10,000 unit/g-0.1 % Oint ophthalmic ointment neomycin-po 2017-0 Yes For [address] lymyxin-dex 7-08 days [facility] amethasone 00:00: suppley. Med ical (POLYDEX) 00 Center 3.5 mg/g-10,000 unit/g-0.1 % Oint ophthalmic ointment Immunizations Ordered Immunization Filled Immunization Date Status Commen ts Source Name Name [facility] 2017-04-16 [facility] 2017-04-16 Completed [facility] 00:00:00 Medical [facility] 2017-04-[address] [facility] 00:[facility]:00 [facility] 2017-04-[address] [facility] 00:00:00 [facility] Vital Signs Vital Name Observation Time Observation Value Comments Source HEIGHT 2022-10-01 20:56:00 167.6 cm WEIGHT 2022-10-01 20:56:00 96.1 kg HEIGHT 2022-10-01 20:56:00 167.6 cm WEIGHT 2022-10-01 20:56:00 96.1 kg HEIGHT 2022-10-01 20:56:00 167.6 cm WEIGHT 2022-10-01 20:56:00 96.1 kg Systolic blood 2022-10-03 12:00:00 135 mm[Hg] [facility] Diastolic blood 2022-10-03 12:00:00 69 mm[Hg] [facility] Heart rate 2022-10-03 12:00:00 111 /min [facility] Body temperature 2022-10-03 12:00:00 37.06 Yumiko [facility] Respiratory rate 2022-10-03 12:00:00 18 /min [facility] Oxygen saturation in 2022-10-03 12:00:00 96 /min [facility] Arterial blood by Medical Ce nter Pulse oximetry Body height 2022-10-01 20:56:00 167.6 cm [facility] Body weight 2022-10-01 20:56:00 96.1 kg [facility] BMI 2022-10-01 20:56:00 34.20 kg/m2 [facility] Procedures Procedure Date / Time Performed Performing Clinician Sour e POCT-GLUCOSE METER 2022-10-03 12:23:00 Octavia [facility] POCT-GLUCOSE METER 2022-10-03 07:44:00 Octavia [facility] CBC W/PLT COUNT & AUTO 2022-10-03 04:51:00 Alexandr Monge [facility] DIFFERENTIAL [facility] BASIC METABOLIC PANEL 2022-10-03 04:51:00 Octavia [facility] MAGNESIUM 2022-10-03 04:51:00 Octavia [facility] HEMOGLOBIN A1C 2022-10-03 04:51:00 Octavia [facility] LIPID PANEL 2022-10-03 04:51:00 Octavia [facility] CBC W/PLT COUNT & AUTO 2022-10-03 04:51:00 Alexandr Monge [facility] POCT-GLUCOSE METER 2022-10-02 21:19:00 Octavia [facility] POCT-GLUCOSE METER 2022-10-02 17:22:00 Octavia [facility] POCT-GLUCOSE METER 2022-10-02 11:51:00 Octavia [facility] HEPATIC FUNCTION PANEL 2022-10-02 05:54:00 Kris Jensen [facility] POCT-GLUCOSE METER 2022-10-02 04:51:00 Octavia [facility] CT LOWER EXTREMITY WITH 2022-10-02 01:55:00 Kris Jensen [facility] IV CONTRAST RIGHT [facility] POCT-GLUCOSE METER 2022-10-01 23:29:00 Octavia [facility] COMPREHENSIVE METABOLIC 2022-10-01 22:33:[address] [facility] Center MAGNESIUM 2022-10-01 22:33:00 Nicole, Kris [facility] PHOSPHORUS 2022-10-01 22:33:00 NicoleDank kesslerhir [facility] CBC W/PLT COUNT & AUTO 2022-10-01 22:33:00 NicoleDank kesslerhir [facility] DIFFERENTIAL [facility] CBC W/PLT COUNT & AUTO 2022-10-01 22:33:00 NicoleDank kesslerhir [facility] BLOOD CULTURE 2022-10-01 22:30:00 Nicole [facility] POCT-GLUCOSE METER 2022-10-01 20:51:00 Octavia [facility] Plan of Care Planned Activity Planned Date Details Comments Source Future Scheduled 2027-04-16 DTAP/TDAP/TD VACCINES [facility] 00:00:00 (2 - Td or Tdap) [code Medic al Center = DTAP/TDAP/TD VACCINES (2 - Td or Tdap)] Future Scheduled 2027-04-16 DTAP/TDAP/TD VACCINES [facility] 00:00:00 (2 - Td or Tdap) [code Medic al Center = DTAP/TDAP/TD VACCINES (2 - Td or Tdap)] Future Scheduled 2025-10-03 Lipid panel (procedure) [facility] 00:00:00 [code = 00121850] Medical Ce nter Future Scheduled 2025-10-03 Lipid panel (procedure) [facility] Test 00:00:00 [code = 75539854] Medical Ce nter Future Scheduled 2023-10-[address] [facility] Test 00:00:00 Counseling and Medical Cente r Screening (12+) [code = Tobacco Cessation Counseling and Screening (12+)] Future Scheduled 2023-10-[address] [facility] Test 00:00:00 Counseling and Medical Cente r Screening (12+) [code = Tobacco Cessation Counseling and Screening (12+)] Future Scheduled 2023-04-[address] [address] [facility] Test 00:00:00 measurement (procedure) [facility] [code = 76700686] Future Scheduled 2023-04-[address] [facility] Test 00:00:00 measurement (procedure) [facility] [code = 72830674] Future Scheduled 2022-06-13 INFLUENZA VACCINE (#1) [facility] 00:00:00 [code = INFLUENZA Medical Ce nter VACCINE (#1)] Future Scheduled 2022-06-13 INFLUENZA VACCINE (#1) [facility] 00:00:00 [code = INFLUENZA Medical Ce nter VACCINE (#1)] Future Scheduled 2018 SHINGLES VACCINES ([address] [facility] Test 00:00:00 2) [code = SHINGLES [facility] VACCINES (1 of 2)] Future Scheduled 2018 SHINGLES VACCINES ([address] [facility] Test 00:00:00 2) [code = SHINGLES [facility] VACCINES (1 of 2)] Future Scheduled 1989 Screening for malignant [facility] Test 00:00:00 neoplasm of cervix Medical C enter (procedure) [code = 171015239] Future Scheduled 1989 Screening for malignant [facility] Test 00:00:00 neoplasm of cervix Medical C enter (procedure) [code = 521451360] Future Scheduled 1986 HEPATITIS C [facility]CRE[facility]ING [facility] 00:00:00 [code = HEPATITIS C Medical Center SCREENING] Future Scheduled 1986 HEPATITIS C [facility]CRE[facility]ING [facility] 00:00:00 [code = HEPATITIS C Medical Center SCREENING] Future Scheduled 1978 DIABETIC EYE EXAM [code [facility] 00:00:00 = DIABETIC EYE EXAM] Medical Center Future Scheduled [address] [facility] 00:[facility]:00 examination Medical Center (regime/therapy) [code = 317904310] Future Scheduled 1978 Urine screening for [facility] 00:00:00 protein (procedure) Medical Center [code = 039283375] Future Scheduled 1978 DIABETIC EYE EXAM [code [facility] 00:00:00 = DIABETIC EYE EXAM] Medical Center Future Scheduled [address] [facility] Test 00:00:00 examination Medical Center (regime/therapy) [code = 033155774] Future Scheduled 1978 Urine screening for [facility] 00:00:00 protein (procedure) Medical Center [code = 341885082] Future Scheduled [address] [facility] Test 00:00:00 0-64 YRS (1 - PCV) Medical C enter [code = PNEUMOCOCCAL VACCINE 0-64 YRS (1 - PCV)] Future Scheduled [address] [facility] Test 00:00:00 0-64 YRS (1 - PCV) Medical C enter [code = PNEUMOCOCCAL VACCINE 0-64 YRS (1 - PCV)] Future Scheduled 1969-01-29 COVID-19 VACCINE (#1[facility] 00:00:00 [code = COVID-[address] VACCINE (#1)] Future Scheduled 1969-01-29 COVID-19 VACCINE (#1) [facility] 00:00:00 [code = COVID-[address] VACCINE (#1)] Future Scheduled 1968 Screening for malignant [facility] Test 00:00:00 neoplasm of breast Medical C enter (procedure) [code = 217818771] Future Scheduled 1968 CT Colonography (combo) [facility] Test 00:00:00 [code = CT Colonography [facility] (combo)] Future Scheduled 1968 Screening for malignant [facility] Test 00:00:00 neoplasm of colon Medical Ce nter (procedure) [code = 334528292] Future Scheduled 1968 Screening for malignant [facility] Test 00:00:00 neoplasm of colon Medical Ce nter (procedure) [code = 611702761] Future Scheduled 1968 Screening for malignant [facility] Test 00:00:00 neoplasm of colon Medical Ce nter (procedure) [code = 027777428] Future Scheduled 1968 Screening for malignant [facility] Test 00:00:00 neoplasm of colon Medical Ce nter (procedure) [code = 760375208] Future Scheduled 1968 Sigmoidoscopy [code = [facility] 00:[facility]:00 Sigmoidoscopy] Medical Cente r Future Scheduled 1968 Screening for malignant [facility] Test 00:00:00 neoplasm of breast Medical C enter (procedure) [code = 034506767] Future Scheduled 1968 CT Colonography (combo) [facility] Test 00:00:00 [code = CT Colonography [facility] (combo)] Future Scheduled 1968 Screening for malignant [facility] Test 00:00:00 neoplasm of colon Medical Ce nter (procedure) [code = 111971359] Future Scheduled 1968 Screening for malignant [facility] Test 00:00:00 neoplasm of colon Medical Ce nter (procedure) [code = 174578797] Future Scheduled 1968 Screening for malignant [facility] Test 00:00:00 neoplasm of colon Medical Ce nter (procedure) [code = 307964445] Future Scheduled 1968 Screening for malignant [facility] Test 00:00:00 neoplasm of colon Medical Ce nter (procedure) [code = 490079775] Future Scheduled 1970 Sigmoidoscopy [code = [facility] 00:00:00 Sigmoidoscopy] Medical Gurpreete r Encounters Start End Encounter Admission Attending Care Care Encounter Source Date/Time Date/Time Type Type Clinicians Facility Department ID 2022-10-01 2022-10-03 [facility] [id number] [facility] 20:30:00 14:37:00 Encounter Waleska Jensenr [facility] 2022-10-01 2022-10-03 [facility] [id number] [facility] 20:30:00 14:37:00 Encounter Dank Jensenhir [facility] 2022-10-01 2022-10-03 Inpatient ER [facility] Internal [id number] [facility] 20:30:00 14:37:00 Located within [facility] 2022-10-02 2022-10-[address] [facility] [id number] [facility] 00:[facility] 00:00:00 [facility] 2022-10-02 2022-10-[address] [facility] [id number] [facility] 00:00:00 00:00:00 [facility] Results Test Description Test Time Test Comments Results Result Comments Source BLOOD CULTURE 2022-10-07 01:00:41 Test Item Value Reference Range Interpretation Comme nts CULTURE (BEAKER) (test code = 1095) No growth in 5 days POC-Glucose [id number] 12:36:16 Test Item Value Reference Range Interpretation Comments POC-Glucose Meter (test 136 mg/dL 70-110 H : TE STED AT [facility] code = 1538) [address] [place] [id number]: Statistical Financial Analyst/Techni erika ID = [id number] for Yelling, Yoland a Lab Interpretation (test Abnormal code = 36551-0) [facility] [id number] 12:36:16 Test Item Value Reference Range Interpretation Comments POC-Glucose Meter (test 136 mg/dL 70-110 H : [facility] [address] [place] [address]: Statistical Financial Analyst/Techni erika ID = [id number] for Yelling, Yoland a Lab Interpretation (test Abnormal code = 20207-5) [facility] [id number] 12:36:16 Test Item Value Reference Range Interpretation Comments POC-GLUCOSE METER 136 mg/dL 70-110 H : TESTED A T [facility] 1317 (BEAKER) (test code [address] [facility], = 1538) [place] [id number]: Statistical Financial Analyst/Techni erika ID = [id number] for Ashley ing, Janneth POCT-GLUCOSE [id number] 07:56:56 Test Item Value Reference Range Interpretation Comments POC-GLUCOSE METER 125 mg/dL 70-110 H : TESTED A T [facility] 1317 (BEAKER) (test code [address] [facility], = 1538) [place] [address] 478: Statistical Financial Analyst/Techni erika ID = [id number] for Ashley ing, Janneth HEMOGLOBIN [id number] 06:43:17 Test Item Value Reference Range Interpretation Comments HEMOGLOBIN A1C (BEAKER) (test code = 5.9 % 4.3-6.1 368) Statistical Financial Analyst ID - LITOLIPID [id number] 05:40:16 Test Item Value Reference Range Interpretation Comments TRIGLYCERIDES (BEAKER) (test code = 86 mg/dL 540) CHOLESTEROL (BEAKER) (test code = 154 mg/dL 631) HDL CHOLESTEROL (BEAKER) (test code 46 mg/dL = 976) LDL CHOLESTEROL CALCULATED (BEAKER) 91 mg/dL (test code = 633) Triglyceride Reference Range: Low Risk <150 Borderline 150-199 High Risk 200-499 Very High Risk >=500Cholesterol Reference Range: Low Risk <200 Borderline 200-239 High Risk >240HDL Cholesterol Reference Range: Low Risk >=60 High Risk <40LDL Cholesterol Reference Range: Optimal <100 Near Optimal 100-129 Borderline 130-159 High 160-189 Very High >=190 Statistical Financial Analyst ID - LITOOperatorID - LITOOperator ID - [id number] 05:40:16 Test Item Value Reference Range Interpretation Comments MAGNESIUM (BEAKER) (test code = 2.0 mg/dL 1.5-3.0 627) Statistical Financial Analyst ID - LITOOperator ID - LITOOperator ID - LITOOperator ID - LITOBASIC METABOLIC [id number] 05:38:59 Test Item Value Reference Range Interpretation [...] high >=90 G2 Mildly decreased 60-89 G3a Mild ly to moderately 45-5 9 G3b Moderately to [...] not appl icable for dialysis patien ts Statistical Financial Analyst ID - LITOOperator ID - LITOOperator ID - LITOOperator ID - LITOOperator ID - LITOOperator ID - LITOOperator ID - LITOOperator ID - LITOOperator ID - LITOCBC W/PLT COUNT & AUTO [id number] 05:28:51 Test Item Value Reference Range Interpretation [...] PERCENT (BEAKER) (test code = 2801) POCT-GLUCOSE [id number] 21:30:37 Test Item Value Reference Range Interpretation Comments POC-GLUCOSE METER 75 mg/dL 70-110 : TESTED A T [facility] (test code = [address] [facility], 1538) [place] [address]: Statistical Financial Analyst/Techni erika ID = [id number] for lydia Brito POCT-GLUCOSE [id number] 17:35:40 Test Item Value Reference Range Interpretation Comments POC-GLUCOSE METER 179 mg/dL 70-110 H : Notified RN/MD: TESTED ([facility]) (test code AT [facility] [address] = 1538) [place] [address]: Statistical Financial Analyst/Techni erika ID = [id number] for Ashley ing, Janneth POCT-GLUCOSE [id number] 12:04:18 Test Item Value Reference Range Interpretation Comments POC-GLUCOSE METER 117 mg/dL 70-110 H : [facility] (test code [facility], = 1538) [place] [address]: Statistical Financial Analyst/Techni erika ID = [id number] for Ashley ing, Janneth CT, EXTREMITY, LOWER, WITH CONTRAST, [id number] 10:12:00Unlisted Reason for Exam - Click Yes and Enter Reason Below->No [facility] : 1970 Sex: FFINAL REPORT CT of [...] Vora MDReport Verified Date/Time: 10/02/2022 10:12:51 Reading Location:[facility] C0[facility] Ortho Consult Reading Room HEPATIC FUNCTION PANEL [...] code = 52 U/L 5-50 H 347) Statistical Financial Analyst ID - [id number] ID - [id number] ID - [id number] ID - [id number] ID - [id number] ID - [id number] ID - [id number] 05:02:28 Test Item Value Reference Range Interpretation Comments POC-GLUCOSE METER 120 mg/dL 70-110 H : TESTED A T [facility] 1317 (BEAKER) (test code [facility], = 1538) [place] [address]: Statistical Financial Analyst/Techni erika ID = [id number] for Will iams, Selena POCT-GLUCOSE [id number] 23:41:12 Test Item Value Reference Range Interpretation Comments POC-GLUCOSE METER 109 mg/dL 70-110 : TESTED A T [facility] 1317 (BEAKER) (test code [facility], = 1538) [place] [address] 478: Statistical Financial Analyst/Techni erika ID = [id number] for Will iams, Selena COMPREHENSIVE METABOLIC [id number] 23:15:14 Test Item Value Reference Range Interpretation [...] eGF R is based on the CKD-EPI 202 equation that d oes not use a race coefficientEsti mated GFR is not as accur ate as Creatinine Chanell null in predicting glom erular filtration rate . Estimated GFR is not appl icable for dialysis patien ts Statistical Financial Analyst ID - JUSTINOperator ID - JUSTINOperator ID - JUSTINOperator ID - JUSTINOperator ID - JUSTINOperator ID - JUSTINOperator ID - JUSTINOperator ID - JUSTINOperator ID - JUSTINOperator ID - JUSTINOperator ID - JUSTINOperator ID - JUSTINOperator ID - JUSTINOperator ID - JUSTINOperator ID - JUSTINOperator ID - [id number] 23:15:14 Test Item Value Reference Range Interpretation Comments MAGNESIUM (BEAKER) (test code = 2.0 mg/dL 1.5-3.0 627) Statistical Financial Analyst ID - JUSTINOperator ID - JUSTINOperator ID - JUSTINOperator ID - MILENA [id number] 23:11:52 Test Item Value Reference Range Interpretation Comments PHOSPHORUS (BEAKER) (test code = 2.5 mg/dL 2.5-4.5 604) Statistical Financial Analyst ID - JUSTINCBC W/PLT COUNT & AUTO [id number] 22:53:51 Test Item Value Reference Range Interpretation [...] PERCENT (BEAKER) (test code = 2801) POCT-GLUCOSE [id number] 21:03:05 Test Item Value Reference Range Interpretation Comments POC-GLUCOSE METER 98 mg/dL 70-110 : TESTED A T [facility] 1317 (BEAKER) (test code = [address], 1538) [facility] 77 478: Statistical Financial Analyst/Techni erika ID = [id number] for Selena Soria ANAEROBIC [id number] 03:45:00 Test Item Value Reference Range Interpretation Comments CULTURE (BEAKER) (test No anaerobes isolated code = 1095) TISSUE [id number] 15:59:00Surgical Pathology Report Case: [id number] Authorizing Provider: Jimenez Mcintosh MD Collected: 04/17/2017 9629 Ordering Location: [facility] Received: 04/18/2017 0801 SERVICES Pathologist: Antonette Mario MD Specimen: Eyelid, Left, Left eyelid abscess SKIN, LEFT EYELID, ABSCESS, DEBRIDEMENT:- SKIN WITH ABSCESS- GRAM POSITIVE COCCI IN CLUSTERS (DIONICIO) Please correlate with corresponding microbiology cultures. 18233; 05552 x 3Left upper eyelid abscessLeft eyelid abscess [...] code = 1095) WOUND CULTURE + GRAM [id number] 08:51:00 Test Item Value Reference Interpretation Comments [...] No organisms seen (BEAKER) (test code = 825899) Florentin elieser = 21SURGICALLY OBTAINED CULTURE + GRAM [id number] 07:47:00 Test Item Value Reference Range Interpretation Comments CULTURE A 1+ Same organis m has (BEAKER) (test been isolated from code = 1095) cultures(s) of the same body site and collection date . Repeat identifi cation and susceptibil ity testing perform ed only after consultat ion with the [facility] microbiology laboratory.Refe r to previous cultur e ofMethicillin resistant Staphylococcus aureus GRAM STAIN 1+ WBCs RESULT (BEAKER) (test code = 1123) GRAM STAIN No organisms seen RESULT (BEAKER) (test code = 075930) POCT-GLUCOSE [id number] 08:26:00 Test Item Value Reference Range Interpretation Comments POC-GLUCOSE METER 124 mg/dL 70-110 H TESTED AT [facility] 6720 (BEAKER) (test code = [address] [place] 1538) [id number] CBC (HEMOGRAM ONLY)2017-04-19 06:23:00 Test Item Value [...] (BEAKER) (test code = 413) 0.00BASIC METABOLIC [id number] 05:40:00 Test Item Value Reference Range Interpretation [...] NOT APPLICABLE FOR DIALYSIS PATIEN TS. POCT-GLUCOSE [id number] 21:12:00 Test Item Value Reference Range Interpretation Comments POC-GLUCOSE METER 154 mg/dL 70-110 H TESTED AT [place] [address] ([facility]) (test code = TIMMY Stafford [facility] 1538) [id number] POCT-GLUCOSE [id number] 16:18:00 Test Item Value Reference Range Interpretation Comments POC-GLUCOSE METER 137 mg/dL 70-110 H TESTED AT [place] [address] ([facility]) (test code = [facility] Nydia [facility] 1538) [id number] POCT-GLUCOSE [id number] 11:57:00 Test Item Value Reference Range Interpretation Comments POC-GLUCOSE METER 123 mg/dL 70-110 H TESTED AT [place] [address] ([facility]) (test code = [facility] Nydia [facility] 1538) [id number] POCT-GLUCOSE [id number] 07:25:00 Test Item Value Reference Range Interpretation Comments POC-GLUCOSE METER 126 mg/dL 70-110 H TESTED AT [place] [address] ([facility]) (test code = [facility] Nydia [facility] 1538) [id number] 05:33:00 Test Item Value Reference Range Interpretation Comments MAGNESIUM ([facility]) (test code = 2.4 mg/dL 1.6-2.6 627) POCT-GLUCOSE [id number] 23:17:00 Test Item Value Reference Range Interpretation Comments POC-GLUCOSE METER 165 mg/dL 70-110 H TESTED AT [place] [address] ([facility]) (test code = [facility] Nydia [facility] 1538) [id number] POCT-GLUCOSE [id number] 18:35:00 Test Item Value Reference Range Interpretation Comments POC-GLUCOSE METER 110 mg/dL 70-110 TESTED AT [place] [address] ([facility]) (test code = [facility] 1538) [id number] CBC W/PLT COUNT & AUTO [id number] 14:01:00 Test Item Value Reference Range Interpretation Comments WHITE BLOOD CELL COUNT ([facility]) 6.3 K/ L 4.0-10.0 (test code = 775) RED BLOOD CELL COUNT ([facility]) 3.64 M/ L 4.00-5.00 L (test code [...] (BEAKER) (test code = Normal 762) POCT-GLUCOSE [id number] 12:17:00 Test Item Value Reference Range Interpretation Comments POC-GLUCOSE METER 131 mg/dL 70-110 H TESTED AT [place] [address] ([facility]) (test code = TIMMY Stafford [facility] 1538) [id number] POCT-GLUCOSE [id number] 08:36:00 Test Item Value Reference Range Interpretation Comments POC-GLUCOSE METER 128 mg/dL 70-110 H TESTED AT [place] [address] ([facility]) (test code = [facility] Nydia [facility] 1538) [id number] 06:13:00 Test Item Value Reference Range Interpretation Comments MAGNESIUM (BEAKER) (test code = 2.1 mg/dL 1.6-2.6 627) BASIC METABOLIC [id number] 06:13:00 Test Item Value Reference Range Interpretation [...] 358) GLUCOSE RANDOM 164 mg/dL 70-105 H [facility] (test code = 652) CALCIUM (BEAKER) 8.6 mg/dL 8.4-10.2 (test code = 697) EGFR (BEAKER) (test 101 mL/min/1.73 ESTIM ATED GFR IS code = 1092) sq m NOT ACCURATE CREATININE CLEARANCE IN PREDICTING GLOMERULAR FILTRATION RATE . ESTIMATED GFR I S NOT APPLICABLE FOR DIALYSIS PATIEN TS. POCT-GLUCOSE [id number] 20:32:00 Test Item Value Reference Range Interpretation Comments POC-GLUCOSE METER 131 mg/dL 70-110 H TESTED AT [place] [id number] ([facility]) (test code = [facility] Nydia [facility] 1538) [id number] POCT-GLUCOSE [id number] 19:08:00 Test Item Value Reference Range Interpretation Comments POC-GLUCOSE METER 126 mg/dL 70-110 H TESTED AT [facility] 6720 (BEAKER) (test code = TIMMY Stafford [place] 1538) [id number] POCT-GLUCOSE [id number] 12:51:00 Test Item Value Reference Range Interpretation Comments POC-GLUCOSE METER 178 mg/dL 70-110 H TESTED AT [facility] 6720 (BEAKER) (test code = TIMMY Stafford [place] 1538) [id number] POCT-GLUCOSE [id number] 08:42:00 Test Item Value Reference Range Interpretation Comments POC-GLUCOSE METER 131 mg/dL 70-110 H TESTED AT [place] [address] (BEAKER) (test code = TIMMY Stafford [facility] 1538) [id number] CBC W/PLT COUNT & AUTO [id number] 06:32:00 Test Item Value Reference Range Interpretation [...] K/ L 0.00-0.20 (test code = 417) [id number] 05:46:00 Test Item Value Reference Range Interpretation Comments MAGNESIUM (BEAKER) (test code = 2.2 mg/dL 1.6-2.6 627) BASIC METABOLIC [id number] 05:46:00 Test Item Value Reference Range Interpretation [...] NOT APPLICABLE FOR DIALYSIS PATIEN TS. POCT-GLUCOSE [id number] 21:26:00 Test Item Value Reference Range Interpretation Comments POC-GLUCOSE METER 150 mg/dL 70-110 H TESTED AT [facility] 67[address] ([facility]) (test code = TIMMY Stafford [place] 1538) [id number] POCT-GLUCOSE [id number] 18:03:00 Test Item Value Reference Range Interpretation Comments POC-GLUCOSE METER 102 mg/dL 70-110 TESTED AT [facility] 67[address] ([facility]) (test code = TIMMY Stafford [facility] 1538) [id number] HCG, QUANTITATIVE, [id number] 14:05:00 Test Item Value Reference Range Interpretation Comments GONADOTROPIN, CHORIONIC (HCG) QUANT < mIU/mL 0-10 ([facility]) (test code = 649) Non- Females: <10 mIU/mL Females: Gestation Age Reference Range(mIU/mL) 0.2-1 Week 5-50 1-2 Weeks 50-500 2-3 Weeks 100-5,000 3-4 Weeks 500-10,000 4-5 Weeks 1,000-50,000 5-6 Weeks 10,000-100,000 6-8 Weeks 15,000- 200,000 2-3 Months 10,000-100,000BASIC METABOLIC [id number] 14:02:00 Test Item Value Reference Range Interpretation [...] GFR I S NOT APPLICABLE FOR DIALYSIS DEEJAY TS. HEMOGLOBIN [id number] 13:58:00 Test Item Value Reference Range Interpretation Comments HEMOGLOBIN A1C (BEAKER) (test code = 6.7 % 4.3-6.1 H 368) CBC W/PLT COUNT & AUTO [id number] 13:39:00 Test Item Value Reference Range Interpretation [...] EOSINOPHILS ABSOLUTE COUNT 0.09 K/ L 0.00-0.50 ([facility]) (test code = 416) BASOPHILS ABSOLUTE COUNT ([facility]) 0.08 K/ L 0.00-0.20 (test code = 417) 0.00POCT-GLUCOSE [id number] 11:42:00 Test Item Value Reference Range Interpretation Comments POC-GLUCOSE METER 124 mg/dL 70-110 H TESTED AT [facility] 6720 ([facility]) (test code = TIMMY RAMIREZ 1538) [id number]
[2022-12-25] MEDS ORDERED: HYDROCODONE/APAP 10/325 TAB ONE (09:02)
[2022-12-25 09:46] LABS: Albumin 3.9 g/dL (3.4-5.0); Bilirubin Total 0.4 mg/dL (0.2-1.0); Magnesium 2.1 mg/dL (1.6-2.4); Potassium 3.3 mmol/L (3.5-5.1); Protein, Total 7.6 g/dL (6.4-8.2)
--- NOTE | 2022-12-25 09:54 | RAD REPORT ---
EXAM DESCRIPTION: CT - Spine Lumbar Wo Con - 12/25/2022 9:17 am CLINICAL HISTORY: Bilateral leg weakness and cramping PAIN COMPARISON: Angio Aorta For Dissection dated 11/14/2022 TECHNIQUE: Axial noncontrast CT imaging of the lumbar spine was performed with coronal and sagittal re-formatted images. All CT scans are performed using dose optimization technique as appropriate and may include automated exposure control or mA/KV adjustment according to patient size. FINDINGS: No acute lumbar spine fracture seen. No aggressive marrow pattern or suspicious focal lesi ons. Grade 1 anterolisthesis of L4 over L5, not exceeding 3 millimeter. Multilevel facet arthropathy with osseous remodeling and vacuum phenomenon throughout L2-3 through L5-S1. Multilevel endplate alden deling without significant disc height loss, although disc vacuum phenomenon is seen at L3-4. Paraspinal tissues are normal in thickness. No paraspinal abscess or hematoma seen. Intervertebral disc disease assessment is inherently limited by CT. Within these limitations, there a re broad-based disc bulges noted at L2-3 and L3-4, with central annular mineralization at L3-4. Moder ate central canal stenosis secondary to disc bulge, facet arthropathy, and ligamentum flavum buckling suspected at L4-5. Mild central canal narrowing due to similar factors suspected at L2-3 and L3-4. C ongenital pedicular shortening likely contributes to these findings as well. Moderate bilateral neura l foraminal narrowing at L3-4 and L4-5, and mild bilateral neural foraminal narrowing noted at L2-3 a nd L5-S1. IMPRESSION: No acute osseous abnormality. Multilevel degenerative changes, with variable degrees of canal stenosis and neural foraminal narrowi ng as above. Consider MRI follow-up for assessment of disc disease if clinically desired.
[2022-12-25 10:22] LABS: Absolute Lymphocytes (CBC) 2.2 K/uL (0.7-4.9); Hematocrit 34.7 % (36.0-45.0); Lymphocytes % 41.9 % (15.3-44.8); MCV 87.1 fL (80-100); MPV 6.8 fL (7.6-11.3); RBC Red Blood Cell Count 3.99 M/uL (3.86-4.86)
--- NOTE | 2022-12-25 12:53 | EDPHYS ---
Physician Documentation [facility] Name: Sharon Babin Age: 52 yrs Sex: Female : 1970 Arrival Date: 12/25/2022 Time: 08:18 Bed 18 Private MD: ED Physician Mikael Dodd Historical: - Allergies: 12/25 08:32 No Known Allergies; aa5 - PMHx: 08:32 Diabetes - NIDDM; Fibromyalgia; Hypercholesterolemia; Hypertension; Hypothyroidism; aa5 Lupus; - PSHx: 08:32 back sx; breast augmentation; Carpal tunnel sx; section; Elbow; mass removed aa5 from sinus; Tummy tuck; - Immunization history:: Adult Immunizations unknown. - Social history:: Smoking status: Patient denies any tobacco usage or history of. Vital Signs: 08:23 BP 140 / 69; Pulse 106; Resp 18 S; Temp 97.6(O); Pulse Ox 97% on R/A; Weight 104.33 kg aa5 (R); Height 5 ft. 6 in. (R); 09:47 BP 120 / 59; Pulse 103; Resp 18 S; Pulse Ox 95% on R/A; kc6 10:44 BP 112 / 56; Pulse 106; Resp 19 S; Pulse Ox 93% on R/A; kc6 11:50 BP 126 / 78; Pulse 101; Resp 18 S; Pulse Ox 92% on R/A; kc6 12:51 BP 120 / 74; Pulse 98; Resp 17 S; Pulse Ox 100% on R/A; kc6 08:23 Body Mass Index 37.12 (104.33 kg, 167.64 cm) aa5 MDM: 12:52 Patient medically screened. kdr 12/25 10:01 Order name: Labs - recollect needed: recollect cbc; Complete Time: 10:16 bd 12/25 08:54 Order name: CBC with Diff; Complete Time: 11:33 kdr 12/25 08:54 Order name: CMP; Complete Time: 11:33 kdr 12/25 08:54 Order name: Magnesium; Complete Time: 11:33 kdr 12/25 09:01 Order name: CT Lumbar Spine Wo Con; Complete Time: 11:33 kdr Administered Medications: 09:06 Drug: Empire PO 10 mg-325 mg 1 tabs Route: PO; kc6 09:41 Follow up: Response: No adverse reaction; Pain is decreased; RASS: Alert and Calm (0) kc6 Disposition Summary: 12/25/22 12:52 Discharge Ordered Location: Home kdr Problem: an ongoing problem kdr Symptoms: have improved kdr Condition: Stable kdr Diagnosis - Lower extremity pain and spasms kdr Followup: kdr - With: Nestor Medina MD - When: 1 - 2 days - Reason: If symptoms return, Further diagnostic work-up, Recheck today's complaints, Continuance of care, Re-evaluation by your physician Discharge Instructions: - Discharge Summary Sheet kdr - Musculoskeletal Pain kdr Forms: - Medication Reconciliation Form kdr - Thank You Letter kdr Prescriptions: - Cyclobenzaprine 5 mg Oral Tablet - take 1 tablet by ORAL route 3 times per day As needed; 15 tablet; Refills: 0, kdr Product Selection Permitted Signatures: Dispatcher [employer] EDPerri Sampson Kevin, MD MD kdr Calderon, Audri RN RN aa5 Trisha Umana RN RN kc6
--- NOTE | 2022-12-25 12:53 | ER ---
Nurse's Notes [facility] Name: Sharon Babin Age: 52 yrs Sex: Female : 1970 Arrival Date: 12/25/2022 Time: 08:18 Bed 18 Private MD: Diagnosis: Lower extremity pain and spasms Presentation: 12/25 08:23 Chief complaint: Patient states: claudia leg weakness and cramping that began 3 days ago. aa5 08:23 Onset of symptoms was December 2022. aa5 08:23 Acuity: XIMENA 3 aa5 08:23 Method Of Arrival: Ambulatory aa5 08:23 Coronavirus screen: At this time, the client does not indicate any symptoms associated aa5 with coronavirus-19. Ebola Screen: Patient denies travel to an Ebola-affected area in the 21 days before illness onset. Initial Sepsis Screen: Does the patient meet any 2 criteria? HR > 90 bpm. Does the patient have a suspected source of infection? No. Patient's initial sepsis screen is negative. Risk Assessment: Do you want to hurt yourself or someone else? Patient reports no desire to harm self or others. Historical: - Allergies: 08:32 No Known Allergies; aa5 - PMHx: 08:32 Diabetes - NIDDM; Fibromyalgia; Hypercholesterolemia; Hypertension; Hypothyroidism; aa5 Lupus; - PSHx: 08:32 back sx; breast augmentation; Carpal tunnel sx; section; Elbow; mass removed aa5 from sinus; Tummy tuck; - Immunization history:: Adult Immunizations unknown. - Social history:: Smoking status: Patient denies any tobacco usage or history of. Screenin:31 [facility] ED Fall Risk Assessment (Adult) History of falling in the last 3 months, kc6 including since admission No falls in past 3 months (0 pts) Confusion or Disorientation No (0 pts) Intoxicated or Sedated No (0 pts) Impaired Gait Yes (1 pt) Mobility Assist Device Used Yes (1 pt) Altered Elimination No (0 pt) Score/Fall Risk Level 0 - 2 = Low Risk Oriented to surroundings, Maintained a safe environment, Educated pt \T\ family on fall prevention, incl call for assistance when getting out of bed, Assessed \T\ reinforced patient's understanding of fall precautions, Hourly rounding (assess needs \T\ fall precautionary measures) done. Abuse screen: Denies threats or abuse. Denies injuries from another. Nutritional screening: No deficits noted. Tuberculosis screening: No symptoms or risk factors identified. Assessment: 08:33 General: Appears in no apparent distress. comfortable, Behavior is calm, cooperative, kc6 appropriate for age. Pain: Denies pain. Neuro: Cassidy Agitation-Sedation Scale (RASS): 0 - Alert and Calm Level of Consciousness is awake, alert, obeys commands, Oriented to person, place, time, situation, Appropriate for age. Cardiovascular: Capillary refill < 3 seconds. Respiratory: Airway is patent Trachea midline Respiratory effort is even, unlabored, Respiratory pattern is regular, symmetrical. GI: No signs and/or symptoms were reported involving the gastrointestinal system. : No signs and/or symptoms were reported regarding the genitourinary system. EENT: No signs and/or symptoms were reported regarding the EENT system. Derm: No signs and/or symptoms reported regarding the dermatologic system. Skin is intact, Skin is pink, warm \T\ dry. Musculoskeletal: Circulation, motion, and sensation intact. Capillary refill < 3 seconds, Range of motion: intact in all extremities, Reports weakness in right leg and left leg Denies numbness in, right leg and left leg. 09:33 Reassessment: Patient appears in no apparent distress at this time. No changes from kc6 previously documented assessment. Patient and/or family updated on plan of care and expected duration. Pain level reassessed. Patient is alert, oriented x 3, equal unlabored respirations, skin warm/dry/pink. 10:33 Reassessment: Patient appears in no apparent distress at this time. No changes from kc6 previously documented assessment. Patient and/or family updated on plan of care and expected duration. Pain level reassessed. Patient is alert, oriented x 3, equal unlabored respirations, skin warm/dry/pink. 11:33 Reassessment: Patient appears in no apparent distress at this time. No changes from kc6 previously documented assessment. Patient and/or family updated on plan of care and expected duration. Pain level reassessed. Patient is alert, oriented x 3, equal unlabored respirations, skin warm/dry/pink. 12:33 Reassessment: Patient appears in no apparent distress at this time. No changes from kc6 previously documented assessment. Patient and/or family updated on plan of care and expected duration. Pain level reassessed. Patient is alert, oriented x 3, equal unlabored respirations, skin warm/dry/pink. Vital Signs: 08:23 BP 140 / 69; Pulse 106; Resp 18 S; Temp 97.6(O); Pulse Ox 97% on R/A; Weight 104.33 kg aa5 (R); Height 5 ft. 6 in. (R); 09:47 BP 120 / 59; Pulse 103; Resp 18 S; Pulse Ox 95% on R/A; kc6 10:44 BP 112 / 56; Pulse 106; Resp 19 S; Pulse Ox 93% on R/A; kc6 11:50 BP 126 / 78; Pulse 101; Resp 18 S; Pulse Ox 92% on R/A; kc6 12:51 BP 120 / 74; Pulse 98; Resp 17 S; Pulse Ox 100% on R/A; kc6 08:23 Body Mass Index 37.12 (104.33 kg, 167.64 cm) aa5 ED Course: 08:18 Patient arrived in ED. rg4 08:23 Arm band placed on. aa5 08:31 Triage completed. aa5 08:31 Trisha Umana, RN is Primary Nurse. kc6 08:32 Patient has correct armband on for positive identification. Bed in low position. Call kc6 light in reach. Side rails up X2. Adult w/ patient. 08:34 Mikael Dodd MD is Attending Physician. kdr 09:05 Magnesium Sent. kc6 09:05 CMP Sent. kc6 09:06 CBC with Diff Sent. kc6 09:06 Inserted saline lock: 20 gauge in right antecubital area, using aseptic technique. kc6 Blood collected. 09:18 CT Lumbar Spine Wo Con In Process Unspecified. EDMS 12:51 Nestor Medina MD is Referral Physician. kdr Administered Medications: 09:06 Drug: [place] PO 10 mg-325 mg 1 tabs Route: PO; kc6 09:41 Follow up: Response: No adverse reaction; Pain is decreased; RASS: Alert and Calm (0) kc6 Outcome: 12:52 Discharge ordered by . kdr Signatures: Dispatcher [employer] EDMS Mikael Dodd MD MD kdr Phoebe Jonas RN RN aa5 Mitzi Perez rg4 Umana, Trisha, RN RN kc6
[2022-12-25 16:44] VITALS: TEMP 97.6
[2022-12-25 16:49] VITALS: BP 120/74; O2SAT 100
== END 2022-12-25 13:41 | disposition home or self-care (01) ==
LOC: ER 08:14
DX: M62.838 Other muscle spasm (principal); M79.662 Pain in left lower leg; M79.661 Pain in right lower leg; I10 Essential (primary) hypertension; Z98.82 Breast implant status
CPT/HCPCS: 36415; 72131; 80053; 83735; 85025

== ENCOUNTER 2023-04-14 06:10 | Emergency (ER) | payer BC ==
--- OUTSIDE RECORDS SUMMARY | 2023-04-14 06:16 | XMS REPORT | Continuity of Care Document ---
:1970 Author Organization [facility] t Address [address] [facility] [address] [place] [address] Care Team Providers Name Role Phone RENÉE NEGRETE Primary Care Physician UnavailAlexandr Oliveira MD Attending Clinician [phone] Kris Jensen MD Attending Clinician ALEXANDR [...] 2-21 [facility] 00 [place] Bursitis Bursitis Disease Active 2021-10 [facility] right 2-21 [facility] knee knee 00:[facility]: Medical 00 [place] Arthritis, Arthritis, Disease Recurre 2021-[address] [facility] [address] septic, septic, nce 2-20 [facility] knee knee 00:00: Medical 00 [place] Diabetes 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, mellitus, nce 7- Luke s type 2 type 2 00:00: Medical 00 [place] Opioid Opioid Disease Recurre [facility] dependence dependence nce - Kathryn kes 00:00: Medical 00 [place] Orbital Orbital Disease Active [facility] cellulitis cellulitis - Kathryn kes 00:00: Medical 00 Center Allergies, [...] [facility] exposure 00:00:00 00:00:00 [facility] Sex Assigned At [address]ryn kes 00:00:00 00:00:00 [facility] Center Smoking Status Start Date Stop Date Source Never smoker [facility] Former smoker 2017-04-15 00:00:00 2017-04-15 00:00:00 [facility] Medications Ordered Filled Start Stop Current Ordering Indication Dosage Frequency Signature Comments Components Source Medication Medication Date Date Medication? Clinician (SIG) Name Name buprenorphi 2021-10 Yes 1{tbl} Q.5D Place 1 [...] Center times daily. TiZANidine 2021-10 Yes 4mg Q.24359669 Take [address] [facility] (ZANAFLEX) 2-22 [id number] by mouth 3 [facility] 4 MG 14:37: [...] Center times daily. TiZANidine 2021-10 Yes 4mg Q.02037338 Take [address] [facility] (ZANAFLEX) 2-22 [id number] by mouth 3 [facility] 4 MG 14:37: [...] Center times daily. TiZANidine 2021-10 Yes 4mg Q.46713453 Take [address] [facility] (ZANAFLEX) 2-22 [id number] by mouth 3 [facility] 4 MG 14:37: [...] AM, and one in the after noon. mupirocin 2021-10 Yes 30g Q.5D Apply 30 [...] Q.5D Take [address] (MONODOX) 2-03 11-05 capsule [facility] 100 MG 00:00: 23:59 (100 mg Medical capsule 00 :00 total) by Center mouth 2 (two) times daily for 14 days. amoxicillin 2021-10- No 1{tbl} Q.5D Take [address] -clavulanat - 01-05 tablet by Kathryn frnas e 00:00: 23:59 mouth 2 Medical (AUGMENTIN) 00 :00 (two) Center 875-125 mg times per tablet daily for 14 days. doxycycline 2021-10- No 100mg Q.5D Take [address] (MONODOX) 12-04-05 [facility] 100 MG 00:00: 23:59 (100 mg Medical capsule 00 :00 total) by Center mouth 2 (two) times daily for 14 days. amoxicillin 2021-10- No 1{tbl} Q.5D Take [address] -clavulanat 12-04-05 tablet by Kathryn kes e 00:00: 23:59 mouth 2 Medical (AUGMENTIN) 00 :00 (two) Center 875-125 mg times per tablet daily for 14 days. doxycycline 2021-10 No 100mg Q.5D Take [address] (MONODOX) 12-04 [facility] 100 MG 00:00: 23:59 (100 mg Medical capsule 00 :00 total) by Center mouth 2 (two) times daily for 14 days. amoxicillin 2021-10 No 1{tbl} Q.5D Take [address] -clavulanat 12-0405 tablet by Kathryn kes e 00:00: 23:59 [...] Center times daily. TiZANidine 2017-0 Yes 4mg Q.28526087 Take [address] [facility] (ZANAFLEX) 7-08 [id number] by mouth 3 [facility] 4 MG 11:17: [...] Center times daily. TiZANidine 2017-0 Yes 4mg Q.12313950 Take [address] (ZANAFLEX) 7-08 [id number] by mouth 3 [facility] 4 MG 11:17: [...] ophthalmic ointment neomycin-po 2017- Yes For 10 [facility] lymyxin-dex 7-08 [facility] amethasone 00:00: suppley. Med ical (POLYDEX) 00 [place] 3.5 mg/g-10,000 unit/g-0.1 % Oint ophthalmic ointment Immunizations Ordered Immunization Filled Immunization Date Status Commen ts Source Name Name [facility] 2017-04-[address] [facility] 00:00[facility]00 [facility] 2017-04-[address] [facility] 00[facility]00 [facility] 2017-04-[address] [facility] 00:00:00 [facility] 2017-04-[address] [facility] 00:00:00 [facility] 2017-04-[address] [facility] 00:00:00 [facility] Vital Signs Vital Name Observation Time Observation Value Comments Source HEIGHT 2022-10-01 20:56:00 167.6 cm WEIGHT 2022-10-01 20:56:00 96.1 kg HEIGHT 2022-10-01 20:56:00 167.6 cm WEIGHT 2022-10-01 20:56:00 96.1 kg HEIGHT 2022-10-01 20:56:00 167.6 cm WEIGHT 2022-10-01 20:56:00 96.1 kg Systolic blood 2022-10-03 12:00:00 135 mm[Hg] [facility] Diastolic blood 2022-10-03 12:00:00 69 mm[Hg] [facility] Heart rate 2022-10-03 12:00:00 111 /min [facility] Body temperature 2022-10-03 12:00:00 37.06 [facility] Respiratory rate 2022-10-03 12:00:00 18 /min [facility] Oxygen saturation in 2022-10-03 12:00:00 96 /min [facility] Arterial blood by Medical Ce nter Pulse oximetry Body height 2022-10-01 20:56:00 167.6 cm [facility] Body weight 2022-10-01 20:56:00 96.1 kg [facility] BMI 2022-10-01 20:56:00 34.20 kg/m2 [facility] Procedures Procedure Date / Time Performed Performing Clinician Sour e POCT-GLUCOSE METER 2022-10-03 12:23:00 Saleem [facility] [place] POCT-GLUCOSE METER 2022-10-03 07:44:00 Saleem [facility] [place] CBC W/PLT COUNT & AUTO 2022-10-03 04:51:00 Alexandr Monge [facility] DIFFERENTIAL [facility] BASIC METABOLIC PANEL 2022-10-03 04:51:00 Saleem [facility] MAGNESIUM 2022-10-03 04:51:00 Saleem [facility] HEMOGLOBIN A1C 2022-10-03 04:51:00 Saleem [facility] LIPID PANEL 2022-10-03 04:51:00 Saleem [facility] CBC W/PLT COUNT & AUTO 2022-10-03 04:51:00 Alexandr Monge [facility] DIFFERENTIAL [facility] POCT-GLUCOSE METER 2022-10-02 21:19:00 Saleem [facility] [place] POCT-GLUCOSE METER 2022-10-02 17:22:00 Saleem [facility] [place] POCT-GLUCOSE METER 2022-10-02 11:51:00 Saleem [facility] [place] HEPATIC FUNCTION PANEL 2022-10-02 05:54:00 Kris Jensen [facility] POCT-GLUCOSE METER 2022-10-02 04:51:00 Saleem [facility] [place] CT LOWER EXTREMITY WITH 2022-10-02 01:55:00 Kris Jensen [facility] IV CONTRAST [facility] POCT-GLUCOSE METER 2022-10-01 23:29:00 Saleem [facility] [place] COMPREHENSIVE METABOLIC 2022-10-01 22:33:00 NicoleKris kessler [facility] PANEL [facility] MAGNESIUM 2022-10-01 22:33:00 NicoleKris kessler [facility] PHOSPHORUS 2022-10-01 22:33:00 NicoleKris kessler [facility] CBC W/PLT COUNT & AUTO 2022-10-01 22:33:00 NicoleKris kessler [facility] DIFFERENTIAL [facility] CBC W/PLT COUNT & AUTO 2022-10-01 22:33:00 NicoleKris kessler [facility] BLOOD CULTURE 2022-10-01 22:30:00 NicoleKris kessler [facility] POCT-GLUCOSE METER 2022-10-01 20:51:00 Alexandr Monge [facility] Plan of Care Planned Activity Planned Date [...] [facility] 00:[facility]00 [code = 62559901] Medical Ce nter Future Scheduled 2025-10-03 Lipid panel (procedure) [facility] 00[facility]00:00 [code = 05460619] Medical Ce nter Future Scheduled 2025-10-03 Lipid panel (procedure) [facility] Test 00:00:00 [code = 96972870] Medical Ce nter Future Scheduled 2023-10-01 Tobacco [...] Cessation Counseling and Screening (12+)] Future Scheduled 2023-06-13 Influenza Vaccine (#1) [facility] 00:[facility]00 [code = Influenza Medical Ce nter Vaccine (#1)] Future Scheduled 2023-04-[address] [address] [facility] Test 00:00:00 measurement (procedure) [facility] [code = 38867665] Future Scheduled 2023-04-[address] Test 00:00:00 measurement (procedure) [facility] [code = 31931034] Future Scheduled 2023-04-[address] Test 00:00:00 measurement (procedure) [facility] [code = 79766662] Future Scheduled 2022-06-13 INFLUENZA VACCINE (#1) C [...] cervix Medical C enter (procedure) [code = 774208062] Future Scheduled 1989 Screening for malignant [facility] Test 00:00:00 neoplasm of cervix Medical C enter (procedure) [code = 869586434] Future Scheduled 1989 Screening for malignant [facility] Test 00:00:00 neoplasm of cervix Medical C enter (procedure) [code = 144285699] Future Scheduled 1986 HEPATITIS C SCREENING CH [...] 00:00:00 examination Medical Center (regime/therapy) [code = 379436156] Future Scheduled 1978 Urine screening for [facility] Test 00:00:00 protein (procedure) Medical Center [code = 051575080] Future Scheduled 1978 DIABETIC EYE EXAM [code [facility] 00:00:00 = DIABETIC EYE EXAM] Medical Center Future Scheduled [address] [facility] 00:[facility]:00 examination Medical Center (regime/therapy) [code = 521634256] Future Scheduled 1978 Urine screening for [facility] Test 00:00:00 protein (procedure) Medical Center [code = 692523091] Future Scheduled 1978 DIABETIC EYE EXAM [code [facility] 00:00:00 = DIABETIC EYE EXAM] Medical Center Future Scheduled [address] [facility] Test 00:00:00 examination Medical Center (regime/therapy) [code = 800905259] Future Scheduled 1978 Urine screening for [facility] Test 00:00:00 protein (procedure) Medical Center [code = 732355470] Future Scheduled [address] [facility] Test 00:00:00 0-64 YRS (1 - PCV) Medical C enter [code = PNEUMOCOCCAL VACCINE 0-64 YRS (1 - PCV)] Future Scheduled [address] [facility] Test 00:00:00 0-64 YRS (1 - PCV) Medical C enter [code = PNEUMOCOCCAL VACCINE 0-64 YRS (1 - PCV)] Future Scheduled 1974 Pneumococcal Vaccine: [facility] 00:00:00 0-64 Years (1 - PCV) Medical Center [code = Pneumococcal Vaccine: 0-64 Years (1 - PCV)] Future Scheduled 1969-01-29 COVID-19 [...] breast Medical C enter (procedure) [code = 042163523] Future Scheduled 1968 CT Colonography (combo) [facility] Test 00:00:00 [code = CT Colonography [facility] (combo)] Future Scheduled 1968 Screening for malignant [facility] Test 00:00:00 neoplasm of colon Medical Ce nter (procedure) [code = 250781286] Future Scheduled 1968 Screening for malignant [facility] Test 00:00:00 neoplasm of colon Medical Ce nter (procedure) [code = 269408566] Future Scheduled 1968 Screening for malignant [facility] Test 00:00:00 neoplasm of colon Medical Ce nter (procedure) [code = 151242121] Future Scheduled 1968 Screening for malignant [facility] Test 00:00:00 neoplasm of colon Medical Ce nter (procedure) [code = 604490544] Future Scheduled 1968 Sigmoidoscopy [code = [facility] 1968 Screening for malignant [facility] Test 00:00:00 neoplasm of breast Medical C enter (procedure) [code = 731157693] Future Scheduled 1968 CT Colonography (combo) [facility] Test 00:00:00 [code = CT Colonography [facility] (combo)] Future Scheduled 1968 Screening for malignant [facility] Test 00:00:00 neoplasm of colon Medical Ce nter (procedure) [code = 442590002] Future Scheduled 1968 Screening for malignant [facility] Test 00:00:00 neoplasm of colon Medical Ce nter (procedure) [code = 065537725] Future Scheduled 1968 Screening for malignant [facility] Test 00:00:00 neoplasm of colon Medical Ce nter (procedure) [code = 677367457] Future Scheduled 1968 Screening for malignant [facility] Test 00:00:00 neoplasm of colon Medical Ce nter (procedure) [code = 305274647] Future Scheduled 1968 Sigmoidoscopy [code = [facility] 00:[facility] Sigmoidoscopy] Medical Cent[facility] r Future Scheduled 1968 Screening for malignant [facility] Test 00:00:00 neoplasm of breast Medical C enter (procedure) [code = 533209035] Future Scheduled 1968 CT Colonography (combo) [facility] Test 00:00:00 [code = CT Colonography [facility] (combo)] Future Scheduled 1968 Screening for malignant [facility] Test 00:00:00 neoplasm of colon Medical Ce nter (procedure) [code = 572082830] Future Scheduled 1968 Screening for malignant [facility] Test 00:00:00 neoplasm of colon Medical Ce nter (procedure) [code = 574739937] Future Scheduled 1968 Screening for malignant [facility] Test 00:00:00 neoplasm of colon Medical Ce nter (procedure) [code = 609321041] Future Scheduled 1968 Screening for malignant [facility] Test 00:00:00 neoplasm of colon Medical Ce nter (procedure) [code = 114404303] Future Scheduled 1968 Sigmoidoscopy [code = [facility] 00:[facility] End Encounter Admission Attending Care Care Encounter Source Date/Time Date/Time Type Type Clinicians Facility Department ID 2022-10-01 2022-10-03 [facility] [id number] [facility] 20:30:00 14:37:00 Encounter Dank Jensenhir [facility] 2022-10-01 2022-10-03 Inpatient ER SALEEM, [facility] Internal [id number] [facility] 20:30:00 14:37:00 [facility] 2022-10-01 2022-10-03 [facility] [id number] [facility] 20:30:00 14:37:00 Encounter Nicole [facility] 2022-10-02 2022-10-02 Travel [facility] [id number] [facility]:00 00:00:00 [facility] 2022-10-02 2022-10-02 Travel [facility] [id number] [facility] 00:[facility]:00 00:00:00 [facility] Results Test Description Test Time Test Comments Results Result Comments Source BLOOD CULTURE 2022-10-07 01:00:41 Test Item Value Reference Range Interpretation Comme nts CULTURE (BEAKER) (test code = 1095) No growth in 5 days POC-Glucose [id number] 12:36:16 Test Item Value Reference Range Interpretation Comments POC-Glucose Meter (test 136 mg/dL 70-110 H : TE STED AT [facility] code = 1538) [address] [facility] [address]: Cryptographic Technician/Techni erika ID = [id number] for Yelling, Yoland a Lab Interpretation (test Abnormal code = 90356-1) [facility] [id number] 12:36:16 Test Item Value Reference Range Interpretation Comments POC-Glucose Meter (test 136 mg/dL 70-110 H : TE STED AT [facility] code = 1538) 1317 [facility] [address]: Cryptographic Technician/Techni erika ID = [id number] for Yelling, Yoland a Lab Interpretation (test Abnormal code = 10793-3) [facility] [id number] 12:36:16 Test Item Value Reference Range Interpretation Comments POC-Glucose Meter (test 136 mg/dL 70-110 H : TE STED AT SLS code = 1538) [address] [facility], [facility] [address]: Cryptographic Technician/Techni erika ID = [id number] for Vaibhav Huerta Lab Interpretation (test Abnormal code = 31837-1) [facility] [id number] 12:36:16 Test Item Value Reference Range Interpretation Comments POC-GLUCOSE METER 136 mg/dL 70-110 H : TESTED A T [facility] 1317 (BEAKER) (test [facility], = 1538) [facility] 77 478: Cryptographic Technician/Techni erika ID = [id number] for Janneth Frank POCT-GLUCOSE [id number] 07:56:56 Test Item Value Reference Range Interpretation Comments POC-GLUCOSE METER 125 mg/dL 70-110 H : TESTED A T [facility]17 (BEAKER) (test code [address] [facility], = 1538) [place] [address] 478: Cryptographic Technician/Techni erika ID = [id number] for Janneth Frank HEMOGLOBIN [id number] 06:43:17 Test Item Value Reference Range Interpretation Comments HEMOGLOBIN A1C (BEAKER) (test code = 5.9 % 4.3-6.1 368) Cryptographic Technician ID - LITOLIPID [id number] 05:40:16 Test Item Value Reference Range Interpretation [...] Borderline 130-159 High 160-189 Very High >=190 Cryptographic Technician ID - LITOOperatorID - LITOOperator ID - [id number] 05:40:16 Test Item Value Reference Range Interpretation Comments MAGNESIUM (BEAKER) (test code = 2.0 mg/dL 1.5-3.0 627) Cryptographic Technician ID - LITOOperator ID - LITOOperator ID - LITOOperator ID - LITOBASIC METABOLIC [id number] 05:38:59 Test Item Value Reference Range Interpretation [...] eGF R is based on the CKD-EPI 2021 equation that d oes not use a race coefficientEsti mated GFR is not as accur ate as Creatinine Chanell null in predicting glom erular filtration rate . Estimated GFR is not appl icable for dialysis patien ts Cryptographic Technician ID - LITOOperator ID - LITOOperator ID - LITOOperator ID - LITOOperator ID - LITOOperator ID - LITOOperator ID - LITOOperator ID - LITOOperator ID - LITOCBC W/PLT COUNT & AUTO [id number] 05:28:51 Test Item Value Reference Range Interpretation [...] PERCENT (BEAKER) (test code = 2801) POCT-GLUCOSE [id number] 21:30:37 Test Item Value Reference Range Interpretation Comments POC-GLUCOSE METER 75 mg/dL 70-110 : [facility] ([facility]) (test code = [address] [facility], 1538) [place] [address]50988: Cryptographic Technician/Techni erika ID = [id number] for lydia Brito POCT-GLUCOSE [id number] 17:35:40 Test Item Value Reference Range Interpretation Comments POC-GLUCOSE METER 179 mg/dL 70-110 H : Notified RN/MD: TESTED ([facility]) (test code AT [facility] [address] = 1538) [place] [address]778: Cryptographic Technician/Techni erika ID = [id number] for Vaibhav Franka POCT-GLUCOSE [id number] 12:04:18 Test Item Value Reference Range Interpretation Comments POC-GLUCOSE METER 117 mg/dL 70-110 H : TESTED A T [facility] 1317 ([facility]) (test code [address] [facility], = 1538) [place] 750988: Cryptographic Technician/Techni erika ID = [id number] for [place] ing, Janneth CT, EXTREMITY, LOWER, WITH CONTRAST, [id number] 10:12:00Unlisted Reason for Exam - Click Yes and Enter Reason Below->No [facility] : 1970 Sex: FFINAL [...] DJD. Small popliteal cyst. Signed: Marvin Vora Verified Date/Time: 10/02/2022 10:12:51 Reading Location:[address] Ortho Consult Reading Room HEPATIC FUNCTION PANEL [...] code = 52 U/L 5-50 H 347) Cryptographic Technician ID - [id number] ID - [id number] ID - [id number] ID - [id number] ID - [id number] ID - [id number] ID - [id number] [id number] 05:02:28 Test Item Value Reference Range Interpretation Comments POC-GLUCOSE METER 120 mg/dL 70-110 H : TESTED A T [facility]17 (BEAKER) (test code [address], = 1538) [place] [address]: Cryptographic Technician/Techni erika ID = [id number] for Selena Soria POCT-GLUCOSE [id number] 23:41:12 Test Item Value Reference Range Interpretation Comments POC-GLUCOSE METER 109 mg/dL 70-110 : TESTED A T [facility] (BEAKER) (test code [address], = 1538) [place] [address] 478: Cryptographic Technician/Techni erika ID = [id number] for Selena Soria COMPREHENSIVE METABOLIC [id number] 23:15:14 Test Item Value Reference Range Interpretation [...] (test code = 347) EGFR (BEAKER) 95 Interpretati on of eGFR (test code = 1092) mL/min/1.73 [...] not appl icable for dialysis patien ts Cryptographic Technician ID - JUSTINOperator ID - JUSTINOperator ID - JUSTINOperator ID - JUSTINOperator ID - JUSTINOperator ID - JUSTINOperator ID - JUSTINOperator ID - JUSTINOperator ID - JUSTINOperator ID - JUSTINOperator ID - JUSTINOperator ID - JUSTINOperator ID - JUSTINOperator ID - JUSTINOperator ID - JUSTINOperator ID - [id number] 23:15:14 Test Item Value Reference Range Interpretation Comments MAGNESIUM (BEAKER) (test code = 2.0 mg/dL 1.5-3.0 627) Cryptographic Technician ID - JUSTINOperator ID - JUSTINOperator ID - JUSTINOperator ID - MILENA [id number] 23:11:52 Test Item Value Reference Range Interpretation Comments PHOSPHORUS (BEAKER) (test code = 2.5 mg/dL 2.5-4.5 604) Cryptographic Technician ID - JUSTINCBC W/PLT COUNT & AUTO [id number] 22:53:51 Test Item Value Reference Range Interpretation [...] PERCENT (BEAKER) (test code = 2801) POCT-GLUCOSE [id number] 21:03:05 Test Item Value Reference Range Interpretation Comments POC-GLUCOSE METER 98 mg/dL 70-110 : TESTED A T [facility] (BEAKER) (test code = [address], [address]) [facility] 77 478: Cryptographic Technician/Techni erika ID = [id number] for Selena Soria ANAEROBIC [id number] 03:45:00 Test Item Value Reference Range Interpretation Comments CULTURE (BEAKER) (test No anaerobes isolated code = 1095) TISSUE [id number] 15:59:00Surgical Pathology Report Case: [id number] Authorizing Provider: Jimenez Mcintosh MD Collected: 04/17/2017 2651 Ordering Location: [facility] Received: 04/18/2017 0801 SERVICES Pathologist: Antonette Mario MD Specimen: Eyelid, Left, Left eyelid abscess SKIN, LEFT EYELID, ABSCESS, DEBRIDEMENT:- SKIN WITH ABSCESS- GRAM POSITIVE COCCI IN CLUSTERS (DIONICIO) Please correlate with corresponding microbiology cultures. 53649; 63020 x 3Left upper eyelid abscessLeft eyelid abscess [...] report above: AFB, Dionicio, GMS (block A1).BLOOD [id number] 18:00:00 Test Item Value Reference Range Interpretation Comments CULTURE (BEAKER) (test No growth in 5 days code = 1095) WOUND CULTURE + GRAM [id number] 08:51:00 Test Item Value Reference Interpretation Comments [...] No organisms seen (BEAKER) (test code = 745438) Florentin elieser = 21SURGICALLY OBTAINED CULTURE + GRAM [id number] 07:47:00 Test Item Value Reference Range Interpretation Comments CULTURE A 1+ Same organis m has (BEAKER) (test been isolated from code = 1095) cultures(s) of the same body site and collection date . Repeat identifi cation and susceptibil ity testing perform ed only after consultat ion with the [facility] microbiology laboratory.Refe r to previous cultur e ofMethicillin resistant Staphylococcus aureus GRAM STAIN 1+ WBCs RESULT (BEAKER) (test code = 1123) GRAM STAIN No organisms seen RESULT (BEAKER) (test code = 465733) POCT-GLUCOSE [id number] 08:26:00 Test Item Value Reference Range Interpretation Comments POC-GLUCOSE METER 124 mg/dL 70-110 H TESTED AT [facility] 6720 (BEAKER) (test code = [place] 368388) [address] CBC (HEMOGRAM ONLY)2017-04-19 06:23:00 Test Item Value [...] (BEAKER) (test code = 413) 0.00BASIC METABOLIC [id number] 05:40:00 Test Item Value Reference Range Interpretation [...] NOT APPLICABLE FOR DIALYSIS PATIEN TS. POCT-GLUCOSE [id number] 21:12:00 Test Item Value Reference Range Interpretation Comments POC-GLUCOSE METER 154 mg/dL 70-110 H TESTED AT [place] [address] ([facility]) (test code = [place] 1538) [address] POCT-GLUCOSE [id number] 16:18:00 Test Item Value Reference Range Interpretation Comments POC-GLUCOSE METER 137 mg/dL 70-110 H TESTED AT [place] [address] ([facility]) (test code = [place] 1538) [address] POCT-GLUCOSE [id number] 11:57:00 Test Item Value Reference Range Interpretation Comments POC-GLUCOSE METER 123 mg/dL 70-110 H TESTED AT [place] [address] ([facility]) (test code = [place] 1538) [address] POCT-GLUCOSE [id number] 07:25:00 Test Item Value Reference Range Interpretation Comments POC-GLUCOSE METER 126 mg/dL 70-110 H TESTED AT [place] [address] ([facility]) (test code = TIMMY [place] 1538) [address] [id number] 05:33:00 Test Item Value Reference Range Interpretation Comments MAGNESIUM (BEAKER) (test code = 2.4 mg/dL 1.6-2.6 627) POCT-GLUCOSE [id number] 23:17:00 Test Item Value Reference Range Interpretation Comments POC-GLUCOSE METER 165 mg/dL 70-110 H TESTED AT [place] [address] ([facility] (test code = TIMMY Stafford [facility] 1538) [id number] POCT-GLUCOSE [id number] 18:35:00 Test Item Value Reference Range Interpretation Comments POC-GLUCOSE METER 110 mg/dL 70-110 TESTED AT [place] [address] ([facility]) (test code = TIMMY Stafford [facility] 1538) [address] CBC W/PLT COUNT & AUTO [id number] 14:01:00 Test Item Value Reference Range Interpretation [...] (BEAKER) (test code = Normal 762) POCT-GLUCOSE [id number] 12:17:00 Test Item Value Reference Range Interpretation Comments POC-GLUCOSE METER 131 mg/dL 70-110 H TESTED AT [facility] 6720 (BEAKER) (test code = [place] 1538) [id number] POCT-GLUCOSE [id number] 08:36:00 Test Item Value Reference Range Interpretation Comments POC-GLUCOSE METER 128 mg/dL 70-110 H TESTED AT [facility] 6720 (BEAKER) (test code = TIMMY Stafford [facility] 1538) [address] [id number] 06:13:00 Test Item Value Reference Range Interpretation Comments MAGNESIUM (BEAKER) (test code = 2.1 mg/dL 1.6-2.6 627) BASIC METABOLIC [id number] 06:13:00 Test Item Value Reference Range Interpretation [...] NOT APPLICABLE FOR DIALYSIS PATIEN TS. POCT-GLUCOSE [id number] 20:32:00 Test Item Value Reference Range Interpretation Comments POC-GLUCOSE METER 131 mg/dL 70-110 H TESTED AT [place] [address] ([facility]) (test code = [facility] 1538) [address] POCT-GLUCOSE [id number] 19:08:00 Test Item Value Reference Range Interpretation Comments POC-GLUCOSE METER 126 mg/dL 70-110 H TESTED AT [place] [address] ([facility]) (test code = [facility] 1538) [address] POCT-GLUCOSE [id number] 12:51:00 Test Item Value Reference Range Interpretation Comments POC-GLUCOSE METER 178 mg/dL 70-110 H TESTED AT [place] [address] ([facility]) (test code = [facility] 1538) [address] POCT-GLUCOSE [id number] 08:42:00 Test Item Value Reference Range Interpretation Comments POC-GLUCOSE METER 131 mg/dL 70-110 H TESTED AT [place] [address] ([facility]) (test code = [facility] 1538) [address] CBC W/PLT COUNT & AUTO [id number] 06:32:00 Test Item Value Reference Range Interpretation [...] K/ L 0.00-0.20 (test code = 417) [id number] 05:46:00 Test Item Value Reference Range Interpretation Comments MAGNESIUM (BEAKER) (test code = 2.2 mg/dL 1.6-2.6 627) BASIC METABOLIC [id number] 05:46:00 Test Item Value Reference Range Interpretation [...] mg/dL 8.4-10.2 (test code = 697) EGFR ([facility] (test 97 mL/min/1.73 ESTIMA ANIA GFR IS code = 1092) sq m NOT ACCURATE CREATININE CLEARANCE IN PREDICTING GLOMERULAR FILTRATION RATE . ESTIMATED GFR I S NOT APPLICABLE FOR DIALYSIS PATIEN TS. POCT-GLUCOSE [id number] 21:26:00 Test Item Value Reference Range Interpretation Comments POC-GLUCOSE METER 150 mg/dL 70-110 H TESTED AT [facility] 67 ([facility]) (test code = [facility] 1538) [id number] POCT-GLUCOSE [id number] 18:03:00 Test Item Value Reference Range Interpretation Comments POC-GLUCOSE METER 102 mg/dL 70-110 TESTED AT [place] [address] ([facility]) (test code = [facility] 1538) [address] HCG, QUANTITATIVE, [id number] 14:05:00 Test Item Value Reference Range Interpretation Comments GONADOTROPIN, CHORIONIC (HCG) QUANT < mIU/mL 0-10 ([facility]) (test code = 649) Non- Females: <10 mIU/mL Females: Gestation Age Reference Range(mIU/mL) 0.2-1 Week 5-50 1-2 Weeks 50-500 2-3 Weeks 100-5,000 3-4 Weeks 500-10,000 4-5 Weeks 1,000-50,000 5-6 Weeks 10,000-100,000 6-8 Weeks 15,000- 200,000 2-3 Months 10,000-100,000BASIC METABOLIC [id number] 14:02:00 Test Item Value Reference Range Interpretation [...] NOT APPLICABLE FOR DIALYSIS PATIEN TS. HEMOGLOBIN [id number] 13:58:00 Test Item Value Reference Range Interpretation Comments HEMOGLOBIN A1C (BEAKER) (test code = 6.7 % 4.3-6.1 H 368) CBC W/PLT COUNT & AUTO [id number] 13:39:00 Test Item Value Reference Range Interpretation [...] L 0.00-0.20 (test code = 417) 0.00POCT-GLUCOSE [id number] 11:42:00 Test Item Value Reference Range Interpretation Comments POC-GLUCOSE METER 124 mg/dL 70-110 H TESTED AT [facility] 6720 (BEAKER) (test code = TIMMY [place] 1538) [id number]
[2023-04-14 07:00] LABS: Specific Gravity 1.013 (1.005-1.030); Transitional Epithelial <5 /HPF (None Seen); Urine Bacteria None Seen /HPF (<20); Urine Bilirubin NEGATIVE (Negative); Urine Blood Negative (Negative); Urine Clarity Clear (Clear); Urine Color Light-Yellow (Yellow); Urine Glucose NEGATIVE (Negative); Urine Protein NEGATIVE (Negative); Urine RBC <5 /HPF (None Seen); Urine Urobilinogen Normal (Normal); Urine pH 6.5 (5.0-7.0)
[2023-04-14] MEDS ORDERED: DIAZEPAM 5 MG TABLET ONE (07:36)
[2023-04-14] MEDS ORDERED: MORPHINE 4 MG/ML SYR ONE (07:37)
[2023-04-14] MEDS ORDERED: dexAMETHasone 10 MG/ML VIAL ONE (07:37)
--- NOTE | 2023-04-14 07:37 | RAD REPORT ---
EXAM DESCRIPTION: CT - C Spine Wo Con - 04/14/2023 7:03 am CLINICAL HISTORY: Pain COMPARISON: None. TECHNIQUE: Axial [address] images of the cervical spine were obtained, with sagittal and coronal reconstruction images generated and reviewed. All CT scans are performed using dose optimization technique as appropriate and may include automated exposure control or mA/KV adjustment according to patient size. FINDINGS: Cervical body heights are preserved. Multilevel endplate degenerative changes. Superior en dplate Schmorl's node formation at C7. Multilevel minimal spondylolisthesis with straightening of the normal cervical lordosis. No significa nt subluxation. Mild disc height loss most notably at C6-7. No fracture or acute bony abnormality. Multilevel endplate, uncovertebral joint, and facet arthropathy, more pronounced along the left, cont ributing to moderate to severe degrees of neural foraminal narrowing on the left at C2-3 through the C5-6 levels. No evidence of bony canal stenosis. No paraspinal mass or hematoma. In carious changes with periapical lucencies along multiple mandibular teeth. Visualized lung apices are unremarkable. IMPRESSION: No acute osseus abnormality. Straightening of normal cervical lordosis which may be positional or secondary to muscle spasm. Multilevel degenerative changes as detailed above, contributing to multilevel left-sided neural yue inal narrowing.
[2023-04-14] MEDS ORDERED: ONDANSETRON 4 MG/2 ML VIAL ONE (07:38)
[2023-04-14] MEDS ORDERED: NA CHLORIDE 0.9% 1,000 ML ONE (07:38)
[2023-04-14] MEDS ORDERED: KETOROLAC 30 MG/ML INJ ONE (07:40)
--- NOTE | 2023-04-14 07:40 | RAD REPORT ---
EXAM DESCRIPTION: CT - Thoracic Spine W/o Cont - 04/14/2023 7:04 am CLINICAL HISTORY: Pain COMPARISON: None. TECHNIQUE: Thin axial CT images of the thoracic spine performed without IV contrast. Multiplanar ref ormats were generated and reviewed. All CT scans are performed using dose optimization technique as appropriate and may include automated exposure control or mA/KV adjustment according to patient size. FINDINGS: Thoracic vertebral body heights are normal, with preserved alignment. No evidence of acute fracture or subluxation. Minimal endplate degenerative changes and disc annulus mineralization. No significant disc height los s. No evidence of bony canal or foraminal stenosis. No hyperattenuating canal hematoma. No suspicious osseous lesion. No significant degenerative changes. The included aspects of the posterior lungs, mediastinum, and paraspinous soft tissues are unremarkab le. IMPRESSION: No acute abnormality of the thoracic spine.
--- NOTE | 2023-04-14 07:46 | RAD REPORT ---
EXAM DESCRIPTION: CT - Spine Lumbar Wo Con - 04/14/2023 7:04 am CLINICAL HISTORY: Lower back pain;Pain COMPARISON: Spine Lumbar Wo Con dated 12/25/2022 TECHNIQUE: Axial noncontrast CT imaging of the lumbar spine was performed with coronal and sagittal re-formatted images. All CT scans are performed using dose optimization technique as appropriate and may include automated exposure control or mA/KV adjustment according to patient size. FINDINGS: No acute lumbar spine fracture seen. No aggressive marrow pattern. Minimal anterolisthesis of L3 over L4, measuring 2-3 millimeter, stable. Multilevel facet degenerative changes most pronounced at L3-S1, with some vacuum phenomenon. Circumferential disc bulge at L3-4. Mild disc height loss with disc vacuum phenomenon. Findings contr ibute to at least mild central canal stenosis. There may be mild bilateral disc bulge, without signif icant bony canal stenosis. Evaluation is limited on CT. Circumferential disc bulge at L4-5 , may could stenosis less pronounced than at the preceding level. [id number] bilateral neural foraminal narrowing predominantly due to facet spurring. Circumferential disc bulge at L5-S1, without significant central canal stenosis. Mild bilateral neura l foraminal narrowing predominantly due to facet remodeling. Overall, the findings are probably stable compared to the prior CT. Paraspinal tissues are normal in thickness. No paraspinal abscess or hematoma seen. IMPRESSION: No acute osseous abnormality of the lumbar spine. Stable appearance of multilevel degenerative changes, including disc bulges most pronounced at L3-4 a nd to lesser degree at L4-5, contributing to degrees of central canal stenosis. Bilateral neural fora alexei narrowing at those levels more pronounced at L4-5. Appearance is not significantly changed in c omparison to the 12/25/2022 study. If there is concern for involvement of the neural structures, cass tional evaluation by MRI would be more sensitive for such evaluation.
[2023-04-14 08:02] LABS: Absolute Lymphocytes (CBC) 1.7 K/uL (0.7-4.9); Lymphocytes % 38.1 % (15.3-44.8); MCV 83.3 fL (80-100); MPV 6.7 fL (7.6-11.3); RBC Red Blood Cell Count 4.33 M/uL (3.86-4.86)
[2023-04-14 08:16] LABS: Albumin 3.6 g/dL (3.4-5.0); Bilirubin Total 0.3 mg/dL (0.2-1.0); Potassium 3.4 mEq/L (3.5-5.1); Protein, Total 7.8 g/dL (6.4-8.2)
--- NOTE | 2023-04-14 08:32 | ER ---
Nurse's Notes [facility] Name: Sharon Babin Age: 52 yrs Sex: Female : 1970 Arrival Date: 04/14/2023 Time: 06:10 Bed 13 Private MD: Diagnosis: Low back pain;Strain of muscle, fascia and tendon at neck level, initial encounter;Strain of muscle and tendon of back wall of thorax Presentation: 04/14 06:33 Chief complaint: Patient states: neck pain that radiates down towards mid back back. as6 denies injury. Coronavirus screen: At this time, the client does not indicate any symptoms associated with coronavirus-19. Ebola Screen: No symptoms or risks identified at this time. Initial Sepsis Screen: Does the patient meet any 2 criteria? No. Patient's initial sepsis screen is negative. Does the patient have a suspected source of infection? No. Patient's initial sepsis screen is negative. Risk Assessment: Do you want to hurt yourself or someone else? Patient reports no desire to harm self or others. Onset of symptoms was April 13, 2023. 06:33 Method Of Arrival: Wheelchair as6 06:33 Acuity: XIMENA 3 as6 Historical: - Allergies: 06:35 No Known Allergies; as6 - PMHx: 06:35 Diabetes - NIDDM; Fibromyalgia; Hypercholesterolemia; Hypertension; Hypothyroidism; as6 Lupus; - PSHx: 06:35 back sx; breast augmentation; Carpal tunnel sx; section; Elbow; mass removed as6 from sinus; Tummy tuck; - Immunization history:: Adult Immunizations up to date. - Social history:: Smoking status: Patient denies any tobacco usage or history of. Screenin:04 [facility] ED Fall Risk Assessment (Adult) History of falling in the last 3 months, kd3 including since admission No falls in past 3 months (0 pts) Confusion or Disorientation No (0 pts) Intoxicated or Sedated No (0 pts) Impaired Gait No (0 pts) Mobility Assist Device Used No (0 pt) Altered Elimination No (0 pt) Score/Fall Risk Level 0 - 2 = Low Risk Maintained a safe environment. Abuse screen: Denies threats or abuse. Denies injuries from another. Nutritional screening: No deficits noted. Tuberculosis screening: No symptoms or risk factors identified. Assessment: 07:04 General: Appears uncomfortable, Behavior is calm, cooperative. Pain: Complains of pain kd3 in back. Neuro: Level of Consciousness is awake, alert, obeys commands, Oriented to person, place, time, situation. : Urine is clear. 08:00 Reassessment: Patient appears in no apparent distress at this time. Patient is alert, bp oriented x 3, equal unlabored respirations, skin warm/dry/pink. 08:50 Reassessment: DC ON HOLD FOR IVF. bp 09:45 Reassessment: DC HOME VIA WC WITH FAMILY. bp Vital Signs: 06:33 BP 136 / 77; Pulse 110; Resp 18 S; Temp 98.6(O); Pulse Ox 99% on R/A; Weight 99.79 kg as6 (R); Height 5 ft. 6 in. (R); Pain 9/10; 07:41 BP 113 / 62; Pulse 110; Resp 16; Pulse Ox 96% ; bp 08:51 BP 113 / 62; Pulse 100; Resp 16; Pulse Ox 100% ; bp 09:45 BP 113 / 67; Pulse 100; Resp 16; Pulse Ox 98% ; bp 06:33 Body Mass Index 35.51 (99.79 kg, 167.64 cm) as6 06:33 Pain Scale: Adult as6 ED Course: 06:15 Patient arrived in ED. ja2 06:22 Ehsan Mathur MD is Attending Physician. fiorella 06:33 Colin Johnston RN is Primary Nurse. as6 06:35 Triage completed. as6 06:36 Arm band placed on. as6 06:37 Amy Baez, KRISS is Primary Nurse. kd3 07:04 Patient has correct armband on for positive identification. Client placed on continuous kd3 cardiac and pulse oximetry monitoring. NIBP monitoring applied. 07:05 CT C Spine In Process Unspecified. EDMS 07:05 CT Thoracic Spine Wo Cont In Process Unspecified. EDMS 07:05 CT Lumbar Spine Wo Con In Process Unspecified. EDMS 07:27 Attending Physician role handed off by Ehsan Mathur MD rt 07:27 Bang Lyons MD is Attending Physician. rt 07:40 Inserted saline lock: 22 gauge in left antecubital area, using aseptic technique. Blood bp collected. 08:10 Primary Nurse role handed off by Amy Baez, RN bp 08:10 Inder Miller, RN is Primary Nurse. bp 09:45 No provider procedures requiring assistance completed. IV discontinued, intact, bp bleeding controlled, No redness/swelling at site. Pressure dressing applied. Administered Medications: 07:39 Drug: Decadron - Dexamethasone IVP 10 mg Route: IVP; Site: left antecubital; bp 09:47 Follow up: Response: No adverse reaction bp 07:40 Drug: NS 0.9% IV 1000 ml Route: IV; Rate: 1 bolus; Site: left antecubital; bp 09:48 Follow up: IV Status: Completed infusion; IV Intake: 1000ml bp 07:40 Drug: Ketorolac IVP 30 mg Route: IVP; Site: left antecubital; bp 09:48 Follow up: Response: No adverse reaction bp 07:40 Drug: Diazepam PO 10 mg Route: PO; bp 09:48 Follow up: Response: No adverse reaction bp 07:40 Drug: morphine IVP or IV 4 mg Route: IVP; Infused Over: 4 mins; Site: left antecubital; bp 09:48 Follow up: Response: No adverse reaction bp 07:40 Drug: Ondansetron IVP 4 mg Route: IVP; Site: left antecubital; bp 09:48 Follow up: Response: No adverse reaction bp Medication: 09:45 VIS not applicable for this client. bp Intake: 09:48 IV: 1000ml; Total: 1000ml. bp Outcome: 08:31 Discharge ordered by . rt 09:45 Discharged to home via wheelchair, with family. bp 09:45 Condition: stable 09:45 Discharge instructions given to patient, Instructed on discharge instructions, follow up and referral plans. medication usage, Demonstrated understanding of instructions, follow-up care, medications, Prescriptions given X 1. 09:49 Patient left the ED. bp Signatures: Dispatcher [employer] EDMS Ehsan Mathur MD MD cha Peltier, Brian, RN RN Toshia Wong Ashby, RN RN as6 Amy Baez, KRISS RN kd3 Bang Lyons MD MD rt
--- NOTE | 2023-04-14 08:32 | EDPHYS ---
Physician Documentation [facility] Name: Sharon Babin Age: 52 yrs Sex: Female : 1970 Arrival Date: 04/14/2023 Time: 06:10 Bed 13 Private MD: ED Physician Bang Lyons HPI: 04/14 06:46 This 52 yrs old Female presents to ER via Wheelchair with complaints of Back fiorella Pain, Flank Pain. 06:46 The patient presents with pain that is acute, with no known mechanism of injury, that fiorella is chronic, and decreased range of motion. The symptoms are located in the thoracic area and lumbar area. Onset: The symptoms/episode began/occurred today, yesterday. The pain radiates to the thoracic area and lumbar area. Associated signs and symptoms: The patient has no apparent associated signs or symptoms. The problem was sustained from unknown cause. Modifying factors: The patient symptoms are alleviated by remaining still, the patient symptoms are aggravated by any movement, bending. Severity of symptoms: At their worst the symptoms were moderate, in the emergency department the symptoms are unchanged. The patient has experienced similar episodes in the past, several times. Historical: - Allergies: 06:35 No Known Allergies; as6 - PMHx: 06:35 Diabetes - NIDDM; Fibromyalgia; Hypercholesterolemia; Hypertension; Hypothyroidism; as6 Lupus; - PSHx: 06:35 back sx; breast augmentation; Carpal tunnel sx; section; Elbow; mass removed as6 from sinus; Tummy tuck; - Immunization history:: Adult Immunizations up to date. - Social history:: Smoking status: Patient denies any tobacco usage or history of. ROS: 06:48 Constitutional: Negative for fever, chills, and weight loss, Eyes: Negative for injury, fiorella pain, redness, and discharge, ENT: Negative for injury, pain, and discharge, Neck: Negative for injury, pain, and swelling, Cardiovascular: Negative for chest pain, palpitations, and edema, Respiratory: Negative for shortness of breath, cough, wheezing, and pleuritic chest pain, Abdomen/GI: Negative for abdominal pain, nausea, vomiting, diarrhea, and constipation, : Negative for injury, bleeding, discharge, and swelling, MS/Extremity: Negative for injury and deformity, Skin: Negative for injury, rash, and discoloration, Neuro: Negative for headache, weakness, numbness, tingling, and seizure, Psych: Negative for depression, anxiety, suicide ideation, homicidal ideation, and hallucinations, Allergy/Immunology: Negative for hives, rash, and allergies, Endocrine: Negative for neck swelling, polydipsia, polyuria, polyphagia, and marked weight changes, Hematologic/Lymphatic: Negative for swollen nodes, abnormal bleeding, and unusual bruising. 06:48 Back: Positive for decreased range of motion, pain at rest, pain with movement, of the left trapezius, right trapezius, thoracic area and lumbar area. 06:48 MS/extremity: Negative for acute changes, injury or acute deformity, abrasion, decreased range of motion, pain, swelling, tenderness. Exam: 06:48 Constitutional: This is a well developed, well nourished patient who is awake, alert, fiorella and in no acute distress. Head/Face: Normocephalic, atraumatic. Eyes: Pupils equal round and reactive to light, extra-ocular motions intact. Lids and lashes normal. Conjunctiva and sclera are non-icteric and not injected. Cornea within normal limits. Periorbital areas with no swelling, redness, or edema. ENT: Nares patent. No nasal discharge, no septal abnormalities noted. Tympanic membranes are normal and external auditory canals are clear. Oropharynx with no redness, swelling, or masses, exudates, or evidence of obstruction, uvula midline. Mucous membranes moist. Neck: Trachea midline, no thyromegaly or masses palpated, and no cervical lymphadenopathy. Supple, full range of motion without nuchal rigidity, or vertebral point tenderness. No Meningismus. Chest/axilla: Normal chest wall appearance and motion. Nontender with no deformity. No lesions are appreciated. Cardiovascular: Regular rate and rhythm with a normal S1 and S2. No gallops, murmurs, or rubs. Normal PMI, no JVD. No pulse deficits. Respiratory: Lungs have equal breath sounds bilaterally, clear to auscultation and percussion. No rales, rhonchi or wheezes noted. No increased work of breathing, no retractions or nasal flaring. Abdomen/GI: Soft, non-tender, with normal bowel sounds. No distension or tympany. No guarding or rebound. No evidence of tenderness throughout. Pelvic Exam: Normal external genitalia. Speculum exam with closed cervical os, no discharge or bleeding noted. Bimanual exam with normal adnexa, no adnexal or cervical motion tenderness. Normal uterus. Female : Normal external genitalia. Skin: Warm, dry with normal turgor. Normal color with no rashes, no lesions, and no evidence of cellulitis. MS/ Extremity: Pulses equal, no cyanosis. Neurovascular intact. Full, normal range of motion. Neuro: Awake and alert, GCS 15, oriented to person, place, time, and situation. Cranial nerves II-XII grossly intact. Motor strength 5/5 in all extremities. Sensory grossly intact. Cerebellar exam normal. Normal gait. Psych: Awake, alert, with orientation to person, place and time. Behavior, mood, and affect are within normal limits. 06:48 Back: pain, that is moderate, ROM is painful, with all movement, decreased, with flexion, with extension, normal spinal alignment noted, CVA tenderness, is absent, vertebral tenderness, is not appreciated, muscle spasm, is appreciated in the left trapezius, right trapezius, left scapular area, right scapular area, left low back, left mid back, right mid back and right low back. 06:48 Musculoskeletal/extremity: DVT Exam: No signs of deep vein thrombosis. no pain, no swelling, no tenderness, negative Homans' sign noted on exam, no appreciated bluish discoloration, no erythema, no increased warmth. 06:59 ECG was reviewed by the Attending Physician. [facility] Vital Signs: 06:33 BP 136 / 77; Pulse 110; Resp 18 S; Temp 98.6(O); Pulse Ox 99% on R/A; Weight 99.79 kg as6 (R); Height 5 ft. 6 in. (R); Pain 9/10; 07:41 BP 113 / 62; Pulse 110; Resp 16; Pulse Ox 96% ; bp 08:51 BP 113 / 62; Pulse 100; Resp 16; Pulse Ox 100% ; bp 09:45 BP 113 / 67; Pulse 100; Resp 16; Pulse Ox 98% ; bp 06:33 Body Mass Index 35.51 (99.79 kg, 167.64 cm) as6 06:33 Pain Scale: Adult as6 MDM: 06:22 Patient medically screened. [facility] 06:50 Differential diagnosis: arthritis, Cervical Raiculopathy Cervical Spondylosis chronic fiorella back pain, Fracture Hydronephrosis Metastatic Disease Neoplasm Obesity Osteoarthritis Peptic Ulcer ruptured disc, sprain, Ureterolithiasis cervical strain, Degenerative Disc Disease Neck Abrasion Neck Contusion Osteoarthritis Spondylosis subluxation. Data reviewed: vital signs, nurses notes, EMS record, lab test result(s), EKG, radiologic studies, CT scan. Consideration of Admission/Observation Escalation of care including admission/observation considered. I considered the following discharge prescriptions or medication management in the emergency department Medications were administered in the Emergency Department. See MAR. Test considered but Not performed: MRI: NO MRI. Care significantly affected by the following chronic conditions: Diabetes, Hypertension, Obesity, FIBROMYALGIA, HIGH CHOLESTEROL. 06:52 Independent interpretation of the following test(s) in the Emergency Department CT fiorella Scan: My interpretation is CT C,T,L. Historians other than the Patient: Spouse/Significant Other: . 08:33 ED course: I assumed care at shift change. Patient is awake, alert, and in no acute rt distress with improving symptoms at the time of my evaluation. Patient states that she believes that the pain might be muscular in nature, given essentially unremarkable work-up, believe this is a high likelihood, will start patient on muscle relaxers. Patient with degenerative changes seen on imaging, discussed this with the patient. She is stable for outpatient care, return precautions discussed. 04/14 06:44 Order name: CBC with Diff; Complete Time: 08:27 [facility] 04/14 06:44 Order name: Comprehensive Metabolic Panel; Complete Time: 08:27 [facility] 04/14 06:44 Order name: Urinalysis w/ reflexes; Complete Time: 07:07 [facility] 04/14 06:46 Order name: Troponin High Sensitivity; Complete Time: 08:27 [facility] 04/14 06:46 Order name: CT C Spine; Complete Time: 07:51 [facility] 04/14 06:46 Order name: CT Thoracic Spine Wo Cont; Complete Time: 07:51 [facility] 04/14 06:46 Order name: CT Lumbar Spine Wo Con; Complete Time: 07:51 [facility] 04/14 06:46 Order name: EKG; Complete Time: 06:46 [facility] 04/14 06:46 Order name: EKG - Nurse/Tech; Complete Time: 06:55 [facility] 04/14 07:08 Order name: Labs - recollect needed; Complete Time: 07:39 em1 EC:59 Rate is 111 beats/min. Rhythm is regular. QRS [place] is Normal. TN interval is normal. fiorella QRS interval is normal. QT interval is normal. No Q waves. T waves are Normal. No ST changes noted. Clinical impression: Sinus tachycardia and No evidence of ischemia. Interpreted by me. Reviewed by me. Administered Medications: 07:39 Drug: Decadron - Dexamethasone IVP 10 mg Route: IVP; Site: left antecubital; bp 09:47 Follow up: Response: No adverse reaction bp 07:40 Drug: NS 0.9% IV 1000 ml Route: IV; Rate: 1 bolus; Site: left antecubital; bp 09:48 Follow up: IV Status: Completed infusion; IV Intake: 1000ml bp 07:40 Drug: Ketorolac IVP 30 mg Route: IVP; Site: left antecubital; bp 09:48 Follow up: Response: No adverse reaction bp 07:40 Drug: Diazepam PO 10 mg Route: PO; bp 09:48 Follow up: Response: No adverse reaction bp 07:40 Drug: morphine IVP or IV 4 mg Route: IVP; Infused Over: 4 mins; Site: left antecubital; bp 09:48 Follow up: Response: No adverse reaction bp 07:40 Drug: Ondansetron IVP 4 mg Route: IVP; Site: left antecubital; bp 09:48 Follow up: Response: No adverse reaction bp Disposition Summary: 04/14/23 08:31 Discharge Ordered Location: Home rt Problem: new rt Symptoms: have improved rt Condition: Stable rt Diagnosis - Low back pain rt - Strain of muscle, fascia and tendon at neck level, initial encounter rt - Strain of muscle and tendon of back wall of thorax rt Followup: fiorella - With: Private Physician - When: 2 - 3 days - Reason: Recheck today's complaints, Continuance of care, Re-evaluation by your physician Discharge Instructions: - Discharge Summary Sheet fiorella - Acute Back Pain, Adult fiorella - Chronic Back Pain fiorella - Muscle Strain fiorella - Musculoskeletal Pain fiorella - Muscle Strain, [id number] fiorella - Radicular Pain fiorella Forms: - Medication Reconciliation Form rt - Thank You Letter rt - Antibiotic Education rt - Prescription Opioid Use rt - [email or web address] rt Prescriptions: - dicyclomine 10 mg Oral Capsule - take 2 capsules by ORAL route 3 times per day; 15 capsule; Refills: 0, Product rt Selection Permitted Signatures: Dispatcher [employer] Ehsan Kern MD MD cha Martinez, Eric em1 Inder Miller RN RN bp Colin Johnston RN RN as6 Bang Lyons MD MD rt
[2023-04-14 10:03] VITALS: TEMP 98.6
[2023-04-14 10:21] VITALS: BP 113/67; O2SAT 98
--- NOTE | 2023-04-16 12:37 | EKG ---
Test Date: 2023-04-14 Test Time: 06:53:23 [employer]structor [employer]: FREDY MEASUREMENT RESULTS: Intervals: Rate: 111 TX: 180 QRSD: 102 QT: 294 QTc: 399 [place]: P: 62 TX: 180 QRS: 25 T: 54 INTERPRETIVE STATEMENTS: Sinus tachycardia Low voltage QRS Possible Inferior infarct, age undetermined Cannot rule out Anterior infarct, age undetermined Abnormal ECG Compared to ECG 11/14/2022 00:54:36 Low QRS voltage now present Myocardial infarct finding now present Electronically Signed On 04-16-23 12:33:53 CDT by Miguelangel Mckeon
== END 2023-04-14 09:49 | disposition home or self-care (01) ==
LOC: ER 06:10
DX: S16.1XXA Strain of muscle, fascia and tendon at neck level, initial encounter (principal); S29.012A Strain of muscle and tendon of back wall of thorax, initial encounter; E11.9 Type 2 diabetes mellitus without complications; I10 Essential (primary) hypertension; Z98.82 Breast implant status
CPT/HCPCS: 96361; 93005; 85025; 81001; 36415; 84484; 80053; 72131; 72125; 72128; 96375; 96374; 99284; J1100; J2405; J7030

== ENCOUNTER 2023-08-18 13:15 | Emergency (ER) | payer BC ==
--- OUTSIDE RECORDS SUMMARY | 2023-08-18 13:21 | XMS REPORT | Continuity of Care Document ---
:1970 Author Organization [facility] t Address [address] [place] [address] Care Team Providers Name Role Phone Adam ARCHER, Nestor Shields Primary Care Physician [phone] GC_GCBZW_Kaara_S Attending Clinician Unavailable ALEXANDR MONGE Attending Clinician Unavailable Alexandr Monge MD Attending Clinician [phone] Kris Jensen MD Attending Clinician NICKOLAS SINGH Attending Clinician Unavailable CAROL_GCBZW_Tiarra_S Admitting Clinician Unavailable KRIS JENSEN Admitting Clinician Unavailable NICKOLAS SINGH Admitting Clinician Unavailable Payers Payer Name Policy Type Policy Number Effective Date Expiration Date S our BCBS PPO POS EPO [id number] 2021 00:00:00 CHOICE Problems Condition Condition Condition Status Onset Resolution Last Treating Co mments Source Name Details Category Date Date Treatment Clinician Date Cellulitis Cellulitis Disease Active 2021-[address] [facility] right of right 2-21 [facility] 00 [place] Bursitis Bursitis Disease Active 2021[facility] knee [facility]: [facility] 00 [place] Arthritis, Arthritis, Disease Recurre 2021-[address] [facility] [address] septic, septic, nce 2-20 [facility] knee knee 00:00: Medical 00 [place] Orbital Orbital Disease Active [facility] cellulitis cellulitis 7-04 Kathryn kes 00:00: Medical 00 [place] Diabetes 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, mellitus, gae 04-15 [facility] type 2 type 2 00:00: Medical 00 [place] Opioid Opioid Disease Recurre [facility] dependence dependence [facility] 04-15 Kathryn kes 00:00: Medical 00 Center Allergies, Adverse Reactions, Alerts Allergy Allergy Status Severity Reaction(s) Onset Inactive Treating Comm ents Source Name Type Date Date Clinician NO KNOWN Allergy Active [facility] ALLERGIE S Social History Social Habit Start Date Stop Date Quantity Comments Source Alcohol intake 2022-10-02 2022-10-02 Current [facility] St Ana es 00:00:00 00:00:00 non-drinker of [facility] nter alcohol (finding) Tobacco use and 2022-10-01 2022-10-01 Smokeless tobacco I Lumichelle exposure 00:00:00 00:00:00 non-user [facility] Sex Assigned At [birth year] [facility] 00:00:00 00:00:00 [facility] Smoking Status Start Date Stop Date Source Never smoked tobacco [facility] Former smoker 2017-04-15 00:00:00 2017-04-15 00:00:00 [facility] Medications Ordered Filled Start Stop Current [...] 14:37: daily. Medical capsule 36 Center oxybutynin 2022-1 Yes 5mg Q.5D Take 5 mg CH [...] Center times daily. TiZANidine 2021-10 Yes 4mg Q.20727297 Take [address] [facility] [address] (ZANAFLEX) 2-22 [id number] by mouth 3 [facility] 4 MG 14:37: [...] Center times daily. TiZANidine 2021-10 Yes 4mg Q.37366132 Take [address] (ZANAFLEX) 2-22 [id number] by mouth 3 [facility] 4 MG 14:37: [...] Center times daily. TiZANidine 2021-10 Yes 4mg Q.91300898 Take [address] (ZANAFLEX) 2-22 [id number] by mouth 3 [facility] 4 MG 14:37: [...] Q.5D Take [address] -clavulanat 12-04- tablet by Kathryn kes e 00:00: 23:59 [...] Center times daily. TiZANidine 2017-0 Yes 4mg Q.82779927 Take [address] (ZANAFLEX) 7-08 [id number] by mouth 3 [facility] 4 MG 11:17: [...] Center times daily. TiZANidine 2017-0 Yes 4mg Q.67015463 Take [address] (ZANAFLEX) 7-08 [id number] by mouth 3 [facility] 4 MG 11:17: 3D (three) Medical capsule 05 times Center daily. TRIAMTERENE 2017-0 Yes 75mg QD Take [address] [facility] [facility] ORAL 7-08 by mouth [facility] 11:17: daily . Medical 05 Center clonazePAM 2017-0 Yes 1mg Take [address] (KLONOPIN) 08 by mouth 2 Ana es 1 MG [...] 3.5 mg/g-10,000 unit/g-0.1 % Oint ophthalmic ointment Vital Signs Vital Name Observation Time Observation Value Comments Source HEIGHT 2022-10-01 20:56:00 167.6 cm WEIGHT 2022-10-01 20:56:00 96.1 kg HEIGHT 2022-10-01 20:56:00 167.6 cm WEIGHT 2022-10-01 20:56:00 96.1 kg Systolic blood 2022-10-03 12:00:00 135 mm[Hg] [facility] Diastolic blood 2022-10-03 12:00:00 69 mm[Hg] [facility] Heart rate 2022-10-03 12:00:00 111 /min [facility] Body temperature 2022-10-03 12:00:00 37.06 [place] [facility] Respiratory rate 2022-10-03 12:00:00 18 /min [facility] Oxygen saturation in 2022-10-03 12:00:00 96 /min [facility] Arterial blood by Medical Ce nter Pulse oximetry Body height 2022-10-01 20:56:00 167.6 cm [facility] Body weight 2022-10-01 20:56:00 96.1 kg [facility] BMI 2022-10-01 20:56:00 34.20 kg/m2 [facility] Procedures Procedure Date / Time Performed Performing Clinician Sourfede e POCT-GLUCOSE METER 2022-10-03 12:23:00 Alexandr Monge [facility] POCT-GLUCOSE METER 2022-10-03 07:44:00 Alexandr Monge [facility] CBC W/PLT COUNT & AUTO 2022-10-03 04:51:00 Alexandr Monge [facility] BASIC METABOLIC PANEL 2022-10-03 04:51:00 Octavia [facility] MAGNESIUM 2022-10-03 04:51:00 Octavia [facility] HEMOGLOBIN A1C 2022-10-03 04:51:00 Octavia [facility] LIPID PANEL 2022-10-03 04:51:00 Octavia [facility] CBC W/PLT COUNT & AUTO 2022-10-03 04:51:00 Alexandr Monge [facility] POCT-GLUCOSE METER 2022-10-02 21:19:00 Alexandr Monge [facility] POCT-GLUCOSE METER 2022-10-02 17:22:00 Octavia [facility] POCT-GLUCOSE METER 2022-10-02 11:51:00 Octavia [facility] HEPATIC FUNCTION PANEL 2022-10-02 05:54:00 Kris Jensen [facility] POCT-GLUCOSE METER 2022-10-02 04:51:00 Alexandr Monge [facility] CT LOWER EXTREMITY WITH 2022-10-02 01:55:00 Kris Jensen [facility] POCT-GLUCOSE METER 2022-10-01 23:29:00 Alexandr Monge [facility] COMPREHENSIVE METABOLIC 2022-10-01 22:33:00 Kris Jensen [facility] MAGNESIUM 2022-10-01 22:33:00 Kris Jensen [facility] PHOSPHORUS 2022-10-01 22:33:[address] [facility] CBC W/PLT COUNT & AUTO 2022-10-01 22:33:00 Kris Jensen [facility] S t [facility] DIFFERENTIAL [facility] CBC W/PLT COUNT & AUTO 2022-10-01 22:33:00 Kris Jensen [facility] S [facility] DIFFERENTIAL [facility] BLOOD CULTURE 2022-10-01 22:30:00 Kris Jensen [facility] POCT-GLUCOSE METER 2022-10-01 20:51:00 Alexandr Monge [facility] Plan of Care Planned Activity Planned Date [...] [facility] Test 00:00:00 [code = 24451725] Medical Ce nter Future Scheduled 2025-10-03 Lipid panel (procedure) [facility] Test 00:00:00 [code = 32091235] Medical Ce nter Future Scheduled 2025-10-03 Lipid panel (procedure) [facility] Test 00:00:00 [code = 33014779] Medical Ce nter Future Scheduled 2023-10-01 Tobacco [...] St Kathryn kes Test 00:00:00 measurement (procedure) [facility] Center [code = 42184182] Future Scheduled 2023-04-[address] Kathryn kes Test 00:00:00 measurement (procedure) [facility] Center [code = 00737069] Future Scheduled 2023-04-[address] Kathryn kes Test 00:00:00 measurement (procedure) [facility] Center [code = 59173481] Future Scheduled 2022-06-13 INFLUENZA VACCINE (#1) [facility] Test 00:00:00 [code = INFLUENZA Medical Ce nter VACCINE (#1)] Future Scheduled 2022-06-13 INFLUENZA VACCINE (#1) [facility] Test 00:00:00 [code = INFLUENZA Medical Ce nter VACCINE (#1)] Future Scheduled 2018 SHINGLES VACCINES ([address] [facility] Test 00:00:00 2) [code = SHINGLES [facility] VACCINES (1 of 2)] Future Scheduled 2018 SHINGLES VACCINES ([address] [facility] Test 00:00:00 2) [code = SHINGLES [facility] VACCINES (1 of 2)] Future Scheduled 2018 SHINGLES VACCINES ([address] [facility] Test 00:00:00 2) [code = SHINGLES [facility] VACCINES (1 of 2)] Future Scheduled 1989 Screening for malignant [facility] Test 00:00:00 neoplasm of cervix Medical C enter (procedure) [code = 583464488] Future Scheduled 1989 Screening for malignant [facility] Test 00:00:00 neoplasm of cervix Medical C enter (procedure) [code = 972884857] Future Scheduled 1989 Screening for malignant [facility] Test 00:00:00 neoplasm of cervix Medical C enter (procedure) [code = 112916870] Future Scheduled 1986 HEPATITIS C SCREENING CH [...] 00:00:00 examination Medical Center (regime/therapy) [code = 452320974] Future Scheduled 1978 Urine screening for [facility] Test 00:00:00 protein (procedure) Medical Center [code = 340190609] Future Scheduled 1978 DIABETIC EYE EXAM [code [facility] Test 00:00:00 = DIABETIC EYE EXAM] Medical Center Future Scheduled [address] [facility] Test 00:00:00 examination Medical Center (regime/therapy) [code = 627030473] Future Scheduled 1978 Urine screening for [facility] Test 00:00:00 protein (procedure) Medical Center [code = 152639745] Future Scheduled 1978 DIABETIC EYE EXAM [code [facility] Test 00:00:00 = DIABETIC EYE EXAM] Medical Center Future Scheduled [address] [facility] Test 00:00:00 examination Medical Center (regime/therapy) [code = 923086969] Future Scheduled 1978 Urine screening for [facility] Test 00:00:00 protein (procedure) Medical Center [code = 212199200] Future Scheduled [address] [facility] [...] breast Medical C enter (procedure) [code = 887690530] Future Scheduled 1968 CT Colonography (combo) [facility] Test 00:00:00 [code = CT Colonography [facility] (combo)] Future Scheduled 1968 Screening for malignant [facility] Test 00:00:00 neoplasm of colon Medical Ce nter (procedure) [code = 441086508] Future Scheduled 1968 Screening for malignant [facility] Test 00:00:00 neoplasm of colon Medical Ce nter (procedure) [code = 857564808] Future Scheduled 1968 Screening for malignant [facility] Test 00:00:00 neoplasm of colon Medical Ce nter (procedure) [code = 562126043] Future Scheduled 1968 Screening for malignant [facility] Test 00:00:00 neoplasm of colon Medical Ce nter (procedure) [code = 449759251] Future Scheduled 1970 Sigmoidoscopy [code = [facility] Test 00:[facility]:00 Sigmoidoscopy] Medical Cente r Future Scheduled 1968 Screening for malignant [facility] Test 00:00:00 neoplasm of breast Medical C enter (procedure) [code = 800462284] Future Scheduled 1968 CT Colonography (combo) [facility] Test 00:00:00 [code = CT Colonography [facility] Center (combo)] Future Scheduled 1968 Screening for malignant [facility] Test 00:00:00 neoplasm of colon Medical Ce nter (procedure) [code = 764682312] Future Scheduled 1968 Screening for malignant [facility] Test 00:00:00 neoplasm of colon Medical Ce nter (procedure) [code = 023000484] Future Scheduled 1968 Screening for malignant [facility] Test 00:00:00 neoplasm of colon Medical Ce nter (procedure) [code = 340736088] Future Scheduled 1968 Screening for malignant [facility] Test 00:00:00 neoplasm of colon Medical Ce nter (procedure) [code = 746810397] Future Scheduled 1970 Sigmoidoscopy [code = [facility] Test 00:00:00 Sigmoidoscopy] Medical Cente r Future Scheduled 1968 Screening for malignant [facility] Test 00:00:00 neoplasm of breast Medical C enter (procedure) [code = 410519784] Future Scheduled 1968 CT Colonography (combo) [facility] Test 00:00:00 [code = CT Colonography [facility] (combo)] Future Scheduled 1968 Screening for malignant [facility] Test 00:00:00 neoplasm of colon Medical Ce nter (procedure) [code = 667652516] Future Scheduled 1968 Screening for malignant [facility] Test 00:00:00 neoplasm of colon Medical Ce nter (procedure) [code = 875019589] Future Scheduled 1968 Screening for malignant [facility] Test 00:00:00 neoplasm of colon Medical Ce nter (procedure) [code = 131696613] Future Scheduled 1968 Screening for malignant [facility] Test 00:00:00 neoplasm of colon Medical Ce nter (procedure) [code = 668281085] Future Scheduled 1970 Sigmoidoscopy [code = [facility] Test 00:[facility] Sigmoidoscopy] Medical Cente r Encounters Start End Encounter Admission Attending Care Care Encounter Source Date/Time Date/Time Type Type Clinicians Facility Department ID 2023-08-12 2023-08-12 Outpatient GC_GCBZW_Ka PRIV PRIV [id number] [facility] 00:00:00 00:00:00 anna_Maryellen [id number] Medic al 2022-10-01 2022-10-03 Inpatient ER SHIEH, [facility] Internal [id number] [facility] 20:30:00 14:37:00 ALEXANDR [facility] 2022-10-01 2022-10-03 Hospital ER Alexandr Monge [facility] [id number] [facility] 20:30:00 14:37:00 Encounter Kris Jensen [facility] 2022-10-02 2022-10-02 Travel [facility] [id number] [facility] 00:00:00 00:00:00 [facility] Results Test Description Test Time Test Comments Results Result Comments Source BLOOD CULTURE 2022-10-07 01:00:41 Test Item Value Reference Range Interpretation Comme nts CULTURE (BEAKER) (test code = 1095) No growth in 5 days POC-Glucose [id number] 12:36:16 Test Item Value Reference Range Interpretation Comments POC-Glucose Meter (test 136 mg/dL 70-110 H : TE STED AT [facility] code = 1538) [facility] [place] [address]: Travel Freight And Passenger Agent/Techni erika ID = [id number] for Yelling, [place] a Lab Interpretation (test Abnormal code = 76716-1) [facility] [id number] 12:36:16 Test Item Value Reference Range Interpretation Comments POC-Glucose Meter (test 136 mg/dL 70-110 H : TE STED AT [facility] code = 1538) [facility] [address]: Travel Freight And Passenger Agent/Techni erika ID = [id number] for Yelling, [place] a Lab Interpretation (test Abnormal code = 20762-2) [facility] [id number] 12:36:16 Test Item Value Reference Range Interpretation Comments POC-Glucose Meter (test 136 mg/dL 70-110 H : TE STED AT [facility] code = 1538) [facility] [address]: Travel Freight And Passenger Agent/Techni erika ID = [id number] for Yelling, [place] a Lab Interpretation (test Abnormal code = 76859-0) [facility]-GLUCOSE [id number] 12:36:16 Test Item Value Reference Range Interpretation Comments POC-GLUCOSE METER 136 mg/dL 70-110 H : TESTED A T [facility] 1317 (BEAKER) (test code [address], = 1538) [place] [address]: Travel Freight And Passenger Agent/Techni erika ID = [id number] for Janneth Frank POCT-GLUCOSE [id number] 07:56:56 Test Item Value Reference Range Interpretation Comments POC-GLUCOSE METER 125 mg/dL 70-110 H : TESTED A T [facility] 1317 (BEAKER) (test code [address], = 1538) [place] [address]: Travel Freight And Passenger Agent/Techni erika ID = [id number] for Janneth Frank HEMOGLOBIN [id number] 06:43:17 Test Item Value Reference Range Interpretation Comments HEMOGLOBIN A1C (BEAKER) (test code = 5.9 % 4.3-6.1 368) [employer] Passenger Agent ID - LITOLIPID [id number] 05:40:16 Test Item Value Reference Range Interpretation [...] Borderline 130-159 High 160-189 Very High >=190 [employer] Passenger Agent ID - LITOOperator ID - LITOOperator ID - [id number] 05:40:16 Test Item Value Reference Range Interpretation Comments MAGNESIUM (BEAKER) (test code = 2.0 mg/dL 1.5-3.0 627) [employer] Fre[employer] And Passenger Agent ID - LITOOperator ID - LITOOperator ID - LITOOperator ID - LITOBASIC METABOLIC [id number] 05:38:59 Test Item Value Reference Range Interpretation [...] G3b Moderately to s everely 30-44 G4 Sever ly decreased 15-29 G5 Kidney failure <15Repo rted eGFR is based on the CKD-EPI 202 equation t hat does not use a race coefficientEsti mated GFR is not as accur ate as Creatinine Chanell null in predicting glom erular filtration rate . Estimated GFR is not appl icable for dialysis patien ts Travel Fre[employer] And Passenger Agent ID - LITOOperator ID - LITOOperator ID - LITOOperator ID - LITOOperator ID - LITOOperator ID - LITOOperator ID - LITOOperator ID - LITOOperator ID - LITOCBC W/PLT COUNT & AUTO [id number] 05:28:51 Test Item Value Reference Range Interpretation [...] PERCENT (BEAKER) (test code = 2801) POCT-GLUCOSE [id number] 21:30:37 Test Item Value Reference Range Interpretation Comments POC-GLUCOSE METER 75 mg/dL 70-110 : TESTED A T [facility] [address] (BEAKER) (test code = [address], 1538) [facility] [address]: Travel Freight And Passenger Agent/Techni erika ID = [id number] for Aanu osorio karanmissael POCT-GLUCOSE [id number] 17:35:40 Test Item Value Reference Range Interpretation Comments POC-GLUCOSE METER 179 mg/dL 70-110 H : Notified RN/MD: TESTED (MOHIT) (test code AT [facility] [address]) [address], [facility] [address]: Travel Freight And Passenger Agent/Techni erika ID = [id number] for Janneth Frank POCT-GLUCOSE [id number] 12:04:18 Test Item Value Reference Range Interpretation Comments POC-GLUCOSE METER 117 mg/dL 70-110 H : TESTED A T [facility] 1317 (MOHIT) (test code [address] [facility], = 1538) [facility] 77 478: Travel Freight And Passenger Agent/Techni erika ID = [id number] for Janneth Frank CT, EXTREMITY, LOWER, WITH CONTRAST, [id number] 10:12:00Unlisted Reason for Exam - Click Yes and Enter Reason Below->No [facility] : 1970 Sex: FFINAL [...] Marvin Vora Verified Date/Time: 10/02/2022 10:12:51 Reading Location:[address] Ortho Consult Reading Room HEPATIC FUNCTION [...] code = 52 U/L 5-50 H 347) Travel Fre[employer] And Passenger Agent ID - [id number] ID - [id number] ID - [id number] ID - [id number] ID - [id number] ID - [id number] ID - [id number] [id number] 05:02:28 Test Item Value Reference Range Interpretation Comments POC-GLUCOSE METER 120 mg/dL 70-110 H : TESTED A T [facility] [address]17 (BEAKER) (test code [address], = 1538) [place] [address]: Travel Freight And Passenger Agent/Techni erika ID = [id number] for Selena Soria POCT-GLUCOSE [id number] 23:41:12 Test Item Value Reference Range Interpretation Comments POC-GLUCOSE METER 109 mg/dL 70-110 : TESTED A T [facility] 1317 (BEAKER) (test code [address], = 1538) [place] [address]: Travel Freight And Passenger Agent/Techni erika ID = [id number] for Selena Soria COMPREHENSIVE METABOLIC [id number] 23:15:14 Test Item Value Reference Range Interpretation [...] not appl icable for dialysis patien ts Travel Freight And Passenger Agent ID - JUSTINOperator ID - JUSTINOperator ID - JUSTINOperator ID - JUSTINOperator ID - JUSTINOperator ID - JUSTINOperator ID - JUSTINOperator ID - JUSTINOperator ID - JUSTINOperator ID - JUSTINOperator ID - JUSTINOperator ID - JUSTINOperator ID - JUSTINOperator ID - JUSTINOperator ID - JUSTINOperator ID - [id number] 23:15:14 Test Item Value Reference Range Interpretation Comments MAGNESIUM (BEAKER) (test code = 2.0 mg/dL 1.5-3.0 627) Travel Freight And Passenger Agent ID - JUSTINOperator ID - JUSTINOperator ID - JUSTINOperator ID - MILENA [id number] 23:11:52 Test Item Value Reference Range Interpretation Comments PHOSPHORUS (BEAKER) (test code = 2.5 mg/dL 2.5-4.5 604) Travel Freight And Passenger Agent ID - JUSTINCBC W/PLT COUNT & AUTO [id number] 22:53:51 Test Item Value Reference Range Interpretation [...] PERCENT (BEAKER) (test code = 2801) POCT-GLUCOSE [id number] 21:03:05 Test Item Value Reference Range Interpretation Comments POC-GLUCOSE METER 98 mg/dL 70-110 : TESTED A T [facility] 1317 (BEAKER) (test code = [address], 1538) [facility] [address]: Travel Freight And Passenger Agent/Techni erika ID = [id number] for Selena Soria ANAEROBIC [id number] 03:45:00 Test Item Value Reference Range Interpretation Comments CULTURE (BEAKER) (test No anaerobes isolated code = 1095) TISSUE [id number] 15:59:00Surgical Pathology Report Case: [id number] Authorizing Provider: Jimenez Mcintosh MD Collected: 04/17/2017 2259 Ordering Location: [facility] PERIOPERATIVE Received: 04/18/2017 0801 SERVICES Pathologist: Antonette Mario MD Specimen: Eyelid, Left, Left eyelid abscess SKIN, LEFT EYELID, ABSCESS, DEBRIDEMENT:- SKIN WITH ABSCESS- GRAM POSITIVE COCCI IN CLUSTERS (BROWN AND BRENN) Please correlate with corresponding microbiology cultures. [id number]; 14776 x 3Left upper eyelid abscessLeft eyelid abscess The specimen is received in a formalin-filled container labeled with the patient's information andlabeled "left eyelid abscess" and consists of multiple irregular fragments of montiel dusky soft tissue m easuring 2 x 1 x 0.4 cm in aggregate, submitted entirely in A1. CG/ew AFB is negative for acid fast bacteria. GMS is negative for fungus.The following special studies were performed on this case and the interpretation is incorporated in the diagnostic report above: AFB, Brown and Lakisha, GMS (block A1).BLOOD [id number] 18:00:00 Test Item Value Reference Range Interpretation Comments CULTURE (BEAKER) (test No growth in 5 days code = 1095) WOUND CULTURE + GRAM [id number] 08:51:00 Test Item Value Reference Interpretation Comments [...] No organisms seen (BEAKER) (test code = 887422) Florentin elieser = 21SURGICALLY OBTAINED CULTURE + GRAM [id number] 07:47:00 Test Item Value Reference Range Interpretation [...] organisms seen RESULT (BEAKER) (test code = 008312) POCT-GLUCOSE [id number] 08:26:00 Test Item Value Reference Range Interpretation Comments POC-GLUCOSE METER 124 mg/dL 70-[address] [facility] 6720 (BEAKER) (test code = TIMMY [facility] 1538) [address] CBC (HEMOGRAM ONLY)2017-04-19 06:23:00 Test Item Value [...] (BEAKER) (test code = 413) 0.00BASIC METABOLIC [id number] 05:40:00 Test Item Value Reference Range Interpretation [...] mg/dL 8.4-10.2 (test code = 697) EGFR ([facility] (test 91 mL/min/1.73 ESTIMA ANIA GFR IS code = 1092) sq m NOT ACCURATE CREATININE CLEARANCE IN PREDICTING GLOMERULAR FILTRATION RATE . ESTIMATED GFR I S NOT APPLICABLE FOR DIALYSIS PATIEN TS. POCT-GLUCOSE [id number] 21:12:00 Test Item Value Reference Range Interpretation Comments POC-GLUCOSE METER 154 mg/dL 70-110 H TESTED AT [place] [address] ([facility]) (test code = [facility] 1538) [address] POCT-GLUCOSE [id number] 16:18:00 Test Item Value Reference Range Interpretation Comments POC-GLUCOSE METER 137 mg/dL 70-110 H TESTED AT [place] [address] ([facility]) (test code = [facility] 1538) [address] POCT-GLUCOSE [id number] 11:57:00 Test Item Value Reference Range Interpretation Comments POC-GLUCOSE METER 123 mg/dL 70-110 H TESTED AT [place] [address] ([facility]) (test code = [facility] 1538) [address] POCT-GLUCOSE [id number] 07:25:00 Test Item Value Reference Range Interpretation Comments POC-GLUCOSE METER 126 mg/dL 70-110 H TESTED AT [place] [address] ([facility]) (test code = [facility] 1538) [address] [id number] 05:33:00 Test Item Value Reference Range Interpretation Comments MAGNESIUM ([facility]) (test code = 2.4 mg/dL 1.6-2.6 627) POCT-GLUCOSE [id number] 23:17:00 Test Item Value Reference Range Interpretation Comments POC-GLUCOSE METER 165 mg/dL 70-[address] [facility] 6720 (BEAKER) (test code = TIMMY [place] 1538) [id number] POCT-GLUCOSE [id number] 18:35:00 Test Item Value Reference Range Interpretation Comments POC-GLUCOSE METER 110 mg/dL 70-[address] [facility] 6720 (BEAKER) (test code = TIMMY [place] 1538) [id number] CBC W/PLT COUNT & AUTO [id number] 14:01:00 Test Item Value Reference Range Interpretation [...] (BEAKER) (test code = Normal 762) POCT-GLUCOSE [id number] 12:17:00 Test Item Value Reference Range Interpretation Comments POC-GLUCOSE METER 131 mg/dL 70-110 H TESTED AT [place] [address] (BEAKER) (test code = [facility] 1538) [id number] POCT-GLUCOSE [id number] 08:36:00 Test Item Value Reference Range Interpretation Comments POC-GLUCOSE METER 128 mg/dL 70-110 H TESTED AT [place] [address] (BEAKER) (test code = [facility] 1538) [id number] 06:13:00 Test Item Value Reference Range Interpretation Comments MAGNESIUM (BEAKER) (test code = 2.1 mg/dL 1.6-2.6 627) BASIC METABOLIC [id number] 06:13:00 Test Item Value Reference Range Interpretation [...] 358) GLUCOSE RANDOM 164 mg/dL 70-105 H ([facility]) (test code = 652) CALCIUM (BEAKER) 8.6 mg/dL 8.4-10.2 (test code = 697) EGFR ([facility]) (test 101 mL/min/1.73 ESTIM ATED GFR IS code = 1092) sq m NOT ACCURATE CREATININE CLEARANCE IN PREDICTING GLOMERULAR FILTRATION RATE . ESTIMATED GFR I S NOT APPLICABLE FOR DIALYSIS PATIEN TS. POCT-GLUCOSE [id number] 20:32:00 Test Item Value Reference Range Interpretation Comments POC-GLUCOSE METER 131 mg/dL 70-110 H TESTED AT [place] [address] ([facility]) (test code = [facility] 1538) [id number] POCT-GLUCOSE [id number] 19:08:00 Test Item Value Reference Range Interpretation Comments POC-GLUCOSE METER 126 mg/dL 70-110 H TESTED AT [place] [address] ([facility]) (test code = [facility] 1538) [id number] POCT-GLUCOSE [id number] 12:51:00 Test Item Value Reference Range Interpretation Comments POC-GLUCOSE METER 178 mg/dL 70-110 H TESTED AT [place] [address] ([facility]) (test code = [facility] 1538) [id number] POCT-GLUCOSE [id number] 08:42:00 Test Item Value Reference Range Interpretation Comments POC-GLUCOSE METER 131 mg/dL 70-110 H TESTED AT [place] [address] ([facility]) (test code = [facility] 1538) [id number] CBC W/PLT COUNT & AUTO [id number] 06:32:00 Test Item Value Reference Range Interpretation Comments WHITE BLOOD CELL COUNT ([facility]) 8.2 K/ L 4.0-10.0 (test code = 775) RED BLOOD CELL COUNT ([facility]) 4.07 M/ L 4.00-5.00 (test code = 761) HEMOGLOBIN (BEAKER) (test code = 12.5 GM/DL 12.0-15.0 410) HEMATOCRIT ([facility]) (test code = 37.0 % 36.0-45.0 411) MEAN CORPUSCULAR VOLUME ([facility]) 91.0 fL 82.0-99.0 (test code = 753) [...] K/ L 0.00-0.20 (test code = 417) [id number] 05:46:00 Test Item Value Reference Range Interpretation Comments MAGNESIUM (BEAKER) (test code = 2.2 mg/dL 1.6-2.6 627) BASIC METABOLIC [id number] 05:46:00 Test Item Value Reference Range Interpretation Comments SODIUM (BEAKER) 140 meq/L 136-145 (test code = 381) POTASSIUM (BEAKER) 3.6 meq/L 3.5-5.1 (test code = 379) CHLORIDE (BEAKER) 100 meq/L 98-107 (test code = 382) CO2 (BEAKER) (test 32 meq/L 22-29 H code = 355) BLOOD UREA NITROGEN 4 mg/dL 7-21 L ([facility]) (test code = 354) CREATININE ([facility]) 0.65 mg/dL 0.57-1.25 (test code = 358) GLUCOSE RANDOM 129 mg/dL 70-105 H ([facility]) (test code = 652) CALCIUM ([facility]) 8.8 mg/dL 8.4-10.2 (test code = 697) EGFR ([facility]) (test 97 mL/min/1.73 ESTIMA ANIA GFR IS code = 1092) sq m NOT ACCURATE CREATININE CLEARANCE IN PREDICTING GLOMERULAR FILTRATION RATE . ESTIMATED GFR I S NOT APPLICABLE FOR DIALYSIS PATIEN TS. POCT-GLUCOSE [id number] 21:26:00 Test Item Value Reference Range Interpretation Comments POC-GLUCOSE METER 150 mg/dL 70-[address] [facility] 67 ([facility]) (test code = TIMMY Stafford [facility] 1538) [id number] POCT-GLUCOSE [id number] 18:03:00 Test Item Value Reference Range Interpretation Comments POC-GLUCOSE METER 102 mg/dL 70-110 TESTED AT [place] [address] ([facility]) (test code = PANKAJCA Nydia [facility] 1538) [address] HCG, QUANTITATIVE, [id number] 14:05:00 Test Item Value Reference Range Interpretation Comments GONADOTROPIN, CHORIONIC (HCG) QUANT < mIU/mL 0-10 ([facility]) (test code = 649) Non- Females: <10 mIU/mL Females: Gestation Age Reference Range(mIU/mL) 0.2-1 Week 5-50 1-2 Weeks 50-500 2-3 Weeks 100-5,000 3-4 Weeks 500-10,000 4-5 Weeks 1,000-50,000 5-6 Weeks 10,000-100,000 6-8 Weeks 15,000- 200,000 2-3 Months 10,000-100,000BASIC METABOLIC [id number] 14:02:00 Test Item Value Reference Range Interpretation [...] NOT APPLICABLE FOR DIALYSIS PATIEN TS. HEMOGLOBIN [id number] 13:58:00 Test Item Value Reference Range Interpretation Comments HEMOGLOBIN A1C (BEAKER) (test code = 6.7 % 4.3-6.1 H 368) CBC W/PLT COUNT & AUTO [id number] 13:39:00 Test Item Value Reference Range Interpretation [...] L 0.00-0.20 (test code = 417) 0.00POCT-GLUCOSE [id number] 11:42:00 Test Item Value Reference Range Interpretation Comments POC-GLUCOSE METER 124 mg/dL 70-[address] [facility] 8228 (BEAKER) (test code = TIMMY RAMIREZ 1538) [id number]
--- NOTE | 2023-08-18 13:45 | ER ---
Nurse's Notes [facility] Name: Sharon Babin Age: 53 yrs Sex: Female : 1970 Arrival Date: 08/18/2023 Time: 13:15 Bed 12 Private MD: Diagnosis: Left ankle pain Presentation: 08/18 13:30 Chief complaint: Patient states: swelling to left ankle, she has a plate in her left iw ankle , was seen by Dr. Villareal, has been wearing a walking boot. Coronavirus screen: At this time, the client does not indicate any symptoms associated with coronavirus-19. Ebola Screen: Patient negative for fever greater than or equal to 101.5 degrees Fahrenheit, and additional compatible Ebola Virus Disease symptoms Patient denies exposure to infectious person. Patient denies travel to an Ebola-affected area in the 21 days before illness onset. No symptoms or risks identified at this time. Initial Sepsis Screen: Does the patient meet any 2 criteria? No. Patient's initial sepsis screen is negative. Does the patient have a suspected source of infection? No. Patient's initial sepsis screen is negative. Risk Assessment: Do you want to hurt yourself or someone else? Patient reports no desire to harm self or others. 13:30 Method Of Arrival: Wheelchair iw 13:30 Acuity: XIMENA 3 iw Historical: - Allergies: 13:35 No Known Allergies; iw - PMHx: 13:35 Diabetes - NIDDM; Fibromyalgia; Hypercholesterolemia; Hypothyroidism; Lupus; iw Hypertension; - PSHx: 13:35 back sx; section; Elbow; Carpal tunnel sx; breast augmentation; mass removed iw from sinus; Tummy tuck; - Immunization history:: Adult Immunizations up to date. - Social history:: Smoking status: unknown. Screenin:36 [facility] ED Fall Risk Assessment (Adult) Score/Fall Risk Level 0 - 2 = Low Risk. Abuse iw screen: Denies threats or abuse. Denies injuries from another. Nutritional screening: No deficits noted. Tuberculosis screening: No symptoms or risk factors identified. Assessment: 13:35 General: Appears in no apparent distress. Behavior is cooperative, anxious. Pain: iw Complains of pain in left lateral ankle, left medial ankle and anterior aspect of left ankle. Neuro: Level of Consciousness is awake, alert, obeys commands, Oriented to person, place, time, Moves all extremities. Cardiovascular: Patient's skin is warm and dry. Respiratory: Respiratory effort is even, unlabored, Respiratory pattern is regular. Derm: Skin is intact, is healthy with good turgor. 14:04 Reassessment: Patient appears in no apparent distress at this time. Patient and/or iw family updated on plan of care and expected duration. Pain level reassessed. Patient is alert, oriented x 3, equal unlabored respirations, skin warm/dry/pink. Vital Signs: 13:30 BP 160 / 102; Pulse 99; Resp 18; Temp 98.2; Pulse Ox 96% on R/A; iw 13:56 Weight 81.65 kg; iw ED Course: 13:19 Patient arrived in ED. mg5 13:22 [facility] jh7 13:22 Javad Woods MD is Attending Physician. 7 13:31 Triage completed. iw 13:35 Arm band placed on. iw 13:36 Patient has correct armband on for positive identification. iw 13:45 Victor Hugo Villareal MD is Referral Physician. jh7 13:56 Kira Gracia, RN is Primary Nurse. iw 14:04 No provider procedures requiring assistance completed. Patient did not have IV access iw during this emergency room visit. Administered Medications: 14:04 Drug: Ketorolac IM 60 mg IM once Route: IM; Site: right ventrogluteal; iw 14:04 Drug: Hydrocodone-Acetaminophen PO (7.5 mg-325 mg) 1 tabs PO once Route: PO; iw Medication: 14:04 VIS not applicable for this client. iw Outcome: 13:45 [facility] 14:18 Patient left the ED. iw Signatures: Kira Gracia, RN RN iw Kiana Oneal FNP [employer] [facility] [place] mg5 Corrections: (The following items were deleted from the chart) 13:34 13:30 BP 160 / 102; Pulse 113bpm; Resp 18bpm; Pulse Ox 96% RA; Temp 98.2F; iw iw
--- NOTE | 2023-08-18 13:46 | EDPHYS ---
Physician Documentation [facility] Name: Sharon Babin Age: 53 yrs Sex: Female : 1970 Arrival Date: 08/18/2023 Time: 13:15 Bed 12 Private MD: ED Physician Javad Woods HPI: 08/18 13:30 This 53 yrs old Female presents to ER via Wheelchair with complaints of Ankle jh7 Swelling - Pain. 13:30 The patient presents with pain, that is chronic. jh7 13:30 The complaints affect the left ankle. Onset: The symptoms/episode began/occurred 3 jh7 month(s) ago. Patient reports that she has had intermittent ankle swelling for the past few months. She reports that she has plates in her ankle from a surgery occurring over 8 years ago. She states that Dr. Villareal has stated that she may eventually need to get the plates out and that her body is rejecting them. He told her that he would call in an anti-inflammatory, but he has not called it in yet. Patient denies any new injury but would like something for pain.. Historical: - Allergies: 13:35 No Known Allergies; iw - PMHx: 13:35 Diabetes - NIDDM; Fibromyalgia; Hypercholesterolemia; Hypothyroidism; Lupus; iw Hypertension; - PSHx: 13:35 back sx; section; Elbow; Carpal tunnel sx; breast augmentation; mass removed iw from sinus; Tummy tuck; - Immunization history:: Adult Immunizations up to date. - Social history:: Smoking status: unknown. ROS: 13:30 Constitutional: Negative for fever, chills, and weight loss, Eyes: Negative for injury, jh7 pain, redness, and discharge, Cardiovascular: Negative for chest pain, palpitations, and edema, Respiratory: Negative for shortness of breath, cough, wheezing, and pleuritic chest pain, Back: Negative for injury and pain, Skin: Negative for injury, rash, and discoloration, Neuro: Negative for headache, weakness, numbness, tingling, and seizure, 13:30 MS/extremity: Positive for pain, swelling, of the left lateral ankle, 13:30 All other systems are negative, Exam: 13:30 Constitutional: This is a well developed, well nourished patient who is awake, alert, jh7 and in no acute distress. Head/Face: Normocephalic, atraumatic. Neck: Trachea midline, no thyromegaly or masses palpated, and no cervical lymphadenopathy. Supple, full range of motion without nuchal rigidity, or vertebral point tenderness. No Meningismus. Cardiovascular: Regular rate and rhythm with a normal S1 and S2. No gallops, murmurs, or rubs. Normal PMI, no JVD. No pulse deficits. Respiratory: Lungs have equal breath sounds bilaterally, clear to auscultation and percussion. No rales, rhonchi or wheezes noted. No increased work of breathing, no retractions or nasal flaring. Skin: Warm, dry with normal turgor. Normal color with no rashes, no lesions, and no evidence of cellulitis. Neuro: Awake and alert, GCS 15, oriented to person, place, time, and situation. 13:30 Musculoskeletal/extremity: Extremities: swelling, Mild ankle swelling noted over the left lateral ankle. No erythema or signs of infection noted., ROM: intact in all extremities, Circulation is intact in all extremities. Sensation intact. Vital Signs: 13:30 BP 160 / 102; Pulse 99; Resp 18; Temp 98.2; Pulse Ox 96% on R/A; iw 13:56 Weight 81.65 kg; iw MDM: 13:22 Patient medically screened. [facility] 14:10 Differential diagnosis: Chronic pain. Data reviewed: vital signs, nurses notes. I [facility] considered the following discharge prescriptions or medication management in the emergency department Medications were administered in the Emergency Department. See MAR. Counseling: I had a detailed discussion with the patient and/or guardian regarding the historical points, exam findings, and any diagnostic results supporting the discharge/admit diagnosis, the need for outpatient follow up, a orthopedic surgeon, to return to the emergency department if symptoms worsen or persist or if there are any questions or concerns that arise at home. Special discussion: Informed the patient that we would be happy to give her something for pain here, but that she would need to follow-up with Dr. Villareal for further care. The patient agreed with the plan of care.. Administered Medications: 14:04 Drug: Ketorolac IM 60 mg IM once Route: IM; Site: right ventrogluteal; iw 14:04 Drug: Hydrocodone-Acetaminophen PO (7.5 mg-325 mg) 1 tabs PO once Route: PO; iw Disposition Summary: 08/18/23 13:45 Discharge Ordered Notes: Location: Home [facility] Problem: an ongoing problem [facility] Symptoms: are unchanged [facility] Condition: Stable [facility] Diagnosis - Left ankle pain [facility] Followup: [facility] - With: Victor Hugo Villareal MD - When: Today - Reason: Recheck today's complaints Discharge Instructions: - Discharge Summary Sheet [facility] - Ankle Pain [facility] Forms: - Medication Reconciliation Form [facility] - Thank You Letter [facility] - Patient Portal Instructions [facility] - Leadership Thank You Letter [facility] Prescriptions: - Naprosyn 500 mg Oral Tablet - take 1 tablet ORAL route 2 times per day take with food; 30 tablet; Refills: 0, [facility] Product Selection Permitted Addendum: 08/23/2023 07:48 I was immediately available for consultation during this patient's visit. I did not e c2 personally see the patient or guide the patient's care.. Signatures: Kira Gracia RN RN Kiana Oneal FNP FNP [facility] Javad Woods MD MD ec2 Corrections: (The following items were deleted from the chart) 08/18 14:48 13:30 The patient presents with pain, that is chronic, [place] [id number]
[2023-08-18] MEDS ORDERED: KETOROLAC 30 MG/ML INJ ONE (14:11)
[2023-08-18] MEDS ORDERED: HYDROCODONE/APAP 7.5/325 MG TAB ONE (14:11)
[2023-08-18 14:27] VITALS: BP 160/102; TEMP 98.2; O2SAT 96
== END 2023-08-18 14:18 | disposition home or self-care (01) ==
LOC: ER 13:15
DX: M25.572 Pain in left ankle and joints of left foot (principal); Z98.82 Breast implant status
CPT/HCPCS: 96372; 99284

== ENCOUNTER 2023-08-20 14:47 | Emergency (ER) | payer BC ==
--- OUTSIDE RECORDS SUMMARY | 2023-08-20 14:53 | XMS REPORT | Continuity of Care Document ---
:1970 Author Organization [facility] t Address [address] [place] [address] [address] [place] [address] Care Team Providers Name Role Phone RENÉE NEGRETE Primary Care Physician Unavailabl e GC_GCBZW_Kadiyala_S Attending Clinician Unavailable Alexandr Monge MD Attending Clinician [phone] Kris Jensen MD Attending Clinician ALEXANDR MONGE Attending Clinician Unavailable NICKOLAS SINGH Attending Clinician Unavailable CAROL_GCBZW_Kaara_S Admitting Clinician Unavailable KRIS JENSEN Admitting Clinician Unavailable NICKOLAS SINGH Admitting Clinician Unavailable Payers Payer Name Policy Type Policy Number Effective Date Expiration Date S ource Problems Condition Condition Condition Status Onset Resolution Last Treating Co mments Source Name Details Category Date Date Treatment Clinician Date Cellulitis Cellulitis Disease Active 2021-[address] [facility] knee 00:[facility] 00 [place] Bursitis Bursitis Disease Active 2021-10 [facility] knee 00:[facility]: Medical 00 [place] Arthritis, Arthritis, Disease Recurre 2021-[address] septic, septic, nce 12-02 [facility] knee knee 00:00: Medical 00 [place] Orbital Orbital Disease Active [facility] cellulitis cellulitis 04-15 Kathryn kes 00:00: Medical 00 [place] Diabetes 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, mellitus, nce 04-15 [facility] s type 2 type 2 00:00: Medical 00 Center Opioid Opioid Disease Recurre [facility] dependence dependence nce 7-04 Kathryn kes 00:00: Medical 00 Center Allergies, Adverse Reactions, Alerts Allergy Allergy Status Severity Reaction(s) Onset Inactive Treating Comm ents Source Name Type Date Date Clinician NO KNOWN Allergy Active [facility] ALL[facility]GIE S Social History Social Habit Start Date Stop Date Quantity Comments Source Alcohol intake 2022-10-02 2022-10-[address] [facility] 00:00:00 00:00:00 non-drinker of Medical nter alcohol (finding) Tobacco use and 2022-10-01 2022-10-01 Smokeless [address] [facility] exposure 00:00:00 00:00:00 non-user [facility] Center Sex Assigned At [birth year] [facility] [address] Kathryn kes 00:00:00 00:00:00 [facility] Smoking Status Start Date Stop Date Source Never smoked tobacco [facility] Former smoker 2017-04-15 00:00:00 2017-04-15 00:00:00 [facility] Medications Ordered Filled Start Stop Current Ordering Indication Dosage Frequency Signature Comments Components Source Medication Medication Date Date Medication? Clinician (SIG) Name Name TRIAMTERENE 2021-10 Yes 75mg QD Take [address] ORAL 2-22 by mouth [facility] 14:37: daily . [address] clonazePAM 2021-10 Yes 1mg Take 1 mg [...] Center times daily. TiZANidine 2021-10 Yes 4mg Q.03243955 Take [address] (ZANAFLEX) 2-22 [id number] by mouth 3 [facility] 4 MG 14:37: [...] Center times daily. TiZANidine 2021-10 Yes 4mg Q.47137491 Take [address] (ZANAFLEX) 2-22 [id number] by mouth 3 [facility] 4 MG 14:37: [...] [facility]ukes 8-2 mg Subl 14:37: under the edical 36 tongue 2 Center (two) times [...] Center times daily. TiZANidine 2021-10 Yes 4mg Q.50940313 Take [address] (ZANAFLEX) 2-22 [id number] by mouth 3 [facility] 4 MG 14:37: [...] Take [address] (MONODOX) 2-03 11- capsule [facility] 100 MG 00:00: 23:59 (100 mg Medical capsule 00 :00 total) by Center mouth 2 (two) times daily for 14 days. amoxicillin 2021-10- No 1{tbl} Q.5D Take [address] -clavulanat 2-10-17 tablet by Kathryn kes e 00:00: 23:59 [...] Center times daily. TiZANidine 2017-0 Yes 4mg Q.60890948 Take [address] (ZANAFLEX) 7-08 [id number] by mouth 3 [facility] 4 MG 11:17: [...] Center times daily. TiZANidine 2017-0 Yes 4mg Q.03749702 Take [address] (ZANAFLEX) 7-08 [id number] by mouth 3 [facility] 4 MG 11:17: 3D (three) Medical capsule 05 times Center daily. TRIAMTERENE 2017-0 Yes 75mg QD Take [address] ORAL 7-08 by mouth [facility] 11:17: daily . Medical 05 Center clonazePAM 2016-0 Yes 1mg Take [address] (KLONOPIN) 7-08 by mouth 2 Ana es 1 MG tablet 11:17: (two) Medic al 05 times Center daily as needed for Anxiety One in AM, and one in the after noon. buprenorphi 2016- Yes 1{tbl} Q.5D Place 1 C HI [...] mg/g-10,000 unit/g-0.1 % Oint ophthalmic ointment neomycin-po 2016- Yes For [address] lymyxin-dex 7-08 days [facility] amethasone 00:00: suppley. Med ical (POLYDEX) 00 Center 3.5 mg/g-10,000 unit/g-0.1 % Oint ophthalmic ointment neomycin-po 0 Yes For [address] [facility] [address] lymyxin-dex 7-08 days [facility] amethasone 00:00: suppley. Med ical (POLYDEX) 00 Center 3.5 mg/g-10,000 unit/g-0.1 % Oint ophthalmic ointment neomycin-po 2017-0 Yes For [address] lymyxin-dex 7-08 days [facility] amethasone 00:00: suppley. Med ical (POLYDEX) 00 [place] 3.5 mg/g-10,000 unit/g-0.1 % Oint ophthalmic ointment Vital Signs Vital Name Observation Time Observation Value Comments Source HEIGHT 2022-10-01 20:56:00 167.6 cm WEIGHT 2022-10-01 20:56:00 96.1 kg HEIGHT 2022-10-01 20:56:00 167.6 cm WEIGHT 2022-10-01 20:56:00 96.1 kg Systolic blood 2022-10-03 12:00:00 135 mm[Hg] [facility] Diastolic blood 2022-10-03 12:00:00 69 mm[Hg] [facility] Heart rate 2022-10-03 12:00:00 111 /min [facility] Body temperature 2022-10-03 12:00:00 37.06 Yumiko [facility] Respiratory rate 2022-10-03 12:00:00 18 /min [facility] Oxygen saturation in 2022-10-03 12:00:00 96 /min [facility] Arterial blood by Medical Ce nter Pulse oximetry Body height 2022-10-01 20:56:00 167.6 cm [facility] Body weight 2022-10-01 20:56:00 96.1 kg [facility] BMI 2022-10-01 20:56:00 34.20 kg/m2 [facility] Procedures Procedure Date / Time Performed Performing Clinician Aristides lucio POCT-GLUCOSE METER 2022-10-03 12:23:00 Alexandr Monge [facility] POCT-GLUCOSE METER 2022-10-03 07:44:00 Alexandr Monge [facility] CBC W/PLT COUNT & AUTO 2022-10-03 04:51:00 Alexandr Monge [facility] DIFFERENTIAL [facility] BASIC METABOLIC PANEL 2022-10-03 04:51:00 Saleem [facility] MAGNESIUM 2022-10-03 04:51:00 Saleem [facility] HEMOGLOBIN A1C 2022-10-03 04:51:00 Saleem [facility] LIPID PANEL 2022-10-03 04:51:00 Saleem [facility] CBC W/PLT COUNT & AUTO 2022-10-03 04:51:00 Alexandr Monge [facility] Maryellen t [facility] POCT-GLUCOSE METER 2022-10-02 21:19:00 Saleem [facility] POCT-GLUCOSE METER 2022-10-02 17:22:00 Saleem [facility] POCT-GLUCOSE METER 2022-10-02 11:51:00 Saleem [facility] HEPATIC FUNCTION PANEL 2022-10-02 05:54:00 Kris Jensen [facility] POCT-GLUCOSE METER 2022-10-02 04:51:00 Saleem [facility] CT LOWER EXTREMITY WITH 2022-10-02 01:55:00 Kris Jensen [facility] POCT-GLUCOSE METER 2022-10-01 23:29:00 Alexandr Monge [facility] COMPREHENSIVE METABOLIC 2022-10-01 22:33:00 Kris Jensen [facility] MAGNESIUM 2022-10-01 22:33:00 Kris Jensen [facility] PHOSPHORUS 2022-10-01 22:33:00 Kris Jensen [facility] CBC W/PLT COUNT & AUTO 2022-10-01 22:33:00 [facility] CBC W/PLT COUNT & AUTO 2022-10-01 22:33:00 Kris Jensen [facility] Center BLOOD CULTURE 2022-10-01 22:30:00 Kris Jensen [facility] POCT-GLUCOSE METER 2022-10-01 20:51:00 VielkajennyferAlexandr [facility] Plan of Care Planned Activity Planned Date [...] [facility] Test 00:00:00 [code = 57658386] Medical Ce nter Future Scheduled 2025-10-03 Lipid panel (procedure) [facility] Test 00:00:00 [code = 37571441] Medical Ce nter Future Scheduled 2025-10-03 Lipid panel (procedure) [facility] Test 00:00:00 [code = 53118711] Medical Ce nter Future Scheduled 2023-10-01 Tobacco [...] [facility] Kathryn kes Test 00:00:00 measurement (procedure) [facility] [code = 11670404] Future Scheduled 2023-04-[address] Kathryn kes Test 00:00:00 measurement (procedure) [facility] [code = 58599569] Future Scheduled 2023-04-[address] Kathryn kes Test 00:00:00 measurement (procedure) [facility] [code = 24734878] Future Scheduled 2022-06-13 INFLUENZA VACCINE (#1) [facility] 00:00:00 [code = INFLUENZA Medical Ce nter VACCINE (#1)] Future Scheduled 2022-06-13 INFLUENZA VACCINE (#1) [facility] 00:00:00 [code = INFLUENZA Medical Ce nter VACCINE (#1)] Future Scheduled 2018 SHINGLES VACCINES ([address] [facility] Test 00:00:00 2) [code = SHINGLES [facility] VACCINES (1 of 2)] Future Scheduled 2018 SHINGLES VACCINES ([address] [facility] Test 00:00:00 2) [code = SHINGLES [facility] VACCINES (1 of 2)] Future Scheduled 2018 SHINGLES VACCINES ([address] [facility] Test 00:00:00 2) [code = SHINGLES [facility] VACCINES (1 of 2)] Future Scheduled 1989 Screening for malignant [facility] Test 00:00:00 neoplasm of cervix Medical C enter (procedure) [code = 776052723] Future Scheduled 1989 Screening for malignant [facility] Test 00:00:00 neoplasm of cervix Medical C enter (procedure) [code = 381979681] Future Scheduled 1989 Screening for malignant [facility] Test 00:00:00 neoplasm of cervix Medical C enter (procedure) [code = 975131029] Future Scheduled 1986 HEPATITIS C SCREENING CH [...] 00:00:00 examination Medical Center (regime/therapy) [code = 511829506] Future Scheduled 1978 Urine screening for [facility] Test 00:00:00 protein (procedure) Medical Center [code = 992582289] Future Scheduled 1978 DIABETIC EYE EXAM [code [facility] Test 00:00:00 = DIABETIC EYE EXAM] Medical Center Future Scheduled [address] [facility] Test 00:00:00 examination Medical Center (regime/therapy) [code = 810665020] Future Scheduled 1978 Urine screening for [facility] Test 00:00:00 protein (procedure) Medical Center [code = 383181631] Future Scheduled 1978 DIABETIC EYE EXAM [code [facility] Test 00:00:00 = DIABETIC EYE EXAM] Medical Center Future Scheduled [address] [facility] Test 00:00:00 examination Medical Center (regime/therapy) [code = 665479406] Future Scheduled 1978 Urine screening for [facility] Test 00:00:00 protein (procedure) Medical Center [code = 366213828] Future Scheduled [address] [...] breast Medical C enter (procedure) [code = 947403607] Future Scheduled 1968 CT Colonography (combo) [facility] Test 00:00:00 [code = CT Colonography [facility] Center (combo)] Future Scheduled 1968 Screening for malignant [facility] Test 00:00:00 neoplasm of colon Medical Ce nter (procedure) [code = 842323706] Future Scheduled 1968 Screening for malignant [facility] Test 00:00:00 neoplasm of colon Medical Ce nter (procedure) [code = 760107151] Future Scheduled 1968 Screening for malignant [facility] Test 00:00:00 neoplasm of colon Medical Ce nter (procedure) [code = 381157343] Future Scheduled 1968 Screening for malignant [facility] Test 00:00:00 neoplasm of colon Medical Ce nter (procedure) [code = 728928901] Future Scheduled 1970 Sigmoidoscopy [code = [facility] Test 00:00:00 Sigmoidoscopy] Medical Cente r Future Scheduled 1968 Screening for malignant [facility] Test 00:00:00 neoplasm of breast Medical C enter (procedure) [code = 828691834] Future Scheduled 1968 CT Colonography (combo) [facility] Test 00:00:00 [code = CT Colonography Medi [facility] Center (combo)] Future Scheduled 1968 Screening for malignant [facility] Test 00:00:00 neoplasm of colon Medical Ce nter (procedure) [code = 675451499] Future Scheduled 1968 Screening for malignant [facility] Test 00:00:00 neoplasm of colon Medical Ce nter (procedure) [code = 234221139] Future Scheduled 1968 Screening for malignant [facility] Test 00:00:00 neoplasm of colon Medical Ce nter (procedure) [code = 405724389] Future Scheduled 1968 Screening for malignant [facility] Test 00:00:00 neoplasm of colon Medical Ce nter (procedure) [code = 469005804] Future Scheduled 1970 Sigmoidoscopy [code = [facility] Test 00:00:00 Sigmoidoscopy] Medical Cente r Future Scheduled 1968 Screening for malignant [facility] Test 00:00:00 neoplasm of breast Medical C enter (procedure) [code = 387406264] Future Scheduled 1968 CT Colonography (combo) [facility] Test 00:00:00 [code = CT Colonography [facility] (combo)] Future Scheduled 1968 Screening for malignant [facility] Test 00:00:00 neoplasm of colon Medical Ce nter (procedure) [code = 256932440] Future Scheduled 1968 Screening for malignant [facility] Test 00:00:00 neoplasm of colon Medical Ce nter (procedure) [code = 291083745] Future Scheduled 1968 Screening for malignant [facility] Test 00:00:00 neoplasm of colon Medical Ce nter (procedure) [code = 867077316] Future Scheduled 1968 Screening for malignant [facility] Test 00:00:00 neoplasm of colon Medical Ce nter (procedure) [code = 072719459] Future Scheduled 1970 Sigmoidoscopy [code = [facility] Test 00:00:00 Sigmoidoscopy] Medical Cente r Encounters Start End Encounter Admission Attending Care Care Encounter Source Date/Time Date/Time Type Type Clinicians Facility Department ID 2023-08-12 2023-08-12 Outpatient GC_GCBZW_Ka PRIV PRIV [id number] [facility] 00:00:00 00:00:00 Loi [id number] Medic al 2022-10-01 2022-10-03 [facility] VielkajennyferAlexandrAisha [facility] [id number] [facility] 20:30:00 14:37:00 Encounter Kris Jensen [facility] 2022-10-01 2022-10-03 Inpatient ER SALEEM, [facility] Internal [id number] [facility] 20:30:00 14:37:00 ALEXANDR Med 2022-10-02 2022-10-02 Travel [facility] [id number] [facility] 00:00:00 00:00:00 [facility] Results Test Description Test Time Test Comments Results Result Comments Source BLOOD CULTURE 2022-10-07 01:00:41 Test Item Value Reference Range Interpretation Comme nts CULTURE (BEAKER) (test code = 1095) No growth in 5 days POC-Glucose [id number] 12:36:16 Test Item Value Reference Range Interpretation Comments POC-Glucose Meter (test 136 mg/dL 70-110 H : TE STED AT [facility] code = 1538) [facility] [place] [address]: Leadlighter/Techni erika ID = [id number] for Yelling, Yoland a Lab Interpretation (test Abnormal code = 88159-9) [facility] [id number] 12:36:16 Test Item Value Reference Range Interpretation Comments POC-Glucose Meter (test 136 mg/dL 70-110 H : TE STED AT [facility] code = 1538) [address] [place], [place] [address]: Leadlighter/Techni erika ID = [id number] for Yelling, [place]and a Lab Interpretation (test Abnormal code = 13860-3) [facility] [id number] 12:36:16 Test Item Value Reference Range Interpretation Comments POC-Glucose Meter (test 136 mg/dL 70-110 H : TE STED AT [facility] code = 1538) [facility] [place] [address]: Leadlighter/Techni erika ID = [id number] for Yelling, Yoland a Lab Interpretation (test Abnormal code = 32078-4) [facility]-GLUCOSE [id number] 12:36:16 Test Item Value Reference Range Interpretation Comments POC-GLUCOSE METER 136 mg/dL 70-110 H : TESTED A T [facility] 1317 (BEAKER) (test code [facility], = 1538) [facility] 77 [address]: Leadlighter/Techni erika ID = [id number] for Janneth Frank POCT-GLUCOSE [id number] 07:56:56 Test Item Value Reference Range Interpretation Comments POC-GLUCOSE METER 125 mg/dL 70-110 H : TESTED A T [facility] 1317 (BEAKER) (test code [address], = 1538) [facility] [address]: Leadlighter/Techni erika ID = [id number] for Janneth Frank HEMOGLOBIN [id number] 06:43:17 Test Item Value Reference Range Interpretation Comments HEMOGLOBIN A1C (BEAKER) (test code = 5.9 % 4.3-6.1 368) Leadlighter ID - LITOLIPID [id number] 05:40:16 Test Item Value Reference Range Interpretation [...] Borderline 130-159 High 160-189 Very High >=190 Leadlighter ID - LITOOperator ID - LITOOperator ID - [id number] 05:40:16 Test Item Value Reference Range Interpretation Comments MAGNESIUM (BEAKER) (test code = 2.0 mg/dL 1.5-3.0 627) Leadlighter ID - LITOOperator ID - LITOOperator ID - LITOOperator ID - LITOBASIC METABOLIC [id number] 05:38:59 Test Item Value Reference Range Interpretation [...] decreased 60-89 G3a Mildl y to moderately 45- 59 G3b Moderately to s everely 30-44 G4 Severl y decreased 15-29 G5 Kidney failure <15Reported eGF R is based on the CKD-EPI 2020 equation that d oes not use a race coefficientEsti mated GFR is not as accur ate as Creatinine Chanell chaka in predicting glom erular filtration rate . Estimated GFR is not appl icable for dialysis patien ts Leadlighter ID - LITOOperator ID - LITOOperator ID - LITOOperator ID - LITOOperator ID - LITOOperator ID - LITOOperator ID - LITOOperator ID - LITOOperator ID - LITOCBC W/PLT COUNT & AUTO [id number] 05:28:51 Test Item Value Reference Range Interpretation [...] PERCENT (BEAKER) (test code = 2801) POCT-GLUCOSE [id number] 21:30:37 Test Item Value Reference Range Interpretation Comments POC-GLUCOSE METER 75 mg/dL 70-110 : TESTED A T [facility] 1317 (BEAKER) (test code = [facility] 1538) [facility] 77 [address]: Leadlighter/Techni erika ID = [id number] for lydia Brito POCT-GLUCOSE [id number] 17:35:40 Test Item Value Reference Range Interpretation Comments POC-GLUCOSE METER 179 mg/dL 70-110 H : Notified RN/MD: TESTED (BEAKER) (test code AT [facility] [address], [place] [address]: Leadlighter/Techni erika ID = [id number] for Janneth Frank POCT-GLUCOSE [id number] 12:04:18 Test Item Value Reference Range Interpretation Comments POC-GLUCOSE METER 117 mg/dL 70-110 H : TESTED A T [facility] 1317 (BEAKER) (test code [address] [facility], = 1538) [facility] 77 [address]: Leadlighter/Techni erika ID = [id number] for Janneth Frank CT, EXTREMITY, LOWER, WITH CONTRAST, [id number] 10:12:00Unlisted Reason for Exam - Click Yes and Enter Reason Below->No [facility] : 1970 Sex: [...] Vora MDReport Verified Date/Time: 10/02/2022 10:12:51 Reading Location:[facility] B1 C013X Ortho Consult Reading Room HEPATIC [...] code = 52 U/L 5-50 H 347) Leadlighter ID - [id number] ID - [id number] ID - [id number] ID - [id number] ID - [id number] ID - [id number] ID - [id number] [id number] 05:02:28 Test Item Value Reference Range Interpretation Comments POC-GLUCOSE METER 120 mg/dL 70-110 H : TESTED A T [facility] 1317 (BEAKER) (test code [address], = 1538) [place] [address]: Leadlighter/Techni erika ID = [id number] for Will iams, Selena POCT-GLUCOSE [id number] 23:41:12 Test Item Value Reference Range Interpretation Comments POC-GLUCOSE METER 109 mg/dL 70-110 : TESTED A T [facility] 1317 (BEAKER) (test code [address], = 1538) [place] [address]: Leadlighter/Techni erika ID = [id number] for Will iams, Selena COMPREHENSIVE METABOLIC [id number] 23:15:14 Test Item Value Reference Range Interpretation [...] not appl icable for dialysis patien ts Leadlighter ID - JUSTINOperator ID - JUSTINOperator ID - JUSTINOperator ID - JUSTINOperator ID - JUSTINOperator ID - JUSTINOperator ID - JUSTINOperator ID - JUSTINOperator ID - JUSTINOperator ID - JUSTINOperator ID - JUSTINOperator ID - JUSTINOperator ID - JUSTINOperator ID - JUSTINOperator ID - JUSTINOperator ID - [id number] 23:15:14 Test Item Value Reference Range Interpretation Comments MAGNESIUM (BEAKER) (test code = 2.0 mg/dL 1.5-3.0 627) Leadlighter ID - JUSTINOperator ID - JUSTINOperator ID - JUSTINOperator ID - MILENA [id number] 23:11:52 Test Item Value Reference Range Interpretation Comments PHOSPHORUS (BEAKER) (test code = 2.5 mg/dL 2.5-4.5 604) Leadlighter ID - JUSTINCBC W/PLT COUNT & AUTO [id number] 22:53:51 Test Item Value Reference Range Interpretation [...] PERCENT (BEAKER) (test code = 2801) POCT-GLUCOSE [id number] 21:03:05 Test Item Value Reference Range Interpretation Comments POC-GLUCOSE METER 98 mg/dL 70-110 : TESTED A T [facility] 1317 (BEAKER) (test code = [address], [address]) [facility] [address]: Leadlighter/Techni erika ID = [id number] for Selena Soria ANAEROBIC [id number] 03:45:00 Test Item Value Reference Range Interpretation Comments CULTURE (BEAKER) (test No anaerobes isolated code = 1095) TISSUE [id number] 15:59:00Surgical Pathology Report Case: [id number] Authorizing Provider: Jimenez Mcintosh MD Collected: 04/17/2017 1759 Ordering Location: [facility] PERIOPERATIVE Received: 04/18/2017 0801 SERVICES Pathologist: Antonette Mario MD Specimen: Eyelid, Left, Left eyelid abscess SKIN, LEFT EYELID, ABSCESS, DEBRIDEMENT:- SKIN WITH ABSCESS- GRAM POSITIVE COCCI IN CLUSTERS (BROWN AND BREJOHN) Please correlate with corresponding microbiology cultures. 68028; 08551 x 3Left upper eyelid abscessLeft eyelid abscess [...] code = 1095) WOUND CULTURE + GRAM [id number] 08:51:00 Test Item Value Reference Interpretation Comments [...] No organisms seen (BEAKER) (test code = 498849) Florentin elieser = 21SURGICALLY OBTAINED CULTURE + GRAM [id number] 07:47:00 Test Item Value Reference Range Interpretation Comments CULTURE A 1+ Same organis m has (BEAKER) (test been isolated from code = 1095) cultures(s) of the same body site and collection date . Repeat identifi cation and susceptibil ity testing perform ed only after consultat ion with the [facility] microbiology laboratory.Refe r to previous cultur e ofMethicillin resistant Staphylococcus aureus GRAM STAIN 1+ WBCs RESULT (BEAKER) (test code = 1123) GRAM STAIN No organisms seen RESULT (BEAKER) (test code = 937359) POCT-GLUCOSE [id number] 08:26:00 Test Item Value Reference Range Interpretation Comments POC-GLUCOSE METER 124 mg/dL 70-110 H TESTED AT [facility] 6720 (BEAKER) (test code = [place] 1538) [address] CBC (HEMOGRAM ONLY)2017-04-19 06:23:00 Test Item Value [...] (BEAKER) (test code = 413) 0.00BASIC METABOLIC [id number] 05:40:00 Test Item Value Reference Range Interpretation Comments SODIUM (BEAKER) 140 meq/L 136-145 (test code = 381) POTASSIUM (BEAKER) 3.7 meq/L 3.5-5.1 (test code = 379) CHLORIDE (BEAKER) 106 meq/L 98-107 (test code = 382) [facility] (test 26 meq/L 22-29 code = 355) BLOOD UREA NITROGEN 4 mg/dL 7-21 L ([facility]) (test code = 354) CREATININE ([facility]) 0.69 mg/dL 0.57-1.25 (test code = 358) GLUCOSE RANDOM 132 mg/dL 70-105 H ([facility]) (test code = 652) CALCIUM (BEAKER) 8.6 mg/dL 8.4-10.2 (test code = 697) EGFR ([facility]) (test 91 mL/min/1.73 ESTIMA ANIA GFR IS code = 1092) sq m NOT ACCURATE CREATININE CLEARANCE IN PREDICTING GLOMERULAR FILTRATION RATE . ESTIMATED GFR I S NOT APPLICABLE FOR DIALYSIS PATIEN TS. POCT-GLUCOSE [id number] 21:12:00 Test Item Value Reference Range Interpretation Comments POC-GLUCOSE METER 154 mg/dL 70-110 H TESTED AT [place] [address] ([facility]) (test code = [address] [place] 1538) [address] POCT-GLUCOSE [id number] 16:18:00 Test Item Value Reference Range Interpretation Comments POC-GLUCOSE METER 137 mg/dL 70-110 H TESTED AT [place] [address] ([facility]) (test code = [employer] [employer] [place] 1538) [id number] POCT-GLUCOSE [id number] 11:57:00 Test Item Value Reference Range Interpretation Comments POC-GLUCOSE METER 123 mg/dL 70-110 H TESTED AT [place] [address] ([facility]) (test code = [employer] 1538) [id number] POCT-GLUCOSE [id number] 07:25:00 Test Item Value Reference Range Interpretation Comments POC-GLUCOSE METER 126 mg/dL 70-110 H TESTED AT [place] [address] ([facility]) (test code = [employer] 1538) [id number] 05:33:00 Test Item Value Reference Range Interpretation Comments MAGNESIUM ([facility]) (test code = 2.4 mg/dL 1.6-2.6 627) POCT-GLUCOSE [id number] 23:17:00 Test Item Value Reference Range Interpretation Comments POC-GLUCOSE METER 165 mg/dL 70-110 H TESTED AT [place] [address] ([facility]) (test code = TIMMY [place] 1538) [id number] POCT-GLUCOSE [id number] 18:35:00 Test Item Value Reference Range Interpretation Comments POC-GLUCOSE METER 110 mg/dL 70-110 TESTED AT [facility] (BEAKER) (test code = [place] 1538) [id number] CBC W/PLT COUNT & AUTO [id number] 14:01:00 Test Item Value Reference Range Interpretation [...] (BEAKER) (test code = Normal 762) POCT-GLUCOSE [id number] 12:17:00 Test Item Value Reference Range Interpretation Comments POC-GLUCOSE METER 131 mg/dL 70-110 H TESTED AT [facility] (BEAKER) (test code = TIMMY [place] [facility] 1538) [id number] POCT-GLUCOSE [id number] 08:36:00 Test Item Value Reference Range Interpretation Comments POC-GLUCOSE METER 128 mg/dL 70-110 H TESTED AT [facility] (BEAKER) (test code = [facility] 1538) [id number] 06:13:00 Test Item Value Reference Range Interpretation Comments MAGNESIUM (BEAKER) (test code = 2.1 mg/dL 1.6-2.6 627) BASIC METABOLIC [id number] 06:13:00 Test Item Value Reference Range Interpretation [...] 8.4-10.2 (test code = 697) EGFR ([facility]) (test 101 mL/min/1.73 ESTIM ATED GFR IS code = 1092) sq m NOT ACCURATE CREATININE CLEARANCE IN PREDICTING GLOMERULAR FILTRATION RATE . ESTIMATED GFR I S NOT APPLICABLE FOR DIALYSIS PATIEN TS. POCT-GLUCOSE [id number] 20:32:00 Test Item Value Reference Range Interpretation Comments POC-GLUCOSE METER 131 mg/dL 70-110 H TESTED AT [place] [address] ([facility]) (test code = [facility] 1538) [id number] POCT-GLUCOSE [id number] 19:08:00 Test Item Value Reference Range Interpretation Comments POC-GLUCOSE METER 126 mg/dL 70-110 H TESTED AT [place] [address] ([facility]) (test code = [facility] 1538) [id number] POCT-GLUCOSE [id number] 12:51:00 Test Item Value Reference Range Interpretation Comments POC-GLUCOSE METER 178 mg/dL 70-110 H TESTED AT [place] [address] ([facility]) (test code = [facility] 1538) [id number] POCT-GLUCOSE [id number] 08:42:00 Test Item Value Reference Range Interpretation Comments POC-GLUCOSE METER 131 mg/dL 70-110 H TESTED AT [place] [address] ([facility]) (test code = [facility] 1538) [id number] CBC W/PLT COUNT & AUTO [id number] 06:32:00 Test Item Value Reference Range Interpretation Comments WHITE BLOOD CELL COUNT ([facility]) 8.2 K/ L 4.0-10.0 (test code = 775) RED BLOOD CELL COUNT ([facility]) 4.07 M/ L 4.00-5.00 (test code = 761) HEMOGLOBIN ([facility]) (test code = 12.5 GM/DL 12.0-15.0 410) HEMATOCRIT ([facility]) (test code = 37.0 % 36.0-45.0 411) MEAN CORPUSCULAR VOLUME ([facility]) 91.0 fL 82.0-99.0 (test code = 753) MEAN CORPUSCULAR HEMOGLOBIN 30.8 pg 27.0-33.0 ([facility]) (test code = 751) MEAN CORPUSCULAR HEMOGLOBIN [...] K/ L 0.00-0.20 (test code = 417) [id number] 05:46:00 Test Item Value Reference Range Interpretation Comments MAGNESIUM (BEAKER) (test code = 2.2 mg/dL 1.6-2.6 627) BASIC METABOLIC [id number] 05:46:00 Test Item Value Reference Range Interpretation [...] 358) GLUCOSE RANDOM 129 mg/dL 70-105 H (AKER) (test code = 652) CALCIUM (BEAKER) 8.8 mg/dL 8.4-10.2 (test code = 697) EGFR (BEAKER) (test 97 mL/min/1.73 ESTIMA ANIA GFR IS code = 1092) sq m NOT ACCURATE CREATININE CLEARANCE IN PREDICTING GLOMERULAR FILTRATION RATE . ESTIMATED GFR I S NOT APPLICABLE FOR DIALYSIS PATIEN TS. POCT-GLUCOSE [id number] 21:26:00 Test Item Value Reference Range Interpretation Comments POC-GLUCOSE METER 150 mg/dL 70-110 H TESTED AT [facility] ([facility]) (test code = [facility] 1538) [id number] POCT-GLUCOSE [id number] 18:03:00 Test Item Value Reference Range Interpretation Comments POC-GLUCOSE METER 102 mg/dL 70-110 TESTED AT [facility] ([facility]) (test code = [facility] 1538) [id number] HCG, QUANTITATIVE, [id number] 14:05:00 Test Item Value Reference Range Interpretation Comments GONADOTROPIN, CHORIONIC (HCG) QUANT < mIU/mL 0-10 ([facility]) (test code = 649) Non- Females: <10 mIU/mL Females: Gestation Age Reference Range(mIU/mL) 0.2-1 Week 5-50 1-2 Weeks 50-500 2-3 Weeks 100-5,000 3-4 Weeks 500-10,000 4-5 Weeks 1,000-50,000 5-6 Weeks 10,000-100,000 6-8 Weeks 15,000- 200,000 2-3 Months 10,000-100,000BASIC METABOLIC [id number] 14:02:00 Test Item Value Reference Range Interpretation [...] NOT APPLICABLE FOR DIALYSIS PATIEN TS. HEMOGLOBIN [id number] 13:58:00 Test Item Value Reference Range Interpretation Comments HEMOGLOBIN A1C (BEAKER) (test code = 6.7 % 4.3-6.1 H 368) CBC W/PLT COUNT & AUTO [id number] 13:39:00 Test Item Value Reference Range Interpretation [...] L 0.00-0.20 (test code = 417) 0.00POCT-GLUCOSE [id number] 11:42:00 Test Item Value Reference Range Interpretation Comments POC-GLUCOSE METER 124 mg/dL 70-110 H TESTED AT [facility] (BEAKER) (test code = [place] 1538) [id number]
[2023-08-20 16:04] LABS: Absolute Lymphocytes (CBC) 2.8 K/uL (0.7-4.9); Hematocrit 42.4 % (36.0-45.0); Lymphocytes % 30.9 % (15.3-44.8); MCV 86.2 fL (80-100); MPV 6.7 fL (7.6-11.3); Platelets 265 thou/uL (152-406); RBC Red Blood Cell Count 4.91 M/uL (3.86-4.86)
[2023-08-20 16:28] LABS: Magnesium 1.9 mg/dL (1.6-2.4); Troponin High Sensitivity 4.3 pg/mL (<58.9)
--- NOTE | 2023-08-20 16:31 | RAD REPORT ---
EXAM DESCRIPTION: RAD - Chest Single View - 08/20/2023 4:20 pm CLINICAL HISTORY: DYSPNEA Chest pain. COMPARISON: Chest Pa And Lat (2 Views) dated 08/19/2023; Chest Single View dated 11/14/2022; Chest Sing le View dated 07/09/2022; Chest Single View dated 12/20/2021 FINDINGS: Portable technique limits examination quality. The lungs are grossly clear. The heart is normal in size. No displaced fractures. IMPRESSION: No acute intrathoracic process suspected.
--- NOTE | 2023-08-20 16:34 | RAD REPORT ---
EXAM DESCRIPTION: CT - Chest Angio - 08/20/2023 4:19 pm CLINICAL HISTORY: Chest pain. DYSPNEA COMPARISON: No comparisons TECHNIQUE: CT angiogram of the pulmonary arteries was performed with MIP. All CT scans are performed using dose optimization technique as appropriate and may include automated exposure control or mA/KV adjustment according to patient size. FINDINGS: No evidence of pulmonary thromboembolism. No acute aortic finding demonstrated. There is mild bilateral interstitial pulmonary edema. No significant pericardial or pleural fluid. No concerning bony finding. IMPRESSION: No evidence of pulmonary thromboembolism. Mild interstitial pulmonary edema.
[2023-08-20] MEDS ORDERED: Ringers Lactate 1,000 ML IV ONE (17:40)
--- NOTE | 2023-08-20 20:08 | RAD REPORT ---
EXAM DESCRIPTION: US - Extremity Venous Uni Ltd - 08/20/2023 8:03 pm CLINICAL HISTORY: SWELLING Leg swelling and edema. COMPARISON: Extremity Venous Uni Ltd dated 09/04/2016 FINDINGS: Left lower extremity venous system was interrogated with Doppler technique. Normal flow, c ompressibility and augmentation was noted. There is no DVT present. IMPRESSION: No evidence of left lower extremity deep venous thrombosis.
--- NOTE | 2023-08-20 20:18 | ER ---
Nurse's Notes [facility] Name: Sharon Babin Age: 53 yrs Sex: Female : 1970 Arrival Date: 08/20/2023 Time: 14:47 Bed 9 Private MD: Diagnosis: Dyspnea Presentation: 08/20 15:29 Chief complaint: Sent by Dr. Medina for elevated D Dimer. Pt reports SOB x 2 weeks, hb intermittent sharp chest pain since last night, home SpO2 80 this morning. Coronavirus screen: Client presents with at least one sign or symptom that may indicate coronavirus-19. Provider contacted for isolation considerations. Ebola Screen: No symptoms or risks identified at this time. Initial Sepsis Screen: Does the patient meet any 2 criteria? No. Patient's initial sepsis screen is negative. Does the patient have a suspected source of infection? No. Patient's initial sepsis screen is negative. Risk Assessment: Do you want to hurt yourself or someone else? Patient reports no desire to harm self or others. Onset of symptoms was August 06, 2023. 15:29 Method Of Arrival: Wheelchair hb 15:29 Acuity: XIMENA 2 hb Historical: - Allergies: 16:24 No Known Allergies; hb - PMHx: 16:10 Diabetes - NIDDM; Fibromyalgia; Hypercholesterolemia; Hypertension; Hypothyroidism; tm6 Lupus; - PSHx: 16:10 Tummy tuck; mass removed from sinus; Elbow; section; Carpal tunnel sx; breast tm6 augmentation; back sx; - Immunization history:: Adult Immunizations up to date. - Social history:: Smoking status: unknown. Screenin:07 [facility] ED Fall Risk Assessment (Adult) History of falling in the last 3 months, tm6 including since admission No falls in past 3 months (0 pts). Abuse screen: Denies threats or abuse. Denies injuries from another. Nutritional screening: No deficits noted. Tuberculosis screening: No symptoms or risk factors identified. Assessment: 16:05 General: Appears uncomfortable, Behavior is calm, cooperative. Neuro: Level of tm6 Consciousness is awake, alert, obeys commands. Cardiovascular: Capillary refill < 3 seconds Patient's skin is warm and dry. Rhythm is sinus tachycardia. Respiratory: Airway is patent Respiratory effort is even, unlabored, Respiratory pattern is regular, symmetrical. GI: Abdomen is round non-distended. : No signs and/or symptoms were reported regarding the genitourinary system. EENT: No signs and/or symptoms were reported regarding the EENT system. Derm: No signs and/or symptoms reported regarding the dermatologic system. Musculoskeletal: No signs and/or symptoms reported regarding the musculoskeletal system. 17:40 Reassessment: Patient appears in no apparent distress at this time. Patient and/or iw family updated on plan of care and expected duration. Pain level reassessed. Patient is alert, oriented x 3, equal unlabored respirations, skin warm/dry/pink. Pain: Complains of pain in back. 20:07 Reassessment: No changes from previously documented assessment. Patient and/or family vc1 updated on plan of care and expected duration. Pain level reassessed. Patient is alert, oriented x 3, equal unlabored respirations, skin warm/dry/pink. Vital Signs: 15:29 BP 135 / 65; Pulse 124; Resp 24; Temp 98.2; Pulse Ox 91% on R/A; Weight 103.42 kg; hb Height 5 ft. 6 in. ; Pain 7/10; 16:06 BP 127 / 70; Pulse 121; Resp 19; Pulse Ox 94% on R/A; tm6 16:33 BP 155 / 64; Pulse 119; Resp 15; Temp 99(O); Pulse Ox 93% on R/A; tm6 18:31 BP 135 / 58; Pulse 103; Resp 16; Temp 98.9(O); Pulse Ox 99% on R/A; iw 20:07 BP 116 / 80; Pulse 114; Resp 18; Pulse Ox 97% ; vc1 15:29 Body Mass Index 36.80 (103.42 kg, 167.64 cm) hb 15:29 Pain Scale: Adult hb ED Course: 14:49 Patient arrived in ED. rg4 14:59 Leo Cano DO is Attending Physician. ms3 15:30 Triage completed. hb 15:30 Arm band placed on. hb 15:37 Eliezer Freeman, KRISS is Primary Nurse. tm6 16:06 Inserted saline lock: 22 gauge in right forearm, using aseptic technique. Blood ds4 collected. 16:07 Patient has correct armband on for positive identification. Bed in low position. Side tm6 rails up X2. Provided Education on: labs and ekg. Client placed on continuous cardiac and pulse oximetry monitoring. NIBP monitoring applied. pvc monitor on. Door closed. Noise minimized. 16:21 CT Chest Angio In Process Unspecified. EDMS 16:22 XRAY Chest (1 view) In Process Unspecified. EDMS 17:28 Attending Physician role handed off by Leo Cano DO rt 17:28 Bang Lyons MD is Attending Physician. rt 17:40 Primary Nurse role handed off by Eliezer Freeman RN iw 17:40 Kira Gracia RN is Primary Nurse. iw 18:32 No provider procedures requiring assistance completed. iw 20:05 Extremity Venous Uni Ltd US In Process Unspecified. EDMS 20:42 IV discontinued, intact, bleeding controlled, No redness/swelling at site. Pressure vc1 dressing applied. Administered Medications: 17:32 Drug: Lactated Ringers Solution IV 500 ml IV at bolus bolus Route: IV; Rate: bolus; iw Site: right forearm; Medication: 16:11 VIS not applicable for this client. tm6 Outcome: 20:18 Discharge ordered by . rt 20:42 Discharged to home via wheelchair, vc1 20:42 Condition: good 20:42 Discharge instructions given to patient, Instructed on discharge instructions, follow up and referral plans. Demonstrated understanding of instructions, follow-up care, 20:42 Patient left the ED. vc1 Signatures: Dispatcher [employer] Kira Galloway, KRISS MONTERROSO iw Scottie Jameson ds4 Aga Tinajero RN RN hb Garcia, Rubi rg4 Leo Cano DO DO ms3 Eleni Whiting RN RN vc1 Bang Lyons MD MD rt Eliezer Freeman RN RN tm6
--- NOTE | 2023-08-20 20:18 | EDPHYS ---
Physician Documentation [facility] Name: Sharon Babin Age: 53 yrs Sex: Female : 1970 Arrival Date: 08/20/2023 Time: 14:47 Bed 9 Private MD: ED Physician Bang Lyons HPI: 08/20 16:10 This 53 yrs old Female presents to ER via Wheelchair with complaints of ms3 Abnormal Lab Results. 16:10 53-year-old female presents to the emergency department for blood work that was drawn ms3 yesterday at Dr. Dori Medina's office. Patient states she had a positive D-dimer.. Patient notes she has had shortness of breath for 2 weeks. Patient denies any alleviating or inciting factors. Historical: - Allergies: 16:24 No Known Allergies; hb - PMHx: 16:10 Diabetes - NIDDM; Fibromyalgia; Hypercholesterolemia; Hypertension; Hypothyroidism; tm6 Lupus; - PSHx: 16:10 Tummy tuck; mass removed from sinus; Elbow; section; Carpal tunnel sx; breast tm6 augmentation; back sx; - Immunization history:: Adult Immunizations up to date. - Social history:: Smoking status: unknown. ROS: 16:10 Constitutional: Negative for fever, and chills. Neck: Negative for injury, pain, and ms3 swelling, Cardiovascular: Negative for chest pain, and palpitations. 16:10 Abdomen/GI: Negative for abdominal pain, nausea, vomiting, diarrhea, and constipation, MS/Extremity: Negative for injury and deformity, Skin: Negative for injury, rash, and discoloration, 16:10 Respiratory: Positive for shortness of breath, 16:10 All other systems are negative, Exam: 16:10 Constitutional: This is a well developed, well nourished patient who is awake, alert, ms3 and in no acute distress. Head/Face: Normocephalic, atraumatic. Neck: Trachea midline, no cervical lymphadenopathy. Supple, full range of motion without nuchal rigidity, or vertebral point tenderness. No Meningismus. Chest/axilla: Normal chest wall appearance and motion. Nontender with no deformity. Cardiovascular: Regular rate and rhythm with a normal S1 and S2. No gallops, murmurs, or rubs. Normal PMI, no JVD. No pulse deficits. 16:10 Respiratory: Lungs have equal breath sounds bilaterally, clear to auscultation and percussion. No rales, rhonchi or wheezes noted. No increased work of breathing, no retractions or nasal flaring. Abdomen/GI: Soft, non-tender, with normal bowel sounds. No distension or tympany. No guarding or rebound. No evidence of tenderness throughout. Skin: Warm, dry with normal turgor. Normal color with no rashes, no lesions, and no evidence of cellulitis. MS/ Extremity: Pulses equal, no cyanosis. Neurovascular intact. Full, normal range of motion. 17:26 ECG was reviewed by the Attending Physician. ms3 Vital Signs: 15:29 BP 135 / 65; Pulse 124; Resp 24; Temp 98.2; Pulse Ox 91% on R/A; Weight 103.42 kg; hb Height 5 ft. 6 in. ; Pain 7/10; 16:06 BP 127 / 70; Pulse 121; Resp 19; Pulse Ox 94% on R/A; tm6 16:33 BP 155 / 64; Pulse 119; Resp 15; Temp 99(O); Pulse Ox 93% on R/A; tm6 18:31 BP 135 / 58; Pulse 103; Resp 16; Temp 98.9(O); Pulse Ox 99% on R/A; iw 20:07 BP 116 / 80; Pulse 114; Resp 18; Pulse Ox 97% ; vc1 15:29 Body Mass Index 36.80 (103.42 kg, 167.64 cm) hb 15:29 Pain Scale: Adult hb MDM: 15:33 Patient medically screened. ms3 16:10 Differential diagnosis: CHF exacerbation, pulmonary edema, Pulmonary Embolism. ms3 20:19 Data reviewed: vital signs, nurses notes, lab test result(s), EKG, radiologic studies. rt Counseling: I had a detailed discussion with the patient and/or guardian regarding the historical points, exam findings, and any diagnostic results supporting the discharge/admit diagnosis, lab results, radiology results, the need for outpatient follow up. Response to treatment: the patient's symptoms have markedly improved after treatment. 08/20 15:32 Order name: Basic Metabolic Panel; Complete Time: 17:18 ms3 08/20 15:32 Order name: CBC with Diff; Complete Time: 16:30 ms3 08/20 15:32 Order name: Magnesium; Complete Time: 17:18 ms3 08/20 15:32 Order name: NT PRO-BNP; Complete Time: 17:18 ms3 08/20 15:32 Order name: Troponin HS; Complete Time: 17:18 ms3 08/20 15:32 Order name: XRAY Chest (1 view); Complete Time: 17:18 ms3 08/20 15:32 Order name: CT Chest Angio; Complete Time: 17:18 ms3 08/20 19:02 Order name: Extremity Venous Uni Ltd US; Complete Time: 20:13 rt 08/20 15:32 Order name: EKG; Complete Time: 15:33 ms3 08/20 15:32 Order name: Cardiac monitoring; Complete Time: 16:12 ms3 08/20 15:32 Order name: EKG - Nurse/Tech; Complete Time: 16:06 ms3 08/20 15:32 Order name: IV Saline Lock; Complete Time: 16:06 ms3 08/20 15:32 Order name: Labs collected and sent; Complete Time: 16:06 ms3 08/20 15:32 Order name: O2 Per Protocol; Complete Time: 16:06 ms3 08/20 15:32 Order name: O2 Sat Monitoring; Complete Time: 16:06 ms3 EC:26 Rate is 117 beats/min. Rhythm is regular. QRS [place] is Normal. WA interval is normal. ms3 Clinical impression: Sinus tachycardia. Interpreted by me. Reviewed by me. Administered Medications: 17:32 Drug: Lactated Ringers Solution IV 500 ml IV at bolus bolus Route: IV; Rate: bolus; iw Site: right forearm; Disposition Summary: 08/20/23 20:18 Discharge Ordered Notes: Location: Home rt Problem: an ongoing problem rt Symptoms: have improved rt Condition: Stable rt Diagnosis - Dyspnea rt Followup: rt - With: Private Physician - When: Tomorrow - Reason: Discharge Instructions: - Discharge Summary Sheet ms3 - Shortness of Breath, Adult ms3 Forms: - Medication Reconciliation Form rt - Thank You Letter rt - Antibiotic Education rt - Prescription Opioid Use rt - Patient Portal Instructions rt - Leadership Thank You Letter rt Signatures: Dispatcher [employer] Kira Galloway RN RN Aga Tinajero RN RN Leo Cano DO DO ms3 Bang Lyons MD MD rt Eliezer Freeman, RN RN tm6
[2023-08-20 21:28] VITALS: TEMP 99.3
[2023-08-20 21:34] VITALS: BP 119/66; O2SAT 97
--- NOTE | 2023-08-23 14:18 | EKG ---
Test Date: 2023-08-20 Test Time: 17:03:18 Staff Services Manager: RACHELE MEASUREMENT RESULTS: Intervals: Rate: 117 AK: 178 QRSD: 94 QT: 264 QTc: 368 [place]: P: 67 AK: 178 QRS: 77 T: 59 INTERPRETIVE STATEMENTS: Sinus tachycardia Low voltage QRS Borderline ECG Compared to ECG 08/19/2023 14:24:34 Myocardial infarct finding no longer present Electronically Signed On 08-23-23 14:09:56 TECHNOLOGY TRAINING ASSOCIATE by Miguelangel Mckeon
== END 2023-08-20 20:42 | disposition home or self-care (01) ==
LOC: ER 14:47
DX: R06.00 Dyspnea, unspecified (principal); R79.89 Other specified abnormal findings of blood chemistry; E11.9 Type 2 diabetes mellitus without complications; I10 Essential (primary) hypertension; Z98.82 Breast implant status
CPT/HCPCS: 93005; 85025; 80048; 36415; 83735; 84484; 83880; 71275; 71045; 93971; 99285; Q9967; J7120

== ENCOUNTER 2023-08-21 06:51 | Inpatient (IN) | payer BC ==
[2023-08-19 13:31] LABS: Absolute Lymphocytes (CBC) 1.8 K/uL (0.7-4.9); MCV 84.3 fL (80-100); MPV 6.4 fL (7.6-11.3); Platelets 244 thou/uL (152-406); RBC Red Blood Cell Count 4.62 M/uL (3.86-4.86)
[2023-08-19 13:52] LABS: Potassium 3.8 mEq/L (3.5-5.1)
[2023-08-21] MEDS ORDERED: NA CHLORIDE 0.9% 1,000 ML ONE ×2 (07:19→09:30)
[2023-08-21] MEDS ORDERED: FENTANYL CITR 100 MCG/2 ML ONE (07:50)
[2023-08-21] MEDS ORDERED: propofoL 200 MG/20 ML VIAL IV ONE (07:51)
[2023-08-21] MEDS ORDERED: MIDAZOLAM HCL 2 MG/2 ML INJ ONE (07:51)
[2023-08-21] MEDS ORDERED: dexAMETHasone 10 MG/ML VIAL ONE (07:51)
[2023-08-21] MEDS ORDERED: ONDANSETRON 4 MG/2 ML VIAL ONE (07:51)
[2023-08-21] MEDS ORDERED: LIDOCAINE 2% MPF 5 ML VIAL ONE (07:51)
[2023-08-21] MEDS ORDERED: ESMOLOL HCL 10 ML IV ONE (07:51)
[2023-08-21] MEDS ORDERED: KETOROLAC 30 MG/ML INJ ONE (07:51)
[2023-08-21] MEDS ORDERED: Phenylephrine HCl 10 MG/ML 1 ML VIAL ONE (08:21)
[2023-08-21] MEDS ORDERED: NS 0.9% VIAL 10 ML ONE (08:22)
[2023-08-21] MEDS ORDERED: VANCOMYCIN 1.25 GM in NA CHLORIDE 0.9% 250 ML IVPB ONE (09:00)
[2023-08-21] MEDS: HYDROMORPHONE HCL 1 MG/ML INJ ONE ×3 (09:15→09:25)
[2023-08-21] MEDS: FENTANYL CITR 100 MCG/2 ML ONE ×2 (09:35→09:45)
[2023-08-21] MEDS ORDERED: HYDROMORPHONE HCL 1 MG/ML INJ ONE (09:35)
--- NOTE | 2023-08-21 10:17 | RAD REPORT ---
EXAM DESCRIPTION: RAD - Ankle Left 2 View - 08/21/2023 9:55 am CLINICAL HISTORY: Ankle fracture. FINDINGS: 3 fluoroscopic intraoperative films obtained Plate and screws affix distal fibula/tibia fractures. Surgery performed to remove the hardware Fluoroscopy time 0 minutes Surgery performed by Dr. Villareal
[2023-08-21 10:43] VITALS: O2SAT 98
[2023-08-21] MEDS: MEPERIDINE HCL 25 MG/ML SYR ONE ×2 (11:00→12:15)
--- NOTE | 2023-08-21 12:04 | OP ---
Date of Procedure: 08/21/2023 Surgeon: Victor Hugo Villareal MD Preoperative Diagnosis: Left ankle pain directly overlying previous open reduction and internal fixa tion of ankle with retained hardware. Postoperative Diagnosis: Left deep abscess of this area with possible involvement of the hardware an d bone. Procedure: Left ankle incision, drainage, and debridement of this area of abscess including the use of rongeur, scalpel, scissors. Also removal of retained left fibular plate. Estimated Blood Loss: 20 cc. Complications: There were no complications. Specimen: There is a culture sent. Indications For Operation: Ms. Babin is a patient who is well known to me. Approximately 7 years ago, she had tibia and fibular fracture, which were treated by me with intramedullary jet of the tibi a as well as open reduction and internal fixation of the lateral malleolus. She went on to uneventfu l healing and was doing extremely well until approximately 2 weeks ago. Two weeks ago, she started s aying that she was feeling some pain related to her ankle. It was a little tender to touch and was c ausing her a little difficulty. She came to see me. X-rays were taken at that time, which demonstra maribel healed fractures of the tibia and fibula and decision was made to place her into a fracture boot, perhaps unload this and see whether or not she is having simple irritation for some reason related t o the plate as she had been very stable for 7 years. Unfortunately, her pain began increasing and mckenna lucio came to see me in my office with increasing pain, now with a little erythema in this area and vince ion was made to move forward as quickly as possible with plate removal as this was probably causing s ignificant irritation, although at this point, it did not really have any consideration that this may be infected as there is no significant risk factors for this other than her diabetes as her plate marie d been there for 7 years. Unfortunately, as she is going through preop, notified that her primary ca re physician had sent her earlier in that week for stat cardiac labs and was very concerned about jose e possible cardiac involvement. This involved multiple interactions with Anesthesia as well as the [facility] doctor and while they are trying to get this done as sufficiently and as quickly as would be safe as infection was still on the differential, although not heavily suspected and risks, benefi ts, and alternatives to different methods of treating this were discussed with the patient. She stat es she understands things as described. We do not give her any antibiotics before the operation win use there is the small possibility of infection preoperatively. Description Of Procedure: Patient was taken to the operating room. General anesthesia was obtained by Anesthesia staff. Following this, a well-padded tourniquet was placed on superior left thigh and left lower extremity was then prepped and draped in the usual sterile fashion for the procedure. Aft er this, the leg was then elevated, but not exsanguinated and tourniquet was raised and C-arm was bro ught in to leonid out the position of the fibular plate and the previous incision was then exploited ca refully through skin only. After approximately 0.5 cm skin incision, there was liberation of shabana p us, probably about 15 mL. This was then cultured and irrigation was used as well as exploration to s ee whether or not this appeared to communicate more deeply or whether this was a simple loculated are a. The plate was visible after decompression of the abscess and decision was made to proceed with ex posure of the plate, screws, and bone. The plate, screws, and bone were then exposed in total. The screws were removed. The bone itself did not appear to have any ill affects from infection and the p late was removed. After this, it was again irrigated and debridement was done in the area removing a nything that appeared to be nonviable. No pieces of bone were taken. There was no bone culture done . The wound was again irrigated with multiple liters of sterile saline. Following this, the skin wa s then closed using a far-near, near-far nylon sutures. Patient was placed in a well-padded sterile dressing, awakened, and taken to the recovery room in good condition. There were no complications. SE/MODL Voice ID: [id number] Report ID: [id number]
--- NOTE | 2023-08-21 12:42 | P.HP ---
Certification for Inpatient Patient admitted to: Inpatient With expected LOS: >2 Midnights Practitioner: I am a practitioner with admitting privileges, knowledge of patient current condition, hospital course, and medical plan of care. Services: Services provided to patient in accordance with Admission requirements found in Title 42 Section 412.3 of the Code of Federal Regulations Patient History Date of Service: 08/21/23 Reason for admission: LEFT ANKLE INFECTION History of Present Illness: JUAN A HAS HAD PAIN IN L ANKLE FOR A WEEK. SHE REPORTS TO DR. DEVINE AND TODAY HAD SURGERY FOR INFECTED ANKLE, REMOVAL OF HARDWARE FROM 7 YEARS AGO AND NOW IV ABX AT [facility]. SHE HAS EXTENSIVE PSYCH HISTORY WITH ANXIETY, BIPOLAR, INSOMNIA ETC. GOES TO PSYCH MD. DR ROSALES Allergies No Known Allergies Allergy (Verified 12/26/20 11:26) Home medications list reviewed: Yes Home Medications: Buprenorphine HCl/Naloxone HCl [Suboxone 8 mg-2 mg Sl Film] 1 film SL BID 04/03/17 Buspirone HCl 1 tab PO QID 04/03/17 Desvenlafaxine Succinate [Pristiq] 1 tab PO DAILY 04/03/17 Metformin HCl [Glucophage] 1 tab PO BID 04/03/17 Milnacipran HCl [Savella] 1 tab PO BID 04/03/17 Omeprazole [Prilosec] 1 cap PO DAILY 04/03/17 Potassium 30 meq PO DAILY 04/03/17 oxyBUTYnin chloride [Ditropan*] 5 mg PO BID 04/03/17 Propranolol [Inderal LA*] 60 mg PO DAILY #30 cap 04/08/17 Bupropion *Xl* [Wellbutrin XL*] 150 mg PO DAILY 12/14/19 Cyclobenzaprine [Flexeril*] 10 mg PO TID PRN 12/14/19 Furosemide [Lasix*] 1 tab PO DAILY 08/24/20 Levothyroxine Sodium 25 mcg PO [id number] 08/24/20 clonazePAM [Clonazepam] 1 mg PO TID 12/26/20 diazePAM [Valium] 10 mg PO BEDTIME 12/26/20 - Past Medical/Surgical History Diabetic: Yes -: Anxiety -: Diabetes -: Fibromyalgia -: Hypertension -: Spinal Stenosis -: Lupus -: Depression -: Bipolar disorder -: Muscle spasm -: Cervical Stenosis -: Back surgery-2006 -: Carpal tunnel -: -: Breast Augmentation -: Tummy Tuck -: Elbow Surgery -: Orif femur - Family History Father -: Heart disease Mother -: Other (see notes) Notes: Neurological condition - Social History Alcohol use: No CD- Drugs: No Caffeine use: Yes Review of Systems 10-point ROS is otherwise unremarkable General: Weakness Physical Examination - Vital Signs Temperature: 97.5 F Blood Pressure: 142/73 Pulse: 108 Respirations: 18 - Physical Exam General: Oriented x3, Mild distress, Obese HEENT: Atraumatic, PERRLA, Mucous membr. moist/pink, EOMI, Sclerae nonicteric Neck: Supple, 2+ carotid pulse no bruit, No LAD, Without JVD or thyroid abnormality Respiratory: Clear to auscultation bilaterally, Normal air movement Cardiovascular: Regular rate/rhythm, Normal S1 S2 Gastrointestinal: Normal bowel sounds, No tenderness Musculoskeletal: No tenderness Integumentary: No rashes Neurological: Normal gait, Normal speech, Normal strength at 5/5 x4 extr, Normal tone, Normal affect Lymphatics: No axilla or inguinal lymphadenopathy Assessment and Plan - Problems (Diagnosis) (1) Infection of joint of ankle Current Visit: Yes Status: Acute Plan: IV VANCOMYCIN 4-[address] ROGERS TO FU HE WILL FU AT [facility] ALSO. (2) Moderate bipolar II disorder, depressed, with anxious distress Current Visit: Yes Status: Chronic Plan: CONT MEDS - Advance Directives Does patient have a Living Will: No Does patient have a Durable POA for Healthcare: No
[2023-08-21] MEDS: BUSPIRONE HCL 15 MG TABLET PO SCH ×3 (13:00→21:00)
--- OUTSIDE RECORDS SUMMARY | 2023-08-21 13:04 | XMS REPORT | Continuity of Care Document ---
:1970 Author Organization [facility] t Address [address] [place] [address] [address] [place] [address] Care Team Providers Name Role Phone RENÉE NEGRETE Primary Care Physician Unavailabl e [email or web address] Attending Clinician Unavailable Alexandr Monge MD Attending Clinician [phone] Kris Jensen MD Attending Clinician ALEXANDR [...] - [facility] 00 [place] Bursitis Bursitis Disease Active 2021-10 [facility] right 2-21 [facility] knee knee 00:[facility]: Medical 00 [place] Arthritis, Arthritis, Disease Recurre 2021-[address] septic, septic, hie 12-02 [facility] knee knee 00:00: Medical 00 [place] Diabetes 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, mellitus, nce 04-15 [facility] type 2 type 2 00:00: Medical 00 [place] Opioid Opioid Disease Recurre [facility] dependence dependence nce 04-15 [facility] kes 00:00: Medical 00 Center Orbital Orbital Disease Active [facility] cellulitis cellulitis 04-15 [facility] kes 00:00: Medical 00 Center Allergies, Adverse Reactions, Alerts Allergy Allergy Status Severity Reaction(s) Onset Inactive Treating Comm ents Source Name Type Date Date Clinician NO KNOWN [facility] Social History Social Habit Start Date Stop Date Quantity Comments Source Alcohol intake 2022-10-02 2022-10-[address] [facility] 00:00:00 00:00:00 non-drinker of Medical nter alcohol (finding) Tobacco use and 2022-10-01 2022-10-01 Smokeless [address] [facility] exposure 00:00:00 00:00:00 non-user [facility] Center Sex Assigned At [birth year] [facility]00 [facility] Smoking Status Start Date Stop Date Source Never smoked tobacco [facility] Former smoker 2017-04-15 00:00:00 2017-04-15 00:00:00 [facility] Medications Ordered Filled Start Stop Current Ordering Indication Dosage Frequency Signature Comments Components Source Medication Medication Date Date Medication? Clinician (SIG) Name Name ondansetron 2021-10 Yes 4mg Take [address] (ZOFRAN) 4 2-22 by mouth 4 Ana es MG tablet 14:37: (four) Medica l 36 times Center daily as needed for Nausea. TRIAMTERENE 2021-10 Yes 75mg QD Take [address] [facility] [facility] ORAL 2-22 by mouth [facility] 14:37: daily . [place] [id number] Center clonazePAM 2021-10 Yes 1mg Take 1 [...] Center times daily. TiZANidine 2021-10 Yes 4mg Q.[id number] Take [address] (ZANAFLEX) 2-22 [id number] by mouth 3 [facility] 4 MG 14:37: [...] Center times daily. TiZANidine 2021-10 Yes 4mg Q.59567229 Take [address] (ZANAFLEX) 2-22 [id number] by mouth 3 [facility] 4 MG 14:37: [...] Center times daily. TiZANidine 2021-10 Yes 4mg Q.11360484 Take [address] (ZANAFLEX) 2-22 [id number] by mouth 3 [facility] 4 MG 14:37: [...] Center times daily. TiZANidine 2021-10 Yes 4mg Q.20002975 Take [address] (ZANAFLEX) 2-22 [id number] by mouth 3 [facility] 4 MG 14:37: [...] Center times daily. TiZANidine 2021-10 Yes 4mg Q.32613995 Take [address] [facility] (ZANAFLEX) 2-22 [id number] by mouth 3 [facility] 4 MG 14:37: 3D (three) Medical capsule 36 times Center daily. gabapentin 2021-10 Yes 400mg Q.5D Take [address] (NEURONTIN) 2-22 mg by [facility] 400 MG 14:37: mouth 2 Medical capsule 36 (two) Center times daily. levothyroxi 2021-10 Yes 25ug Take [address] ne 2-22 mcg by Renetta (SYNTHROID, 14:37: mouth Medic al LEVOTHROID) 36 Every Center 25 MCG morning on tablet an empty stomach. mupirocin 2021-10 Yes 30g Q.5D Apply 30 [...] Q.5D Take [address] (MONODOX) 12-04- capsule [facility] 100 MG 00:00: 23:59 (100 mg Medical capsule 00 :00 total) by Center mouth 2 (two) times daily for 14 days. amoxicillin 2021-10- No 1{tbl} Q.5D Take [address] -clavulanat 12-04- tablet by Kathryn martinez e 00:00: 23:59 mouth 2 Medical (AUGMENTIN) 00 :00 (two) Center 875-125 mg times per tablet daily for 14 days. doxycycline 2021-10- No 100mg Q.5D Take [address] (MONODOX) -03 11- capsule [facility] 100 MG 00:00: 23:59 [...] Center times daily. TiZANidine 2017-0 Yes 4mg Q.48155176 Take [address] (ZANAFLEX) 7-08 [id number] by mouth 3 [facility] 4 MG 11:17: [...] Center times daily. TiZANidine 2017-0 Yes 4mg Q.60895147 Take [address] (ZANAFLEX) 7-08 [id number] by mouth 3 [facility] 4 MG 11:17: [...] unit/g-0.1 % Oint ophthalmic ointment Immunizations Ordered Filled Immunization Date Status Comments [facility] Immunization Name Name [facility] 2017-04-16 Completed [facility] 00:00:00 [facility] Td 2017-04-16 Completed [facility] 00:00:00 [facility] 2017-04-16 Completed [facility]00 Medical [facility] 2017-04-16 Completed [facility] 00:00:00 [facility] 2017-04-16 Completed [facility] 00:00:00 [facility] Tdap Unknown Completed [facility] Tdap Unknown Completed [facility] Vital Signs Vital Name Observation Time Observation Value Comments Source HEIGHT 2022-10-01 20:56:00 167.6 cm WEIGHT 2022-10-01 20:56:00 96.1 kg HEIGHT 2022-10-01 20:56:00 167.6 cm WEIGHT 2022-10-01 20:56:00 96.1 kg HEIGHT 2022-10-01 20:56:00 167.6 cm WEIGHT 2022-10-01 20:56:00 96.1 kg Systolic blood 2022-10-03 12:00:00 135 mm[Hg] [facility] Diastolic blood 2022-10-03 12:00:00 69 mm[Hg] [facility] Heart rate 2022-10-03 12:00:00 111 /min [facility] Body temperature 2022-10-03 12:00:00 37.06 Yumiko [facility] Respiratory rate 2022-10-03 12:00:00 18 /min [facility] Oxygen saturation in 2022-10-03 12:00:00 96 /min [facility] Arterial blood by Medical Ce nter Pulse oximetry Body height 2022-10-01 20:56:00 167.6 cm [facility] Body weight 2022-10-01 20:56:00 96.1 kg [facility] BMI 2022-10-01 20:56:00 34.20 kg/m2 [facility] Procedures Procedure Date / Time Performed Performing Clinician Sourfede e POCT-GLUCOSE METER 2022-10-03 12:23:00 Alexandr Monge [facility] POCT-GLUCOSE METER 2022-10-03 07:44:00 Alexandr Monge [facility] CBC W/PLT COUNT & AUTO 2022-10-03 04:51:00 Alexandr Monge [facility] BASIC METABOLIC PANEL 2022-10-03 04:51:00 Octavia [facility] MAGNESIUM 2022-10-03 04:51:00 Octavia [facility] HEMOGLOBIN A1C 2022-10-03 04:51:00 Octavia [facility] LIPID PANEL 2022-10-03 04:51:00 Octavia [facility] CBC W/PLT COUNT & AUTO 2022-10-03 04:51:00 Alexandr Monge [facility] POCT-GLUCOSE METER 2022-10-02 21:19:[address] [facility] POCT-GLUCOSE METER 2022-10-02 17:22:[address] [facility] POCT-GLUCOSE METER 2022-10-02 11:51:[address] [facility] HEPATIC FUNCTION PANEL 2022-10-02 05:54:00 Kris Jensen [facility] POCT-GLUCOSE METER 2022-10-02 04:51:[address] [facility] CT LOWER EXTREMITY WITH 2022-10-02 01:55:00 Kris Jensen [facility] RIGHT [facility] POCT-GLUCOSE METER 2022-10-01 23:29:[address] [facility] COMPREHENSIVE METABOLIC 2022-10-01 22:33:[address] [facility] MAGNESIUM 2022-10-01 22:33:00 Kris Jensen [facility] PHOSPHORUS 2022-10-01 22:33:00 Kris Jensen [facility] CBC W/PLT COUNT & AUTO 2022-10-01 22:33:00 Kris Jensen [facility] CBC W/PLT COUNT & AUTO 2022-10-01 22:33:00 Kris Jensen [facility] BLOOD CULTURE 2022-10-01 22:30:00 Kris Jensen [facility] POCT-GLUCOSE METER 2022-10-01 20:51:00 Alexandr Monge [facility] Plan of Care Planned Activity Planned Date Details Comments Source Future Scheduled 2027-04-16 DTAP/TDAP/TD VACCINES ([address] [facility] Test 00:00:00 - Td or Tdap) [code = Medica l Center DTAP/TDAP/TD VACCINES (2 - Td or Tdap)] Future Scheduled 2027-04-16 DTAP/TDAP/TD VACCINES ([address] [facility] Test 00:00:00 - Td or Tdap) [code = Medica l Center DTAP/TDAP/TD VACCINES (2 - Td or Tdap)] Future Scheduled 2027-04-16 DTAP/TDAP/TD VACCINES ([address] [facility] Test 00:00:00 - Td or Tdap) [code = Medica l Center DTAP/TDAP/TD VACCINES (2 - Td or Tdap)] Future Scheduled 2027-04-16 DTAP/TDAP/TD VACCINES ([address] [facility] Test 00:00:00 - Td or Tdap) [code = Medica l Center DTAP/TDAP/TD VACCINES (2 - Td or Tdap)] Future Scheduled 2027-04-16 DTAP/TDAP/TD VACCINES ([address] [facility] Test 00:00:00 - Td or Tdap) [code = Medica l Center DTAP/TDAP/TD VACCINES (2 - Td or Tdap)] Future Scheduled 2025-10-03 Lipid panel (procedure) [facility] 00:00:00 [code = [id number]] Medical Ce nter Future Scheduled 2025-10-03 Lipid panel (procedure) [facility] 00:00:00 [code = 10905594] Medical Ce nter Future Scheduled 2025-10-03 Lipid panel (procedure) [facility] 00:00:00 [code = 26079501] Medical Ce nter Future Scheduled 2025-10-03 Lipid panel (procedure) [facility] 00:00:00 [code = 74547724] Medical Ce nter Future Scheduled 2025-10-03 Lipid panel (procedure) [facility] 00:00:00 [code = 10832097] Medical Ce nter Future Scheduled 2023-10-[address] [facility] Test 00:00:00 Counseling and Screening Med ical Center (12+) [code = Tobacco Cessation Counseling and Screening (12+)] Future Scheduled 2023-10-[address] [facility] Test 00:00:00 Counseling and Screening Med ical Center (12+) [code = Tobacco Cessation Counseling and Screening (12+)] Future Scheduled 2023-10-[address] [facility] Test 00:00:00 Counseling and Screening Med ical Center (12+) [code = Tobacco Cessation Counseling and Screening (12+)] Future Scheduled 2023-10-[address] [facility] Test 00:00:00 Counseling and Screening Med ical Center (12+) [code = Tobacco Cessation Counseling and Screening (12+)] Future Scheduled 2023-10-[address] [facility] Test 00:00:00 Counseling and Screening Med ical Center (12+) [code = Tobacco Cessation Counseling and Screening (12+)] Future Scheduled 2023-06-13 Influenza Vaccine (#1) [facility] 00:00:00 [code = Influenza Vaccine Me dical Center (#1)] Future Scheduled 2023-06-13 Influenza Vaccine (#1) [facility] 00:00:00 [code = Influenza Vaccine Me dical Center (#1)] Future Scheduled 2023-06-13 Influenza Vaccine (#1) [facility] 00:00:00 [code = Influenza Vaccine Me dical Center (#1)] Future Scheduled 2023-04-[address] [facility] k[facility] Test 00:00:00 measurement (procedure) Medi luis Center [code = 83526504] Future Scheduled 2023-04-[address] [facility] Test 00:00:00 measurement (procedure) Medi luis Center [code = 55800954] Future Scheduled 2023-04-[address] [facility] Test 00:00:00 measurement (procedure) Medi luis Center [code = 85532157] Future Scheduled 2023-04-[address] [facility] Test 00:00:00 measurement (procedure) [facility] [code = 34216248] Future Scheduled 2023-04-[address] [facility] k[facility] Test 00:00:00 measurement (procedure) [facility] [code = 56877038] Future Scheduled 2022-06-13 INFLUENZA VACCINE (#1) [facility] 00:00:00 [code = INFLUENZA VACCINE Me dical Center (#1)] Future Scheduled 2022-06-13 INFLUENZA VACCINE (#1) [facility] 00:00:00 [code = INFLUENZA VACCINE Me dical Center (#1)] Future Scheduled 2018 SHINGLES VACCINES (1 [...] [facility] 00:[facility]:00 2) [code = SHINGL Medical Center VACCINES (1 of 2)] Future Scheduled 1989 Screening for malignant [facility] 00:00:00 neoplasm of cervix Medical C enter (procedure) [code = 119367849] Future Scheduled 1989 Screening for malignant [facility] 00:00:00 neoplasm of cervix Medical C enter (procedure) [code = 446215614] Future Scheduled 1989 Screening for malignant [facility] 00:00:00 neoplasm of cervix Medical C enter (procedure) [code = 319926482] Future Scheduled 1989 Screening for malignant [facility] 00:00:00 neoplasm of cervix Medical C enter (procedure) [code = 081824574] Future Scheduled 1989 Screening for malignant [facility] 00:00:00 neoplasm of cervix Medical C enter (procedure) [code = 049200922] Future Scheduled 1986 HEPATITIS C SCREENING CH [...] HEPATITIS C Medical Center SCREENING] Future Scheduled [address] [facility] 00:00:00 virus screening Medical Cent er (procedure) [code = 550923943] Future Scheduled [address] [facility] 00:00:00 virus screening Medical Cent er (procedure) [code = 732038279] Future Scheduled 1978 DIABETIC EYE EXAM [code = [facility] 00:00:00 DIABETIC EYE EXAM] Medical C enter Future Scheduled 1978 Diabetic foot examination [facility] 00:00:00 (regime/therapy) [code = [facility] 985929051] Future Scheduled 1978 Urine screening for [facility] 00:00:00 protein (procedure) [code [facility] = 976596487] Future Scheduled 1978 DIABETIC EYE EXAM [code = [facility] 00:00:00 DIABETIC EYE EXAM] Medical C enter Future Scheduled 1978 Diabetic foot examination [facility] 00:00:00 (regime/therapy) [code = [facility] 601909059] Future Scheduled 1978 Urine screening for [facility] 00:00:00 protein (procedure) [code [facility] = 569358927] Future Scheduled 1978 DIABETIC EYE EXAM [code = [facility] 00:00:00 DIABETIC EYE EXAM] Medical C enter Future Scheduled 1978 Diabetic foot examination [facility] 00:00:00 (regime/therapy) [code = [facility] 249440487] Future Scheduled 1978 Urine screening for [facility] 00:00:00 protein (procedure) [code [facility] = 009253777] Future Scheduled 1978 DIABETIC EYE EXAM [code = [facility] 00:00:00 DIABETIC EYE EXAM] Medical C enter Future Scheduled 1978 Diabetic foot examination [facility] 00:00:00 (regime/therapy) [code = [facility] 058342238] Future Scheduled 1978 Urine screening for [facility] 00:00:00 protein (procedure) [code [facility] = 790696942] Future Scheduled 1978 DIABETIC EYE EXAM [code = [facility] 00:00:00 DIABETIC EYE EXAM] Medical C enter Future Scheduled 1978 Diabetic foot examination [facility] 00:00:00 (regime/therapy) [code = [facility] 551961868] Future Scheduled 1978 Urine screening for [facility] 00:00:00 protein (procedure) [code [facility] = 026857526] Future Scheduled 1974 PNEUMOCOCCAL VACCINE 0-[address] [facility] Test 00:00:00 YRS (1 - PCV) [code = Medica l Center PNEUMOCOCCAL VACCINE 0-64 YRS (1 - PCV)] Future Scheduled 1974 PNEUMOCOCCAL VACCINE 0-[address] [facility] 00:00:00 YRS (1 - PCV) [code = Medica l Center PNEUMOCOCCAL VACCINE 0-64 YRS (1 - PCV)] Future Scheduled 1974 Pneumococcal Vaccine: [facility] 00:00:00 0-64 Years (1 - PCV) Medical Center [code = Pneumococcal Vaccine: 0-64 Years (1 - PCV)] Future Scheduled 1974 Pneumococcal Vaccine: [facility] 00:00:00 0-64 Years (1 - PCV) Medical Center [code = Pneumococcal Vaccine: 0-64 Years (1 - PCV)] Future Scheduled 1974 Pneumococcal Vaccine: [facility] 00:00:00 0-64 Years (1 - PCV) Medical Center [code = Pneumococcal Vaccine: 0-64 Years (1 - PCV)] Future Scheduled 1969-01-29 COVID-19 VACCINE (#1) [facility] 00:00:00 [code = COVID-19 VACCINE Med ical Center (#1)] Future Scheduled 1969-01-29 COVID-19 VACCINE (#1) [facility] 00:00:00 [code = COVID-19 VACCINE Med ical Center (#1)] Future Scheduled 1969-01-29 COVID-19 VACCINE (#1) [facility] 00:00:00 [code = COVID-19 VACCINE Med ical Center (#1)] Future Scheduled 1969-01-29 COVID-19 VACCINE (#1) [facility] 00:00:00 [code = COVID-19 VACCINE Med ical Center (#1)] Future Scheduled 1969-01-29 COVID-19 VACCINE (#1) [facility] 00:00:00 [code = COVID-19 VACCINE Med ical Center (#1)] Future Scheduled 1968 Screening for malignant [facility] 00:00:00 neoplasm of breast Medical C enter (procedure) [code = 585748661] Future Scheduled 1968 CT Colonography (combo) [facility] 00:00:00 [code = CT Colonography [facility] (combo)] Future Scheduled 1968 Screening for malignant [facility] 00:00:00 neoplasm of colon Medical Ce nter (procedure) [code = 014500082] Future Scheduled 1968 Screening for malignant [facility] 00:00:00 neoplasm of colon Medical Ce nter (procedure) [code = 649045715] Future Scheduled 1968 Screening for malignant [facility] 00:00:00 neoplasm of colon Medical Ce nter (procedure) [code = 402681935] Future Scheduled 1968 Screening for malignant [facility] 00:00:00 neoplasm of colon Medical Ce nter (procedure) [code = 256735858] Future Scheduled 1968 Sigmoidoscopy [code = [facility] 00:[facility] S[facility]] [facility] 1968 Screening for malignant [facility] 00:00:00 neoplasm of breast Medical C enter (procedure) [code = 241393175] Future Scheduled 1968 CT Colonography (combo) [facility] 00:00:00 [code = CT Colonography Medi luis Center (combo)] Future Scheduled 1968 Screening for malignant [facility] 00:00:00 neoplasm of colon Medical Ce nter (procedure) [code = 059145700] Future Scheduled 1968 Screening for malignant [facility] 00:00:00 neoplasm of colon Medical Ce nter (procedure) [code = 881638941] Future Scheduled 1968 Screening for malignant [facility] 00:00:00 neoplasm of colon Medical Ce nter (procedure) [code = 657159737] Future Scheduled 1968 Screening for malignant [facility] 00:00:00 neoplasm of colon Medical Ce nter (procedure) [code = 407926898] Future Scheduled 1968 Sigmoidoscopy [code = [facility] 00:00:00 Sigmoidoscopy] Medical Cente r Future Scheduled 1968 Screening for malignant [facility] 00:00:00 neoplasm of breast Medical C enter (procedure) [code = 913015634] Future Scheduled 1968 CT Colonography (combo) [facility] 00:00:00 [code = CT Colonography [facility] (combo)] Future Scheduled 1968 Screening for malignant [facility] 00:00:00 neoplasm of colon Medical Ce nter (procedure) [code = 898125063] Future Scheduled 1968 Screening for malignant [facility] 00:00:00 neoplasm of colon Medical Ce nter (procedure) [code = 445159537] Future Scheduled 1968 Screening for malignant [facility] 00:00:00 neoplasm of colon Medical Ce nter (procedure) [code = 110728497] Future Scheduled 1968 Screening for malignant [facility] 00:00:00 neoplasm of colon Medical Ce nter (procedure) [code = 659148942] Future Scheduled 1968 Sigmoidoscopy [code = [facility] 00:00:00 Sigmoidoscopy] Medical Cente r Future Scheduled 1968 Screening for malignant [facility] 00:00:00 neoplasm of breast Medical C enter (procedure) [code = 632268079] Future Scheduled 1968 CT Colonography (combo) [facility] 00:00:00 [code = CT Colonography Medi luis Center (combo)] Future Scheduled 1968 Screening for malignant [facility] 00:00:00 neoplasm of colon Medical Ce nter (procedure) [code = 651992220] Future Scheduled 1968 Screening for malignant [facility] 00:00:00 neoplasm of colon Medical Ce nter (procedure) [code = 505383013] Future Scheduled 1968 Screening for malignant [facility] 00:00:00 neoplasm of colon Medical Ce nter (procedure) [code = 937446317] Future Scheduled 1968 Screening for malignant [facility] 00:00:00 neoplasm of colon Medical Ce nter (procedure) [code = 407469598] Future Scheduled 1968 Sigmoidoscopy [code = [facility] 00:00:00 Sigmoidoscopy] Medical Cente r Future Scheduled 1968 Screening for malignant [facility] 00:00:00 neoplasm of breast Medical C enter (procedure) [code = 979586154] Future Scheduled 1968 CT Colonography (combo) [facility] 00:00:00 [code = CT Colonography Medi luis Center (combo)] Future Scheduled 1968 Screening for malignant [facility] 00:00:00 neoplasm of colon Medical Ce nter (procedure) [code = 546321617] Future Scheduled 1968 Screening for malignant [facility] 00:00:00 neoplasm of colon Medical Ce nter (procedure) [code = 061249155] Future Scheduled 1968 Screening for malignant [facility] 00:00:00 neoplasm of colon Medical Ce nter (procedure) [code = 780339448] Future Scheduled 1968 Screening for malignant [facility] 00:00:00 neoplasm of colon Medical Ce nter (procedure) [code = 820247734] Future Scheduled 1968 Sigmoidoscopy [code = [facility] 00:[facility] S[facility]oscopy] [facility] Encounters Start End Encounter Admission Attending Care Care Encounter Source Date/Time Date/Time Type Type Clinicians Facility Department ID 2023-08-12 2023-08-12 Outpatient [email or web address] PRIV PRIV [id number] [facility] 00:00:00 00:00:00 Loi [id number] Medic al 2022-10-01 2022-10-03 Hospital ER Alexandr Monge [facility] [id number] 20:30:00 14:37:00 Encounter Nicole [facility] 2022-10-01 2022-10-03 Inpatient ER [facility] Internal [id number] [facility] 20:30:00 14:37:00 [facility] 2022-10-01 2022-10-[address] [id number] 20:30:00 14:37:00 Encounter [facility] 2022-10-02 2022-10-02 Travel [facility] [id number] [facility] 00:[facility]00 00:00:00 [facility] 2022-10-02 2022-10-02 Travel [facility] [id number] [facility] 00:[facility] 00:00:00 [facility] Results Test Description Test Time Test Comments Results Result Comments Source BLOOD CULTURE 2022-10-07 01:00:41 Test Item Value Reference Range Interpretation Comme nts CULTURE (BEAKER) (test code = 1095) No growth in 5 days POC-Glucose [id number] 12:36:16 Test Item Value Reference Range Interpretation Comments POC-Glucose Meter (test 136 mg/dL 70-110 H : TE STED AT [facility] code = 1538) [address] [facility] [address]: Medical Record Librarians Teacher/Techni erika ID = [id number] for Vaibhav Huerta Lab Interpretation (test Abnormal code = 91469-1) [facility] [id number] 12:36:16 Test Item Value Reference Range Interpretation Comments POC-Glucose Meter (test 136 mg/dL 70-110 H : TE STED AT [facility] code = 1538) [address] [place] [address]: Medical Record Librarians Teacher/Techni erika ID = [id number] for Yelling, Yoland a Lab Interpretation (test Abnormal code = 29871-7) [facility]-Glucose [id number] 12:36:16 Test Item Value Reference Range Interpretation Comments POC-Glucose Meter (test 136 mg/dL 70-110 H : TE STED AT [facility] code = 1538) [address] [place] [address]: Medical Record Librarians Teacher/Techni erika ID = [id number] for Yelling, Yoland a Lab Interpretation (test Abnormal code = 10759-3) [facility]-Glucose [id number] 12:36:16 Test Item Value Reference Range Interpretation Comments POC-Glucose Meter (test 136 mg/dL 70-110 H : [facility] code = [facility]38) [address] [place] [address]: Medical Record Librarians Teacher/Techni erika ID = [id number] for Yelling, Yoland a Lab Interpretation (test Abnormal code = 98319-2) [facility] [id number] 12:36:16 Test Item Value Reference Range Interpretation Comments POC-Glucose Meter (test 136 mg/dL 70-110 H : [facility] code = 1538) [address] [place] [address]: Medical Record Librarians Teacher/Techni erika ID = [id number] for Yelling, [place] [facility] Interpretation (test Abnormal code = 05861-7) [facility]-GLUCOSE [id number] 12:36:16 Test Item Value Reference Range Interpretation Comments POC-GLUCOSE METER 136 mg/dL 70-110 H : TESTED A T [facility]17 (BEAKER) (test code PEREZ POI NT [facility], = 1538) [place] [id number]: Medical Record Librarians Teacher/Techni erika ID = [id number] for [place] ing, Janneth POCT-GLUCOSE [id number] 07:56:56 Test Item Value Reference Range Interpretation Comments POC-GLUCOSE METER 125 mg/dL 70-110 H : TESTED A T [facility] 1317 (BEAKER) (test code PEREZ POI NT [facility], = 1538) [place] [address]: Medical Record Librarians Teacher/Techni erika ID = [id number] for Janneth Frank HEMOGLOBIN [id number] 06:43:17 Test Item Value Reference Range Interpretation Comments HEMOGLOBIN A1C (BEAKER) (test code = 5.9 % 4.3-6.1 368) Medical Record Librarians Teacher ID - LITOLIPID [id number] 05:40:16 Test Item Value Reference Range Interpretation [...] Borderline 130-159 High 160-189 Very High >=190 Medical Record Librarians Teacher ID - LITOOperator ID - LITOOperator ID - [id number] 05:40:16 Test Item Value Reference Range Interpretation Comments MAGNESIUM (BEAKER) (test code = 2.0 mg/dL 1.5-3.0 627) Medical Record Librarians Teacher ID - LITOOperator ID - LITOOperator ID - LITOOperator ID - LITOBASIC METABOLIC [id number] 05:38:59 Test Item Value Reference Range Interpretation [...] not appl icable for dialysis patien ts Medical Record Librarians Teacher ID - LITOOperator ID - LITOOperator ID - LITOOperator ID - LITOOperator ID - LITOOperator ID - LITOOperator ID - LITOOperator ID - LITOOperator ID - LITOCBC W/PLT COUNT & AUTO [id number] 05:28:51 Test Item Value Reference Range Interpretation [...] PERCENT (BEAKER) (test code = 2801) POCT-GLUCOSE [id number] 21:30:37 Test Item Value Reference Range Interpretation Comments POC-GLUCOSE METER 75 mg/dL 70-110 : TESTED A T [facility] 1317 ([facility]) (test code = PEREZ P OINT [facility], 1538) [facility] [address]: Medical Record Librarians Teacher/Techni erika ID = [id number] for Edilmaly ac lydia POCT-GLUCOSE [id number] 17:35:40 Test Item Value Reference Range Interpretation Comments POC-GLUCOSE METER 179 mg/dL 70-110 H : Notified RN/MD: TESTED ([facility]) (test code AT [facility] 1317 [address] = 1538) [facility] [address]: Medical Record Librarians Teacher/Techni erika ID = [id number] for Milad everJanneth POCT-GLUCOSE [id number] 12:04:18 Test Item Value Reference Range Interpretation Comments POC-GLUCOSE METER 117 mg/dL 70-110 H : TESTED A T [facility] 1317 ([facility]) (test code PEREZ POI NT [facility], = 1538) [facility] [address]: Medical Record Librarians Teacher/Techni erika ID = [id number] for Janneth Frank CT, EXTREMITY, LOWER, WITH CONTRAST, [id number] 10:12:00Unlisted Reason for Exam - Click Yes and Enter Reason Below->No [facility] 1970 Sex: [...] Marvin Vora Verified Date/Time: 10/02/2022 10:12:51 Reading Location:[address] Consult Reading Room HEPATIC FUNCTION PANEL 2022-10-02 [...] code = 52 U/L 5-50 H 347) Medical Record Librarians Teacher ID - [id number] ID - [id number] ID - [id number] ID - [id number] ID - [id number] ID - [id number] ID - [id number]-FTAVIRI [id number] 05:02:28 Test Item Value Reference Range Interpretation Comments POC-GLUCOSE METER 120 mg/dL 70-110 H : TESTED A T [facility] (BEAKER) (test code PEREZ QU[address] NT [facility], = 1538) [place] [id number]: Medical Record Librarians Teacher/Techni erika ID = [id number] for Will iams, Selena POCT-GLUCOSE [id number] 23:41:12 Test Item Value Reference Range Interpretation Comments POC-GLUCOSE METER 109 mg/dL 70-110 : TESTED A T [facility] (BEAKER) (test code PEREZ QUENTIN NT [facility], = 1538) [place] [id number]: Medical Record Librarians Teacher/Techni erika ID = [id number] for Will iams, Selena COMPREHENSIVE METABOLIC [id number] 23:15:14 Test Item Value Reference Range Interpretation [...] not appl icable for dialysis patien ts Medical Record Librarians Teacher ID - JUSTINOperator ID - JUSTINOperator ID - JUSTINOperator ID - JUSTINOperator ID - JUSTINOperator ID - JUSTINOperator ID - JUSTINOperator ID - JUSTINOperator ID - JUSTINOperator ID - JUSTINOperator ID - JUSTINOperator ID - JUSTINOperator ID - JUSTINOperator ID - JUSTINOperator ID - JUSTINOperator ID - [id number] 23:15:14 Test Item Value Reference Range Interpretation Comments MAGNESIUM (BEAKER) (test code = 2.0 mg/dL 1.5-3.0 627) Medical Record Librarians Teacher ID - JUSTINOperator ID - JUSTINOperator ID - JUSTINOperator ID - MILENA [id number] 23:11:52 Test Item Value Reference Range Interpretation Comments PHOSPHORUS (BEAKER) (test code = 2.5 mg/dL 2.5-4.5 604) Medical Record Librarians Teacher ID - JUSTINCBC W/PLT COUNT & AUTO [id number] 22:53:51 Test Item Value Reference Range Interpretation [...] PERCENT (BEAKER) (test code = 2801) POCT-GLUCOSE [id number] 21:03:05 Test Item Value Reference Range Interpretation Comments POC-GLUCOSE METER 98 mg/dL 70-110 : TESTED A T [facility] (BEAKER) (test code = [address], 1538) [facility] [address]: Medical Record Librarians Teacher/Techni erika ID = [id number] for Selena Soria ANAEROBIC [id number] 03:45:00 Test Item Value Reference Range Interpretation Comments CULTURE (BEAKER) (test No anaerobes isolated code = 1095) TISSUE [id number] 15:59:00Surgical Pathology Report Case: [id number] Authorizing Provider: Jimenez Mcintosh MD Collected: 04/17/2017 1759 Ordering Location: [facility] Received: 04/18/2017 0801 SERVICES Pathologist: Antonette Mario MD Specimen: Eyelid, Left, Left eyelid abscess SKIN, LEFT EYELID, ABSCESS, DEBRIDEMENT:- SKIN WITH ABSCESS- GRAM POSITIVE COCCI IN CLUSTERS (BROWN AND BRENN) Please correlate with corresponding microbiology cultures. [id number]; [id number] x 3Left upper eyelid abscessLeft eyelid abscess [...] the diagnostic report above: AFB, Brown and LUZ Banuelos (block A1).BLOOD CULTURE 2017-04-20 18:00:00 Test Item Value Reference Range Interpretation Comments CULTURE (BEAKER) (test No growth in 5 days code = 1095) WOUND CULTURE + GRAM [id number] 08:51:00 Test Item Value Reference Interpretation Comments [...] No organisms seen (BEAKER) (test code = 609605) Florentin elieser = 21SURGICALLY OBTAINED CULTURE + GRAM [id number] 07:47:00 Test Item Value Reference Range Interpretation Comments CULTURE A 1+ Same organis m has (BEAKER) (test been isolated from code = 1095) cultures(s) of the same body site and collection date . Repeat identifi cation and susceptibil ity testing perform ed only after consultat ion with the [facility] microbiology laboratory.Refe r to previous cultur e ofMethicillin resistant Staphylococcus aureus GRAM STAIN 1+ WBCs RESULT (BEAKER) (test code = 1123) GRAM STAIN No organisms seen RESULT (BEAKER) (test code = 247618) POCT-GLUCOSE [id number] 08:26:00 Test Item Value Reference Range Interpretation Comments POC-GLUCOSE METER 124 mg/dL 70-110 H TESTED AT [place] [address] (BEAKER) (test code = [place] 1538) [address] CBC (HEMOGRAM ONLY)2017-04-19 06:23:00 Test Item Value [...] (BEAKER) (test code = 413) 0.00BASIC METABOLIC [id number] 05:40:00 Test Item Value Reference Range Interpretation [...] mg/dL 8.4-10.2 (test code = 697) EGFR ([facility]) (test 91 mL/min/1.73 ESTIMA ANIA GFR IS code = 1092) sq m NOT ACCURATE CREATININE CLEARANCE IN PREDICTING GLOMERULAR FILTRATION RATE . ESTIMATED GFR I S NOT APPLICABLE FOR DIALYSIS PATIEN TS. POCT-GLUCOSE [id number] 21:12:00 Test Item Value Reference Range Interpretation Comments POC-GLUCOSE METER 154 mg/dL 70-110 H TESTED AT [place] [address] ([facility]) (test code = [place] [facility] 1538) [address] POCT-GLUCOSE [id number] 16:18:00 Test Item Value Reference Range Interpretation Comments POC-GLUCOSE METER 137 mg/dL 70-110 H TESTED AT [place] [address] ([facility]) (test code = [facility] Nydia [facility] 1538) [address] POCT-GLUCOSE [id number] 11:57:00 Test Item Value Reference Range Interpretation Comments POC-GLUCOSE METER 123 mg/dL 70-110 H TESTED AT [place] [address] ([facility]) (test code = [facility] N[place] [facility] 1538) [address] POCT-GLUCOSE [id number] 07:25:00 Test Item Value Reference Range Interpretation Comments POC-GLUCOSE METER 126 mg/dL 70-110 H TESTED AT [place] [address] ([facility]) (test code = [facility] Nydai [facility] 1538) [address] [id number] 05:33:00 Test Item Value Reference Range Interpretation Comments MAGNESIUM ([facility]) (test code = 2.4 mg/dL 1.6-2.6 627) POCT-GLUCOSE [id number] 23:17:00 Test Item Value Reference Range Interpretation Comments POC-GLUCOSE METER 165 mg/dL 70-110 H TESTED AT [place] [address] ([facility]) (test code = [facility] 1538) [address] POCT-GLUCOSE [id number] 18:35:00 Test Item Value Reference Range Interpretation Comments POC-GLUCOSE METER 110 mg/dL 70-110 TESTED AT [place] [address] ([facility]) (test code = [facility] 1538) [address] CBC W/PLT COUNT & AUTO [id number] 14:01:00 Test Item Value Reference Range Interpretation [...] (BEAKER) (test code = Normal 762) POCT-GLUCOSE [id number] 12:17:00 Test Item Value Reference Range Interpretation Comments POC-GLUCOSE METER 131 mg/dL 70-[address] [facility] 6720 (BEAKER) (test code = [place] 1538) [address] POCT-GLUCOSE [id number] 08:36:00 Test Item Value Reference Range Interpretation Comments POC-GLUCOSE METER 128 mg/dL 70-[address] [facility] 6720 (BEAKER) (test code = [place] 1538) [address] [id number] 06:13:00 Test Item Value Reference Range Interpretation Comments MAGNESIUM (BEAKER) (test code = 2.1 mg/dL 1.6-2.6 627) BASIC METABOLIC [id number] 06:13:00 Test Item Value Reference Range Interpretation [...] NOT APPLICABLE FOR DIALYSIS PATIEN TS. POCT-GLUCOSE [id number] 20:32:00 Test Item Value Reference Range Interpretation Comments POC-GLUCOSE METER 131 mg/dL 70-110 H TESTED AT [place] [address] [facility] (test code = [place] [facility] 1538) [address] POCT-GLUCOSE [id number] 19:08:00 Test Item Value Reference Range Interpretation Comments POC-GLUCOSE METER 126 mg/dL 70-110 H TESTED [place] [address] [facility] (test code = [place] [facility] 1538) [address] POCT-GLUCOSE [id number] 12:51:00 Test Item Value Reference Range Interpretation Comments POC-GLUCOSE METER 178 mg/dL 70-110 H TESTED AT [place] [address] ([facility] (test code = [place] [facility] 1538) [address] POCT-GLUCOSE [id number] 08:42:00 Test Item Value Reference Range Interpretation Comments POC-GLUCOSE METER 131 mg/dL 70-110 H TESTED AT [place] [address] ([facility]) (test code = [place] [facility] 1538) [address] CBC W/PLT COUNT & AUTO [id number] 06:32:00 Test Item Value Reference Range Interpretation [...] K/ L 0.00-0.20 (test code = 417) [id number] 05:46:00 Test Item Value Reference Range Interpretation Comments MAGNESIUM (BEAKER) (test code = 2.2 mg/dL 1.6-2.6 627) BASIC METABOLIC [id number] 05:46:00 Test Item Value Reference Range Interpretation [...] NOT APPLICABLE FOR DIALYSIS PATIEN TS. POCT-GLUCOSE [id number] 21:26:00 Test Item Value Reference Range Interpretation Comments POC-GLUCOSE METER 150 mg/dL 70-[address] [facility] 6720 ([facility]) (test code = [facility] 1538) [address] POCT-GLUCOSE [id number] 18:03:00 Test Item Value Reference Range Interpretation Comments POC-GLUCOSE METER 102 mg/dL 70-[address] [facility] 6720 ([facility]) (test code = [facility] 1538) [address] HCG, QUANTITATIVE, [id number] 14:05:00 Test Item Value Reference Range Interpretation Comments GONADOTROPIN, CHORIONIC (HCG) QUANT < mIU/mL 0-10 ([facility]) (test code = 649) Non- Females: <10 mIU/mL Females: Gestation Age Reference Range(mIU/mL) 0.2-1 Week 5-50 1-2 Weeks 50-500 2-3 Weeks 100-5,000 3-4 Weeks 500-10,000 4-5 Weeks 1,000-50,000 5-6 Weeks 10,000-100,000 6-8 Weeks 15,000- 200,000 2-3 Months 10,000-100,000BASI METABOLIC [id number] 14:02:00 Test Item Value Reference Range Interpretation [...] NOT APPLICABLE FOR DIALYSIS PATIEN TS. HEMOGLOBIN [id number] 13:58:00 Test Item Value Reference Range Interpretation Comments HEMOGLOBIN A1C (BEAKER) (test code = 6.7 % 4.3-6.1 H 368) CBC W/PLT COUNT & AUTO [id number] 13:39:00 Test Item Value Reference Range Interpretation [...] LYMPHOCYTES ABSOLUTE COUNT 2.50 K/ L 1.48-4.50 ([facility]) (test code = 414) MONOCYTES ABSOLUTE COUNT (BEAKER) 0.55 K/ L 0.00-1.30 (test code = 415) EOSINOPHILS ABSOLUTE COUNT 0.09 K/ L 0.00-0.50 (AKER) (test code = 416) BASOPHILS ABSOLUTE COUNT (BEAKER) 0.08 K/ L 0.00-0.20 (test code = 417) 0.00POCT-GLUCOSE [id number] 11:42:00 Test Item Value Reference Range Interpretation Comments POC-GLUCOSE METER 124 mg/dL 70-[address] [facility] 6720 ([facility]) (test code = [place] 1538) [address]
[2023-08-21] MEDS: CYCLOBENZAPRINE 10 MG TAB PO PRN (14:16)
[2023-08-21] MEDS: HYDROCODONE/APAP 5/325 MG TAB PO PRN ×2 (14:17→23:12)
[2023-08-21] MEDS: levoFLOXacin 500 MG TAB PO SCH (14:25)
[2023-08-21] MEDS: clonazePAM 1 MG TAB PO SCH ×2 (14:25→21:18)
[2023-08-21 14:40] VITALS: BMI 36.8
[2023-08-21] MEDS ORDERED: PNEUMOCOCCAL VACCINE 0.5 ML IMVAC ONE (15:00)
[2023-08-21] MEDS ORDERED: INFLUENZA VACCINE (for 6+ mo) 0.5 ML DOSE IMVAC ONE (15:00)
[2023-08-21] MEDS: VANCOMYCIN 1.5 GM in NA CHLORIDE 0.9% 500 ML IVPB SCH (18:42)
[2023-08-21] MEDS: METFORMIN HCL 500 MG TAB PO SCH (18:47)
[2023-08-21] MEDS ORDERED: NA CHLORIDE 0.9% 250 ML ONE (18:49)
[2023-08-21] MEDS ORDERED: DIAZEPAM 10 MG PO SCH (21:00)
[2023-08-21] MEDS: MILNACIPRAN HCL 100 MG PO SCH (21:00)
[2023-08-21] MEDS: HOME MED 1 EA UNK (Buprenorphine Hcl/Naloxone Hcl [Suboxone 8 Mg-2 Mg Sl Film] Film) SL SCH (21:00)
[2023-08-21] MEDS: DIAZEPAM 5 MG TABLET PO SCH (21:00)
[2023-08-21] MEDS ORDERED: HOME MED 1 EA UNK (Metformin Hcl [Glucophage] 1,000 MG Tablet) PO SCH (21:00)
[2023-08-21] MEDS: oxyBUTYnin chloride 5 MG TAB PO SCH (21:18)
[2023-08-22 02:43] LABS: Absolute Lymphocytes (CBC) 2.4 K/uL (0.7-4.9); Hematocrit 34.5 % (36.0-45.0); Lymphocytes % 38.3 % (15.3-44.8); MCV 85.3 fL (80-100); MPV 6.8 fL (7.6-11.3); Platelets 196 thou/uL (152-406); RBC Red Blood Cell Count 4.05 M/uL (3.86-4.86)
[2023-08-22] MEDS: LEVOTHYROXINE SOD 0.025 MG TAB PO SCH (05:56)
[2023-08-22] MEDS ORDERED: HOME MED 1 EA UNK (Omeprazole [Prilosec] 40 MG Capsule.Dr) PO SCH (09:00)
[2023-08-22] MEDS ORDERED: DESVENLAFAXINE SUCCINATE 100 MG PO SCH (09:00)
[2023-08-22] MEDS: MILNACIPRAN HCL 100 MG PO SCH ×2 (09:00→20:40)
[2023-08-22] MEDS: HOME MED 1 EA UNK (Buprenorphine Hcl/Naloxone Hcl [Suboxone 8 Mg-2 Mg Sl Film] Film) SL SCH ×2 (09:00→20:40)
[2023-08-22] MEDS ORDERED: POTASSIUM 99 MG PO SCH (09:00)
--- NOTE | 2023-08-22 09:00 | P.CNS ---
Date of Consult: 08/22/23 Reason for Consult: left ankle infected hardware Chief Complaint: LEFT ANKLE INFECTION History of Present Illness: Patient is a 53 yo female with a PMH of diabetes mellitus type II, hypertension, anxiety, depression, fibromyalgia who presented to the ED with complaints of left ankle pain, swelling and redness which has progressively worsened over the past week. Of note, patient had left ankle hardware placed 7 years ago following an injury. Patient underwent incision and drainage of left ankle abscess and left ankle hardware removal on 08/[address] Villareal. Infectious disease was consulted. Allergies No Known Allergies Allergy (Verified 12/26/20 11:26) Home medications list reviewed: Yes Home Medications: Buprenorphine HCl/Naloxone HCl [Suboxone 8 mg-2 mg Sl Film] 1 film SL BID 04/03/17 Buspirone HCl 1 tab PO QID 04/03/17 Desvenlafaxine Succinate [Pristiq] 1 tab PO DAILY 04/03/17 Metformin HCl [Glucophage] 1 tab PO BID 04/03/17 Milnacipran HCl [Savella] 1 tab PO BID 04/03/17 Omeprazole [Prilosec] 1 cap PO DAILY 04/03/17 Potassium 30 meq PO DAILY 04/03/17 oxyBUTYnin chloride [Ditropan*] 5 mg PO BID 04/03/17 Propranolol [Inderal LA*] 60 mg PO DAILY #30 cap 04/08/17 Bupropion *Xl* [Wellbutrin XL*] 150 mg PO DAILY 12/14/19 Cyclobenzaprine [Flexeril*] 10 mg PO TID PRN 12/14/19 Furosemide [Lasix*] 1 tab PO DAILY 08/24/20 Levothyroxine Sodium 25 mcg PO [id number] 08/24/20 clonazePAM [Clonazepam] 1 mg PO TID 12/26/20 diazePAM [Valium] 10 mg PO BEDTIME 12/26/20 - Past Medical/Surgical History Diabetic: Yes -: Anxiety -: Diabetes -: Fibromyalgia -: Hypertension -: Spinal Stenosis -: Lupus -: Depression -: Bipolar disorder -: Muscle spasm -: Cervical Stenosis -: Back surgery-2006 -: Carpal tunnel -: -: Breast Augmentation -: Tummy Tuck -: Elbow Surgery -: Orif femur - Family History Father Medical History: Heart disease Mother Medical History: Other (see notes) Notes: Neurological condition - Social History Smoking Status: Unknown if ever smoked Alcohol use: No CD- Drugs: No Caffeine use: Yes Review of Systems 10-point ROS is otherwise unremarkable Musculoskeletal: Other (left ankle pain) Physical Examination Temp Pulse Resp BP Pulse Ox 97.2 F 99 H 19 120/68 99 08/22/23 04:00 08/22/23 04:00 08/22/23 04:00 08/22/23 04:00 08/22/23 04:00 General: Alert, In no apparent distress HEENT: Atraumatic, Normocephalic Neck: Supple, JVD not distended Respiratory: Clear to auscultation bilaterally, Normal air movement Cardiovascular: Normal S1 S2, Edema (BLE edema) Gastrointestinal: Normal bowel sounds, Soft and benign Integumentary: Other (left ankle surgical incision site, dressing is clean dry and intact) Neurological: Normal speech, Normal tone, Normal affect Laboratory Data - Reviewed Microbiology Data - Reviewed Imagings Data: - Reviewed Conclusions/Impression: Problem List Infected Hardware Left Ankle Diabetes Mellitus type II Hypertension Anxiety Depression Fibromyalgia Infected Hardware Left Ankle - Patient has had left ankle hardware for 7 years - s/p hardware removal on 08/[address] Villareal. Patient tolerated procedure well - Currently on Levaquin and Vancomycin (started 08/21) - Wound cultures 08/21: Pending Recommendations - Continue antibiotic therapy for 4-6 weeks. Patient will require PICC line. Currently on Levofloxacin and Vancomycin, continue for now. Will follow up with final culture results and adjust antibiotics as appropriate. - Continue surgical site wound care per Dr. Villareal - Monitor WBC and fever trends Pending LTAC placement for continued IV antibiotics and wound care. Case discussed with Alexa Bowers
[2023-08-22] MEDS: BUSPIRONE HCL 15 MG TABLET PO SCH ×4 (09:05→20:50)
[2023-08-22] MEDS: PANTOPRAZOLE 40MG TABLET PO SCH (09:05)
[2023-08-22] MEDS: POTASSIUM CL SA 10 MEQ TAB PO SCH (09:05)
[2023-08-22] MEDS: clonazePAM 1 MG TAB PO SCH ×3 (09:05→20:38)
[2023-08-22] MEDS: METFORMIN HCL 500 MG TAB PO SCH ×2 (09:05→15:55)
[2023-08-22] MEDS: oxyBUTYnin chloride 5 MG TAB PO SCH ×2 (09:05→20:39)
[2023-08-22] MEDS: FUROSEMIDE 40 MG TABLET PO SCH (09:05)
[2023-08-22] MEDS: PROPRANOLOL HCL 60 MG SA CAP PO SCH (09:06)
[2023-08-22] MEDS: HYDROCODONE/APAP 5/325 MG TAB PO PRN ×3 (09:12→22:28)
[2023-08-22] MEDS: VANCOMYCIN 1.5 GM in NA CHLORIDE 0.9% 500 ML IVPB SCH (09:36)
[2023-08-22] MEDS: DESVENLAFAXINE SUCCINATE 50 MG ER TAB PO SCH (09:36)
[2023-08-22] MEDS: levoFLOXacin 500 MG TAB PO SCH (09:36)
[2023-08-22] MEDS: BUPROPION HCL XL 150 MG TAB PO SCH (09:36)
--- NOTE | 2023-08-22 10:06 | P.BOP ---
Preoperative diagnosis: left ankle pain with retained hardware Postoperative diagnosis: left ankle pain with retained hardware and abscess Primary procedure: left ankle fibular HWR with I&D absecss Estimated blood loss: 30 ccs Specimen: Cx sent Anesthesia: General Complications: None Transferred to: Recovery Room
[2023-08-22] MEDS ORDERED: D10W 250 ML BAG IV PRN (14:23)
[2023-08-22] MEDS ORDERED: GLUCAGON 1 MG/VIAL IM PRN (14:23)
[2023-08-22] MEDS: INSULIN REGULAR (HUMAN) 100 UNIT/ML SQ SCH ×2 (15:55→21:06)
[2023-08-22] MEDS: CYCLOBENZAPRINE 10 MG TAB PO PRN (20:37)
[2023-08-22] MEDS: DIAZEPAM 5 MG TABLET PO SCH (20:43)
[2023-08-23 04:12] LABS: Absolute Lymphocytes (CBC) 3.1 K/uL (0.7-4.9); Hematocrit 39.2 % (36.0-45.0); Lymphocytes % 39.4 % (15.3-44.8); MCV 85.4 fL (80-100); MPV 6.5 fL (7.6-11.3); Platelets 243 thou/uL (152-406); RBC Red Blood Cell Count 4.59 M/uL (3.86-4.86)
[2023-08-23] MEDS: HYDROCODONE/APAP 5/325 MG TAB PO PRN ×3 (05:12→20:41)
[2023-08-23] MEDS: VANCOMYCIN 1.5 GM in NA CHLORIDE 0.9% 500 ML IVPB SCH ×2 (05:13→16:31)
[2023-08-23] MEDS: LEVOTHYROXINE SOD 0.025 MG TAB PO SCH (06:18)
[2023-08-23] MEDS: INSULIN REGULAR (HUMAN) 100 UNIT/ML SQ SCH ×4 (07:30→21:56)
[2023-08-23] MEDS: HOME MED 1 EA UNK (Buprenorphine Hcl/Naloxone Hcl [Suboxone 8 Mg-2 Mg Sl Film] Film) SL SCH ×2 (09:00→20:43)
[2023-08-23] MEDS: MILNACIPRAN HCL 100 MG PO SCH ×2 (09:00→20:43)
[2023-08-23] MEDS: METFORMIN HCL 500 MG TAB PO SCH (09:07)
[2023-08-23] MEDS: clonazePAM 1 MG TAB PO SCH ×3 (09:07→20:42)
[2023-08-23] MEDS: DESVENLAFAXINE SUCCINATE 50 MG ER TAB PO SCH (09:07)
[2023-08-23] MEDS: BUSPIRONE HCL 15 MG TABLET PO SCH ×4 (09:08→20:42)
[2023-08-23] MEDS: FUROSEMIDE 40 MG TABLET PO SCH (09:08)
[2023-08-23] MEDS: POTASSIUM CL SA 10 MEQ TAB PO SCH (09:08)
[2023-08-23] MEDS: oxyBUTYnin chloride 5 MG TAB PO SCH ×2 (09:08→20:42)
[2023-08-23] MEDS: PROPRANOLOL HCL 60 MG SA CAP PO SCH (09:08)
[2023-08-23] MEDS: BUPROPION HCL XL 150 MG TAB PO SCH (09:08)
[2023-08-23] MEDS: PANTOPRAZOLE 40MG TABLET PO SCH (09:08)
[2023-08-23] MEDS: levoFLOXacin 500 MG TAB PO SCH (09:19)
--- NOTE | 2023-08-23 11:34 | P.PN ---
Subjective Date of Service: 08/22/23 Chief Complaint: LEFT ANKLE INFECTION Subjective: Improving SHE HAS PAIN IN ANKLE EXPECTED. WE ARE WAITING FOR LTAC EXTENSIVE PSYCH HISTORY, STABLE FOR NOW. Review of Systems 10-point ROS is otherwise unremarkable Physical Examination - Vital Signs Temperature: 98.6 F Blood Pressure: 109/61 Pulse: 72 Respirations: 16 Pulse Ox (%): 95 - Physical Exam General: Alert, In no apparent distress HEENT: Atraumatic, PERRLA, EOMI Neck: Supple, JVD not distended Respiratory: Clear to auscultation bilaterally, Normal air movement Cardiovascular: Regular rate/rhythm, Normal S1 S2 Gastrointestinal: Normal bowel sounds, No tenderness Musculoskeletal: No tenderness, Other (ANKLE POST OP.) Integumentary: No rashes Neurological: Normal speech, Normal tone, Normal affect Lymphatics: No axilla or inguinal lymphadenopathy - Studies Laboratory Data (last 24 hrs) 08/23/23 03:58 WBC 8.00 Hgb 13.0 D Hct 39.2 Plt Count 243 Microbiology Data (last 24 hrs): 08/21/23 09:30 Wound - Left Ankle Gram Stain - Final 08/21/23 09:30 Wound - Left Ankle Culture & Sensitivity - Final Meth Resistant Staph Aureus 08/21/23 09:30 Wound - Left Ankle Gram Stain - Final Medications List Reviewed: Yes Assessment And Plan - Current Problems (Diagnosis) (1) Infection of joint of ankle Current Visit: Yes Status: Acute Plan: IV VANCOMYCIN 4-[address] ROGERS TO FU HE WILL FU AT LTAC ALSO. VANCO PICC LINE AMANDA SAW THE PATIENT INSTEAD OF SUE ARCHER. (2) Moderate bipolar II disorder, depressed, with anxious distress Current Visit: Yes Status: Chronic Plan: CONT MEDS
--- NOTE | 2023-08-23 11:36 | P.PN ---
Subjective Date of Service: 08/23/23 Chief Complaint: LEFT ANKLE INFECTION Subjective: Improving SHE HAS PAIN IN ANKLE EXPECTED. WE ARE WAITING FOR LTAC EXTENSIVE PSYCH HISTORY, STABLE FOR NOW. NO NEW COMPLAINTS. Review of Systems 10-point ROS is otherwise unremarkable General: Weakness Physical Examination - Vital Signs Temperature: 98.6 F Blood Pressure: 109/61 Pulse: 72 Respirations: 16 Pulse Ox (%): 95 - Physical Exam General: Mild distress, Obese HEENT: Atraumatic, PERRLA, EOMI Neck: Supple, JVD not distended Respiratory: Clear to auscultation bilaterally, Normal air movement Cardiovascular: Regular rate/rhythm, Normal S1 S2 Gastrointestinal: Normal bowel sounds, No tenderness Musculoskeletal: No tenderness Integumentary: No rashes Neurological: Normal speech, Normal tone, Normal affect Lymphatics: No axilla or inguinal lymphadenopathy - Studies Laboratory Data (last 24 hrs) 08/23/23 03:58 WBC 8.00 Hgb 13.0 D Hct 39.2 Plt Count 243 Microbiology Data (last 24 hrs): 08/21/23 09:30 Wound - Left Ankle Gram Stain - Final 08/21/23 09:30 Wound - Left Ankle Culture & Sensitivity - Final Meth Resistant Staph Aureus 08/21/23 09:30 Wound - Left Ankle Gram Stain - Final Medications List Reviewed: Yes Assessment And Plan - Current Problems (Diagnosis) (1) Infection of joint of ankle Current Visit: Yes Status: Acute Plan: IV VANCOMYCIN 4-[address] ROGERS TO FU HE WILL FU AT LTAC ALSO. VANCO PICC LINE AMANDA SAW THE PATIENT INSTEAD OF SUE ARCHER. (2) Moderate bipolar II disorder, depressed, with anxious distress Current Visit: Yes Status: Chronic Plan: CONT MEDS (3) Diabetes Current Visit: Yes Status: Chronic Plan: CHECK A1C LDL. START XIGDUO OR SYNJARDI
--- NOTE | 2023-08-23 14:25 | EKG ---
Test Date: 2023-08-19 Test Time: 14:24:34 Wind Operations Manager: BTRE MEASUREMENT RESULTS: Intervals: Rate: 104 RI: 176 QRSD: 98 QT: 356 QTc: 468 [place]: P: 67 RI: 176 QRS: 32 T: 61 INTERPRETIVE STATEMENTS: Sinus tachycardia Possible Left atrial enlargement Low voltage QRS Cannot rule out Inferior infarct, age undetermined Cannot rule out Anterior infarct, age undetermined Abnormal ECG Compared to ECG 08/19/2023 14:23:54 No significant changes Electronically Signed On 08-23-23 14:14:32 SENIOR INSTRUCTIONAL DESIGNER by Miguelangel Mckeon
--- NOTE | 2023-08-23 14:25 | EKG ---
Test Date: 2023-08-19 Test Time: 14:23:54 Cellular Plastics Cutter: CAROLINRE MEASUREMENT RESULTS: Intervals: Rate: 102 OH: 184 QRSD: 102 QT: 354 QTc: 461 [place]: P: 68 OH: 184 QRS: 33 T: 66 INTERPRETIVE STATEMENTS: Sinus tachycardia Possible Left atrial enlargement Low voltage QRS Cannot rule out Inferior infarct, age undetermined Cannot rule out Anterior infarct, age undetermined Abnormal ECG Compared to ECG 04/14/2023 06:53:23 No significant changes Electronically Signed On 08-23-23 14:14:33 WET CLEANER MACHINE by Miguelangel Mckeon
[2023-08-23] MEDS ORDERED: METFORMIN ER 500 MG TAB PO SCH (17:00)
[2023-08-23] MEDS ORDERED: METFORMIN HCL 500 MG TAB PO SCH (17:00)
[2023-08-23] MEDS ORDERED: ENOXAPARIN 30 MG/0.3 ML SQ SCH (17:00)
[2023-08-23] MEDS: DIAZEPAM 5 MG TABLET PO SCH (20:42)
[2023-08-23] MEDS: Mupirocin NASAL 2 APPL/1 GM TUBE NAS SCH (20:42)
[2023-08-23] MEDS: CYCLOBENZAPRINE 10 MG TAB PO PRN (20:46)
[2023-08-24] MEDS: HYDROCODONE/APAP 5/325 MG TAB PO PRN ×4 (02:36→23:03)
[2023-08-24 03:29] LABS: Absolute Lymphocytes (CBC) 3.4 K/uL (0.7-4.9); Hematocrit 38.5 % (36.0-45.0); Lymphocytes % 37.6 % (15.3-44.8); MCV 84.8 fL (80-100); MPV 6.8 fL (7.6-11.3); Platelets 259 thou/uL (152-406); RBC Red Blood Cell Count 4.54 M/uL (3.86-4.86)
[2023-08-24] MEDS: VANCOMYCIN 1.5 GM in NA CHLORIDE 0.9% 500 ML IVPB SCH ×2 (05:09→17:15)
[2023-08-24] MEDS: LEVOTHYROXINE SOD 0.025 MG TAB PO SCH (05:10)
[2023-08-24] MEDS: HOME MED 1 EA UNK (Buprenorphine Hcl/Naloxone Hcl [Suboxone 8 Mg-2 Mg Sl Film] Film) SL SCH ×2 (07:27→21:00)
[2023-08-24] MEDS: MILNACIPRAN HCL 100 MG PO SCH ×2 (07:27→21:00)
[2023-08-24] MEDS: INSULIN REGULAR (HUMAN) 100 UNIT/ML SQ SCH ×4 (07:30→21:00)
[2023-08-24 08:31] LABS: Absolute Lymphocytes (CBC) 3.4 K/uL (0.7-4.9); Hematocrit 38.9 % (36.0-45.0); Lymphocytes % 41.2 % (15.3-44.8); MCV 84.3 fL (80-100); MPV 6.3 fL (7.6-11.3); Platelets 269 thou/uL (152-406); RBC Red Blood Cell Count 4.61 M/uL (3.86-4.86)
[2023-08-24] MEDS: DESVENLAFAXINE SUCCINATE 50 MG ER TAB PO SCH (09:11)
[2023-08-24] MEDS: POTASSIUM CL SA 10 MEQ TAB PO SCH (09:11)
[2023-08-24] MEDS: Mupirocin NASAL 2 APPL/1 GM TUBE NAS SCH ×2 (09:11→20:59)
[2023-08-24] MEDS: BUPROPION HCL XL 150 MG TAB PO SCH (09:11)
[2023-08-24] MEDS: oxyBUTYnin chloride 5 MG TAB PO SCH ×2 (09:12→21:00)
[2023-08-24] MEDS: FUROSEMIDE 40 MG TABLET PO SCH (09:12)
[2023-08-24] MEDS: PANTOPRAZOLE 40MG TABLET PO SCH (09:12)
[2023-08-24] MEDS: BUSPIRONE HCL 15 MG TABLET PO SCH ×4 (09:12→21:00)
[2023-08-24] MEDS: clonazePAM 1 MG TAB PO SCH ×3 (09:12→21:00)
[2023-08-24] MEDS: PROPRANOLOL HCL 60 MG SA CAP PO SCH (09:13)
[2023-08-24] MEDS: METFORMIN HCL 500 MG TAB PO SCH ×2 (09:22→17:14)
[2023-08-24] MEDS: levoFLOXacin 500 MG TAB PO SCH (09:22)
--- NOTE | 2023-08-24 12:21 | P.PN ---
Subjective Date of Service: 08/24/23 Chief Complaint: LEFT ANKLE INFECTION Subjective: Improving SHE HAS PAIN IN ANKLE EXPECTED. WE ARE WAITING FOR LTAC EXTENSIVE PSYCH HISTORY, STABLE FOR NOW. NO NEW COMPLAINTS. SHE FEELS BETTER SHE IS ON HIGH DOSE OF KLONOPIN I REDUCED TO HALF SHE DOES NOT WANT VALIUM. Review of Systems 10-point ROS is otherwise unremarkable General: Weakness Physical Examination - Vital Signs Temperature: 97.5 F Blood Pressure: 121/73 Pulse: 88 Respirations: 18 Pulse Ox (%): 96 - Physical Exam General: Oriented x3, Mild distress HEENT: Atraumatic, PERRLA, EOMI Neck: Supple, JVD not distended Respiratory: Clear to auscultation bilaterally, Normal air movement Cardiovascular: Regular rate/rhythm, Normal S1 S2 Gastrointestinal: Normal bowel sounds, No tenderness Musculoskeletal: No tenderness Integumentary: No rashes Neurological: Normal speech, Normal tone, Normal affect Lymphatics: No axilla or inguinal lymphadenopathy - Studies Laboratory Data (last 24 hrs) 08/24/23 08/24/23 08/23/23 08:19 02:36 12:36 WBC 8.20 9.10 Hgb 13.1 12.9 Hct 38.9 38.5 Plt Count 269 259 LDL Cholesterol Direct 81 L Microbiology Data (last 24 hrs): 08/21/23 09:30 Wound - Left Ankle Gram Stain - Final 08/21/23 09:30 Wound - Left Ankle Anaerobic Culture - Final NO ANAEROBES GROWN. 08/21/23 09:30 Wound - Left Ankle Gram Stain - Final 08/21/23 09:30 Wound - Left Ankle Culture & Sensitivity - Final Meth Resistant Staph Aureus Medications List Reviewed: Yes Assessment And Plan - Current Problems (Diagnosis) (1) Infection of joint of ankle Current Visit: Yes Status: Acute Plan: HOME HEALTH MANAGE BY DR. ROGERS. SUADURE ID PENDING (2) Moderate bipolar II disorder, depressed, with anxious distress Current Visit: Yes Status: Chronic Plan: CONT MEDS (3) Diabetes Current Visit: Yes Status: Chronic Plan: CHECK A1C LDL. START XIGDUO OR SYNJARDI
[2023-08-24] MEDS: ENOXAPARIN 40 MG/0.4 ML SQ SCH (17:15)
[2023-08-24] MEDS: CYCLOBENZAPRINE 10 MG TAB PO PRN (20:59)
[2023-08-25 02:57] LABS: Absolute Lymphocytes (CBC) 4.2 K/uL (0.7-4.9); Hematocrit 40.9 % (36.0-45.0); Lymphocytes % 41.2 % (15.3-44.8); MCV 84.6 fL (80-100); MPV 6.6 fL (7.6-11.3); Platelets 290 thou/uL (152-406); RBC Red Blood Cell Count 4.83 M/uL (3.86-4.86)
[2023-08-25 03:03] LABS: Potassium 3.9 mEq/L (3.5-5.1)
[2023-08-25] MEDS: HYDROCODONE/APAP 5/325 MG TAB PO PRN ×3 (04:55→19:49)
[2023-08-25] MEDS: VANCOMYCIN 1.5 GM in NA CHLORIDE 0.9% 500 ML IVPB SCH ×2 (04:55→17:32)
[2023-08-25] MEDS: LEVOTHYROXINE SOD 0.025 MG TAB PO SCH (04:56)
--- NOTE | 2023-08-25 08:52 | P.PN ---
Date of Service: 08/25/23 Chief Complaint: LEFT ANKLE INFECTION Subjective: Patient resting comfortably in bed. Denies any new or worsening complains at this time. No acute events reported overnight. Physical Examination Temp Pulse Resp BP Pulse Ox 97 F 78 18 140/71 94 08/25/23 04:00 08/25/23 04:00 08/25/23 05:55 08/25/23 04:00 08/25/23 04:00 General: Alert, In no apparent distress HEENT: Atraumatic, Normocephalic Neck: Supple, JVD not distended Respiratory: Clear to auscultation bilaterally, Normal air movement Cardiovascular: Normal S1 S2. Trace BLE edema. Gastrointestinal: Normal bowel sounds, Soft and benign Integumentary: left ankle surgical incision site, dressing is clean dry and intact Neurological: Normal speech, Normal tone, Normal affect Laboratory Data - Reviewed Microbiology Data - Reviewed Imagings Data: - Reviewed Medications List: Reviewed Assessment and Plan Problem List Infected Hardware Left Ankle Diabetes Mellitus type II Hypertension Anxiety Depression Fibromyalgia Infected Hardware Left Ankle - Patient has had left ankle hardware for 7 years - s/p hardware removal on 08/[address] Villareal. Patient tolerated procedure well - Currently on Levaquin and Vancomycin (started 08/21) - Wound cultures 08/21: Staphylococcus aureus (MRSA) Recommendations - Continue Vancomycin IV for 6 weeks (08/21-10/02) - Will need labs at least twice weekly (friday and ): CBC, BMP and V anco trough - Continue surgical site wound care per Dr. Villareal - Strict blood glucose control - Monitor WBC and fever trends Pending outpatient arrangements for continued IV antibiotic therapy. Case discussed with Alexa Bowers
[2023-08-25] MEDS: HOME MED 1 EA UNK (Buprenorphine Hcl/Naloxone Hcl [Suboxone 8 Mg-2 Mg Sl Film] Film) SL SCH ×2 (09:00→21:00)
[2023-08-25] MEDS: MILNACIPRAN HCL 100 MG PO SCH ×2 (09:00→21:00)
[2023-08-25] MEDS: FUROSEMIDE 40 MG TABLET PO SCH (09:40)
[2023-08-25] MEDS: PROPRANOLOL HCL 60 MG SA CAP PO SCH (09:41)
[2023-08-25] MEDS: BUSPIRONE HCL 15 MG TABLET PO SCH ×4 (09:42→21:11)
[2023-08-25] MEDS: PANTOPRAZOLE 40MG TABLET PO SCH (09:42)
[2023-08-25] MEDS: oxyBUTYnin chloride 5 MG TAB PO SCH ×2 (09:42→21:11)
[2023-08-25] MEDS: BUPROPION HCL XL 150 MG TAB PO SCH (09:43)
[2023-08-25] MEDS: POTASSIUM CL SA 10 MEQ TAB PO SCH (09:45)
[2023-08-25] MEDS: DESVENLAFAXINE SUCCINATE 50 MG ER TAB PO SCH (09:45)
[2023-08-25] MEDS: clonazePAM 1 MG TAB PO SCH ×3 (09:45→21:10)
[2023-08-25] MEDS: Mupirocin NASAL 2 APPL/1 GM TUBE NAS SCH ×2 (09:46→21:11)
[2023-08-25] MEDS: INSULIN REGULAR (HUMAN) 100 UNIT/ML SQ SCH ×4 (09:47→21:12)
[2023-08-25] MEDS: METFORMIN HCL 500 MG TAB PO SCH ×2 (09:50→17:32)
[2023-08-25] MEDS: levoFLOXacin 500 MG TAB PO SCH (09:52)
--- NOTE | 2023-08-25 12:53 | P.PN ---
Subjective Date of Service: 08/25/23 Chief Complaint: LEFT ANKLE INFECTION SHE HAS PAIN IN ANKLE EXPECTED. WE ARE WAITING FOR LTAC EXTENSIVE PSYCH HISTORY, STABLE FOR NOW. NO NEW COMPLAINTS. SHE FEELS BETTER SHE IS ON HIGH DOSE OF KLONOPIN I REDUCED TO HALF SHE DOES NOT WANT VALIUM. YESTERDAY SHE WANTED TO GO HOME WITH HH AND TODAY SHE WANTS TO LOOK INTO LTAC. I AM NOT SURE IF SHE WILL QUALIFY OR LTAC IV ABX IS ALL WE NEED. SNF MAY BE OKAY. SHE HAS TWO DOGS AT HOME AND THEY SLEEP IN THE BED. I ADVISED TO REMOVE DOGS FROM HOME IT COULD HAVE CONTAMINATED AND SCRATCHED HER ANKLE TO GIVE RISE TO INFECTION. Review of Systems 10-point ROS is otherwise unremarkable General: Weakness Physical Examination - Vital Signs Temperature: 96.9 F Blood Pressure: 123/61 Pulse: 83 Respirations: 16 Pulse Ox (%): 92 - Physical Exam General: Acute distress HEENT: Atraumatic, PERRLA, EOMI Neck: Supple, JVD not distended Respiratory: Clear to auscultation bilaterally, Normal air movement Cardiovascular: Regular rate/rhythm, Normal S1 S2 Gastrointestinal: Normal bowel sounds, No tenderness Musculoskeletal: No tenderness Integumentary: No rashes Neurological: Normal speech, Normal tone, Normal affect Lymphatics: No axilla or inguinal lymphadenopathy - Studies Laboratory Data (last 24 hrs) 08/25/23 08/25/23 02:12 02:12 WBC 10.10 Hgb 13.7 Hct 40.9 Plt Count 290 Sodium 134 L Potassium 3.9 BUN 14 Creatinine 0.87 Glucose 173 H Microbiology Data (last 24 hrs): 08/21/23 09:30 Wound - Left Ankle Gram Stain - Final 08/21/23 09:30 Wound - Left Ankle Anaerobic Culture - Final NO ANAEROBES GROWN. Medications List Reviewed: Yes Assessment And Plan - Current Problems (Diagnosis) (1) Infection of joint of ankle Current Visit: Yes Status: Acute Plan: HOME HEALTH MANAGE BY DR. ROGERS. CULURE ID PENDING ID MRSA CONTINUE VANCOMYCIN FU BYDR ROGERS. (2) Moderate bipolar II disorder, depressed, with anxious distress Current Visit: Yes Status: Chronic Plan: CONT MEDS (3) Diabetes Current Visit: Yes Status: Chronic Plan: CHECK A1C LDL. START XIGDUO OR SYNJARDI
[2023-08-25] MEDS: ENOXAPARIN 40 MG/0.4 ML SQ SCH (17:32)
[2023-08-26 04:38] LABS: Absolute Lymphocytes (CBC) 3.8 K/uL (0.7-4.9); Hematocrit 41.6 % (36.0-45.0); Lymphocytes % 40.7 % (15.3-44.8); MPV 6.9 fL (7.6-11.3); Platelets 258 thou/uL (152-406)
[2023-08-26 04:40] LABS: Potassium 3.6 mEq/L (3.5-5.1)
[2023-08-26] MEDS: VANCOMYCIN 1.5 GM in NA CHLORIDE 0.9% 500 ML IVPB SCH (05:01)
[2023-08-26] MEDS: HYDROCODONE/APAP 5/325 MG TAB PO PRN ×2 (05:14→12:04)
[2023-08-26] MEDS: LEVOTHYROXINE SOD 0.025 MG TAB PO SCH (05:39)
[2023-08-26 06:20] LABS: Renal Epithelial <5 /HPF (None Seen); Urine Bacteria None Seen /HPF (<20); Urine Bilirubin NEGATIVE (Negative); Urine Blood Negative (Negative); Urine Clarity Clear (Clear); Urine Color Light-Yellow (Yellow); Urine Glucose NEGATIVE (Negative); Urine Mucus Slight /HPF (None Seen); Urine Protein TRACE (Negative); Urine RBC <5 /HPF (None Seen); Urine Urobilinogen Normal (Normal)
[2023-08-26] MEDS: INSULIN REGULAR (HUMAN) 100 UNIT/ML SQ SCH ×2 (07:30→12:05)
--- NOTE | 2023-08-26 07:57 | P.PN ---
Date of Service: 08/26/23 Chief Complaint: LEFT ANKLE INFECTION Subjective: Patient seen and examined at bedside. No new changes. No acute events reported overnight. Denies any new or worsening complaints. In no apparent distress. Physical Examination Temp Pulse Resp BP Pulse Ox 97.6 F 89 18 108/63 97 08/26/23 04:00 08/26/23 04:00 08/26/23 05:14 08/26/23 04:00 08/26/23 05:14 General: Alert, In no apparent distress HEENT: Atraumatic, Normocephalic Neck: Supple, JVD not distended Respiratory: Clear to auscultation bilaterally, Normal air movement Cardiovascular: Normal S1 S2. Trace BLE edema. Gastrointestinal: Normal bowel sounds, Soft and benign Integumentary: left ankle surgical incision site, dressing is clean dry and intact Neurological: Normal speech, Normal tone, Normal affect Laboratory Data - Reviewed Microbiology Data - Reviewed Imagings Data: - Reviewed Medications List: Reviewed Assessment and Plan Problem List Infected Hardware Left Ankle Diabetes Mellitus type II Hypertension Anxiety Depression Fibromyalgia Infected Hardware Left Ankle - s/p hardware removal on 08/[address] Villareal. Patient tolerated procedure well - Wound cultures 08/21: Staphylococcus aureus (MRSA) - On Vancomycin IV (started 08/21) - Wound care per Dr. Villareal Recommendations - Continue Vancomycin IV for 6 weeks (08/21-10/02) - Will need labs at least twice weekly (friday and ): CBC, BMP and Vanco trough - Continue surgical site wound care per Dr. Villareal - Strict blood glucose control; goal <180 - Monitor WBC and fever trends Pending outpatient arrangements for continued IV antibiotic therapy. Case discussed with Alexa Bowers
[2023-08-26] MEDS: POTASSIUM CL SA 10 MEQ TAB PO SCH (08:38)
[2023-08-26] MEDS: oxyBUTYnin chloride 5 MG TAB PO SCH (08:38)
[2023-08-26] MEDS: FUROSEMIDE 40 MG TABLET PO SCH (08:39)
[2023-08-26] MEDS: HOME MED 1 EA UNK (Buprenorphine Hcl/Naloxone Hcl [Suboxone 8 Mg-2 Mg Sl Film] Film) SL SCH (08:40)
[2023-08-26] MEDS: PANTOPRAZOLE 40MG TABLET PO SCH (08:40)
[2023-08-26] MEDS: clonazePAM 1 MG TAB PO SCH ×2 (08:40→14:50)
[2023-08-26] MEDS: MILNACIPRAN HCL 100 MG PO SCH (08:41)
[2023-08-26] MEDS: Mupirocin NASAL 2 APPL/1 GM TUBE NAS SCH (08:42)
[2023-08-26] MEDS: DESVENLAFAXINE SUCCINATE 50 MG ER TAB PO SCH (09:00)
[2023-08-26] MEDS: PROPRANOLOL HCL 60 MG SA CAP PO SCH (10:01)
[2023-08-26] MEDS: BUSPIRONE HCL 15 MG TABLET PO SCH ×2 (10:01→14:17)
[2023-08-26] MEDS: METFORMIN HCL 500 MG TAB PO SCH (10:10)
[2023-08-26] MEDS: BUPROPION HCL XL 150 MG TAB PO SCH (10:10)
[2023-08-26 11:46] VITALS: BP 125/62; TEMP 96.9
[2023-08-26] MEDS ORDERED: VANCOMYCIN 1.75 GM in NA CHLORIDE 0.9% 500 ML IVPB SCH (17:00)
== END 2023-08-26 16:05 | DRG 493 ==
LOC: OR 06:51 → 2ND 12:58
PROVIDERS: ADMIT Internal Medicine; ATTEND Internal Medicine
PROC: 0YPB0YZ Removal of Other Device from Left Lower Extremity, Open Approach (ICD-10-PCS; 2023-08-21)
PROC: 0QBK0ZZ Excision of Left Fibula, Open Approach (ICD-10-PCS; principal; 2023-08-21 08:00)
DX: T84.69XA Infection and inflammatory reaction due to internal fixation device of other site, initial encounter (principal); F32.1 Major depressive disorder, single episode, moderate; M00.9 Pyogenic arthritis, unspecified; L02.416 Cutaneous abscess of left lower limb; I10 Essential (primary) hypertension; M79.7 Fibromyalgia; E11.9 Type 2 diabetes mellitus without complications; B95.62 Methicillin resistant Staphylococcus aureus infection as the cause of diseases classified elsewhere; Z79.84 Long term (current) use of oral hypoglycemic drugs; Z79.890 Hormone replacement therapy; Z79.899 Other long term (current) drug therapy; Y84.8 Other medical procedures as the cause of abnormal reaction of the patient, or of later complication, without mention of misadventure at the time of the procedure
CPT/HCPCS: 36415; 80048; 80202; 81001; 82947; 83036; 85025; 86140; 87070; 87075; 87077; 87186; 87205; 93005; A4216; J1100; J1170; J1650; J1815; J2001; J2175; J2250; J2371; J2405; J2704; J3010; J7030; J7040; J7050

== ENCOUNTER 2023-10-10 13:00 | Day surgery (SDC) | payer BC ==
[2023-10-10 09:17] LABS: MCV 85.6 fL (80-100); MPV 6.5 fL (7.6-11.3); Platelets 266 thou/uL (152-406); RBC Red Blood Cell Count 4.56 M/uL (3.86-4.86)
[2023-10-10 09:29] LABS: Albumin 3.7 g/dL (3.4-5.0); Bilirubin Direct 0.2 mg/dL (0-0.2); Bilirubin Indirect, Calculated 0.3 mg/dL (0.2-0.8); Bilirubin Total 0.5 mg/dL (0.2-1.0); Potassium 3.7 mEq/L (3.5-5.1); Protein, Total 7.9 g/dL (6.4-8.2)
[2023-10-10] MEDS ORDERED: NA CHLORIDE 0.9% 1,000 ML ONE (13:22)
[2023-10-10] MEDS: CEFOXITIN SODIUM 1 GM/VIAL ONE ×2 (14:19→16:23)
[2023-10-10] MEDS ORDERED: MIDAZOLAM HCL 2 MG/2 ML INJ ONE (15:50)
[2023-10-10] MEDS ORDERED: propofoL 200 MG/20 ML VIAL IV ONE (15:50)
[2023-10-10] MEDS ORDERED: FENTANYL CITR 100 MCG/2 ML ONE (15:50)
[2023-10-10] MEDS ORDERED: ROCURONIUM 50 MG/5 ML VIAL IV ONE (15:50)
[2023-10-10] MEDS ORDERED: LIDOCAINE 2% MPF 5 ML VIAL ONE (15:50)
[2023-10-10] MEDS ORDERED: ONDANSETRON 4 MG/2 ML VIAL ONE (15:50)
[2023-10-10] MEDS ORDERED: SUGAMMADEX SODIUM 200 MG/2 ML VIAL IV ONE (16:23)
[2023-10-10] MEDS ORDERED: Phenylephrine HCl 10 MG/ML 1 ML VIAL ONE (16:45)
[2023-10-10] MEDS ORDERED: NS 0.9% VIAL 10 ML ONE ×2 (16:45)
[2023-10-10] MEDS ORDERED: dexAMETHasone 10 MG/ML VIAL ONE (17:01)
[2023-10-10] MEDS: HYDROMORPHONE HCL 1 MG/ML INJ ONE ×4 (17:20→17:40)
--- NOTE | 2023-10-10 17:20 | P.BOP ---
Preoperative diagnosis: acute cholecystitis, symptomatic cholelithiasis Postoperative diagnosis: same Primary procedure: Laparoscopic cholecystectomy Estimated blood loss: <10cc Specimen: gb Findings: as above Anesthesia: General Complications: None Transferred to: Recovery Room Condition: Good
[2023-10-10] MEDS: MEPERIDINE HCL 25 MG/ML SYR ONE ×2 (17:26→17:42)
--- NOTE | 2023-10-10 17:59 | OP ---
Date of Procedure: 10/10/2023 Surgeon: Pierre Boyce MD Preoperative Diagnoses: Acute cholecystitis, symptomatic cholelithiasis. Postoperative Diagnoses: Acute cholecystitis, symptomatic cholelithiasis. Procedure: Laparoscopic cholecystectomy. Anesthesia: General plus local. Estimated Blood Loss: Less than 10 cc. Complications: None. Indication: This is a case of a female, who came to us with above diagnosis, fully explained the gaurang efits, alternatives, and risks of laparoscopic possible open cholecystectomy which include, but not l imited to, infection, bleeding, damage to adjacent structures, anesthesia complication, choledocholit hiasis, bile leak, pancreatitis, [place], and even . She also understands this may not relieve any s ymptoms. She might need more than one surgical intervention. She understood, signed a consent. Description Of Procedure: Patient was brought to the operating room, placed in supine position. Ane sthesia was done without complication. Abdominal area was prepped and draped in the usual sterile fa shion. Marcaine 0.5% injected for local anesthetic followed by sharp incision of the skin in the inf raumbilical region. Incision was carried down to fascia. She has a previous abdominoplasty, so we u sed the previous incision from that abdominoplasty. Incision was carried down to fascia, which was o pened under direct vision. Peritoneum was encountered, opened under direct vision. Vicryl #1 placed inside the fascia. Blayne trocar was carefully introduced. Pneumoperitoneum was obtained. I place d 3 more trocars, 5 mm each one of them, 1 in epigastric area, 2 in the right upper quadrant using sa me technique which was consistent of local anesthetic, sharp incision of the skin, introduction of th e trocars under direct vision. This allowed me to put a grasper in the fundus of the gallbladder, an other grasper in the infundibulum, retracting the gallbladder in the inferolateral fashion exposing t he triangle of Calot, obtaining critical view. Cystic duct and cystic artery were clearly isolated c ircumferentially and a connection between those and the gallbladder were clearly identified. I proce eded to ligate those by using at least 3 clips proximal, 1 clip distal, ligation in the middle. Same was done with the cystic artery. No bile leak. No bleeding. We also ligated small little branch o f the cystic artery, making sure that we protected the hepatic arteries and common bile duct at all t imes. At that moment, I proceeded to remove the trocars under direct vision. Deflated pneumoperiton eum. Closed the fascia with #1 Vicryl, irrigated subcutaneous tissue, closed that with 3-0 chromic a nd the skin in a subcuticular fashion with 3-0 chromic and Steri-Strips on top. Sponge count and ins trument counts were correct. Patient tolerated the procedure well. Patient on her way to Recovery i n stable condition. HM/MODL Voice ID: [id number] Report ID: [id number]
--- NOTE | 2023-10-10 17:59 | DS ---
Diagnoses: Acute cholecystitis, symptomatic cholelithiasis. Procedure: Laparoscopic cholecystectomy. Disposition: Home. Activity: As tolerated. No heavy lifting. Condition: Stable. Plan: Follow up in my office in 1 week. Call for appointment at [phone]. Keep area dry for 48 michela rs, then may shower. Keep Steri-Strips intact. RAHEEM/OCTAVIA Voice ID: [id number] Report ID: [id number]
[2023-10-10] MEDS ORDERED: CODEINE 30MG/APAP 300MG TAB ONE (18:18)
[2023-10-10 18:24] VITALS: BP 113/52; TEMP 97.8; O2SAT 94
== END 2023-10-10 18:43 | disposition home or self-care (01) ==
LOC: OR 13:00
PROVIDERS: ATTEND Surgery
PROC: 0FT44ZZ Resection of Gallbladder, Percutaneous Endoscopic Approach (ICD-10-PCS; principal; 2023-10-10 15:45)
DX: K80.10 Calculus of gallbladder with chronic cholecystitis without obstruction (principal); I10 Essential (primary) hypertension; F41.9 Anxiety disorder, unspecified; E11.9 Type 2 diabetes mellitus without complications; E03.9 Hypothyroidism, unspecified
CPT/HCPCS: 85025; 80048; 36415; 82947 ×2; 80076; 88304; 83690; 47562; A4216 ×2; J2704; J2371; J2001; J2250; J3010; J1100; J2175; J1170 ×2; J0694; J2405; J7030

== ENCOUNTER → 2023-11-03 | Emergency (ER) | payer BC ==
[~2023-11-03] MED LIST: CYCLOBENZAPRINE 10 MG TAB ONE; HYDROCODONE/APAP 10/325 TAB ONE; KETOROLAC 30 MG/ML INJ ONE; ONDANSETRON 4 MG (ODT) TAB ONE; methocarbamoL 750 MG TAB ONE
--- NOTE | 2023-11-03 20:32 | RAD REPORT ---
EXAM DESCRIPTION: CT - C Spine Wo Con - 11/03/2023 7:14 pm CLINICAL HISTORY: Pain COMPARISON: 04/14/2023. TECHNIQUE: Axial thin cut noncontrast CT images of the cervical spine were obtained with sagittal an d coronal reconstruction images generated and reviewed. All CT scans are performed using dose optimization technique as appropriate and may include automated exposure control or mA/KV adjustment according to patient size. FINDINGS: Cervical body height and alignment are normal. Multilevel degenerative changes with significant disc height loss. Moderate bilateral neural foramina l narrowing at C3-4 and on the left at C4-5. Moderate to severe neural foraminal narrowing on the lef t at C2-3. No evidence of bone cervical canal stenosis. No fracture or acute bony abnormality. No paraspinal mass or hematoma. IMPRESSION: No acute traumatic cervical spine fracture or subluxation. Degenerative changes as above.
--- NOTE | 2023-11-03 20:44 | RAD REPORT ---
EXAM DESCRIPTION: CT - Thoracic Spine W/o Cont - 11/03/2023 7:18 pm CLINICAL HISTORY: TRAUMA COMPARISON: C Spine Wo Con dated 11/03/2023; C Spine Wo Con dated 04/14/2023; Thoracic Spine W/o Cont d ated 04/14/2023; Spine Lumbar Wo Con dated 11/03/2023 TECHNIQUE: Axial noncontrast CT imaging of the thoracic spine was performed with coronal and sagitta l re-formatted images. All CT scans are performed using dose optimization technique as appropriate and may include automated exposure control or mA/KV adjustment according to patient size. FINDINGS: No acute thoracic spine fracture seen. No aggressive marrow pattern or malalignment. Paraspinal tissues are normal in thickness. No paraspinal abscess or hematoma seen. Intervertebral disc disease assessment is inherently limited by CT. Within these limitations, no high -grade canal stenosis suspected. Reticular opacities throughout both lungs may relate to all suboptimal inspiratory effort. Degenerative changes at the right sternoclavicular junction with subchondral cystic changes. IMPRESSION: No acute osseous abnormality spine
--- NOTE | 2023-11-03 20:46 | RAD REPORT ---
EXAM DESCRIPTION: CT - Spine Lumbar Wo Con - 11/03/2023 7:19 pm CLINICAL HISTORY: trauma COMPARISON: Spine Lumbar Wo Con dated 04/14/2023; Spine Lumbar Wo Con dated 12/25/2022 TECHNIQUE: Axial noncontrast CT imaging of the lumbar spine was performed with coronal and sagittal re-formatted images. All CT scans are performed using dose optimization technique as appropriate and may include automated exposure control or mA/KV adjustment according to patient size. FINDINGS: No acute lumbar spine fracture seen. No aggressive marrow pattern or malalignment. Paraspinal tissues are normal in thickness. No paraspinal abscess or hematoma seen. Intervertebral disc disease assessment is inherently limited by CT. Within these limitations, no high -grade canal stenosis suspected. Moderate facet degenerative changes of the lower lumbar levels cont ributing to [id number] neural foraminal narrowing bilaterally at L4-5 and L5-S1. IMPRESSION: No acute lumbar spine right subluxation. Moderate degenerative changes as above.
--- NOTE | 2023-11-03 20:57 | EDPHYS ---
Physician Documentation [facility] Name: Sharon Babin Age: 53 yrs Sex: Female : 1970 Arrival Date: 11/03/2023 Time: 17:57 Bed 10 Private MD: ED Physician Jose Tolbert HPI: 11/03 20:13 This 53 yrs old Female presents to ER via Wheelchair with complaints of Back rt Injury. 20:13 Patient presents to the ED with slip and fall. The patient landed onto her left side, rt states that she has a pain to the left side of her neck, lower back. She denies hitting her head, loss of consciousness. Pain is aching in nature, nonradiating, moderate severity, no other aggravating elevating factors.. 20:17 PMH - Allergies: No Known Allergies; PMHx: Diabetes - NIDDM; Fibromyalgia; sp4 Hypercholesterolemia; Hypertension; Hypothyroidism; Lupus PSHx: Tummy tuck; mass removed from sinus; Elbow; section; Carpal tunnel breast augmentation; back . [employer] HAND: 21:06 LMP N/A - Irregular menses, Not ap3 Historical: - Allergies: 18:23 No Known Allergies; ld1 - PMHx: 18:23 Diabetes - NIDDM; Hypercholesterolemia; Fibromyalgia; Hypertension; Hypothyroidism; ld1 Lupus; - PSHx: 18:23 back sx; breast augmentation; Carpal tunnel sx; section; Elbow; mass removed ld1 from sinus; Tummy tuck; - Immunization history:: Adult Immunizations up to date. - Social history:: Smoking status: Patient denies any tobacco usage or history of. Patient/guardian denies using alcohol. - Family history:: not pertinent. ROS: 20:13 Constitutional: Negative for fever, chills, and weight loss, Cardiovascular: Negative rt for chest pain, palpitations, and edema, Respiratory: Negative for shortness of breath, cough, wheezing, and pleuritic chest pain, Abdomen/GI: Negative for abdominal pain, nausea, vomiting, diarrhea, and constipation, MS/Extremity: Negative for injury and deformity, Skin: Negative for injury, rash, and discoloration, Neuro: Negative for headache, weakness, numbness, tingling, and seizure, Psych: Negative for depression, anxiety, suicide ideation, homicidal ideation, and hallucinations, 20:13 Neck: Positive for pain with movement, pain at rest, 20:13 Back: Positive for pain at rest, pain with movement, Exam: 20:13 Constitutional: This is a well developed, well nourished patient who is awake, alert, rt and in no acute distress. Head/Face: Normocephalic, atraumatic. Chest/axilla: Normal chest wall appearance and motion. Nontender with no deformity. No lesions are appreciated. Cardiovascular: Regular rate and rhythm with a normal S1 and S2. No gallops, murmurs, or rubs. Normal PMI, no JVD. No pulse deficits. Respiratory: Lungs have equal breath sounds bilaterally, clear to auscultation and percussion. No rales, rhonchi or wheezes noted. No increased work of breathing, no retractions or nasal flaring. Abdomen/GI: Soft, non-tender, with normal bowel sounds. No distension or tympany. No guarding or rebound. No evidence of tenderness throughout. Skin: Warm, dry with normal turgor. Normal color with no rashes, no lesions, and no evidence of cellulitis. MS/ Extremity: Pulses equal, no cyanosis. Neurovascular intact. Full, normal range of motion. Neuro: Awake and alert, GCS 15, oriented to person, place, time, and situation. Cranial nerves II-XII grossly intact. Motor strength 5/5 in all extremities. Sensory grossly intact. Cerebellar exam normal. Normal gait. Psych: Awake, alert, with orientation to person, place and time. Behavior, mood, and affect are within normal limits. 20:13 Neck: Tenderness left paraspinal region, no midline tenderness, step-offs, 20:13 Back: Tenderness to the left lower lumbar region, no midline tenderness, no step-offs, Vital Signs: 18:22 BP 123 / 84; Pulse 109; Resp 18; Temp 97.5(TE); Pulse Ox 97% on R/A; Weight 99.79 kg; ld1 Height 5 ft. 6 in. ; Pain 8/10; 20:42 Pain 8/10; ap3 21:06 Temp 97.4(TE); Pain 6/10; ap3 18:22 Body Mass Index 35.51 (99.79 kg, 167.64 cm) ld1 18:22 Pain Scale: Adult ld1 20:42 Pain Scale: Adult ap3 21:06 Pain Scale: Adult ap3 MDM: 18:26 Patient medically screened. rt 20:55 Differential diagnosis: arthritis, Fatigue Fracture Obesity ruptured disc. Data sp4 reviewed: vital signs, nurses notes, radiologic studies, CT scan. ED course: CT does not reveal any emergent medical findings, no sign of spinal fractures, moderate degenerative arthritis of the spine. Patient is able to ambulate unassisted. No sign of neurologic deficits, stable for discharge home with tramadol and Robaxin. Advised ibuprofen 800 mg [id number] every 6 hours for 3 days.. . 11/03 18:28 Order name: CT C Spine; Complete Time: 20:51 rt 11/03 18:28 Order name: CT Thoracic Spine Wo Cont; Complete Time: 20:51 rt 11/03 18:28 Order name: CT Lumbar Spine Wo Con; Complete Time: 20:51 rt Administered Medications: 20:14 Drug: Cyclobenzaprine PO 10 mg PO once Route: PO; ap3 21:07 Follow up: Response: No adverse reaction ap3 20:15 Drug: Ketorolac IM 15 mg IM once Route: IM; Site: left deltoid; ap3 21:07 Follow up: Response: No adverse reaction ap3 20:42 Drug: Methocarbamol PO 750 mg PO once Route: PO; ap3 21:07 Follow up: Response: No adverse reaction ap3 20:42 Drug: Hat[place] PO 10 mg-325 mg 1 tabs PO once Route: PO; ap3 21:07 Follow up: Response: No adverse reaction; Pain is decreased; RASS: Alert and Calm (0) ap3 20:42 Drug: Ondansetron PO 4 mg PO once Route: PO; ap3 21:07 Follow up: Response: No adverse reaction ap3 Disposition Summary: 11/03/23 20:57 Discharge Ordered Notes: Location: Home sp4 Problem: new sp4 Symptoms: have improved sp4 Condition: Stable sp4 Diagnosis - Acute fall, lower spinal contusion, acute lower back pain. Exacerbation of sp4 chronic lower back pain, degenerative spinal arthritis Followup: sp4 - With: Private Physician - When: 7 - 10 days - Reason: Recheck today's complaints Discharge Instructions: - Discharge Summary Sheet sp4 - Acute Back Pain, Adult sp4 Forms: - Patient Portal Instructions sp4 Prescriptions: - Ibuprofen 800 mg Oral tablet - take 1 tablet ORAL route every 6 hours As needed take with food; 30 tablet; sp4 Refills: 0, Product Selection Permitted - Tramadol 50 mg Oral Tablet - take 1 tablet ORAL route every 8 hours as needed; 12 tablet; Refills: 0, sp4 Product Selection Permitted - methocarbamol 750 mg Oral tablet - take 2 tablets ORAL route 4 times per day for 2 days; 60 tablet; Refills: 0, sp4 Product Selection Permitted Signatures: Dispatcher [employer] Ursula Mabry RN RN ap3 Althea Cano RN RN ld1 Bang Lyons MD MD rt Jose Tolbert MD MD sp4
--- NOTE | 2023-11-03 20:57 | ER ---
Nurse's Notes [facility] Name: Sharon Babin Age: 53 yrs Sex: Female : 1970 Arrival Date: 11/03/2023 Time: 17:57 Bed 10 Private MD: Diagnosis: Acute fall, lower spinal contusion, acute lower back pain. Exacerbation of chronic lower back pain, degenerative spinal arthritis Presentation: 11/03 18:22 Chief complaint: Patient states: Back pain caused from falling yesterday in home. Pt ld1 reports floors being slippery. C/O pain to neck and lower back. Coronavirus screen: At this time, the client does not indicate any symptoms associated with coronavirus-19. Ebola Screen: No symptoms or risks identified at this time. Initial Sepsis Screen: Does the patient meet any 2 criteria? No. Patient's initial sepsis screen is negative. Does the patient have a suspected source of infection? No. Patient's initial sepsis screen is negative. Risk Assessment: Do you want to hurt yourself or someone else? Patient reports no desire to harm self or others. Onset of symptoms was November 03, 2023. 18:22 Method Of Arrival: Wheelchair ld1 18:22 Acuity: XIMENA 4 ld1 Triage Assessment: 18:23 General: Appears in no apparent distress. comfortable, Behavior is calm, cooperative, ld1 appropriate for age. Pain: Complains of pain in low back area Pain does not radiate. Pain currently is 8 out of 10 on a pain scale. Quality of pain is described as throbbing. EENT: No signs and/or symptoms were reported regarding the EENT system. Neuro: Level of Consciousness is awake, alert, obeys commands, Oriented to person, place, time, situation. Cardiovascular: Capillary refill < 3 seconds Patient's skin is warm and dry. Respiratory: Airway is patent Respiratory effort is even, unlabored. GI: Abdomen is round non-distended. : No signs and/or symptoms were reported regarding the genitourinary system. Derm: No signs and/or symptoms reported regarding the dermatologic system. Musculoskeletal: No signs and/or symptoms reported regarding the musculoskeletal system. 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 - Social history:: Smoking status: Patient denies any tobacco usage or history of. Patient/guardian denies using alcohol. - Family history:: not pertinent. Screenin:42 [facility] ED Fall Risk Assessment (Adult) History of falling in the last 3 months, ap3 including since admission Yes- single mechanical fall (1 pt) Confusion or Disorientation No (0 pts) Intoxicated or Sedated No (0 pts) Impaired Gait No (0 pts) Mobility Assist Device Used No (0 pt) Altered Elimination No (0 pt). Abuse screen: Denies threats or abuse. Nutritional screening: No deficits noted. Tuberculosis screening: No symptoms or risk factors identified. Vital Signs: 18:22 BP 123 / 84; Pulse 109; Resp 18; Temp 97.5(TE); Pulse Ox 97% on R/A; Weight 99.79 kg; ld1 Height 5 ft. 6 in. ; Pain 8/10; 20:42 Pain 8/10; ap3 21:06 Temp 97.4(TE); Pain 6/10; ap3 18:22 Body Mass Index 35.51 (99.79 kg, 167.64 cm) ld1 18:22 Pain Scale: Adult ld1 20:42 Pain Scale: Adult ap3 21:06 Pain Scale: Adult ap3 ED Course: 18:01 Patient arrived in ED. ae5 18:04 Bang Lyons MD is Attending Physician. rt 18:23 Triage completed. ld1 18:23 Arm band placed on right wrist. ld1 19:15 CT C Spine In Process Unspecified. EDMS 19:18 CT Thoracic Spine Wo Cont In Process Unspecified. EDMS 19:18 CT Lumbar Spine Wo Con In Process Unspecified. EDMS 20:00 Attending Physician role handed off by Bang Lyons MD sp4 20:00 Jose Tolbert MD is Attending Physician. sp4 20:43 Patient has correct armband on for positive identification. Bed in low position. Call ap3 light in reach. Pulse ox on. NIBP on. 20:43 Provided Education on: medication prior to administration . ap3 21:06 No provider procedures requiring assistance completed. Patient did not have IV access ap3 during this emergency room visit. Administered Medications: 20:14 Drug: Cyclobenzaprine PO 10 mg PO once Route: PO; ap3 21:07 Follow up: Response: No adverse reaction ap3 20:15 Drug: Ketorolac IM 15 mg IM once Route: IM; Site: left deltoid; ap3 21:07 Follow up: Response: No adverse reaction ap3 20:42 Drug: Methocarbamol PO 750 mg PO once Route: PO; ap3 21:07 Follow up: Response: No adverse reaction ap3 20:42 Drug: [place] PO 10 mg-325 mg 1 tabs PO once Route: PO; ap3 21:07 Follow up: Response: No adverse reaction; Pain is decreased; RASS: Alert and Calm (0) ap3 20:42 Drug: Ondansetron PO 4 mg PO once Route: PO; ap3 21:07 Follow up: Response: No adverse reaction ap3 Medication: 20:44 VIS not applicable for this client. ap3 Outcome: 20:57 Discharge ordered by . sp4 21:06 Discharged to home ambulatory, ap3 21:06 Condition: good 21:06 Discharge instructions given to patient, Instructed on discharge instructions, follow up and referral plans. medication usage, Demonstrated understanding of instructions, follow-up care, medications, Prescriptions given X 3, 21:07 Patient left the ED. ap3 Signatures: Dispatcher [employer] EDMS Ursula Manzo RN RN ap3 Althea Cano RN RN ld1 Bang Lyons MD MD rt Jose Tolbert MD MD sp4 Jonna Segura ae5
[2023-11-04 02:11] VITALS: BP 123/84; TEMP 97.4; O2SAT 97
== END ==
LOC: ER 17:57
DX: S30.0XXA Contusion of lower back and pelvis, initial encounter (principal); W19.XXXA Unspecified fall, initial encounter; W01.0XXA Fall on same level from slipping, tripping and stumbling without subsequent striking against object, initial encounter; Y92.009 Unspecified place in unspecified non-institutional (private) residence as the place of occurrence of the external cause; M54.50 Low back pain, unspecified; M47.9 Spondylosis, unspecified; M79.7 Fibromyalgia; E11.9 Type 2 diabetes mellitus without complications; I10 Essential (primary) hypertension; E03.9 Hypothyroidism, unspecified; E78.00 Pure hypercholesterolemia, unspecified
CPT/HCPCS: 72131; 72125; 72128; 96372; 99284; Q0162

== ENCOUNTER → 2023-11-09 | Emergency (ER) | payer BC ==
[~2023-11-09] MED LIST changes: +ASPIRIN 81 MG CHEWABLE TABLET ONE; -CYCLOBENZAPRINE 10 MG TAB ONE; +DIPHENHYDRAMINE 50 MG/ML VIAL ONE; -HYDROCODONE/APAP 10/325 TAB ONE; +METOCLOPRAMIDE 10 MG/2mL INJ ONE; +NA CHLORIDE 0.9% 1,000 ML ONE; -ONDANSETRON 4 MG (ODT) TAB ONE; -methocarbamoL 750 MG TAB ONE
[2023-11-09 12:18] LABS: Hematocrit 38.6 % (36.0-45.0); MCV 85.1 fL (80-100); MPV 6.5 fL (7.6-11.3); Platelets 244 thou/uL (152-406); RBC Red Blood Cell Count 4.54 M/uL (3.86-4.86)
--- NOTE | 2023-11-09 12:22 | RAD REPORT ---
EXAM DESCRIPTION: RAD - Chest Single View - 11/09/2023 12:01 pm CLINICAL HISTORY: CHEST PAIN COMPARISON: Chest Single View dated 08/20/2023; Chest Pa And Lat (2 Views) dated 08/19/2023; Chest Sin gle View dated 11/14/2022; Chest Single View dated 07/09/2022 FINDINGS: Lines: None. Lungs: No evidence of edema or pneumonia. Pleural: No significant pleural effusions or pneumothorax. Cardiac: The heart size is within normal limits. Mediastinum: Within normal limits. Bones: No acute fractures. Other: None IMPRESSION: No acute cardiopulmonary disease.
[2023-11-09 12:33] LABS: SARS-CoV-2 Antigen Rapid Res Negative (Negative)
[2023-11-09 12:43] LABS: Albumin 3.9 g/dL (3.4-5.0); Bilirubin Direct 0.1 mg/dL (0-0.2); Bilirubin Indirect, Calculated 0.3 mg/dL (0.2-0.8); Bilirubin Total 0.4 mg/dL (0.2-1.0); Magnesium 1.9 mg/dL (1.6-2.4); Potassium 3.8 mEq/L (3.5-5.1); Troponin High Sensitivity 3.9 pg/mL (<58.9)
--- NOTE | 2023-11-09 12:55 | ER ---
Nurse's Notes [facility] Name: Sharon Babin Age: 53 yrs Sex: Female : 1970 Arrival Date: 11/09/2023 Time: 11:07 Bed 18 Private MD: Nestor Medina V Diagnosis: Headache;Viral infection, unspecified Presentation: 11/09 11:10 Chief complaint: Patient states: chest tightness and headache since yesterday. aa5 11:10 Coronavirus screen: At this time, the client does not indicate any symptoms associated aa5 with coronavirus-19. Ebola Screen: Patient denies travel to an Ebola-affected area in the 21 days before illness onset. Initial Sepsis Screen: Does the patient meet any 2 criteria? HR > 90 bpm. Does the patient have a suspected source of infection? No. Patient's initial sepsis screen is negative. Risk Assessment: Do you want to hurt yourself or someone else? Patient reports no desire to harm self or others. Onset of symptoms was October 2023. 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 - Social history:: Smoking status: Reported history of juuling and/or vaping. Screenin:38 [facility] ED Fall Risk Assessment (Adult) History of falling in the last 3 months, cp4 including since admission No falls in past 3 months (0 pts) Confusion or Disorientation No (0 pts) Intoxicated or Sedated No (0 pts) Impaired Gait No (0 pts) Mobility Assist Device Used No (0 pt) Altered Elimination No (0 pt) Score/Fall Risk Level 0 - 2 = Low Risk Oriented to surroundings, Maintained a safe environment, Educated pt \T\ family on fall prevention, incl call for assistance when getting out of bed, Assessed \T\ reinforced patient's understanding of fall precautions, Hourly rounding (assess needs \T\ fall precautionary measures) done. Abuse screen: Denies threats or abuse. Nutritional screening: No deficits noted. Tuberculosis screening: No symptoms or risk factors identified. Assessment: 12:38 General: Appears in no apparent distress. Behavior is calm, cooperative, appropriate cp4 for age. Pain: Pain does not radiate. Pain began suddenly. Cardiovascular: Reports chest pain. Vital Signs: 11:10 BP 140 / 95; Pulse 104; Resp 16 S; Temp 99(O); Pulse Ox 97% on R/A; Weight 99.79 kg aa5 (R); Height 5 ft. 6 in. (R); 13:06 BP 150 / 88; Pulse 92; Resp 16; Pulse Ox 97% ; cp4 11:10 Body Mass Index 35.51 (99.79 kg, 167.64 cm) aa5 ED Course: 11:08 Patient arrived in ED. rg4 11:08 Nestor Medina MD is Private Physician. rg4 11:10 Arm band placed on. aa5 11:19 Vivienne Riojas PA-C is PHCP. sb4 11:19 Bang Lyons MD is Attending Physician. sb4 11:28 Triage completed. aa5 12:01 Aga Tinajero, RN is Primary Nurse. hb 12:03 XRAY Chest (1 view) In Process Unspecified. EDMS 12:15 Flu Sent. cp4 12:15 SARS RAPID Sent. cp4 12:15 Basic Metabolic Panel Sent. cp4 12:15 CBC with Diff Sent. cp4 12:15 LFT's Sent. cp4 12:15 Troponin HS Sent. cp4 12:15 Inserted saline lock: 20 gauge in right antecubital area, using aseptic technique. cp4 Blood collected. 12:15 Patient maintains SpO2 saturation greater than 95% on room air. cp4 12:16 Magnesium Sent. cp4 12:38 Bed in low position. Call light in reach. Side rails up X2. Client placed on continuous cp4 cardiac and pulse oximetry monitoring. NIBP monitoring applied. 12:55 Nestor Medina MD is Referral Physician. sb4 13:07 Provided Education on: viral illness. cp4 13:07 No provider procedures requiring assistance completed. intact, bleeding controlled, No cp4 redness/swelling at site. Pressure dressing applied. Administered Medications: 12:14 Drug: Ketorolac IVP 15 mg IVP once Route: IVP; Site: right antecubital; cp4 13:06 Follow up: Response: No adverse reaction cp4 12:15 Drug: NS 0.9% IV 1000 ml IV at 1 bolus Per protocol; 1000 mL bolus Route: IV; Rate: 1 cp4 bolus; Site: right antecubital; 13:05 Follow up: Response: No adverse reaction; IV Status: Completed infusion cp4 12:15 Drug: metoCLOPramide IVP 10 mg IVP once; over 1 to 2 minutes Route: IVP; Site: right cp4 antecubital; 13:06 Follow up: Response: No adverse reaction cp4 12:15 Drug: diphenhydrAMINE IVP 25 mg IVP once Route: IVP; Site: right antecubital; cp4 13:06 Follow up: Response: No adverse reaction cp4 12:16 Drug: Aspirin PO Chewable Tablet 324 mg PO once; 81 mg tablets x 4 Route: PO; cp4 Medication: 12:38 VIS not applicable for this client. cp4 Outcome: 12:55 Discharge ordered by MD. sb4 13:07 Discharged to home ambulatory, cp4 13:07 Condition: stable 13:07 Discharge instructions given to patient, Instructed on discharge instructions, follow up and referral plans. Demonstrated understanding of instructions, follow-up care, 13:11 Patient left the ED. cp4 Signatures: Dispatcher [employer] EDMS Phoebe Jonas RN RN aa5 Aga Tinajero RN RN hb Garcia, Rubi 4 Vivienne Riojas PA-C PATeofilo hammer[address] cp4
--- NOTE | 2023-11-09 12:55 | EDPHYS ---
Physician Documentation [facility] Name: Sharon Babin Age: 53 yrs Sex: Female : 1970 Arrival Date: 11/09/2023 Time: 11:07 Bed 18 Private MD: Nestor Medina V ED Physician Bang Lyons HPI: 11/09 11:59 This 53 yrs old Female presents to ER via Ambulatory with complaints of Chest sb4 Pain, headache. 11:59 chest tightness started yesterday, later developed a headache. chest tightness has sb4 improved but headache has gotten worse. denies any URI or GI symptoms. has taken ibuprofen without any relief. 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 - Social history:: Smoking status: Reported history of juuling and/or vaping. ROS: 11:59 Constitutional: Negative for fever, chills, and weight loss, sb4 11:59 Cardiovascular: Positive for chest pain, 11:59 Neuro: Positive for headache, 11:59 All other systems are negative, Exam: 11:59 Constitutional: This is a well developed, well nourished patient who is awake, alert, sb4 and in no acute distress. Head/Face: Normocephalic, atraumatic. Eyes: Extra-ocular motions intact. Periorbital areas with no swelling, redness, or edema. ENT: Mucous membranes moist. Cardiovascular: Regular rate and rhythm with a normal S1 and S2. Respiratory: Lungs have equal breath sounds bilaterally, clear to auscultation and percussion. No rales, rhonchi or wheezes noted. No increased work of breathing, no retractions or nasal flaring. Abdomen/GI: Soft, non-tender, no distension. Skin: Warm, dry with normal turgor. Normal color with no rashes, no lesions, and no evidence of cellulitis. MS/ Extremity: Pulses equal, no cyanosis. Neurovascular intact. Full, normal range of motion. Neuro: Awake and alert, GCS 15, oriented to person, place, time, and situation. Motor strength 5/5 in all extremities. Sensory grossly intact. Vital Signs: 11:10 BP 140 / 95; Pulse 104; Resp 16 S; Temp 99(O); Pulse Ox 97% on R/A; Weight 99.79 kg aa5 (R); Height 5 ft. 6 in. (R); 13:06 BP 150 / 88; Pulse 92; Resp 16; Pulse Ox 97% ; cp4 11:10 Body Mass Index 35.51 (99.79 kg, 167.64 cm) aa5 MDM: 11:19 Patient medically screened. sb4 11:59 Differential diagnosis: angina, PNA, bronchitis, migraine, URI, covid, flu. sb4 12:54 Data reviewed: vital signs, nurses notes, lab test result(s), EKG, radiologic studies, sb4 and as a result, I will discharge patient. Consideration of Admission/Observation Escalation of care including admission/observation considered. Care significantly affected by the following chronic conditions: Diabetes, Hypertension. Scoring Tools HEART Score: History: ECG: Age: Risk Factors: > or = 3 Risk factors for atherosclerotic disease (2), Troponin: Total Score = 3. Counseling: I had a detailed discussion with the patient and/or guardian regarding the historical points, exam findings, and any diagnostic results supporting the discharge/admit diagnosis, lab results, radiology results, to return to the emergency department if symptoms worsen or persist or if there are any questions or concerns that arise at home. 11/09 11:39 Order name: Basic Metabolic Panel; Complete Time: 12:44 sb4 11/09 11:39 Order name: CBC with Diff; Complete Time: 12:24 sb4 11/09 11:39 Order name: LFT's; Complete Time: 12:44 sb4 11/09 11:39 Order name: Magnesium; Complete Time: 12:44 sb4 11/09 11:39 Order name: Troponin HS; Complete Time: 12:44 sb4 11/09 11:39 Order name: SARS RAPID; Complete Time: 12:43 sb4 11/09 11:39 Order name: Flu; Complete Time: 12:43 sb4 11/09 11:39 Order name: XRAY Chest (1 view); Complete Time: 12:24 sb4 11/09 11:39 Order name: EKG; Complete Time: 11:40 sb4 11/09 11:39 Order name: Cardiac monitoring; Complete Time: 12:15 sb4 11/09 11:39 Order name: EKG - Nurse/Tech; Complete Time: 12:15 sb4 11/09 11:39 Order name: IV Saline Lock; Complete Time: 12:15 sb4 11/09 11:39 Order name: Labs collected and sent; Complete Time: 12:15 sb4 11/09 11:39 Order name: O2 Per Protocol; Complete Time: 12:15 sb4 11/09 11:39 Order name: O2 Sat Monitoring; Complete Time: 12:40 sb4 EC:06 Rate is 98 beats/min. Rhythm is regular, Normal Sinus Rhythm. [place] interval is normal at sb4 168 msec. QRS interval is normal at 102 msec. QT interval is normal at 382 msec. No Q waves. T waves are Normal. No ST changes noted. Clinical impression: Normal ECG. Interpreted by me. Reviewed by me. Administered Medications: 12:14 Drug: Ketorolac IVP 15 mg IVP once Route: IVP; Site: right antecubital; cp4 13:06 Follow up: Response: No adverse reaction cp4 12:15 Drug: NS 0.9% IV 1000 ml IV at 1 bolus Per protocol; 1000 mL bolus Route: IV; Rate: 1 cp4 bolus; Site: right antecubital; 13:05 Follow up: Response: No adverse reaction; IV Status: Completed infusion cp4 12:15 Drug: metoCLOPramide IVP 10 mg IVP once; over 1 to 2 minutes Route: IVP; Site: right cp4 antecubital; 13:06 Follow up: Response: No adverse reaction cp4 12:15 Drug: diphenhydrAMINE IVP 25 mg IVP once Route: IVP; Site: right antecubital; cp4 13:06 Follow up: Response: No adverse reaction cp4 12:16 Drug: Aspirin PO Chewable Tablet 324 mg PO once; 81 mg tablets x 4 Route: PO; cp4 Disposition: 17:34 Co-signature as Attending Physician, Bang Lyons MD I reviewed the patient's care rt provided by the Advanced Practice Provider and agree with the diagnosis and treatment plan. Disposition Summary: 11/09/23 12:55 Discharge Ordered Notes: Location: Home sb4 Problem: new sb4 Symptoms: have improved sb4 Condition: Stable sb4 Diagnosis - Headache sb4 - Viral infection, unspecified sb4 Followup: sb4 - With: Nestor Medina MD - When: 2 - 3 days - Reason: Recheck today's complaints, Re-evaluation by your physician Discharge Instructions: - Discharge Summary Sheet sb4 - Viral Illness, Adult sb4 Forms: - Medication Reconciliation Form sb4 - Thank You Letter sb4 - Antibiotic Education sb4 - Prescription Opioid Use sb4 - Patient Portal Instructions sb4 - Leadership Thank You Letter sb4 Signatures: Dispatcher [employer] Phoebe Mcrae RN RN aa5 Vivienne Riojas PA-C PA-C sb4 Bang Lyons MD MD rt Potter, Christina cp4
[2023-11-09 16:02] VITALS: BP 150/88; TEMP 99; O2SAT 97
== END ==
LOC: ER 11:07
DX: B34.9 Viral infection, unspecified (principal); R07.89 Other chest pain; Z11.52 Encounter for screening for COVID-19
CPT/HCPCS: 93005; 85025; 80048; 36415; 83735; 80076; 84484; 87804 ×2; 71045; 87811; J2765; J1200; J7030

== ENCOUNTER 2024-01-08 16:19 | Emergency (ER) | payer BC ==
[2024-01-08] MEDS ORDERED: ONDANSETRON 4 MG/2 ML VIAL ONE (17:31)
[2024-01-08] MEDS ORDERED: NA CHLORIDE 0.9% 1,000 ML ONE (17:32)
[2024-01-08] MEDS ORDERED: LACTULOSE 20 GM/30 ML UCUP ONE (17:32)
[2024-01-08] MEDS ORDERED: BISACODYL 10 MG RECTAL SUPP ONE (17:32)
[2024-01-08 17:48] LABS: Specific Gravity 1.006 (1.005-1.030); Sqamous Epithelial <5 /HPF (None Seen); Urine Bacteria None Seen /HPF (<20); Urine Bilirubin NEGATIVE (Negative); Urine Blood 2+ (Negative); Urine Clarity Turbid (Clear); Urine Color Yellow (Yellow); Urine Culture Reflex Order REFLEXED; Urine Glucose NEGATIVE (Negative); Urine Ketones NEGATIVE (Negative); Urine Microscopic Reflex YN ORDER UMIC; Urine Nitrite NEGATIVE (Negative); Urine Protein NEGATIVE (Negative); Urine RBC <5 /HPF (None Seen); Urine Urobilinogen Normal (Normal)
[2024-01-08 17:57] LABS: Albumin 4.3 g/dL (3.4-5.0); Albumin/Globulin Ratio 1.1 (1.1-1.8); Anion Gap 11.5 mEq/L (5.0-15.0); Bilirubin Total 0.6 mg/dL (0.2-1.0); Potassium 3.5 mEq/L (3.5-5.1); Protein, Total 8.3 g/dL (6.4-8.2)
[2024-01-08 18:02] LABS: Absolute Eosinophils 0.1 K/uL (0-0.5); Absolute Lymphocytes (CBC) 2.8 K/uL (0.7-4.9); Absolute Monocytes 0.5 K/uL (0.1-1.3); Absolute Neutrophil 6.2 K/uL (1.8-8.0); Basophils % 0.4 % (0-1.3); Eosinophils % 1.3 % (0-4.4); Hematocrit 37.9 % (36.0-45.0); Hemoglobin 13.4 g/dL (12.0-15.0); Lymphocytes % 28.7 % (15.3-44.8); MCH 30.4 pg (27.0-35.0); MCHC 35.4 g/dL (32.0-36.0); MCV 85.9 fL (80-100); MPV 6.8 fL (7.6-11.3); Monocytes % 5.3 % (3.3-12.3); Neutrophils % 64.3 % (41.7-73.7); Nucleated Red Blood Cells % 0.1 % (0-0); Platelets 243 thou/uL (152-406); RBC Red Blood Cell Count 4.41 M/uL (3.86-4.86); Red Cell Distribution Width 14.1 % (12.1-15.2)
--- NOTE | 2024-01-08 19:19 | RAD REPORT ---
EXAM DESCRIPTION: CT - Abdomen Pelvis Wo Contrast - 01/08/2024 6:52 pm CLINICAL HISTORY: Abd pain;Constipation COMPARISON: Abdomen Pelvis W Contrast dated 12/20/2021; Abdomen Pelvis W Contrast dated 0; Abdomen Pelvis Wo Contrast dated 06/27/2017; Stone Protocol dated 04/02/2017 TECHNIQUE: Thin cut axial CT imaging of the abdomen and pelvis was performed without IV contrast. Mu ltiplanar reformats were generated and reviewed. All CT scans are performed using dose optimization technique as appropriate and may include automated exposure control or mA/KV adjustment according to patient size. FINDINGS: No suspicious findings in the lung bases. Elevation of the right hemidiaphragm. The liver, spleen, adrenal glands, and pancreas show no suspicious findings. Gallbladder was surgical ly removed. Symmetric renal contour, without suspicious parenchymal findings within limits of noncontrast techniq ue. No evidence of radiopaque calculi or hydroureteronephrosis. No dilated bowel loops or bowel wall thickening. No free air, free fluid or inflammatory stranding. N o hernia, mass or bulky lymphadenopathy. The urinary bladder is without significant finding. No suspicious bony findings. IMPRESSION: No acute intra-abdominal process.
--- NOTE | 2024-01-08 19:21 | ER ---
Nurse's Notes [facility] Name: Sharon Babin Age: 53 yrs Sex: Female : 1970 Arrival Date: 01/08/2024 Time: 16:19 Bed 2 Private MD: Nestor Medina V Diagnosis: Abdominal pain, Generalized;Constipation;Obesity, unspecified;UTI/ Urinary tract infection, site not specified Presentation: 01/07 16:39 Chief complaint: Patient states: having trouble going to the bathroom x 5 days, ko1 starting to have abdominal pain, has taken OTC meds and no results, went to pee today and had some bleeding with urine. Coronavirus screen: At this time, the client does not indicate any symptoms associated with coronavirus-19. Ebola Screen: No symptoms or risks identified at this time. Initial Sepsis Screen: Does the patient meet any 2 criteria? No. Patient's initial sepsis screen is negative. Does the patient have a suspected source of infection? No. Patient's initial sepsis screen is negative. Risk Assessment: Do you want to hurt yourself or someone else? Patient reports no desire to harm self or others. Onset of symptoms was January 08, 2024. 16:39 Method Of Arrival: Wheelchair ko1 16:39 Acuity: XIMENA 3 ko1 Triage Assessment: 16:43 General: Appears uncomfortable, Behavior is cooperative, appropriate for age, anxious. ko1 Pain: Complains of pain in abdomen. GI: Reports constipation. : Reports bleeding with urination. Historical: - Allergies: 16:43 No Known Allergies; ko1 - PMHx: 16:43 Diabetes - NIDDM; Fibromyalgia; Hypercholesterolemia; Hypertension; Hypothyroidism; ko1 Lupus; - PSHx: 16:43 back sx; breast augmentation; Carpal tunnel sx; section; Elbow; mass removed ko1 from sinus; Tummy tuck; - Immunization history:: Adult Immunizations unknown. - Social history:: Smoking status: Patient denies any tobacco usage or history of. Screenin:38 [facility] ED Fall Risk Assessment (Adult) History of falling in the last 3 months, cp4 including since admission No falls in past 3 months (0 pts) Confusion or Disorientation No (0 pts) Intoxicated or Sedated No (0 pts) Impaired Gait No (0 pts) Mobility Assist Device Used No (0 pt) Altered Elimination No (0 pt) Score/Fall Risk Level 0 - 2 = Low Risk Oriented to surroundings, Maintained a safe environment, Assessed \T\ reinforced patient's understanding of fall precautions, Hourly rounding (assess needs \T\ fall precautionary measures) done. Abuse screen: Denies threats or abuse. Nutritional screening: No deficits noted. Tuberculosis screening: No symptoms or risk factors identified. Assessment: 17:38 General: Appears in no apparent distress. Behavior is calm, cooperative, appropriate cp4 for age. Pain: Denies pain. GI: Abdomen is round non-distended, Bowel sounds present X 4 quads. Abd is soft and non tender X 4 quads. : Reports incontinence, since today. Vital Signs: 16:39 BP 126 / 71; Pulse 129; Resp 18; Temp 97.1; Pulse Ox 99% ; ko1 18:05 BP 128 / 76; Pulse 109; Resp 18; Pulse Ox 94% ; cp4 19:32 BP 123 / 79; Pulse 99; Resp 17 S; Pulse Ox 95% on R/A; ha1 ED Course: 16:20 Patient arrived in ED. rg4 16:21 Nestor Medina MD is Private Physician. rg4 16:21 Ehsan Mathur MD is Attending Physician. fiorella 16:43 Triage completed. ko1 16:43 Arm band placed on right wrist. Patient placed in an exam room, on a stretcher, on ko1 pulse oximetry, Patient notified of wait time. 16:[address] is Primary Nurse. cp4 17:38 Placed in gown. Bed in low position. Call light in reach. Side rails up X 1. Provided cp4 Education on:. 17:38 No provider procedures requiring assistance completed. Initial lab(s) drawn, by wi, cp4 sent to lab. Urine collected: clean catch specimen, clear. Inserted saline lock: 20 gauge in left antecubital area, using aseptic technique. Blood collected. 18:53 Abdomen In Process Unspecified. EDMS 19:21 Nestor Medina MD is Referral Physician. fiorella 19:21 Sherice Forrester MD is Referral Physician. fiorella 19:40 IV discontinued, intact, bleeding controlled, No redness/swelling at site. Pressure rv dressing applied. Administered Medications: 17:37 Drug: NS 0.9% IV 1000 ml IV at 1 bolus Per protocol; 1000 mL bolus Route: IV; Rate: 1 cp4 bolus; Site: left antecubital; 17:37 Drug: Ondansetron IVP 4 mg IVP once; over 2 minutes Route: IVP; Site: left antecubital; cp4 18:03 Follow up: Response: No adverse reaction cp4 17:37 Drug: NS 0.9% IV 1000 ml IV at 1 bolus Per protocol; 1000 mL bolus Route: IV; Rate: 1 cp4 bolus; Site: left antecubital; 19:39 Follow up: IV Status: Completed infusion; IV Intake: 1000ml rv 17:37 Drug: Lactulose PO 30 grams 45 ml PO once Volume: 45 ml; Route: PO; cp4 18:03 Follow up: Response: No adverse reaction cp4 17:37 Drug: Dulcolax MS Suppository 10 mg MS once Route: MS; cp4 18:03 Follow up: Response: No adverse reaction cp4 19:03 Drug: Lactulose PO 30 grams 45 ml PO once Volume: 45 ml; Route: PO; cp4 19:39 Follow up: Response: No adverse reaction rv 19:04 Drug: NS 0.9% IV 1000 ml IV at 1 bolus Per protocol; 1000 mL bolus Route: IV; Rate: 1 cp4 bolus; Site: left antecubital; 19:39 Follow up: IV Status: Completed infusion; IV Intake: 1000ml rv 19:39 Drug: Rocephin - Rocephin (cefTRIAXone) IVPB 1 grams IVPB once over 30 mins; (mix in 50 rv mL NS) Route: IVPB; Infused Over: 30 mins; Site: left antecubital; 19:40 Follow up: Response: Medication administered at discharge.; IV Status: Completed rv infusion Medication: 17:38 VIS not applicable for this client. cp4 Intake: 19:39 IV: 1000ml; Total: 1000ml. rv 19:39 IV: 1000ml; Total: 2000ml. rv Outcome: 19:21 Discharge ordered by . fiorella 19:33 Condition: stable ha1 19:40 Discharged to home ambulatory, with family, rv 19:40 Discharge instructions given to patient, Instructed on discharge instructions, follow up and referral plans. medication usage, Demonstrated understanding of instructions, follow-up care, medications, Prescriptions given X 3, 19:40 Patient left the ED. rv Signatures: Dispatcher [employer] EDNE Ehsan Mathur MD MD cha Garcia, Rubi rg4 Angelo Montana RN RN Aurora Henson, RN RN frank1 Kylah Landers RN RN [email or web address] [address] cp4
--- NOTE | 2024-01-08 19:22 | EDPHYS ---
Physician Documentation [facility] Name: Sharon Babin Age: 53 yrs Sex: Female : 1970 Arrival Date: 01/08/2024 Time: 16:19 Bed 2 Private MD: Nestor Medina V ED Physician Ehsan Mathur HPI: 01/07 18:42 This 53 yrs old Female presents to ER via Wheelchair with complaints of fiorella Constipation, Urinary Problem. 18:42 The patient presents with abdominal pain abdominal distention in the upper abdomen, in fiorella the lower abdomen. Onset: The symptoms/episode began/occurred 5 day(s) ago. The symptoms do not radiate. Associated signs and symptoms: Pertinent positives: constipation. Modifying factors: The symptoms are alleviated by nothing, the symptoms are aggravated by NO BM. Severity of pain: At its worst the pain was moderate in the emergency department the pain is unchanged. The patient has not experienced similar symptoms in the past. Historical: - Allergies: 16:43 No Known Allergies; ko1 - PMHx: 16:43 Diabetes - NIDDM; Fibromyalgia; Hypercholesterolemia; Hypertension; Hypothyroidism; ko1 Lupus; - PSHx: 16:43 back sx; breast augmentation; Carpal tunnel sx; section; Elbow; mass removed ko1 from sinus; Tummy tuck; - Immunization history:: Adult Immunizations unknown. - Social history:: Smoking status: Patient denies any tobacco usage or history of. ROS: 18:43 Constitutional: Negative for fever, chills, and weight loss, Eyes: Negative for injury, fiorella pain, redness, and discharge, ENT: Negative for injury, pain, and discharge, Neck: Negative for injury, pain, and swelling, Cardiovascular: Negative for chest pain, palpitations, and edema, Respiratory: Negative for shortness of breath, cough, wheezing, and pleuritic chest pain, Back: Negative for injury and pain, : Negative for injury, bleeding, discharge, and swelling, MS/Extremity: Negative for injury and deformity, Skin: Negative for injury, rash, and discoloration, Neuro: Negative for headache, weakness, numbness, tingling, and seizure, Psych: Negative for depression, anxiety, suicide ideation, homicidal ideation, and hallucinations, Allergy/Immunology: Negative for hives, rash, and allergies, Endocrine: Negative for neck swelling, polydipsia, polyuria, polyphagia, and marked weight changes, Hematologic/Lymphatic: Negative for swollen nodes, abnormal bleeding, and unusual bruising, 18:43 Abdomen/GI: Positive for abdominal pain, constipation, abdominal cramps, abdominal distension, Exam: 18:43 Constitutional: This is a well developed, well nourished patient who is awake, alert, fiorella and in no acute distress. Head/Face: Normocephalic, atraumatic. Eyes: Pupils equal round and reactive to light, extra-ocular motions intact. Lids and lashes normal. Conjunctiva and sclera are non-icteric and not injected. Cornea within normal limits. Periorbital areas with no swelling, redness, or edema. ENT: Nares patent. No nasal discharge, no septal abnormalities noted. Tympanic membranes are normal and external auditory canals are clear. Oropharynx with no redness, swelling, or masses, exudates, or evidence of obstruction, uvula midline. Mucous membranes moist. Neck: Trachea midline, no thyromegaly or masses palpated, and no cervical lymphadenopathy. Supple, full range of motion without nuchal rigidity, or vertebral point tenderness. No Meningismus. Chest/axilla: Normal chest wall appearance and motion. Nontender with no deformity. No lesions are appreciated. Cardiovascular: Regular rate and rhythm with a normal S1 and S2. No gallops, murmurs, or rubs. Normal PMI, no JVD. No pulse deficits. Respiratory: Lungs have equal breath sounds bilaterally, clear to auscultation and percussion. No rales, rhonchi or wheezes noted. No increased work of breathing, no retractions or nasal flaring. Back: No spinal tenderness. No costovertebral tenderness. Full range of motion. Female : Normal external genitalia. Skin: Warm, dry with normal turgor. Normal color with no rashes, no lesions, and no evidence of cellulitis. MS/ Extremity: Pulses equal, no cyanosis. Neurovascular intact. Full, normal range of motion. Neuro: Awake and alert, GCS 15, oriented to person, place, time, and situation. Cranial nerves II-XII grossly intact. Motor strength 5/5 in all extremities. Sensory grossly intact. Cerebellar exam normal. Normal gait. Psych: Awake, alert, with orientation to person, place and time. Behavior, mood, and affect are within normal limits. 18:43 Abdomen/GI: Inspection: distension, that is moderate, Bowel sounds: normal, Palpation: mild abdominal tenderness, in all quadrants, Liver: no appreciated palpable abnormalities, Hernia: not appreciated, Vital Signs: 16:39 BP 126 / 71; Pulse 129; Resp 18; Temp 97.1; Pulse Ox 99% ; ko1 18:05 BP 128 / 76; Pulse 109; Resp 18; Pulse Ox 94% ; cp4 19:32 BP 123 / 79; Pulse 99; Resp 17 S; Pulse Ox 95% on R/A; ha1 MDM: 16:21 Patient medically screened. [facility] 18:43 Differential diagnosis: bowel obstruction, Cholelithiasis, diverticulitis, gastritis, fiorella GI Bleed, Mesenteric ischemia or infarction, non-specific abd pain, pancreatitis, Peptic Ulcer Disease, Perf. Duodenal Ulcer, Ureterolithiasis, urinary tract infection. Data reviewed: vital signs, nurses notes, lab test result(s), radiologic studies, CT scan. Consideration of Admission/Observation Escalation of care including admission/observation considered. I considered the following discharge prescriptions or medication management in the emergency department Medications were administered in the Emergency Department. See MAR. Independent interpretation of the following test(s) in the Emergency Department CT Scan: My interpretation is CT ABD /PEL PO ONLY. Test considered but Not performed: Ultrasound NO ABD USG. Historians other than the Patient: Spouse/Significant Other: WELL INFORMED. Care significantly affected by the following chronic conditions: Diabetes, Hypertension, Obesity, LUPUS, FIBROMYALGIA, HIGH CHLESTEROL. 01/07 16:23 Order name: CBC with Diff; Complete Time: 18:40 [facility] 01/07 16:23 Order name: CMP; Complete Time: 18:40 [facility] 01/07 16:23 Order name: Lipase; Complete Time: 18:40 [facility] 01/07 16:23 Order name: Urinalysis w/ reflexes; Complete Time: 18:40 [facility] 01/07 17:55 Order name: Urine Culture [facility] 01/07 17:23 Order name: Abdomen ; Complete Time: 19:20 [facility] 01/07 16:23 Order name: IV Saline Lock; Complete Time: 16:59 [facility] 01/07 16:23 Order name: Labs collected and sent; Complete Time: 16:59 [facility] Administered Medications: 17:37 Drug: NS 0.9% IV 1000 ml IV at 1 bolus Per protocol; 1000 mL bolus Route: IV; Rate: 1 cp4 bolus; Site: left antecubital; 17:37 Drug: Ondansetron IVP 4 mg IVP once; over 2 minutes Route: IVP; Site: left antecubital; cp4 18:03 Follow up: Response: No adverse reaction cp4 17:37 Drug: NS 0.9% IV 1000 ml IV at 1 bolus Per protocol; 1000 mL bolus Route: IV; Rate: 1 cp4 bolus; Site: left antecubital; 19:39 Follow up: IV Status: Completed infusion; IV Intake: 1000ml rv 17:37 Drug: Lactulose PO 30 grams 45 ml PO once Volume: 45 ml; Route: PO; cp4 18:03 Follow up: Response: No adverse reaction cp4 17:37 Drug: Dulcolax IA Suppository 10 mg IA once Route: IA; cp4 18:03 Follow up: Response: No adverse reaction cp4 19:03 Drug: Lactulose PO 30 grams 45 ml PO once Volume: 45 ml; Route: PO; cp4 19:39 Follow up: Response: No adverse reaction rv 19:04 Drug: NS 0.9% IV 1000 ml IV at 1 bolus Per protocol; 1000 mL bolus Route: IV; Rate: 1 cp4 bolus; Site: left antecubital; 19:39 Follow up: IV Status: Completed infusion; IV Intake: 1000ml rv 19:39 Drug: Rocephin - Rocephin (cefTRIAXone) IVPB 1 grams IVPB once over 30 mins; (mix in 50 rv mL NS) Route: IVPB; Infused Over: 30 mins; Site: left antecubital; 19:40 Follow up: Response: Medication administered at discharge.; IV Status: Completed rv infusion Disposition Summary: 01/08/24 19:21 Discharge Ordered Notes: Location: Home fiorella Problem: new fiorella Symptoms: have improved fiorella Condition: Stable fiorella Diagnosis - Abdominal pain, Generalized fiorella - Constipation fiorella - Obesity, unspecified fiorella - UTI/ Urinary tract infection, site not specified fiorella Followup: fiorella - With: Nestor Medina MD - When: 2 - 3 days - Reason: Recheck today's complaints, Continuance of care, Re-evaluation by your physician Followup: fiorella - With: Sherice Forrester MD - When: 2 - 3 days - Reason: Recheck today's complaints, Re-evaluation by your physician Discharge Instructions: - Discharge Summary Sheet firoella - Abdominal Pain, Adult fiorella - Obesity, Adult fiorella - Urinary Tract Infection, Adult fiorella - Urinary Tract Infection, Adult, [id number] fiorella - Abdominal Pain, Adult, [id number] fiorella - Obesity, Adult, [id number] [facility] Forms: - Medication Reconciliation Form [facility] - Thank You Letter [facility] - Antibiotic Education [facility] - Prescription Opioid Use [facility] - Patient Portal Instructions [facility] - Leadership Thank You Letter [facility] Prescriptions: - Dulcolax (bisacodyl) 10 mg Rectal suppository - insert 1 suppository RECTAL route every 12 hours for 5 days; 10 suppository; [facility] Refills: 0, Product Selection Permitted - Cipro 250 mg Oral tablet - take 1 tablet ORAL route every 12 hours; 14 tablet; Refills: 0, Product [facility] Selection Permitted - Lactulose 10 gram/15 mL Oral solution - take 30 milliliters ORAL route every 12 hours; 300 milliliter; Refills: 0, [facility] Product Selection Permitted Signatures: Dispatcher [employer] EDEhsan Guthrie MD MD cha Vicente, Ronaldo RN RN Kylah Hawk RN RN ko1 [address] cp4 Corrections: (The following items were deleted from the chart) 17:23 16:24 Abdomen Pelvis W Con+CT.RAD.BRZ ordered. MARLENA MENDIOLA
[2024-01-08] MEDS ORDERED: CEFTRIAXONE 1000 MG/VIAL ONE (19:31)
[2024-01-08] MEDS ORDERED: WATER FOR INJ,STERILE 10 ML ONE (19:31)
[2024-01-08 20:00] VITALS: BP 123/79; TEMP 97.1; O2SAT 95
== END 2024-01-08 19:40 | disposition home or self-care (01) ==
LOC: ER 16:19
DX: K59.00 Constipation, unspecified (principal); N39.0 Urinary tract infection, site not specified; E66.9 Obesity, unspecified; Z98.82 Breast implant status
CPT/HCPCS: 96361; 87088; 85025; 81001; 87086; 36415; 83690; 80053; 74176; 96375; 96374; 99284; J2405; J7030; J0696

== ENCOUNTER 2024-02-09 19:50 | Emergency (ER) | payer BC ==
--- NOTE | 2024-02-09 20:34 | EDPHYS ---
Physician Documentation [facility] Name: Sharon Babin Age: 53 yrs Sex: Female : 1970 Arrival Date: 02/09/2024 Time: 19:50 Bed IW6 Private MD: ED Physician Jose Tolbret HPI: 02/08 20:15 This 53 yrs old Female presents to ER via Unassigned with complaints of BENZO sp4 WITHDRAWL. 20:16 Arrival Date: 01/24/2024 Time: 16:05 Last Visit Prescriptions ED Physician reese Woods Javad Print Time:01/25/2024 22:08:40 - Diazepam 10 mg Oral Tablet take 1 tablet ORAL route every 8 hours As needed; 20 tablet; Refills: 0; . 20:29 53-year-old female presents with anxiety related issues. Patient states she has been sp4 feeling unwell for the past 3 days because she has not had any benzodiazepine.. Patient was here on 01/24/2024 and was prescribed diazepam 10 mg p.o. every 8 hours as needed which she already consumed. Patient has visited Dr. Barrera with psychiatry, 1 week ago and was prescribed clonazepam but the pharmacy does not have clonazepam available. Patient appears anxious on presentation. CROP SCOUT: 20:33 LMP N/A - Post-menopause, Not vc1 Historical: - Allergies: 20:33 No Known Allergies; vc1 - PMHx: 20:33 Diabetes - NIDDM; Fibromyalgia; Hypercholesterolemia; Hypertension; Hypothyroidism; vc1 Lupus; Depressive disorder; Bipolar disorder; - PSHx: 20:33 back sx; breast augmentation; Carpal tunnel sx; section; Elbow; mass removed vc1 from sinus; Tummy tuck; - Immunization history:: Adult Immunizations up to date. - Infectious Disease History:: Denies. - Family history:: not pertinent. - Social history:: Smoking status: unknown. ROS: 20:29 Constitutional: Negative for fever, chills, and weight loss, positive anxiety sp4 20:29 All other systems are negative, Exam: 20:29 Constitutional: This is a well developed, well nourished patient who is awake, alert, sp4 anxious appearing, tremulous 20:29 Head/Face: Normocephalic, atraumatic. Eyes: Pupils equal round and reactive to light, extra-ocular motions intact. Lids and lashes normal. Conjunctiva and sclera are not injected. Cornea within normal limits. Periorbital areas with no swelling, redness, or edema. ENT: Nares patent. No nasal discharge, no septal abnormalities noted. Tympanic membranes are normal and external auditory canals are clear. Oropharynx with no redness, swelling, or masses, exudates, or evidence of obstruction, uvula midline. Mucous membranes moist. Neck: Trachea midline, no thyromegaly or masses palpated, and no cervical lymphadenopathy. Supple, full range of motion without nuchal rigidity, or vertebral point tenderness. Chest/axilla: Normal chest wall appearance and motion. Nontender with no deformity. No lesions are appreciated. Cardiovascular: Regular rate and rhythm with a normal S1 and S2. No gallops, murmurs, or rubs. Normal PMI, no JVD. No pulse deficits. Respiratory: Lungs have equal breath sounds bilaterally, clear to auscultation and percussion. No rales, rhonchi or wheezes noted. No increased work of breathing, no retractions or nasal flaring. Abdomen/GI: Soft, with normal bowel sounds. No distension or tympany. No guarding or rebound. No evidence of tenderness throughout. Back: No spinal tenderness. No costovertebral tenderness. Skin: Warm, dry with normal turgor. Normal color with no rashes, no lesions, and no evidence of cellulitis. MS/ Extremity: Pulses equal, no cyanosis. Neurovascular intact. Full, normal range of motion. Neuro: Awake and alert, GCS 15, oriented to person, place, time, and situation. Cranial nerves II-XII grossly intact. Motor strength 5/5 in all extremities. Sensory grossly intact. Psych: Awake, alert, with orientation to person, place and time. Behavior, mood, and affect are within normal limits, anxious appearing female Vital Signs: 20:35 BP 143 / 74; Pulse 120; Resp 18; Temp 98; Pulse Ox 100% ; Weight 92.99 kg; Height 5 ft. vc1 6 in. ; Pain 0/10; 20:45 Pulse 114; vc1 20:35 Body Mass Index 33.09 (92.99 kg, 167.64 cm) vc1 20:35 Pain Scale: Adult vc1 Crapo Coma Score: 20:29 Eye Response: spontaneous(4). Motor Response: obeys commands(6). Verbal Response: sp4 oriented(5). Total: 15. MDM: 20:05 Patient medically screened. sp4 20:29 Differential Diagnosis altered mental status, sepsis, flu. Data reviewed: vital signs, sp4 nurses notes, old medical records. ED course: Patient clearly withdrawing to benzodiazepine. Patient was given lorazepam p.o. 2 mg. Will prescribe lorazepam until patient can fill a prescription on February 24.. Patient states she will be able to fill her prescription on February 24 for her clonazepam prescribed by her psychiatrist. . Administered Medications: 20:43 Drug: LORazepam PO 2 mg PO once Route: PO; vc1 20:45 Follow up: Response: Medication administered at discharge. vc1 Disposition Summary: 02/09/24 20:33 Discharge Ordered Notes: Location: Home sp4 Problem: new sp4 Symptoms: have improved sp4 Condition: Stable sp4 Diagnosis - Acute anxiety attack, benzodiazepine withdrawals sp4 Followup: sp4 - With: Julian Heath MD - When: 1 - 2 days - Reason: Recheck today's complaints Discharge Instructions: - Discharge Summary Sheet sp4 - Benzodiazepine Withdrawal sp4 Forms: - Patient Portal Instructions sp4 Prescriptions: - Ativan 2 mg Oral tablet - take 1 tablet ORAL route once daily As needed Only as needed for anxiety,; 20 sp4 tablet; Refills: 0, Product Selection Permitted Signatures: Dispatcher [facility] El[facility] Rouse RN RN vc1 Jose Tolbert MD MD sp4 Corrections: (The following items were deleted from the chart) 20:05 20:05 BASIC METABOLIC PANEL+C.LAB.BRZ ordered. EDMS EDMS 20:05 20:05 CBC+H.LAB.BRZ ordered. EDMS EDMS 20:05 20:05 HEPATIC FUNCTION+C.LAB.BRZ ordered. EDMS EDMS 20:05 20:05 MAGNESIUM+C.LAB.BRZ ordered. EDMS EDMS 20:05 20:05 PROBNP+C.LAB.BRZ ordered. EDMS EDMS 20:23 20:05 IV Saline Lock ordered. sp4 sp4 : 20:05 Cardiac monitoring ordered. sp4 vc1 :43 20:05 Labs collected and sent ordered. sp4 vc1 20:43 20:05 Oxygen Per Protocol ordered. sp4 vc1 20:44 20:05 O2 Sat Monitoring ordered. sp4 vc1
[2024-02-09] MEDS ORDERED: LORAZEPAM 1 MG TABLET ONE (20:42)
--- NOTE | 2024-02-09 20:45 | ER ---
Nurse's Notes [facility] Name: Sharon Babin Age: 53 yrs Sex: Female : 1970 Arrival Date: 02/09/2024 Time: 19:50 Bed IW6 Private MD: Diagnosis: Acute anxiety attack, benzodiazepine withdrawals Presentation: 02/08 20:35 Chief complaint: Patient states: withdrawal from benzos. vc1 20:35 Coronavirus screen: Vaccine status: Patient reports being unvaccinated. Client denies vc1 travel out of the [place] in the last 14 days. At this time, the client does not indicate any symptoms associated with coronavirus-19. Ebola Screen: Patient negative for fever greater than or equal to 101.5 degrees Fahrenheit, and additional compatible Ebola Virus Disease symptoms Patient denies exposure to infectious person. Patient denies travel to an Ebola-affected area in the 21 days before illness onset. No symptoms or risks identified at this time. Initial Sepsis Screen: Does the patient meet any 2 criteria? No. Patient's initial sepsis screen is negative. Does the patient have a suspected source of infection? No. Patient's initial sepsis screen is negative. Risk Assessment: Do you want to hurt yourself or someone else? Patient reports no desire to harm self or others. Onset of symptoms was February 09, 2024. 20:35 Method Of Arrival: Ambulatory vc1 20:35 Acuity: XIMENA 4 vc1 Triage Assessment: 20:33 General: Appears in no apparent distress. uncomfortable, Behavior is cooperative, vc1 appropriate for age, anxious. Pain: Denies pain. EENT: No deficits noted. No signs and/or symptoms were reported regarding the EENT system. Neuro: Level of Consciousness is awake, alert, obeys commands, Oriented to person, place, time, situation, Appropriate for age. Cardiovascular: Capillary refill < 3 seconds Patient's skin is warm and dry. Rhythm is sinus tachycardia. Respiratory: Airway is patent Respiratory effort is even, unlabored, Respiratory pattern is regular, symmetrical, Breath sounds are clear. GI: No deficits noted. No signs and/or symptoms were reported involving the gastrointestinal system. : No deficits noted. No signs and/or symptoms were reported regarding the genitourinary system. Derm: Skin is intact, is healthy with good turgor, Skin is dry, Skin is pink, warm \T\ dry. Musculoskeletal: No deficits noted. No signs and/or symptoms reported regarding the musculoskeletal system. Circulation, motion, and sensation intact. 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 - Infectious Disease History:: Denies. - Family history:: not pertinent. - Social history:: Smoking status: unknown. Screenin:45 [facility] ED Fall Risk Assessment (Adult) History of falling in the last 3 months, vc1 including since admission No falls in past 3 months (0 pts) Confusion or Disorientation No (0 pts) Intoxicated or Sedated No (0 pts) Impaired Gait No (0 pts) Mobility Assist Device Used No (0 pt) Altered Elimination No (0 pt) Score/Fall Risk Level 0 - 2 = Low Risk Oriented to surroundings, Maintained a safe environment, Educated pt \T\ family on fall prevention, incl call for assistance when getting out of bed. Abuse screen: Denies threats or abuse. Nutritional screening: No deficits noted. Tuberculosis screening: No symptoms or risk factors identified. Vital Signs: 20:35 BP 143 / 74; Pulse 120; Resp 18; Temp 98; Pulse Ox 100% ; Weight 92.99 kg; Height 5 ft. vc1 6 in. ; Pain 0/10; 20:45 Pulse 114; vc1 20:35 Body Mass Index 33.09 (92.99 kg, 167.64 cm) vc1 20:35 Pain Scale: Adult vc1 Cari Coma Score: 20:29 Eye Response: spontaneous(4). Motor Response: obeys commands(6). Verbal Response: sp4 oriented(5). Total: 15. ED Course: 19:54 Patient arrived in ED. jj6 20:04 Jose Tolbert MD is Attending Physician. sp4 20:32 Julian Heath MD is Referral Physician. sp4 20:33 Arm band placed on left wrist. vc1 20:45 Patient has correct armband on for positive identification. Bed in low position. Call vc1 light in reach. seen and discharged from triage. 20:45 Provided Education on: follow up with PCP. vc1 20:45 No provider procedures requiring assistance completed. Patient did not have IV access vc1 during this emergency room visit. 21:25 Triage completed. vc1 Administered Medications: 20:43 Drug: LORazepam PO 2 mg PO once Route: PO; vc1 20:45 Follow up: Response: Medication administered at discharge. vc1 Medication: 20:45 VIS not applicable for this client. vc1 Outcome: 20:33 Discharge ordered by MD. sp4 20:44 Discharged to home ambulatory, vc1 20:44 Condition: good 20:44 Discharge instructions given to patient, Instructed on discharge instructions, follow up and referral plans. medication usage, Demonstrated understanding of instructions, follow-up care, medications, Prescriptions given X 1, 20:44 Patient left the ED. vc1 Signatures: Kiana Arnold Vanessa, RN RN vc1 Jose Tolbert MD MD sp4
== END 2024-02-09 20:44 | disposition home or self-care (01) ==
LOC: ER 19:50
DX: F41.0 Panic disorder [episodic paroxysmal anxiety] (principal); F13.239 Sedative, hypnotic or anxiolytic dependence with withdrawal, unspecified
CPT/HCPCS: 99283

== ENCOUNTER 2024-02-15 14:53 | Emergency (ER) | payer BC ==
--- NOTE | 2024-02-15 16:07 | RAD REPORT ---
EXAM DESCRIPTION: Ariane Single View02/15/2024 4:00 pm CLINICAL HISTORY: Palpitations COMPARISON: October 2023 FINDINGS: The lungs appear clear of acute infiltrate. The heart is normal size IMPRESSION: No acute abnormalities displayed
[2024-02-15] MEDS ORDERED: NA CHLORIDE 0.9% 1,000 ML ONE (16:17)
[2024-02-15 16:36] LABS: Absolute Eosinophils 0.1 K/uL (0-0.5); Absolute Lymphocytes (CBC) 2.3 K/uL (0.7-4.9); Absolute Monocytes 0.4 K/uL (0.1-1.3); Absolute Neutrophil 3.4 K/uL (1.8-8.0); Basophils % 0.5 % (0-1.3); Eosinophils % 2.2 % (0-4.4); Hematocrit 36.8 % (36.0-45.0); Hemoglobin 12.4 g/dL (12.0-15.0); Lymphocytes % 36.5 % (15.3-44.8); MCH 29.3 pg (27.0-35.0); MCHC 33.7 g/dL (32.0-36.0); MCV 87.1 fL (80-100); MPV 6.4 fL (7.6-11.3); Monocytes % 5.9 % (3.3-12.3); Neutrophils % 54.9 % (41.7-73.7); Platelets 219 thou/uL (152-406); RBC Red Blood Cell Count 4.23 M/uL (3.86-4.86)
[2024-02-15 16:45] LABS: PT Prothrombin Time 12.1 SECONDS (9.5-12.5); Protime INR 1.1
[2024-02-15] MEDS ORDERED: DIAZEPAM 5 MG TABLET ONE (17:07)
[2024-02-15 17:16] LABS: Albumin 4.1 g/dL (3.4-5.0); Albumin/Globulin Ratio 1.2 (1.1-1.8); Anion Gap 6.6 mEq/L (5.0-15.0); Bilirubin Direct 0.2 mg/dL (0-0.2); Bilirubin Indirect, Calculated 0.2 mg/dL (0.2-0.8); Bilirubin Total 0.4 mg/dL (0.2-1.0); Globulin 3.5 g/dL (2.3-3.5); Potassium 3.6 mEq/L (3.5-5.1); Protein, Total 7.6 g/dL (6.4-8.2); Thyroid Stimulating Hormone 0.606 uIU/mL (0.358-3.740); Troponin High Sensitivity 3.1 pg/mL (<58.9)
[2024-02-15 17:36] LABS: Specific Gravity 1.008 (1.005-1.030); Sqamous Epithelial <5 /HPF (None Seen); Urine Bacteria <20 /HPF (<20); Urine Bilirubin NEGATIVE (Negative); Urine Blood Negative (Negative); Urine Clarity Turbid (Clear); Urine Color Light-Yellow (Yellow); Urine Culture Reflex Order NOT NEEDED; Urine Glucose NEGATIVE (Negative); Urine Ketones NEGATIVE (Negative); Urine Microscopic Reflex YN ORDER UMIC; Urine Mucus Slight /HPF (None Seen); Urine Nitrite NEGATIVE (Negative); Urine Protein NEGATIVE (Negative); Urine RBC <5 /HPF (None Seen); Urine Urobilinogen Normal (Normal); Urine WBC <5 /HPF (<5)
--- NOTE | 2024-02-15 17:38 | EDPHYS ---
Physician Documentation [facility] Name: Sharon Babin Age: 53 yrs Sex: Female : 1970 Arrival Date: 02/15/2024 Time: 14:53 Bed 13 Private MD: ED Physician Ehsan Mathur HPI: 02/14 17:28 This 53 yrs old Female presents to ER via Ambulatory with complaints of fiorella Palpitations, Shortness Of Breath, Anxiety. 17:28 The patient presents with a history of heart racing. Context: The symptoms occur with [facility] anxiety. Onset: The symptoms/episode began/occurred just prior to arrival. Duration: The patient or guardian reports multiple episodes, that are intermittent. Modifying factors: The symptoms are aggravated by anxiety, The symptoms are alleviated by lying down, remaining still, rest. Associated signs and symptoms: Pertinent positives: anxiety, SOB. Severity of symptoms: At their worst the symptoms were mild moderate in the emergency department the symptoms have improved markedly. The patient has experienced similar episodes in the past, multiple times. 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 - Infectious Disease History:: Denies. - Social history:: Smoking status: Reported history of juuling and/or vaping. Patient denies any tobacco usage or history of. ROS: 17:30 Constitutional: Negative for fever, chills, and weight loss, Eyes: Negative for injury, fiorella pain, redness, and discharge, ENT: Negative for injury, pain, and discharge, Neck: Negative for injury, pain, and swelling, Cardiovascular: Negative for chest pain, palpitations, and edema, Respiratory: Negative for shortness of breath, cough, wheezing, and pleuritic chest pain, Abdomen/GI: Negative for abdominal pain, nausea, vomiting, diarrhea, and constipation, Back: Negative for injury and pain, : Negative for injury, bleeding, discharge, and swelling, MS/Extremity: Negative for injury and deformity, Skin: Negative for injury, rash, and discoloration, Neuro: Negative for headache, weakness, numbness, tingling, and seizure, Allergy/Immunology: Negative for hives, rash, and allergies, Endocrine: Negative for neck swelling, polydipsia, polyuria, polyphagia, and marked weight changes, Hematologic/Lymphatic: Negative for swollen nodes, abnormal bleeding, and unusual bruising, 17:30 Psych: Positive for anxiety, Exam: 17:30 Constitutional: This is a well developed, well nourished patient who is awake, alert, fiorella and in no acute distress. Head/Face: Normocephalic, atraumatic. Eyes: Pupils equal round and reactive to light, extra-ocular motions intact. Lids and lashes normal. Conjunctiva and sclera are non-icteric and not injected. Cornea within normal limits. Periorbital areas with no swelling, redness, or edema. ENT: Nares patent. No nasal discharge, no septal abnormalities noted. Tympanic membranes are normal and external auditory canals are clear. Oropharynx with no redness, swelling, or masses, exudates, or evidence of obstruction, uvula midline. Mucous membranes moist. Neck: Trachea midline, no thyromegaly or masses palpated, and no cervical lymphadenopathy. Supple, full range of motion without nuchal rigidity, or vertebral point tenderness. No Meningismus. Chest/axilla: Normal chest wall appearance and motion. Nontender with no deformity. No lesions are appreciated. Cardiovascular: Regular rate and rhythm with a normal S1 and S2. No gallops, murmurs, or rubs. Normal PMI, no JVD. No pulse deficits. Respiratory: Lungs have equal breath sounds bilaterally, clear to auscultation and percussion. No rales, rhonchi or wheezes noted. No increased work of breathing, no retractions or nasal flaring. Abdomen/GI: Soft, non-tender, with normal bowel sounds. No distension or tympany. No guarding or rebound. No evidence of tenderness throughout. Back: No spinal tenderness. No costovertebral tenderness. Full range of motion. Skin: Warm, dry with normal turgor. Normal color with no rashes, no lesions, and no evidence of cellulitis. MS/ Extremity: Pulses equal, no cyanosis. Neurovascular intact. Full, normal range of motion. Neuro: Awake and alert, GCS 15, oriented to person, place, time, and situation. Cranial nerves II-XII grossly intact. Motor strength 5/5 in all extremities. Sensory grossly intact. Cerebellar exam normal. Normal gait. Psych: Awake, alert, with orientation to person, place and time. Behavior, mood, and affect are within normal limits. 17:30 ECG was reviewed by the Attending Physician. 17:30 Musculoskeletal/extremity: ROM: no acute changes, Circulation is intact in all extremities. Sensation intact. Compartment Syndrome exam of affected extremity: is normal. DVT Exam: No signs of deep vein thrombosis. no pain, no swelling, no tenderness, negative Homans' sign noted on exam, no appreciated bluish discoloration, no erythema, no increased warmth, Vital Signs: 15:00 BP 150 / 89; Pulse 117; Resp 18; Pulse Ox 98% on R/A; me1 15:07 BP 155 / 95; Pulse 109; Resp 18; Temp 97.6; Pulse Ox 98% on R/A; Weight 94.35 kg; ll1 Height 5 ft. 6 in. ; Pain 7/10; 16:00 BP 138 / 67; Pulse 97; Resp 16; Pulse Ox 95% on R/A; me1 17:00 BP 138 / 84; Pulse 113; Resp 18; Pulse Ox 98% on R/A; me1 17:58 BP 120 / 60; Pulse 93; Resp 16; Pulse Ox 100% on R/A; me1 15:07 Body Mass Index 33.57 (94.35 kg, 167.64 cm) ll1 15:07 Pain Scale: Adult ll1 MDM: 15:11 Patient medically screened. sb4 15:23 Patient medically screened. fiorella 17:32 SRIKANTH Risk Score: Total Score = 0. Antibiotic administration: Not indicated. fiorella Differential diagnosis: Anxiety Reaction CHF exacerbation, Chronic Obstructive Pulmonary Disease arrythmia, dehydration, stress disorder, Myocardial Infarction pneumonia, Pneumothorax Psychogenic pulmonary edema, Pulmonary Embolism reactive airway disease. Immunization status: Influenza vaccine: within last 5 years. Data reviewed: vital signs, nurses notes, old medical records, EKG, radiologic studies, plain films. Consideration of Admission/Observation Escalation of care including admission/observation considered. I considered the following discharge prescriptions or medication management in the emergency department Medications were administered in the Emergency Department. See MAR. Independent interpretation of the following test(s) in the Emergency Department EKG: See my EKG interpretation above. Test considered but Not performed: CT: ct chest ro pe. Historians other than the Patient: Spouse/Significant Other: informed , very. Care significantly affected by the following chronic conditions: Diabetes, Hypertension, Obesity, high cholesterol, depression, fibro. 17:39 Counseling: I had a detailed discussion with the patient and/or guardian regarding the fiorella historical points, exam findings, and any diagnostic results supporting the discharge/admit diagnosis, lab results, radiology results, the need for outpatient follow up, for definitive care, a family practitioner, a psychiatrist. ED course: no suicidal , not homicidal. 02/14 15:24 Order name: Basic Metabolic Panel; Complete Time: 17:28 [facility] 02/14 15:24 Order name: CBC with Diff; Complete Time: 17:00 [facility] 02/14 15:24 Order name: LFT's; Complete Time: 17:28 [facility] 02/14 15:24 Order name: Magnesium; Complete Time: 17:28 fiorella 02/14 15:24 Order name: NT PRO-BNP; Complete Time: 17:28 02/14 15:24 Order name: PT-INR; Complete Time: 17:00 fiorella 02/14 15:24 Order name: Troponin HS; Complete Time: 17:28 fiorella 02/14 15:24 Order name: TSH; Complete Time: 17:28 fiorella 02/14 15:24 Order name: Urinalysis w/ reflexes 02/14 15:24 Order name: UDS fiorella 02/14 16:40 Order name: D-Dimer; Complete Time: 17:28 [facility] 02/14 15:24 Order name: XRAY Chest (1 view); Complete Time: 17:00 fiorella 02/14 15:24 Order name: EKG; Complete Time: 15:25 fiorella 02/14 15:24 Order name: Cardiac monitoring; Complete Time: 16:27 fiorella 02/14 15:24 Order name: EKG - Nurse/Tech; Complete Time: 17:39 [facility] 02/14 15:24 Order name: IV Saline Lock; Complete Time: 16:16 fiorella 02/14 15:24 Order name: Labs collected and sent; Complete Time: 16:16 [facility] 02/14 15:24 Order name: O2 Per Protocol; Complete Time: 16:16 fiorella 02/14 15:24 Order name: O2 Sat Monitoring; Complete Time: 16:16 fiorella EC:30 Rate is 97 beats/min. Rhythm is regular. QRS [place] is Normal. [place] interval is normal. QRS fiorella interval is normal. QT interval is normal. No Q waves. T waves are Normal. No ST changes noted. Clinical impression: NSR w/ Non-specific ST/T Changes and No evidence of ischemia. Interpreted by me. Reviewed by me. Administered Medications: 16:27 Drug: NS 0.9% IV 1000 ml IV at 1 bolus Per protocol; 1000 mL bolus Route: IV; Rate: 1 me1 bolus; Site: left antecubital; 17:57 Follow up: Response: No adverse reaction; IV Status: Completed infusion; IV Intake: me1 1000ml 17:08 Drug: Diazepam PO 10 mg PO once Route: PO; me1 17:37 Follow up: Response: No adverse reaction me1 Disposition Summary: 02/15/24 17:38 Discharge Ordered Notes: Location: Home fiorella Problem: new fiorella Symptoms: have improved fiorella Condition: Stable fiorella Diagnosis - Palpitations fiorella - Anxiety disorder, unspecified fiorella - Bipolar disorder, unspecified fiorella Followup: fiorella - With: Private Physician - When: 2 - 3 days - Reason: Recheck today's complaints, Continuance of care, Re-evaluation by your physician Followup: fiorella - With: Julian Heath MD - When: 2 - 3 days - Reason: Recheck today's complaints, Re-evaluation by your physician Discharge Instructions: - Discharge Summary Sheet fiorella - Panic Attack fiorella - Palpitations fiorella - Palpitations, [id number] fiorella - Managing Bipolar Disorder fiorella - Mixed Bipolar Disorder fiorella - Supporting Someone With Bipolar Disorder fiorella - Managing Anxiety, Adult fiorella Forms: - Medication Reconciliation Form fiorella - Antibiotic Education fiorella - Prescription Opioid Use fiorella - Patient Portal Instructions fiorella - Leadership Thank You Letter [facility] Prescriptions: - Hydroxyzine HCl 25 mg Oral Tablet - take 1 tablet ORAL route every 6 hours As needed; 30 tablet; Refills: 0, fiorella Product Selection Permitted Signatures: Dispatcher [employer] Ehsan Kern MD MD cha Lewis, Lynsay, RN RN ll1 Vivienne Riojas PA-C PATeofilo sb4 Eddleman, Jenny, RN RN me1 Corrections: (The following items were deleted from the chart) 15:25 15:25 BASIC METABOLIC PANEL+C.LAB.BRZ ordered. EDMS EDMS 15:25 15:25 CBC+H.LAB.BRZ ordered. EDMS EDMS 15:25 15:25 HEPATIC FUNCTION+C.LAB.BRZ ordered. EDMS EDMS 15:25 15:25 MAGNESIUM+C.LAB.BRZ ordered. EDMS EDMS 15:25 15:25 PROBNP+C.LAB.BRZ ordered. EDMS EDMS 15:25 15:25 PROTIME (+INR)+COAG.LAB.BRZ ordered. EDMS EDMS 15:25 15:25 Troponin High Sensitivity+C.LAB.BRZ ordered. EDMS EDMS 15:25 15:25 THYROID STIMULAT HORMONE+C.LAB.BRZ ordered. EDMS EDMS 15:25 15:25 Urinalysis+U.LAB.BRZ ordered. EDMS EDMS 15:25 15:25 URINE DRUG SCREEN+UC.LAB.BRZ ordered. EDMS EDMS
--- NOTE | 2024-02-15 17:38 | ER ---
Nurse's Notes [facility] Name: Sharon Babin Age: 53 yrs Sex: Female : 1970 Arrival Date: 02/15/2024 Time: 14:53 Bed 13 Private MD: Diagnosis: Palpitations;Anxiety disorder, unspecified;Bipolar disorder, unspecified Presentation: 02/14 15:07 Chief complaint: Patient states: Palpitations, SOB, anxiety worse than usual since last ll1 night. Coronavirus screen: Client denies travel out of the [place] in the last 14 days. At this time, the client does not indicate any symptoms associated with coronavirus-19. Ebola Screen: Patient denies travel to an Ebola-affected area in the 21 days before illness onset. Initial Sepsis Screen: Does the patient meet any 2 criteria? No. Patient's initial sepsis screen is negative. Does the patient have a suspected source of infection? No. Patient's initial sepsis screen is negative. Risk Assessment: Do you want to hurt yourself or someone else? Patient reports no desire to harm self or others. Onset of symptoms was February 14, 2024. 15:07 Method Of Arrival: Ambulatory ll1 15:07 Acuity: XIMENA 3 ll1 Triage Assessment: 17:59 Respiratory: Onset: The symptoms/episode began/occurred yesterday, the patient has me1 moderate shortness of breath. 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 - Infectious Disease History:: Denies. - Social history:: Smoking status: Reported history of juuling and/or vaping. Patient denies any tobacco usage or history of. Screenin:14 [facility] ED Fall Risk Assessment (Adult) History of falling in the last 3 months, me1 including since admission No falls in past 3 months (0 pts) Confusion or Disorientation No (0 pts) Intoxicated or Sedated No (0 pts) Impaired Gait No (0 pts) Mobility Assist Device Used No (0 pt) Altered Elimination No (0 pt) Score/Fall Risk Level 0 - 2 = Low Risk Maintained a safe environment, Provided non-skid footwear, Hourly rounding (assess needs \T\ fall precautionary measures) done. Abuse screen: Denies threats or abuse. Nutritional screening: No deficits noted. Tuberculosis screening: No symptoms or risk factors identified. Assessment: 15:14 General: Appears uncomfortable, well groomed, well developed, well nourished, Behavior me1 is cooperative, anxious, crying, Reports SOB, palpitations. Reports anxiety is worse than usual starting last night. Pain: Denies pain. Neuro: Level of Consciousness is awake, alert, obeys commands, Oriented to person, place, time, situation, Appropriate for age. Cardiovascular: Capillary refill < 3 seconds Patient's skin is warm and dry. Respiratory: Airway is patent Respiratory effort is even, unlabored, Respiratory pattern is regular, symmetrical, Breath sounds are clear bilaterally. Respiratory: Reports shortness of breath at rest on exertion. GI: No signs and/or symptoms were reported involving the gastrointestinal system. : No signs and/or symptoms were reported regarding the genitourinary system. EENT: No signs and/or symptoms were reported regarding the EENT system. Derm: Skin is intact, is healthy with good turgor, Skin is pink, warm \T\ dry. Musculoskeletal: No signs and/or symptoms reported regarding the musculoskeletal system. 15:40 Cardiovascular: Rhythm is sinus rhythm. me1 Vital Signs: 15:00 BP 150 / 89; Pulse 117; Resp 18; Pulse Ox 98% on R/A; me1 15:07 BP 155 / 95; Pulse 109; Resp 18; Temp 97.6; Pulse Ox 98% on R/A; Weight 94.35 kg; ll1 Height 5 ft. 6 in. ; Pain 7/10; 16:00 BP 138 / 67; Pulse 97; Resp 16; Pulse Ox 95% on R/A; me1 17:00 BP 138 / 84; Pulse 113; Resp 18; Pulse Ox 98% on R/A; me1 17:58 BP 120 / 60; Pulse 93; Resp 16; Pulse Ox 100% on R/A; me1 15:07 Body Mass Index 33.57 (94.35 kg, 167.64 cm) ll1 15:07 Pain Scale: Adult ll1 ED Course: 14:54 Patient arrived in ED. rg4 14:54 Nestor Medina MD is Private Physician. rg4 15:04 Arm band placed on Patient placed in an exam room, on a stretcher. ll1 15:08 Triage completed. ll1 15:08 Jenny David, KRISS is Primary Nurse. me1 15:11 Vivienne Riojas PA-C is PHCP. sb4 15:11 Ehsan Mathur MD is Attending Physician. sb4 15:14 Patient has correct armband on for positive identification. Bed in low position. Call me1 light in reach. Side rails up X2. Provided Education on: POC. Verbalized understanding. . 15:14 No provider procedures requiring assistance completed. me1 15:22 Ehsan Mathur MD is Attending Physician. [facility] 16:02 XRAY Chest (1 view) In Process Unspecified. EDMS 16:16 Initial lab(s) drawn, by wi, sent to lab. Inserted saline lock: 22 gauge in left me1 antecubital area, using aseptic technique. 16:16 TSH Sent. me1 16:16 Basic Metabolic Panel Sent. me1 16:16 CBC with Diff Sent. me1 16:16 LFT's Sent. me1 16:17 Magnesium Sent. me1 16:17 NT PRO-BNP Sent. me1 16:17 PT-INR Sent. me1 16:17 Troponin HS Sent. me1 16:27 Urinalysis w/ reflexes Sent. me1 16:27 UDS Sent. me1 16:27 Urine collected: clean catch specimen, cloudy. me1 17:06 D-Dimer Sent. me1 17:37 Julian Heath MD is Referral Physician. [facility] 17:39 EKG done, by ED staff, reviewed by Ehsan Mathur MD. me1 17:59 IV discontinued, intact, bleeding controlled, No redness/swelling at site. Pressure me1 dressing applied. Administered Medications: 16:27 Drug: NS 0.9% IV 1000 ml IV at 1 bolus Per protocol; 1000 mL bolus Route: IV; Rate: 1 me1 bolus; Site: left antecubital; 17:57 Follow up: Response: No adverse reaction; IV Status: Completed infusion; IV Intake: me1 1000ml 17:08 Drug: Diazepam PO 10 mg PO once Route: PO; me1 17:37 Follow up: Response: No adverse reaction me1 Medication: 15:14 VIS not applicable for this client. me1 Intake: 17:57 IV: 1000ml; Total: 1000ml. me1 Outcome: 17:38 Discharge ordered by . fiorella 17:59 Discharged to home ambulatory, with significant other, wi1 17:59 Condition: stable 17:59 Discharge instructions given to patient, significant other, Instructed on discharge instructions, follow up and referral plans. medication usage, Demonstrated understanding of instructions, follow-up care, medications, Prescriptions given X 1, 17:59 Patient left the ED. me1 Signatures: Dispatcher [employer] EDMS Ehsan Mathur MD MD cha Garcia, Rubi rg4 Yudith Holloway RN RN ll1 Vivienne Riojas, PA-C PA-C sb4 Jenny David RN RN me1
[2024-02-15 17:41] LABS: Barbiturates NEGATIVE (NEGATIVE); Benzodiazepines POSITIVE (NEGATIVE); Cocaine NEGATIVE (NEGATIVE); METHAMPHETAM NEGATIVE (NEGATIVE); Methadone NEGATIVE (NEGATIVE); Opiates NEGATIVE (NEGATIVE); Phencyclidine NEGATIVE (NEGATIVE); THC Cannibis NEGATIVE (NEGATIVE)
[2024-02-15 18:44] VITALS: BP 120/60; TEMP 98.6; O2SAT 99
--- NOTE | 2024-02-16 14:39 | EKG ---
Test Date: 2024-02-15 Test Time: 16:26:41 Desktop Support Consultant: FERNANDA MEASUREMENT RESULTS: Intervals: Rate: 97 OH: 176 QRSD: 96 QT: 374 QTc: 474 [place]: P: 57 [place]: 176 QRS: 52 T: 59 INTERPRETIVE STATEMENTS: Normal sinus rhythm Low voltage QRS Borderline ECG Compared to ECG 01/24/2024 17:03:44 Sinus tachycardia no longer present Electronically Signed On 02-16-24 14:37:40 CDT by Miguealngel Mckeon
== END 2024-02-15 17:59 | disposition home or self-care (01) ==
LOC: ER 14:53
DX: R00.2 Palpitations (principal); F41.9 Anxiety disorder, unspecified; F31.9 Bipolar disorder, unspecified; Z98.82 Breast implant status
CPT/HCPCS: 93005; 85025; 81001; 80048; 36415; 83735; 85610; 85379; 80076; 84443; 84484; 83880; 80307; 71045; 96360; 99284; J7030

== ENCOUNTER 2024-03-28 20:00 | Inpatient (IN) | payer BC ==
[2024-03-28] MEDS ORDERED: NA CHLORIDE 0.9% 1,000 ML ONE (20:49)
[2024-03-28 21:00] LABS: Absolute Eosinophils 0.1 K/uL (0-0.5); Absolute Lymphocytes (CBC) 3.1 K/uL (0.7-4.9); Absolute Monocytes 0.4 K/uL (0.1-1.3); Absolute Neutrophil 4.9 K/uL (1.8-8.0); Basophils % 0.6 % (0-1.3); Eosinophils % 1.6 % (0-4.4); Hematocrit 42.1 % (36.0-45.0); Hemoglobin 14.1 g/dL (12.0-15.0); Lymphocytes % 35.9 % (15.3-44.8); MCH 29.8 pg (27.0-35.0); MCHC 33.4 g/dL (32.0-36.0); MCV 89.3 fL (80-100); MPV 6.6 fL (7.6-11.3); Monocytes % 4.6 % (3.3-12.3); Neutrophils % 57.3 % (41.7-73.7); Nucleated Red Blood Cells % 0.1 % (0-0); Platelets 236 thou/uL (152-406); RBC Red Blood Cell Count 4.71 M/uL (3.86-4.86); Red Cell Distribution Width 14.7 % (12.1-15.2)
[2024-03-28 21:15] LABS: Albumin 4.2 g/dL (3.4-5.0); Anion Gap 10.6 mEq/L (5.0-15.0); Bilirubin Total 0.4 mg/dL (0.2-1.0); Globulin 4.2 g/dL (2.3-3.5); Potassium 3.6 mEq/L (3.5-5.1); Protein, Total 8.4 g/dL (6.4-8.2)
[2024-03-28 21:20] LABS: PT Prothrombin Time 10.5 SECONDS (9.5-12.5); PTT, Activated Partial Thromb 33.4 SECONDS (24.3-36.9); Protime INR 0.95
[2024-03-28 22:01] LABS: Calcium Oxalate Crystals- Ur Many /HPF (None Seen); Sqamous Epithelial <5 /HPF (None Seen); Urine Bacteria >50 /HPF (<20); Urine Bilirubin NEGATIVE (Negative); Urine Blood Negative (Negative); Urine Clarity Extremely Turbid (Clear); Urine Color Dark-Yellow (Yellow); Urine Culture Reflex Order REFLEXED; Urine Glucose NEGATIVE (Negative); Urine Ketones TRACE (Negative); Urine Microscopic Reflex YN ORDER UMIC; Urine Mucus 1+ /HPF (None Seen); Urine Nitrite NEGATIVE (Negative); Urine Protein 1+ (Negative); Urine RBC None Seen /HPF (None Seen); Urine Urobilinogen Normal (Normal); Urine pH 5.5 (5.0-7.0)
[2024-03-28] MEDS ORDERED: CEFTRIAXONE 1000 MG/VIAL ONE (22:18)
[2024-03-28] MEDS ORDERED: NA CHLORIDE 0.9% 0 ML ONE (22:19)
[2024-03-28] MEDS ORDERED: NA CHLORIDE 0.9% 50 ML ONE (22:29)
--- NOTE | 2024-03-28 22:34 | RAD REPORT ---
EXAM DESCRIPTION: CTAbdomen Pelvis W Contrast - 03/28/2024 10:27 pm CLINICAL HISTORY: Abdominal pain. ABD PAIN COMPARISON: Abdomen Pelvis W Contrast dated 12/20/2021; Abdomen Pelvis W Contrast dated 0; CT ABD PELVIS W CONTRAST dated 05/31/2012; CT ABD PELVIS W CONTRAST dated 03/17/2012 TECHNIQUE: Biphasic CT imaging of the abdomen and pelvis was performed with 100 ml non-ionic IV cont rast. All CT scans are performed using dose optimization technique as appropriate and may include automated exposure control or mA/KV adjustment according to patient size. FINDINGS: The lung bases are clear. The liver demonstrates mild fatty liver. Cholecystectomy clips. Spleen, pancreas, adrenal glands and kidneys are within normal limits. No bowel obstruction, free air, free fluid or abscess. The appendix is not identified as a discrete s tructure, however, no secondary findings of appendicitis are identified. Moderate stool is present t hroughout the colon. No evidence of significant lymphadenopathy. Moderate lumbosacral degenerative changes. IMPRESSION: No acute intra-abdominal or pelvic finding. Mild diffuse fatty liver. Moderate constipation.
--- NOTE | 2024-03-28 22:58 | EDPHYS ---
Physician Documentation [facility] Name: Sharon Babin Age: 53 yrs Sex: Female : 1970 Arrival Date: 03/28/2024 Time: 20:00 Bed 15 Private MD: ED Physician Ehsan Mathur HPI: 03/28 22:05 This 53 yrs old Female presents to ER via Ambulatory with complaints of Back kb Pain, blood in urine. 22:05 Patient is a 53-year-old female who presents for hematuria, dysuria and bilateral flank kb pain that started 2 months ago. States she been treated for a UTI several times over the last 2 months but symptoms returned after completion of antibiotics. States she was feeling weak today so that is what made her come in.. 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 - Infectious Disease History:: Denies. - Social history:: Smoking status: Reported history of juuling and/or vaping. Patient/guardian denies using alcohol, street drugs. ROS: 22:04 Constitutional: As per HPI kb Exam: 22:04 Constitutional: This is a well developed, well nourished patient who is awake, alert, kb and in no acute distress. Head/Face: Normocephalic, atraumatic. ENT: Moist Mucous membranes Cardiovascular: Regular rate Respiratory: Respirations even and unlabored. No increased work of breathing. Talking in full sentences Abdomen/GI: Soft, non-tender. No distention Skin: Warm, dry with normal turgor. Normal color. MS/ Extremity: Pulses equal, no cyanosis. Neurovascular intact. Full, normal range of motion. Neuro: Awake and alert, GCS 15, oriented to person, place, time, and situation. Moves all extremities. Normal gait. 22:04 Back: CVA tenderness, that is mild, is noted bilaterally, Vital Signs: 20:07 BP 145 / 89; Pulse 133; Resp 17 S; Temp 96.6(TE); Pulse Ox 99% on R/A; Weight 95.25 kg; bm8 Height 5 ft. 5 in. (R); 21:00 BP 115 / 71; Pulse 112; Resp 28; Pulse Ox 97% on R/A; lc8 22:00 BP 106 / 79; Pulse 109; Resp 17; Pulse Ox 99% on R/A; lc8 23:00 BP 112 / 60; Pulse 103; Resp 18; Pulse Ox 99% on R/A; lc8 20:07 Body Mass Index 34.95 (95.25 kg, 165.1 cm) bm8 MDM: 20:05 Patient medically screened. kb 22:03 Differential diagnosis: Pyelonephritis UTI, kidney stone. Data reviewed: vital signs, kb nurses notes. ED course: Urine resulted at 2200 showing UTI. Patient now meets criteria for severe sepsis with a time of 2200.. 22:57 Consideration of Admission/Observation Patient was admitted/placed on observation. kb Escalation of care including admission/observation considered. Management of patient was discussed with the following: Hospitalist: Dr Persaud accepts pt for admission. Counseling: I had a detailed discussion with the patient and/or guardian regarding the historical points, exam findings, and any diagnostic results supporting the discharge/admit diagnosis, lab results, radiology results, the need for further work-up and treatment in the hospital. 03/28 20:13 Order name: Blood Culture Adult (2) 03/28 20:13 Order name: CBC with Diff; Complete Time: 21:07 03/28 20:13 Order name: CMP; Complete Time: 21:22 03/28 20:13 Order name: Lactate w/ 2H reflex if indic.; Complete Time: 21:28 03/28 20:13 Order name: Protime (+inr); Complete Time: 21:22 03/28 20:13 Order name: Ptt, Activated; Complete Time: 21:22 03/28 20:13 Order name: Urinalysis w/ reflexes; Complete Time: 22:02 03/28 22:04 Order name: Urine Culture EDMS 03/28 23:18 Order name: Urinalysis w/ reflexes EDMS 03/28 23:18 Order name: CBC with Automated Diff EDMS 03/28 23:18 Order name: CBC with Automated Diff EDMS 03/28 23:18 Order name: Comprehensive Metabolic Panel EDMS 03/28 23:18 Order name: Comprehensive Metabolic Panel EDMS 03/28 23:27 Order name: Ghost Lactate-NO COLLECT Timer; Complete Time: 23:27 EDMS 03/28 23:38 Order name: Glucose, Ancillary Testing; Complete Time: 23:48 EDMS 03/29 00:14 Order name: Lactate Sepsis 2 HR Follow-up; Complete Time: 00:20 EDMS 03/28 22:03 Order name: CT Abd/Pelvis - IV Contrast Only; Complete Time: 22:55 kb 03/28 20:13 Order name: Accucheck; Complete Time: 23:29 kb 03/28 20:13 Order name: Cardiac monitoring; Complete Time: 21:05 kb 03/28 20:13 Order name: EKG - Nurse/Tech; Complete Time: 21:05 kb 03/28 20:13 Order name: IV Saline Lock - Large Bore; Complete Time: 20:47 kb 03/28 20:13 Order name: Labs collected and sent; Complete Time: 20:47 kb 03/28 20:13 Order name: O2 Per Protocol; Complete Time: 20:47 kb 03/28 20:13 Order name: O2 Sat Monitoring; Complete Time: 20:47 kb 03/28 20:13 Order name: Vital Signs; Complete Time: 21:05 kb Administered Medications: 20:14 CANCELLED (Other Intervention Used): ns 0.9% (30 ml/kg) 30 ml/kg IV at bolus once; Sepsis Protocol 21:04 Drug: NS 0.9% IV 1000 ml IV at 1000 ml once Route: IV; Rate: 1000 ml; Site: left 8 antecubital; 22:00 Follow up: IV Status: Completed infusion; IV Intake: 1000ml [facility] 22:00 Follow up: Response: No adverse reaction [facility] 22:31 Drug: Rocephin - Rocephin (cefTRIAXone) IVPB 1 grams IVPB once over 30 mins; (mix in 50 lc8 mL NS) Route: IVPB; Infused Over: 30 mins; Site: left antecubital; 23:00 Follow up: Response: No adverse reaction [facility] Point of Care Testing: Blood Glucose: 23:25 Blood Glucose: 162 mg/dL; lc8 Ranges: Critical Glucose Levels:Adult <50 mg/dl or >400 mg/dl <40 mg/dl or >180 mg/dl Disposition Summary: 03/28/24 22:57 Hospitalization Ordered Notes: Hospitalization Status: Inpatient Admission kb Provider: Ryan Persaud Location: Telemetry/MedSurg (Inpatient) kb Condition: Stable kb Problem: new kb Symptoms: are unchanged kb Bed/Room Type: Standard Room Assignment: 221(03/28/24 23:28) [facility] Diagnosis - UTI/ Urinary tract infection, site not specified kb - Severe sepsis without septic shock kb Forms: - Medication Reconciliation Form kb - SBAR form kb - Leadership Thank You Letter kb Signatures: Dispatcher [employer] EDEvita Epstein FNP-C FNP-Ckb Forrester, Kelsey Maroul [facility] Augustin Allred, RN RN bm8 Saul Sofia RN RN lc8 Corrections: (The following items were deleted from the chart) 20:14 20:13 NS 0.9% IV (30 ml/kg) 30 ml/kg IV at bolus once; Sepsis Protocol ordered. kb kb 20:14 20:14 BLOOD CULTURE*+BA.LAB.BRZ ordered. EDMS EDMS 20:14 20:14 CBC+H.LAB.BRZ ordered. EDMS EDMS 20:14 20:14 COMPREHENSIVE METABOLIC PANEL+C.LAB.BRZ ordered. EDMS EDMS 20:14 20:14 LACTATE+C.LAB.BRZ ordered. EDMS EDMS 20:14 20:14 PROTIME (+INR)+COAG.LAB.BRZ ordered. EDMS EDMS 20:14 20:14 PTT, ACTIVATED+COAG.LAB.BRZ ordered. EDMS EDMS 20:14 20:14 Urinalysis+U.LAB.BRZ ordered. EDMS EDMS 23:28 22:[address] [facility]
--- NOTE | 2024-03-28 22:58 | ER ---
Nurse's Notes [facility] Name: Sharon Babin Age: 53 yrs Sex: Female : 1970 Arrival Date: 03/28/2024 Time: 20:00 Bed 15 Private MD: Diagnosis: UTI/ Urinary tract infection, site not specified;Severe sepsis without septic shock Presentation: 03/28 20:07 Chief complaint: Patient states: lower back pain and bloody urine X2 months. bm8 Coronavirus screen: Client denies travel out of the [place] in the last 14 days. At this time, the client does not indicate any symptoms associated with coronavirus-19. Ebola Screen: No symptoms or risks identified at this time. Initial Sepsis Screen: Does the patient meet any 2 criteria? No. Patient's initial sepsis screen is negative. Does the patient have a suspected source of infection? No. Patient's initial sepsis screen is negative. Risk Assessment: Do you want to hurt yourself or someone else? Patient reports no desire to harm self or others. Onset of symptoms is unknown. 20:07 Method Of Arrival: Ambulatory bm8 20:07 Acuity: XIMENA 3 bm8 Triage Assessment: 20:12 General: Appears in no apparent distress. uncomfortable, Behavior is calm, cooperative. bm8 Pain: Complains of pain in low back area. EENT: No deficits noted. No signs and/or symptoms were reported regarding the EENT system. Neuro: No deficits noted. Cassidy Agitation-Sedation Scale (RASS): 0 - Alert and Calm Level of Consciousness is awake, alert, obeys commands, Oriented to person, place, time, situation. Cardiovascular: No deficits noted. Denies chest pain, shortness of breath, Capillary refill < 3 seconds Clubbing of nail beds is absent JVD is absent Patient's skin is warm and dry. Respiratory: No deficits noted. Airway is patent Respiratory effort is even, unlabored, Respiratory pattern is regular, symmetrical. GI: No deficits noted. No signs and/or symptoms were reported involving the gastrointestinal system. Abdomen is round non-distended, obese, Abd is soft and non tender X 4 quads. : Reports vaginal bleeding that is. Derm: No deficits noted. No signs and/or symptoms reported regarding the dermatologic system. Skin is intact, is healthy with good turgor, Skin is dry, Skin is normal, Skin temperature is warm. Musculoskeletal: No deficits noted. Circulation, motion, and sensation intact. Range of motion: intact in all extremities. 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 - Infectious Disease History:: Denies. - Social history:: Smoking status: Reported history of juuling and/or vaping. Patient/guardian denies using alcohol, street drugs. Screenin:15 [facility] ED Fall Risk Assessment (Adult) History of falling in the last 3 months, lc8 including since admission No falls in past 3 months (0 pts) Confusion or Disorientation No (0 pts) Intoxicated or Sedated No (0 pts) Impaired Gait No (0 pts) Mobility Assist Device Used No (0 pt) Altered Elimination No (0 pt) Score/Fall Risk Level 0 - 2 = Low Risk Oriented to surroundings, Maintained a safe environment, Hourly rounding (assess needs \T\ fall precautionary measures) done. 20:15 Abuse screen: Denies threats or abuse. Denies injuries from another. Nutritional lc8 screening: No deficits noted. Tuberculosis screening: No symptoms or risk factors identified. Assessment: 20:15 General: Appears in no apparent distress. comfortable, Behavior is calm, cooperative. lc8 20:15 Neuro: Level of Consciousness is awake, alert, Oriented to person, place, time, lc8 situation. Cardiovascular: Denies Capillary refill < 3 seconds Patient's skin is warm and dry. GI:. : Reports hematuria. EENT: No deficits noted. No signs and/or symptoms were reported regarding the EENT system. Derm: No signs and/or symptoms reported regarding the dermatologic system. Musculoskeletal: Reports pain in back. 21:30 Reassessment: Patient and/or family updated on plan of care and expected duration. Pain lc8 level reassessed. Patient is alert, oriented x 3, equal unlabored respirations, skin warm/dry/pink. 22:30 Reassessment: No changes from previously documented assessment. Patient and/or family lc8 updated on plan of care and expected duration. Pain level reassessed. 23:30 Reassessment: No changes from previously documented assessment. Patient and/or family lc8 updated on plan of care and expected duration. Pain level reassessed. Vital Signs: 20:07 BP 145 / 89; Pulse 133; Resp 17 S; Temp 96.6(TE); Pulse Ox 99% on R/A; Weight 95.25 kg; bm8 Height 5 ft. 5 in. (R); 21:00 BP 115 / 71; Pulse 112; Resp 28; Pulse Ox 97% on R/A; lc8 22:00 BP 106 / 79; Pulse 109; Resp 17; Pulse Ox 99% on R/A; lc8 23:00 BP 112 / 60; Pulse 103; Resp 18; Pulse Ox 99% on R/A; lc8 20:07 Body Mass Index 34.95 (95.25 kg, 165.1 cm) bm8 ED Course: 20:05 Patient arrived in ED. ra3 20:05 Ev[facility] Rooney [facility]-C [facility] kb 20:05 Ehsan Mathur MD is Attending Physician. kb 20:12 Triage completed. bm8 20:12 Arm band placed on right wrist. bm8 20:15 Patient has correct armband on for positive identification. lc8 20:15 Provided Education on: course of ed visit. lc8 20:15 gambling monitor on. Pulse ox on. NIBP on. lc8 20:30 Inserted saline lock: 20 gauge in left antecubital area, using aseptic technique. Blood lc8 collected. 20:47 Saul Sofia, RN is Primary Nurse. lc8 20:47 Blood Culture Adult (2) Sent. lc8 20:47 CBC with Diff Sent. lc8 20:47 CMP Sent. lc8 20:47 Lactate w/ 2H reflex if indic. Sent. lc8 20:47 Protime (+inr) Sent. lc8 20:47 Ptt, Activated Sent. lc8 20:57 EKG done, by ED staff, reviewed by Ehsan Mathur MD. lc8 21:04 Lactate w/ 2H reflex if indic. Sent. lc8 21:04 CMP Sent. lc8 21:04 CBC with Diff Sent. lc8 21:04 Protime (+inr) Sent. lc8 21:04 Ptt, Activated Sent. lc8 21:04 Blood Culture Adult (2) Sent. lc8 21:26 Urinalysis w/ reflexes Sent. lc8 22:29 CT Abd/Pelvis - IV Contrast Only In Process Unspecified. EDMS 22:57 Ryan Persaud MD is Hospitalizing Provider. nanci 03/29 00:19 No provider procedures requiring assistance completed. 8 00:30 Patient admitted, IV remains in place. lc8 Administered Medications: 03/28 20:14 CANCELLED (Other Intervention Used): ns 0.9% (30 ml/kg) 30 ml/kg IV at bolus once; Sepsis Protocol 21:04 Drug: NS 0.9% IV 1000 ml IV at 1000 ml once Route: IV; Rate: 1000 ml; Site: left [facility] antecubital; 22:00 Follow up: IV Status: Completed infusion; IV Intake: 1000ml [facility] 22:00 Follow up: Response: No adverse reaction [facility] 22:31 Drug: Rocephin - Rocephin (cefTRIAXone) IVPB 1 grams IVPB once over 30 mins; (mix in 50 lc8 mL NS) Route: IVPB; Infused Over: 30 mins; Site: left antecubital; 23:00 Follow up: Response: No adverse reaction [facility] Medication: 20:15 VIS not applicable for this client. 8 Point of Care Testing: Blood Glucose: 23:25 Blood Glucose: 162 mg/dL; [facility] Ranges: Intake: 22:00 IV: 1000ml; Total: 1000ml. [facility] Outcome: 22:57 Decision to Hospitalize by Provider. 03/29 00:30 Admitted to Med/surg accompanied by tech, family with patient, via wheelchair, room lc8 221, with chart, 00:30 Condition: good [facility] 00:30 Instructed on the need for admit, 00:46 Patient left the ED. [facility] Signatures: Dispatcher [employer] EDMS Evita Rooney, AFTERNOON BABYSITTER-C AFTERNOON BABYSITTER-Niki Valera ra3 Augustin Allred, RN RN 8 Saul Sofia RN RN 8
--- NOTE | 2024-03-28 23:09 | P.HP ---
Certification for Inpatient Patient admitted to: Inpatient With expected LOS: >2 Midnights Practitioner: I am a practitioner with admitting privileges, knowledge of patient current condition, hospital course, and medical plan of care. Services: Services provided to patient in accordance with Admission requirements found in Title 42 Section 412.3 of the Code of Federal Regulations Patient History Date of Service: 03/29/24 Reason for admission: UTI History of Present Illness: 53 yrs old Female with past medical history of diabetes, hypertension, hyperlipidemia, hypothyroidism, lupus, bipolar disorder, depressive disorder, fibromyalgia, history of recurrent UTI, chronic back pain, came to ER with hematuria, dysuria and bilateral flank pain which has been going on for the last 2 weeks and has been worsening over the last 2 days and was brought to ER. Patient has recurrent UTI recently. Denies any fever or chills. No chest pain or shortness of breath. No nausea vomiting or diarrhea. Patient was assessed in the ER and was admitted for further management of possible urosepsis Allergies No Known Allergies Allergy (Verified 10/10/23 14:00) Home medications list reviewed: Yes Home Medications: Bupropion *Xl* [Wellbutrin XL] 150 mg PO DAILY 10/10/23 Cadexomer Iodine [Iodoflex] 1 each TP BEDTIME 10/10/23 Codeine/APAP [Tylenol W/Codeine #3 tab] 1 tab PO Q6HP PRN #1 tab 10/10/23 Cyclobenzaprine [Flexeril] 10 mg PO TID PRN 10/10/23 Desvenlafaxine Succinate [Desvenlafaxine Succinate ER] 100 mg PO DAILY 10/10/23 Docusate Sodium [Dulcolax Stool Softener] 100 mg PO DAILY 10/10/23 Folic Acid 1 mg PO DAILY 10/10/23 Furosemide [Lasix] 40 mg PO DAILY 10/10/23 Hydrocodone 10/APAP 325 [[place] 10/325] 1 tab PO Q4H PRN 10/10/23 Insulin Glargine,Hum.rec.anlog [Insulin Glargine] 10 unit SQ DAILY 10/10/23 Insulin Lispro [Humalog Kwikpen U-100] See Protocol SQ ACHS 10/10/23 Levothyroxine Sodium 25 mcg PO DAILY 10/10/23 Metformin HCl [Glucophage] 500 mg PO BIDWM 10/10/23 Milnacipran HCl [Savella] 100 mg PO BID 10/10/23 Multivitamin with Minerals [Icaps Plus] 1 each PO DAILY 10/10/23 Pantoprazole [Protonix Tab] 40 mg PO DAILY 10/10/23 Potassium Chloride [Klor-Con M15] 30 meq PO DAILY 10/10/23 Propranolol [Inderal LA] 60 mg PO DAILY 10/10/23 Trazodone HCl 50 mg PO BEDTIME 10/10/23 clonazePAM [Clonazepam] 1 mg PO TID 10/10/23 oxyBUTYnin chloride [Oxybutynin Chloride] 5 mg PO BID 10/10/23 - Past Medical/Surgical History Diabetic: Yes Past Medical History: Reviewed- Non-Contributory -: diabetes -: lupus -: hypertension -: depression -: hypothyroidism -: Lupus -: Depression -: Bipolar disorder -: Muscle spasm -: Cervical Stenosis Past Surgical History: Reviewed- Non-Contributory -: 3 caesarean sections -: left leg fracture repair -: removal of plate from left leg (MRSA infection) -: back surgery -: carpal tunnel bilateral -: breast augmentation -: Orif femur - Family History Family History: Reviewed- Non-Contributory - Family History Father -: Heart disease Mother -: Other (see notes) Notes: Neurological condition - Social History Smoking Status: Never smoker Alcohol use: No CD- Drugs: No Caffeine use: Yes Review of Systems 10-point ROS is otherwise unremarkable Physical Examination - Vital Signs Temperature: 98.2 F Blood Pressure: 132/78 Pulse: 76 Respirations: 18 Pulse Ox (%): 94 - Physical Exam General: Alert, In no apparent distress, Oriented x3 HEENT: Atraumatic, Normocephalic Neck: Supple, 2+ carotid pulse no bruit Respiratory: Clear to auscultation bilaterally, Normal air movement Cardiovascular: Normal pulses, Regular rate/rhythm, Normal S1 S2 Capillary refill: <2 Seconds Gastrointestinal: Soft and benign, W/out hepatosplenomegaly, No ascites, No masses Musculoskeletal: No clubbing, No swelling Integumentary: No rashes, No breakdown Neurological: Normal speech, Normal strength at 5/5 x4 extr, Cranial nerves 3-12 intact, Normal reflexes 2+ Lymphatics: No axilla or inguinal lymphadenopathy - Studies Laboratory Data (last 24 hrs) 03/28/24 03/28/24 03/28/24 20:41 20:41 20:41 WBC 8.60 Hgb 14.1 Hct 42.1 Plt Count 236 PT 10.5 INR 0.95 APTT 33.4 Sodium 141 Potassium 3.6 BUN 10 Creatinine 0.94 Glucose 156 H Total Bilirubin 0.4 AST 30 ALT 58 H Alkaline Phosphatase 114 Assessment and Plan - Problems (Diagnosis) (1) UTI (urinary tract infection) Current Visit: Yes Status: Acute Plan: UTI Lactic acidosis History of recurrent UTI Started on IV antibiotics Will get culture Change antibiotic as per sensitivity IV hydration Lactic acid levels monitor CT abdomen showed no acute changes Hypertension Antihypertensives titrated Continue home medications and titrate as needed Hyperlipidemia Continue statin Lupus Fibromyalgia Chronic back pain Pain management Monitor renal parameters Electrolytes monitor and replace accordingly Diabetes Insulin sliding scale Accu-Chek before every meal and at bedtime Continue Lantus Bipolar disorder Neuropathy Continue home medications GI/DVT prophylaxis Advanced directive full code Discharge Plan: Home Plan to discharge in: 48 Hours - Advance Directives Does patient have a Living Will: No Does patient have a Durable POA for Healthcare: No - Code Status/Comfort Care Code Status: Full Code Time Spent Managing Pts Care (In Minutes): 48
[2024-03-28] MEDS ORDERED: ONDANSETRON 4 MG/2 ML VIAL IV PRN (23:10)
[2024-03-28] MEDS ORDERED: ACETAMINOPHEN 325 MG TABLET PO PRN (23:10)
[2024-03-29] MEDS ORDERED: CODEINE 30MG/APAP 300MG TAB PO PRN (00:07)
[2024-03-29] MEDS ORDERED: CYCLOBENZAPRINE 10 MG TAB PO PRN (00:07)
[2024-03-29] MEDS ORDERED: D50W 25 GM/50 ML SYRINGE IV PRN (00:10)
[2024-03-29] MEDS ORDERED: GLUCAGON 1 MG/VIAL IM PRN (00:10)
[2024-03-29 01:57] VITALS: BMI 35.0
[2024-03-29] MEDS: NA CHLORIDE 0.9% 1,000 ML IV SCH (02:38)
[2024-03-29] MEDS: PIPER TAZO 3.375 GM in NA CHLORIDE 0.9% 100 ML IV SCH (02:38)
[2024-03-29] MEDS: GABAPENTIN 300 MG CAP PO SCH (02:54)
[2024-03-29] MEDS: TRAZODONE 50 MG TABLET PO SCH (02:55)
[2024-03-29] MEDS: HYDROCODONE/APAP 7.5/325 MG TAB ONE (04:30)
[2024-03-29 04:31] LABS: Albumin 3.4 g/dL (3.4-5.0); Albumin/Globulin Ratio 1.1 (1.1-1.8); Anion Gap 5.6 mEq/L (5.0-15.0); Bilirubin Total 0.3 mg/dL (0.2-1.0); Globulin 3.2 g/dL (2.3-3.5); Potassium 3.6 mEq/L (3.5-5.1); Protein, Total 6.6 g/dL (6.4-8.2)
[2024-03-29 04:38] LABS: Absolute Eosinophils 0.1 K/uL (0-0.5); Absolute Lymphocytes (CBC) 3.3 K/uL (0.7-4.9); Absolute Monocytes 0.5 K/uL (0.1-1.3); Absolute Neutrophil 3.3 K/uL (1.8-8.0); Basophils % 0.5 % (0-1.3); Eosinophils % 1.6 % (0-4.4); Hematocrit 34.7 % (36.0-45.0); Hemoglobin 11.9 g/dL (12.0-15.0); Lymphocytes % 45.4 % (15.3-44.8); MCH 30.4 pg (27.0-35.0); MCHC 34.3 g/dL (32.0-36.0); MCV 88.7 fL (80-100); MPV 6.7 fL (7.6-11.3); Monocytes % 6.5 % (3.3-12.3); Nucleated Red Blood Cells % 0.2 % (0-0); Platelets 199 thou/uL (152-406); RBC Red Blood Cell Count 3.91 M/uL (3.86-4.86); Red Cell Distribution Width 14.3 % (12.1-15.2)
[2024-03-29 07:21] LABS: Phosphorus 3.9 mg/dL (2.5-4.9)
[2024-03-29] MEDS: INSULIN REGULAR (HUMAN) 100 UNIT/ML SQ SCH (07:30)
[2024-03-29] MEDS: methocarbamoL 750 MG TAB PO SCH (08:44)
[2024-03-29] MEDS: ENOXAPARIN 40 MG/0.4 ML SQ SCH (08:44)
[2024-03-29] MEDS: BUPROPION HCL XL 150 MG TAB PO SCH (08:46)
[2024-03-29] MEDS: FUROSEMIDE 40 MG TABLET PO SCH (08:46)
[2024-03-29] MEDS: oxyBUTYnin chloride 5 MG TAB PO SCH (08:46)
[2024-03-29] MEDS: METFORMIN HCL 500 MG TAB PO SCH (08:46)
[2024-03-29] MEDS: DESVENLAFAXINE SUCCINATE 50 MG ER TAB PO SCH (08:46)
[2024-03-29] MEDS: FOLIC ACID 1 MG TABLET PO SCH (08:47)
[2024-03-29] MEDS: POTASSIUM CL SA 10 MEQ TAB PO ONE (08:47)
[2024-03-29] MEDS: HYDROCODONE/APAP 7.5/325 MG TAB PO SCH (08:47)
[2024-03-29] MEDS: DOCUSATE NA 100 MG CAP PO SCH (08:48)
[2024-03-29] MEDS: clonazePAM 1 MG TAB PO SCH (08:48)
[2024-03-29] MEDS: MILNACIPRAN HCL 100 MG PO SCH (08:50)
[2024-03-29] MEDS ORDERED: LEVOTHYROXINE SOD 0.025 MG TAB PO SCH (09:00)
[2024-03-29] MEDS: INSULIN GLARGINE 100 UNIT/ML SQ SCH (10:09)
--- NOTE | 2024-03-29 11:01 | P.PN ---
Subjective Date of Service: 03/29/24 Chief Complaint: UTI Patient reports intermittent back pain. She has been afebrile. She has also been tolerating her diet. Physical Examination - Vital Signs Temperature: 96.8 F Blood Pressure: 122/69 Pulse: 94 Respirations: 16 Pulse Ox (%): 90 - Studies Laboratory Data (last 24 hrs) 03/28/24 03/28/24 03/28/24 20:41 20:41 20:41 WBC 8.60 Hgb 14.1 Hct 42.1 Plt Count 236 PT 10.5 INR 0.95 APTT 33.4 Sodium 141 Potassium 3.6 BUN 10 Creatinine 0.94 Glucose 156 H Total Bilirubin 0.4 AST 30 ALT 58 H Alkaline Phosphatase 114 Assessment And Plan - Plan Physical Examination General: Well-built, Not in acute distress. HEENT: PERRLA, EOMI, anicteric sclera, conjunctiva not pale. Neck: Supple, no elevated JVD, no thyromegaly. Lungs: Clear to auscultation bilaterally. No rhonchi, no rales, no crackles. Heart: S1-S2 heard, rapid, no murmur no gallop no rub. Normal capillary refill. Abdomen: Soft, nontender, nondistended, no hepatosplenomegaly. Extremities: No pedal edema. No deformity. Bilateral flank tenderness. Neuro: No cranial nerve deficit, no focal motor deficit. Psychiatry: Awake, normal behavior, normal affect. Skin: Warm and dry, no rashes. Assessment and plan UTI Lactic acidosis History of recurrent UTI UA suggest UTI. Continue IV Zosyn Follow cultures IV hydration Lupus Fibromyalgia Chronic back pain Analgesics as needed. Resume home medications. Diabetes mellitus type II Insulin sliding scale Continue home dose Lantus Bipolar disorder Neuropathy Continue home medications DVT prophylaxis: Lovenox Advanced directive full code
[2024-03-29] MEDS: HYDROCODONE/APAP 10/325 TAB PO SCH (13:51)
--- NOTE | 2024-03-29 14:53 | EKG ---
Test Date: 2024-03-28 Test Time: 20:57:05 Raw Silk Grader: MEASUREMENT RESULTS: Intervals: Rate: 108 MI: 176 QRSD: 96 QT: 298 QTc: 399 [place]: P: 75 MI: 176 QRS: 101 T: 50 INTERPRETIVE STATEMENTS: Sinus tachycardia Low voltage QRS Borderline ECG Compared to ECG 02/15/2024 16:26:41 Sinus rhythm no longer present Electronically Signed On 03-29-24 14:50:52 CDT by Miguelangel Mckeon
[2024-03-30 07:12] LABS: Absolute Eosinophils 0.1 K/uL (0-0.5); Absolute Monocytes 0.3 K/uL (0.1-1.3); Absolute Neutrophil 1.9 K/uL (1.8-8.0); Basophils % 0.6 % (0-1.3); Eosinophils % 2.3 % (0-4.4); Hematocrit 31.4 % (36.0-45.0); Hemoglobin 10.9 g/dL (12.0-15.0); Lymphocytes % 56.3 % (15.3-44.8); MCH 30.8 pg (27.0-35.0); MCHC 34.8 g/dL (32.0-36.0); MCV 88.5 fL (80-100); MPV 6.4 fL (7.6-11.3); Neutrophils % 34.8 % (41.7-73.7); Nucleated Red Blood Cells % 0.1 % (0-0); Platelets 200 thou/uL (152-406); RBC Red Blood Cell Count 3.55 M/uL (3.86-4.86); Red Cell Distribution Width 14.3 % (12.1-15.2)
[2024-03-30 07:23] LABS: Anion Gap 7.6 mEq/L (5.0-15.0); Potassium 3.6 mEq/L (3.5-5.1)
[2024-03-30] MEDS: LEVOTHYROXINE SOD 0.025 MG TAB PO SCH (08:58)
[2024-03-30 09:19] VITALS: O2SAT 96
[2024-03-30] MEDS: POTASSIUM CL SA 10 MEQ TAB PO ONE (11:41)
--- NOTE | 2024-03-30 19:04 | P.PN ---
Subjective Date of Service: 03/30/24 Chief Complaint: UTI Subjective: Improving SHE CAME IN WITH CHILLS AND UTI. CULTURE PENDING. SHE IS BETTER. MAY GO HOME IN AM ONCE CULTURE IS IDENTIFIED. SHE NEEDS TO VISIT UROGYNECOLOGIST. Review of Systems 10-point ROS is otherwise unremarkable General: Weakness Physical Examination - Vital Signs Temperature: 97.2 F Blood Pressure: 120/66 Pulse: 95 Respirations: 16 Pulse Ox (%): 98 - Physical Exam General: Oriented x3, Mild distress HEENT: Atraumatic, PERRLA, EOMI Neck: Supple, JVD not distended Respiratory: Clear to auscultation bilaterally, Normal air movement Cardiovascular: Regular rate/rhythm, Normal S1 S2 Gastrointestinal: Normal bowel sounds, No tenderness Musculoskeletal: No tenderness Integumentary: No rashes Neurological: Normal speech, Normal tone, Normal affect Lymphatics: No axilla or inguinal lymphadenopathy - Studies Microbiology Data (last 24 hrs): 03/28/24 21:21 Clean Catch Urine [place] Count - Final BETWEEN 10,000 & 100,000 CFU/ML Medications List Reviewed: Yes Assessment And Plan - Current Problems (Diagnosis) (1) UTI (urinary tract infection) Current Visit: Yes Status: Acute Plan: IV ABX ZOSYN IS POSSIBLY OVERKILL STARTED BY ER I WILL DOWN GRADE TO A SIMPLER ANTIBIOTIC ONCE WE HAVE CULTURE. REFER TO UROGYN OP. (2) Bipolar depression Current Visit: No Status: Chronic
[2024-03-31 08:10] VITALS: TEMP 97.8
[2024-03-31 09:08] VITALS: BP 108/64
--- NOTE | 2024-03-31 17:29 | P.DS ---
Admission Date: 03/28/24 Discharge Date: 03/31/24 Disposition: ROUTINE DISCHARGE Discharge Condition: FAIR Reason for Admission: UTI - Problems (1) UTI (urinary tract infection) Status: Acute (2) Bipolar depression Status: Chronic Hospital Course: Sharon had UTI ss but culture is negative. She did well with abx. She is sent home on cipro orally. Vital Signs/Physical Exam: Temp Pulse Resp BP Pulse Ox 97.8 F 86 16 108/64 95 03/31/24 08:00 03/31/24 09:00 03/31/24 08:58 03/31/24 09:00 03/31/24 08:58 Laboratory Data at Discharge: WBC 5.40 thou/uL (4.3-10.9) 03/30/24 06:50 Hgb 10.9 g/dL (12.0-15.0) L D 03/30/24 06:50 Hct 31.4 % (36.0-45.0) L 03/30/24 06:50 Plt Count 200 thou/uL (152-406) 03/30/24 06:50 PT 10.5 SECONDS (9.5-12.5) 03/28/24 20:41 INR 0.95 03/28/24 20:41 APTT 33.4 SECONDS (24.3-36.9) 03/28/24 20:41 Sodium 143 mEq/L (136-145) 03/30/24 06:50 Potassium 3.6 mEq/L (3.5-5.1) 03/30/24 06:50 BUN 10 mg/dL (7-18) 03/30/24 06:50 Creatinine 0.77 mg/dL (0.55-1.02) 03/30/24 06:50 Glucose 119 mg/dL (74-106) H 03/30/24 06:50 Phosphorus 3.9 mg/dL (2.5-4.9) 03/29/24 03:53 Magnesium 2.0 mg/dL (1.6-2.4) 03/29/24 03:53 Total Bilirubin 0.3 mg/dL (0.2-1.0) 03/29/24 03:53 AST 26 U/L (15-37) 03/29/24 03:53 ALT 45 U/L (13-56) 03/29/24 03:53 Alkaline Phosphatase 91 U/L (45-117) D 03/29/24 03:53 Home Medications: Furosemide [Lasix*] 40 mg PO DAILY 10/10/23 Hydrocodone 10/APAP 325 [[place] 10/325*] 7.5 - 325 tab PO TID 10/10/23 Levothyroxine Sodium 25 mcg PO DAILY 10/10/23 Metformin HCl [Glucophage] 1,000 mg PO BIDWM 10/10/23 Milnacipran HCl [Savella] 100 mg PO BID 10/10/23 Trazodone HCl 100 mg PO BEDTIME 10/10/23 clonazePAM [Clonazepam] 1 mg PO TID 10/10/23 oxyBUTYnin chloride [Oxybutynin Chloride] 5 mg PO BID 10/10/23 Buspirone HCl 15 mg PO QID 03/29/24 Desvenlafaxine Succinate [Desvenlafaxine Succinate ER] 100 mg PO DAILY 03/29/24 Folic Acid 1 mg PO DAILY 03/29/24 Gabapentin 600 mg PO BID 03/29/24 Meloxicam 15 mg PO DAILY 03/29/24 Omeprazole [Prilosec] 40 mg PO DAILY 03/29/24 Ondansetron [Zofran] 4 mg PO Q8H PRN 03/29/24 Spironolactone 50 mg PO DAILY 03/29/24 Topiramate 25 mg PO BID 03/29/24 methocarbamoL [Methocarbamol] 750 mg PO BID 03/29/24 Ciprofloxacin HCl [Cipro 500 MG Tablet] 500 mg PO BID #14 tab 03/30/24 New Medications: Ciprofloxacin HCl [Cipro 500 MG Tablet] 500 mg PO BID #14 tab Followup: Nestor Medina MD [ACTIVE - CAN ADMIT] -
== END 2024-03-31 09:56 | disposition home or self-care (01) | DRG 690 ==
LOC: ER 20:00 → ERHOLD 23:10 → 2ND 23:52
PROVIDERS: ADMIT Family Medicine; ATTEND Internal Medicine
DX: N39.0 Urinary tract infection, site not specified (principal); E87.20 Acidosis, unspecified; I10 Essential (primary) hypertension; F31.9 Bipolar disorder, unspecified; E11.40 Type 2 diabetes mellitus with diabetic neuropathy, unspecified; M79.7 Fibromyalgia; E78.00 Pure hypercholesterolemia, unspecified; E03.9 Hypothyroidism, unspecified; M32.9 Systemic lupus erythematosus, unspecified; G89.29 Other chronic pain; M54.9 Dorsalgia, unspecified; Z79.4 Long term (current) use of insulin; Z79.84 Long term (current) use of oral hypoglycemic drugs; Z90.49 Acquired absence of other specified parts of digestive tract; Z86.14 Personal history of Methicillin resistant Staphylococcus aureus infection; Z79.890 Hormone replacement therapy; Z79.899 Other long term (current) drug therapy
CPT/HCPCS: 36415; 74177; 80048; 80053; 81001; 82947; 83605; 83735; 84100; 85025; 85610; 85730; 87040; 87086; 87088; 93005; 96361; 96374; 99285; J0696; J1650; J2543; J7030; Q9967

== ENCOUNTER 2024-06-28 05:09 | Emergency (ER) | payer BC ==
[2024-06-28] MEDS ORDERED: HYDROCODONE/APAP 10/325 TAB ONE (05:35)
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
[2024-06-28] MEDS ORDERED: dexAMETHasone 10 MG/ML VIAL ONE (06:56)
[2024-06-28 07:44] VITALS: TEMP 97
[2024-06-28 07:46] VITALS: BP 148/92; O2SAT 100
--- NOTE | 2024-06-28 15:07 | RAD REPORT ---
CLINICAL HISTORY: Pain. COMPARISON: None. TECHNIQUE: CT LUMBAR SPINE WITHOUT IV CONTRAST on 06/28/2024 5:29 AM CDT This exam was performed according to our departmental dose-optimization program, which includes autom ated exposure control, adjustment of the mA and/or kV according to patient size and/or use of iterative reconstruction techn ique. FINDINGS: There is no acute fracture. Vertebral body heights are preserved. There is grade 1 anterolisthesis of L4 on L5. There is mild lower lumbar facet arthritis. There is vacuum disc phenomenon at L3-4. Soft tissues are unremarkable. IMPRESSION: No acute fracture or subluxation. Electronically signed by: Michael Horan MD 06/28/2024 06:46 AM CDT RP Transcribed Date/Time: 06/28/2024 3:07 PM Due to temporary technical issues with the PACS/[employer] reporting system, reports are being stefanie d by the in-house radiologist without review as a courtesy to ensure prompt reporting the interpreting radiologist is fully responsible for the content of the report.
== END 2024-06-28 07:29 | disposition home or self-care (01) ==
LOC: ER 05:09
DX: M54.50 Low back pain, unspecified (principal)
CPT/HCPCS: 72131; J1100; 96372; 99284